=== PATIENT | female | born 1950 | race Caucasian/White ===

== ENCOUNTER → 2016-04-30 | Outpatient (CLI) | payer MEDICARE ==
--- NOTE | 2016-04-30 15:25 | XR ---
EXAMINATION TYPE: XR chest 2V DATE OF EXAM: 04/30/2016 12:52 PM COMPARISON: None HISTORY: 66-year-old female with COPD and shortness of breath TECHNIQUE: Frontal and lateral views FINDINGS: The heart is borderline enlarged. Atherosclerotic arch calcifications. Diffuse interstitial prominenc e. No consolidation or pleural effusion. Underlying scoliosis. IMPRESSION: Diffuse interstitial densities of unknown chronicity. Possible bronchitis or chronic asthma. Correlat e to exclude mild pulmonary vascular congestion.
--- NOTE | 2016-05-07 10:13 | MM ---
Reason for exam: screening (asymptomatic). Last mammogram was performed 2 years and 4 months ago. History: Patient is postmenopausal. Physical Findings: A clinical breast exam by your physician is recommended on an annual basis and results should be correlated with mammographic findings. MG 3D Screening Mammo W/Cad Bilateral CC and MLO view(s) were taken. Prior study comparison: December 20, 2013, mammogram, performed at [place]. March 08, 2012, mammogram, performed at [place]. Finding: There are coarse heterogeneous, grouped/clustered calcifications in the posterior position of the right breast seen on CC view. ASSESSMENT: Probably benign, BI-RAD 3 RECOMMENDATION: Follow-up diagnostic mammogram of the right breast in 6 months.
== END | disposition home or self-care (01) ==
LOC: RADMAMWWP 12:27
PROVIDERS: ATTEND Family Medicine
DX: Z12.31 Encounter for screening mammogram for malignant neoplasm of breast (principal); J98.4 Other disorders of lung; J44.9 Chronic obstructive pulmonary disease, unspecified
CPT/HCPCS: 71020; 77063; G0202

== ENCOUNTER → 2016-12-02 | Outpatient (CLI) | payer MEDICARE ==
[2016-12-02 12:45] VITALS: BP 109/50; PULSE 82; RESP 18; TEMP 98.2; BMI 62.4
[2016-12-02 13:45] LABS: EKG EKG PERFORMED
[2016-12-02 14:01] LABS: CH 32.4; CHCM 32.4; HCT 37.2 % (34.0-46.0); HDW 2.48; HGB 12.1 gm/dL (11.4-16.0); MCH 32.6 pg (25.0-35.0); MCHC 32.5 g/dL (31.0-37.0); MCV 100.3 fL (80.0-100.0); Mean Platelet Volume 8.7; RDW 13.5 % (11.5-15.5); WBC 10.2 k/uL (3.8-10.6)
[2016-12-02 14:26] LABS: ALT 27 U/L (9-52); AST 15 U/L (14-36); Alkaline Phosphatase 101 U/L (38-126); Anion Gap 10 mmol/L; Blood Urea Nitrogen 42 mg/dL (7-17); Carbon Dioxide 27 mmol/L (22-30); Chloride 104 mmol/L (98-107); Cholesterol 175 mg/dL (<200); Glucose 117 mg/dL (74-99); HDL Cholesterol 37 mg/dL (40-60); Iron 75 ug/dL (37-170); Non-African American GFR(MDRD) 50 (>60 ml/min/1.73 sqM); Potassium 4.8 mmol/L (3.5-5.1); Sodium 141 mmol/L (137-145); Total Bilirubin 0.3 mg/dL (0.2-1.3); Total Protein 6.5 g/dL (6.3-8.2)
[2016-12-02 14:35] LABS: % Iron Saturation 24.8 % (20-50); Total Iron Binding Capacity 302 ug/dL (265-497)
[2016-12-02 15:30] LABS: Vitamin B12 417 pg/mL
[2016-12-02 18:19] LABS: Hemoglobin A1C 7.2 % (4.2-6.1)
--- NOTE | 2017-01-09 04:07 | P.PN ---
Progress Note - Text DATE OF SERVICE: 12/02/2016 REASON FOR CONSULTATION: Initial bariatric evaluation. HISTORY OF PRESENT ILLNESS: Lilian Urrutia is a 67-year-old female travels from [place], [place] who presents with morbid obesity. Her highest weight was 401 pounds. Today she comes in weighing 340.5 pounds. At her height of 5 foot 2 inches, her ideal body weight is 135 pounds. She is 205 pounds overweight. Her highest body mass index was 73.5. Today her BMI is 62.4. As a result of her obesity, she has developed osteoarthritis of her bilateral knees requiring knee replacement. She reports bilateral hip pain. She has history of lifelong obesity including weight loss program in the fifth grade. She has tried curbing her appetite and was in [employer] where she lost up to 100 pounds however now regained. She reports moderate bruising from taking aspirin including from ibuprofen use.S he has developed comorbidities including hypertension and diabetes type 2. She has a family history of hypertension including morbid obesity. She has social support with her friends who also had bariatric surgery. She reports heartburn. She has family history of hypertension including morbid obesity however 3 of her sisters are of normal body habitus. She has a strong family history of gastrointestinal disease where her father at age of 37 from stomach cancer. Her father, mother and grandmother also had gastrointestinal issues. She has a nephew who has stage IV esophageal cancer. She also has gastroesophageal reflux disease in her family as well. She presents here today upon recommendation of her orthopedic provider the bariatric options. She is looking into the gastric bypass. PAST MEDICAL HISTORY: 1. Morbid obesity. 2. Body mass index of 73.5. 3. End-stage osteoarthritis of the bilateral knees. 4. Obstructive sleep apnea. 5. Osteoarthritis of the hips 6. Hypertensive heart disease. 7. Gastroesophageal reflux disease 8. Asthma 9. Chronic obstructive pulmonary disease. 10. Diabetes type 2, [id number]. 11. Hypothyroidism. 12. Depression. 13. Seasonal allergies. PAST SURGICAL HISTORY: 1. Umbilical hernia repair. 2. Hysterectomy. 3. Bilateral carpal tunnel surgery. 4. Left knee fracture. 5. Right wrist pinning. 6. Bilateral cataract extraction. 7. Carpal tunnel release, bilateral. HOME MEDICATIONS: 1. Ellipta inhaler 2. Oxybutinin. 3. Hiprex. 4. Zestoretic 5. Levothyroxine. 6. Lantus. 7. Advair. 8. Pepcid. 9. Prozac 10. Dymista 11. Ventolin inhaler. 12. Zyrtec. 13. Ibuprofen. 14. Aspirin. 15. Klor-Con. ALLERGIES: Denies. SOCIAL HISTORY: Past tobacco use. No active alcohol use. FAMILY HISTORY: No family history of ulcerative colitis disease or Crohn's disease. She does have a family history of morbid obesity. She denies any lupus in her family. She has family history of hypertension including morbid obesity however 3 of her sisters are of normal body habitus. She has a strong family history of gastrointestinal disease where her father at age of 37 from stomach cancer. Her father, mother and grandmother also had gastrointestinal issues. She has a nephew who has stage IV esophageal cancer. She also has gastroesophageal reflux disease in her family as well. Lung cancer in grandmother at 83. REVIEW OF ORGAN SYSTEMS: CONSTITUTIONAL: Her highest weight was 401 pounds. Today she comes in weighing 340.5 pounds. At her height of 5 foot 2 inches, her ideal body weight is 135 pounds. She is 205 pounds overweight. Her highest body mass index was 73.5. Today her BMI is 62.4. HEENT: Denies any active troubles with vision or hearing. No troubles with swallowing. ENDOCRINE: Has insulin dependent diabetes. Has hypothyroidism. CARDIOVASCULAR: No reports of palpitations or heart attacks or chest pain. History of hypertension. RESPIRATORY: Has daytime somnolence including snoring and sleep apnea. Has asthma. GI: Denies any bright red blood per rectum. Has constipation. Does have gastroesophageal reflux disease as described above. MUSCULOSKELETAL: Has lower back pain and joint pain. Has osteoarthritis of the hips and knees. NEURO: No eadaches. No seizure disorders. PSYCH: Has depression without suicidal ideation. RHEUMATOLOGIC: No lupus. No rheumatoid arthritis. HEMATOLOGIC: Has abnormal bruising. No personal history of DVTs. SKIN: No rash. No skin cancer. PHYSICAL EXAM: VITAL SIGNS: Height 5 foot 2 inches, weight 340.5 pounds. BMI 62.4 Vital Signs Temp 98.2 F 12/02/16 12:25 Pulse 82 12/02/16 12:25 Resp 18 12/02/16 12:25 BP 109/50 12/02/16 12:25 Pulse Ox 95 12/02/16 12:25 GENERAL: Well-developed female in no acute distress. HEENT: No scleral icterus. Extraocular movements grossly intact. Hears conversational speech. No nasal drainage. NECK: Supple without lymphadenopathy. Well-healed collar incision from previous thyroidectomy. CHEST: Nonlabored respirations with equal bilateral excursions. CARDIOVASCULAR: Regular rate. Distal 2+ pulses. ABDOMEN: Obese, soft, nontender, nondistended. Moderate sized pannus with panniculitis. Epigastric swelling with recurrent hernia. MUSCULOSKELETAL: No clubbing, cyanosis. Gross strength 5/5 distal lower extremities. 2+ bilateral edema of the pre-tibial area. NEURO: No focal or lateralizing signs. Cranial nerves 2 through 12 grossly within normal limits. PSYCH: Appropriate affect. Alert and oriented to person, place and time. SKIN: Good skin turgor. Well perfused. ASSESSMENT: 1. Morbid obesity. 2. Body mass index of 73.5 down to 62.4. 3. End-stage osteoarthritis of the bilateral knees. 4. Obstructive sleep apnea. 5. Osteoarthritis of the hips 6. Hypertensive heart disease. 7. Gastroesophageal reflux disease 8. Asthma 9. Chronic obstructive pulmonary disease. 10. Diabetes type 2, [id number]. 11. Hypothyroidism. 12. Depression. 13. Seasonal allergies. 14. Recurrent ventral hernia. 15. Panniculitis. 16. Family history of morbid obesity. 17. Family history of stomach cancer. 18. Family history of esophageal cancer. PLAN: 1. Surgical options including a band, gastric bypass, sleeve gastrectomy were described in detail. Alternatives such as gastric balloon including duodenal switch were described. 2. The [place] [facility] data and outcomes calculator were described with surgical options. 3. Recommend a bariatric metabolic panel to evaluate for micro- including macronutrient deficiencies. 4. For history of sleep apnea, recommend evaluation and treatment. 5. Dietary surveillance and counseling was reviewed, I have asked her to increase her protein intake to at least 70 grams daily. 6. Will need cardiac risk assessment. 7. Recommend medical risk assessment. 8. Psych assessment per insurance guidelines. 9. Follow up upon completion of upper endoscopy. 10. Recommend food journal. 11. She has worrisome history of possible recurrent ventral hernia including adhesions from previous hysterectomy. Recommend additional studies such as CT abdomen and pelvis and potentially diagnostic laparoscopy as she is evaluating for a gastric bypass. Thank you for this consultation. LABS: Laboratory Last Values WBC 10.2 k/uL (3.8-10.6) 12/02/16 13:39 RBC 3.70 m/uL (3.80-5.40) L 12/02/16 13:39 Hgb 12.1 gm/dL (11.4-16.0) 12/02/16 13:39 Hct 37.2 % (34.0-46.0) 12/02/16 13:39 MCV 100.3 fL (80.0-100.0) H 12/02/16 13:39 MCH 32.6 pg (25.0-35.0) 12/02/16 13:39 MCHC 32.5 g/dL (31.0-37.0) 12/02/16 13:39 RDW 13.5 % (11.5-15.5) 12/02/16 13:39 Plt Count 291 k/uL (150-450) 12/02/16 13:39 Sodium 141 mmol/L (137-145) 12/02/16 13:39 Potassium 4.8 mmol/L (3.5-5.1) 12/02/16 13:39 Chloride 104 mmol/L (98-107) 12/02/16 13:39 Carbon Dioxide 27 mmol/L (22-30) 12/02/16 13:39 Anion Gap 10 mmol/L 12/02/16 13:39 BUN 42 mg/dL (7-17) H 12/02/16 13:39 Creatinine 1.10 mg/dL (0.52-1.04) H 12/02/16 13:39 Est GFR (MDRD) Af Amer >60 (>60 ml/min/1.73 sqM) 12/02/16 13:39 Est GFR (MDRD) Non-Af 50 (>60 ml/min/1.73 sqM) 12/02/16 13:39 Glucose 117 mg/dL (74-99) H 12/02/16 13:[address] Glu mg/dL 160 mg/dL 12/02/16 13:39 Hemoglobin A1c 7.2 % (4.2-6.1) H 12/02/16 13:39 Calcium 9.0 mg/dL (8.4-10.2) 12/02/16 13:39 Iron 75 ug/dL (37-170) 12/02/16 13:39 TIBC 302 ug/dL (265-497) 12/02/16 13:39 % Saturation 24.8 % (20-50) 12/02/16 13:39 Ferritin 49 ng/mL (11-264) 12/02/16 13:39 Total Bilirubin 0.3 mg/dL (0.2-1.3) 12/02/16 13:39 AST 15 U/L (14-36) 12/02/16 13:39 ALT 27 U/L (9-52) 12/02/16 13:39 Alkaline Phosphatase 101 U/L (38-126) 12/02/16 13:39 Total Protein 6.5 g/dL (6.3-8.2) 12/02/16 13:39 Albumin 4.0 g/dL (3.5-5.0) 12/02/16 13:39 Triglycerides 199 mg/dL (<150) H 12/02/16 13:39 Cholesterol 175 mg/dL (<200) 12/02/16 13:39 LDL Cholesterol, Calc 98 mg/dL (0-99) 12/02/16 13:39 HDL Cholesterol 37 mg/dL (40-60) L 12/02/16 13:39 Vitamin B1 59 ug/L (38-122) 12/02/16 13:39 Vitamin B12 417 pg/mL 12/02/16 13:39 Vitamin D 25-Hydroxy 14.1 ng/mL (30.0-100.0) L 12/02/16 13:39 Folate 8.84 ng/mL 12/02/16 13:39 TSH 2.760 mIU/L (0.465-4.680) 12/02/16 13:39 EKG EKG PERFORMED 12/02/16 13:39
== END | disposition home or self-care (01) ==
LOC: BARWHC3 12:13
PROVIDERS: ATTEND Surgery Plastic and Reconstructive Surgery
DX: Z48.815 Encounter for surgical aftercare following surgery on the digestive system (principal); E66.01 Morbid (severe) obesity due to excess calories; M17.0 Bilateral primary osteoarthritis of knee; M16.0 Bilateral primary osteoarthritis of hip; G47.33 Obstructive sleep apnea (adult) (pediatric); K21.9 Gastro-esophageal reflux disease without esophagitis; I11.9 Hypertensive heart disease without heart failure; J45.909 Unspecified asthma, uncomplicated; J44.9 Chronic obstructive pulmonary disease, unspecified; E11.9 Type 2 diabetes mellitus without complications; E03.9 Hypothyroidism, unspecified; F32.9 Major depressive disorder, single episode, unspecified; J30.2 Other seasonal allergic rhinitis; K43.2 Incisional hernia without obstruction or gangrene; E44.0 Moderate protein-calorie malnutrition; D50.8 Other iron deficiency anemias; M79.3 Panniculitis, unspecified; Z80.8 Family history of malignant neoplasm of other organs or systems; Z68.44 Body mass index [BMI] 60.0-69.9, adult; Z98.84 Bariatric surgery status; Z79.899 Other long term (current) drug therapy; Z79.82 Long term (current) use of aspirin
CPT/HCPCS: 84425; 80061; 80053; 82607; 82728; 83036; 82746; 83540; 83550; 84443; 85027; 82306; 93005; 36415; G0463; 99211

== ENCOUNTER 2017-01-13 11:55 | Inpatient (IN) | payer MEDICARE ==
[2017-01-13 13:11] VITALS: BMI 64.0
[2017-01-13 14:51] LABS: Anion Gap 8 mmol/L; Blood Urea Nitrogen 25 mg/dL (7-17); Calcium 8.7 mg/dL (8.4-10.2); Carbon Dioxide 30 mmol/L (22-30); Chloride 106 mmol/L (98-107); Glucose 100 mg/dL (74-99); Non-African American GFR(MDRD) 57 (>60 ml/min/1.73 sqM); Potassium 4.2 mmol/L (3.5-5.1); Sodium 144 mmol/L (137-145)
[2017-01-13 15:00] LABS: Basophils # (A) 0.1 k/uL (0-0.2); Basophils % (A) 0 %; CHCM 30.8; Eosinophils # (A) 0.4 k/uL (0-0.7); Eosinophils % (A) 4 %; HCT 37.2 % (34.0-46.0); HDW 2.76; HGB 11.6 gm/dL (11.4-16.0); Hypochromasia Moderate; Luc # (Auto) 0.21; Luc % (Auto) 2; Lymphocytes # (A) 2.4 k/uL (1.0-4.8); Lymphocytes % (A) 23 %; MCH 31.4 pg (25.0-35.0); MCHC 31.1 g/dL (31.0-37.0); MCV 101.1 fL (80.0-100.0); Macrocytosis Slight; Mean Platelet Volume 7.8; Monocytes # (A) 0.6 k/uL (0-1.0); Monocytes % (A) 6 %; Neutrophils # (A) 6.7 k/uL (1.3-7.7); Neutrophils % (A) 65 %; RBC 3.68 m/uL (3.80-5.40); RDW 13.5 % (11.5-15.5); WBC 10.4 k/uL (3.8-10.6); WBC (Perox) 10.38
[2017-01-13] MEDS: DILTIAZEM 125 MG in SODIUM CHLORIDE 0.9% 100 ML IV SCH (15:38)
[2017-01-13] MEDS ORDERED: HEPARIN SODIUM,PORCINE 5,000 UNIT/ML 1 ML VIAL IV PRN (16:11)
[2017-01-13] MEDS ORDERED: HEPARIN SODIUM,PORCINE 5,000 UNIT/ML 1 ML VIAL IV ONE (16:11)
[2017-01-13] MEDS ORDERED: HEPARIN SODIUM,PORCINE/D5W PMX 25,000 UNIT in DEXTROSE/WATER 1 500ML.BAG IV SCH (16:15)
[2017-01-13 16:40] LABS: INR 1.1 (<1.2); Partial Thromboplastin Time 25.5 sec (22.0-30.0); Prothrombin Time 10.8 sec (9.0-12.0)
[2017-01-13 16:51] LABS: Glucose,Whole Blood 163 mg/dL (75-99)
[2017-01-13 17:03] VITALS: RESP 18
[2017-01-13] MEDS ORDERED: Acetaminophen-Codeine 300-30mg TAB PO PRN (18:23)
--- NOTE | 2017-01-13 20:28 | HP ---
HISTORY AND PHYSICAL DATE OF ADMISSION: 01/13/17. PRESENT COMPLAINT: Dizzy. HISTORY OF PRESENT COMPLAINT: A very pleasant, 67-year-old patient of Dr. Morris. Chronic stable medical conditions include COPD, diabetes, GERD, osteoarthritis, sleep apnea uses CPAP machine, hypothyroidism. The patient has not followed up with Dr. Morris for a few months. Has been out of her medications including blood pressure medications. Went for routine checkup today. She was discovered to have a increased heart rate and low blood pressure. EKG reveals patient to be in atrial flutter fibrillation. Increased heart rate. Dr. Sarah Cedeno from Cardiology admitted the patient directly to the cardiac floor. The patient is started on IV Cardizem drip, IV heparin. Denies any chest pain or palpitation. REVIEW OF SYSTEMS: Constitutional: Tired. HEENT none. Respiratory: Baseline short of breath. CARDIOVASCULAR: As above gastrointestinal: Heartburn. GENITOURINARY: Urine incontinence. DERMATOLOGICAL: None. Hematological: None. LYMPHATIC: None. Psychiatric: None. Neurological: None. PAST MEDICAL HISTORY: COPD, diabetes, GERD, osteoarthritis, obstructive sleep apnea, hypothyroid, depression, not treated. PAST SURGICAL HISTORY: Hernia repair. Hysterectomy, umbilical hernia repair. Bilateral carpal tunnel. Left cataract. PAST PSYCH HISTORY: Depression. SOCIAL HISTORY: Patient smoked for about 15 years. Stopped 30 years ago. The patient is a , lives by herself. FAMILY HISTORY: Lung cancer. HOME MEDICATIONS: 1. Zestoretic 20/12.5, 1 tablet p.o. daily. 2. Advair 250/50 one puff b.i.d. 3. Ventolin HFA 1 or 2 puffs q.6h p.r.n. 4. Intrusilipta 1 puff daily. 5. Zocor 20 mg q.h.s. 6. Potassium 10 mEq p.o. daily. 7. Oxybutynin 15 mg p.o. b.i.d. 8. Hiprex 1 g p.o. b.i.d. 9. Terasin 75 mcg p.o. daily. 10.Lantus 28 units subcutaneously daily. 11.Ibuprofen 800 mg p.o. b.i.d. 12.Pepcid 20 mg b.i.d. 13.Dimesta 137 mcg b.i.d. 14.Zyrtec 10 mg p.o. daily. 15.Aspirin 325 p.o. daily. ALLERGIES: None. PHYSICAL EXAMINATION: Vital signs on presentation: Temperature 97.2, pulse 139, respiration 18, blood pressure 130/71, pulse ox 97% on room air. GENERAL APPEARANCE: Morbidly obese. BMI 64.1, sitting up, not in distress. EYES: Pupils equal. Conjunctivae normal. HEENT: Oral cavity normal. Neck: Short neck, thick JVD unable to assess. Respiratory effort increased. Lungs distant breath sounds. Cardiovascular HEART: Sounds muffled. Minimal edema. Abdomen distended. Large panniculus. Liver and spleen not palpable. Lymphatics: No lymph nodes palpable in the neck and axilla. Psychiatry alert x3. Mood and affect normal. Neurological: Pupils equal. Cranial nerves grossly intact. Power and sensation grossly intact. INVESTIGATIONS: White count 10.5, hemoglobin 11.6, potassium 4.2, BUN 25, creatinine 0.98. TSH is normal. ASSESSMENT: 1. Atrial flutter fibrillation. New onset. May be newly diagnosed though this first discovered on routine recheck, the patient may have had for quite some time. 2. Chronic obstructive pulmonary disease in an ex-smoker. 3. Diabetes mellitus type 2, chronically on insulin. 4. Gastroesophageal reflux disease. 5. Morbid obesity. BMI 64.1. 6. Primary osteoarthritis multiple joints, bilaterally. 7. Obstructive sleep apnea uses CPAP machine. 8. Hypothyroid. 9. IV heparin monitoring. PLAN: Patient is put on IV heparin. Cardizem. Home medications were resumed. Given that the patient will need anticoagulation will DC patient's Motrin and use Tylenol 3 for arthritic pain. Cardiology is consulted. We will also order a 2-D echocardiogram. Care was discussed with the patient. Will have the dietitian see the patient for weight loss. Copy to Dr. Morris. MMKITAL / IJN: [id number] /
[2017-01-13] MEDS: SYMBICORT 80-4.5 MCG INHALER INHALATION SCH (20:53)
[2017-01-13 20:54] LABS: Glucose,Whole Blood 125 mg/dL (75-99)
[2017-01-13] MEDS: ALBUTEROL NEBULIZED 2.5 MG/3 ML INHALATION PRN (20:54)
[2017-01-13] MEDS: FLUTICASONE 50MCG/SPRAY NASAL 16GM NASAL SCH (20:54)
[2017-01-13] MEDS: AZELASTINE 137MCG/SPRAY NASAL SCH (20:54)
[2017-01-13] MEDS: ATORVASTATIN 10 MG TAB PO SCH (20:55)
[2017-01-13] MEDS: FAMOTIDINE 20 MG TAB PO SCH (20:55)
[2017-01-13] MEDS: OXYBUTYNIN 15 MG TAB.ER.24 PO SCH (20:55)
[2017-01-13] MEDS ORDERED: NON-FORMULARY DRUG (Methenamine Hippurate [Hiprex] 1 GM) PO SCH (21:00)
[2017-01-14 06:09] LABS: Basophils # (A) 0.1 k/uL (0-0.2); Basophils % (A) 1 %; CHCM 31.6; Eosinophils # (A) 0.5 k/uL (0-0.7); Eosinophils % (A) 5 %; HCT 38.3 % (34.0-46.0); HDW 2.78; HGB 11.8 gm/dL (11.4-16.0); Hypochromasia Slight; Luc # (Auto) 0.19; Luc % (Auto) 2; Lymphocytes # (A) 2.8 k/uL (1.0-4.8); Lymphocytes % (A) 31 %; MCH 31.3 pg (25.0-35.0); MCHC 30.8 g/dL (31.0-37.0); MCV 101.7 fL (80.0-100.0); Macrocytosis Slight; Monocytes # (A) 0.5 k/uL (0-1.0); Monocytes % (A) 5 %; Neutrophils # (A) 5.2 k/uL (1.3-7.7); Neutrophils % (A) 57 %; RBC 3.77 m/uL (3.80-5.40); RDW 14.4 % (11.5-15.5); WBC 9.1 k/uL (3.8-10.6); WBC (Perox) 11.19
[2017-01-14 06:16] LABS: Glucose,Whole Blood 126 mg/dL (75-99)
[2017-01-14] MEDS: LEVOTHYROXINE 75 MCG TAB PO SCH (06:18)
[2017-01-14 06:21] LABS: ALT 40 U/L (9-52); AST 20 U/L (14-36); Alkaline Phosphatase 84 U/L (38-126); Anion Gap 11 mmol/L; Blood Urea Nitrogen 25 mg/dL (7-17); Calcium 8.8 mg/dL (8.4-10.2); Carbon Dioxide 25 mmol/L (22-30); Chloride 106 mmol/L (98-107); Glucose 128 mg/dL (74-99); Non-African American GFR(MDRD) >60 (>60 ml/min/1.73 sqM); Potassium 4.4 mmol/L (3.5-5.1); Sodium 142 mmol/L (137-145); Total Bilirubin 0.4 mg/dL (0.2-1.3); Total Protein 6.1 g/dL (6.3-8.2)
[2017-01-14] MEDS: DILTIAZEM 125 MG in SODIUM CHLORIDE 0.9% 100 ML IV SCH ×2 (06:46→17:19)
[2017-01-14] MEDS: SYMBICORT 80-4.5 MCG INHALER INHALATION SCH ×2 (08:16→19:58)
[2017-01-14] MEDS: IPRATROPIUM 0.5 MG/2.5 ML NEBU INHALATION SCH ×4 (08:16→19:58)
[2017-01-14] MEDS: AZELASTINE 137MCG/SPRAY NASAL SCH ×2 (08:53→20:00)
[2017-01-14] MEDS: FLUTICASONE 50MCG/SPRAY NASAL 16GM NASAL SCH ×2 (08:53→20:00)
[2017-01-14] MEDS: LISINOPRIL-HCTZ 20-12.5 MG 1 EACH TAB PO SCH (08:54)
[2017-01-14] MEDS: FAMOTIDINE 20 MG TAB PO SCH (08:54)
[2017-01-14] MEDS: OXYBUTYNIN 15 MG TAB.ER.24 PO SCH ×2 (08:55→20:00)
[2017-01-14] MEDS: POTASSIUM CHLORIDE ER 10 MEQ TAB.ER.PRT PO SCH (08:55)
[2017-01-14] MEDS: LORATADINE 10 MG TAB PO SCH (08:55)
[2017-01-14] MEDS ORDERED: INSULIN GLARGINE 100 UNIT/ML 10 ML VIAL SQ SCH ×2 (09:00→21:00)
[2017-01-14] MEDS ORDERED: ASPIRIN 325 MG TAB PO SCH (09:00)
--- NOTE | 2017-01-14 09:32 | ECHOF ---
Referral Reason:af MEASUREMENTS -------- HEIGHT: 157.5 cm WEIGHT: 158.8 kg BP: 139/86 RVIDd: 3.0 cm (< 3.3) IVSd: 1.3 cm (0.6 - 1.1) LVIDd: 3.9 cm (3.9 - 5.3) LVPWd: 1.3 cm (0.6 - 1.1) EDV(Teich): 64 ml IVSs: 1.9 cm LVIDs: 2.1 cm LVPWs: 1.9 cm %IVS Thck: 49 % ESV(Teich): 15 ml EF(Teich): 77 % %FS: 45 % SV(Teich): 49 ml LALs A4C: 5.7 cm LAAs A4C: 19.1 cm LAESV A-L A4C: 54 ml LAESV MOD A4C: 52 ml LALs A2C: 5.5 cm LAAs A2C: 20.9 cm LAESV A-L A2C: 68 ml LAESV MOD A2C: 64 ml LAESV(A-L): 62 ml LAESV Index (A-L): 25.45 ml/m Ao Diam: 3.3 cm (2.0 - 3.7) AV Cusp: 1.6 cm (1.5 - 2.6) LA Diam: 2.8 cm (2.7 - 3.8) MV EXCURSION: 16.594 mm (> 18.000) MV EF SLOPE: 80 mm/s (70 - 150) EPSS: 0.4 cm E': 0.11 m/s AV Vmax: 1.34 m/s AV maxP.23 mmHg TR Vmax: 3.21 m/s TR maxP.26 mmHg RAP: 5.00 mmHg RVSP: 46.26 mmHg FINDINGS -------- Sinus rhythm with extra systolic beats. This was a technically adequate study. The left ventricular size is normal. There is mild concentric left ventricular hypertrophy. Overall left ventricular systolic function is normal with, an EF between 55 - 60 %. The right ventricle is normal in size and function. Normal LA size by volume 22+/-6 ml/m2. The right atrium is normal in size. Aortic valve is trileaflet and is mildly thickened. There is no evidence of aortic regurgitation. There is no evidence of aortic stenosis. The mitral valve leaflets are mildly thickened. There is trace to mild mitral regurgitation. Mild tricuspid regurgitation present. There is mild pulmonary hypertension. The right ventricular systolic pressure, as measured by Doppler, is 46.26mmHg. The pulmonic valve was not well visualized. The aortic root size is normal. Normal inferior vena cava with normal inspiratory collapse consistent with estimated right atrial pressure of 5 mmHg. The pericardium is normal. There is no pericardial effusion. CONCLUSIONS -------- 1. Sinus rhythm with extra systolic beats. 2. Mild tricuspid regurgitation present. 3. There is mild pulmonary hypertension. 4. The right ventricular systolic pressure, as measured by Doppler, is 46.26mmHg. 5. The pulmonic valve was not well visualized. 6. The aortic root size is normal. 7. There is no pericardial effusion. 8. This was a technically adequate study. 9. The left ventricular size is normal. 10. There is mild concentric left ventricular hypertrophy. 11. Overall left ventricular systolic function is normal with, an EF between 55 - 60 %. 12. Normal LA size by volume 22+/-6 ml/m2. 13. Aortic valve is trileaflet and is mildly thickened. 14. The mitral valve leaflets are mildly thickened. 15. There is trace to mild mitral regurgitation. DISEASE CONTROL INSPECTOR: Matty Andres RDCS
[2017-01-14] MEDS: APIXABAN 5 MG TAB PO SCH ×2 (11:55→20:00)
[2017-01-14] MEDS: METOPROLOL TARTRATE 25 MG TAB PO SCH ×3 (11:56→19:59)
[2017-01-14 12:02] LABS: Glucose,Whole Blood 125 mg/dL (75-99)
[2017-01-14] MEDS ORDERED: FUROSEMIDE 10 MG/ML 4 ML VIAL IV STA (12:21)
--- NOTE | 2017-01-14 13:08 | P.PN ---
Progress Note - Text Progress Note Date: 01/14/17 DATE OF SERVICE: 01/14/2017 PRESENTING COMPLAINT: dizziness HISTORY OF PRESENT ILLNESS: 67-year-old female went to her primary care physician for routine follow-up found to have increased heart rate low blood pressure, EKG revealed atrial flutter fibrillation. Patient directly admitted by power bender operator Elijah Cedeno for the same. INTERVAL HISTORY: 01/14/2017: Patient sitting up in bed appears comfortable. Heparin drip and Cardizem drip continue heart rate remains uncontrolled in the 110-130 range. States she feels fine. Tolerating her diet, ambulatory to and from the bathroom. REVIEW OF SYSTEMS: Done for constitutional ,cardiovascular, GI, pulmonary with relevant findings as above. CURRENT MEDICATIONS Apixaban 5 mg by mouth twice a day, Lipitor 10 mg by mouth at bedtime, diltiazem IV, Pepcid 20 by mouth daily, Zestoretic 20/12.5 mg by mouth daily, Synthroid 75 g by mouth daily Lopressor 25 mg by mouth 3 times a day, to [place] 15 mg by mouth twice a day potassium chloride 10 mg once by mouth daily. PHYSICAL EXAM VITAL SIGNS: temperature 97.6, heart rate 102, respiratory rate 18, blood pressure 139/86, oxygen saturation 96% on room air. GENERAL APPEARANCE: .sitting up in bed, not in distress. EYES: Pupils equal. Conjunctiva normal. NECK: JVD not raised. Mass not palpable. RESPIRATORY: Respiratory effort normal. Lungs clear to auscultation. CARDIOVASCULAR: First and second sounds normal. No edema. ABDOMEN: Soft. Liver and spleen not palpable. No tenderness. No mass palpable. PSYCHIATRY: Alert and oriented x3. Mood and affect normal. INVESTIGATIONS: hemoglobin 11.8, BUN 25 creatinine 0.90 Accu-Cheks noted. echocardiogram:sinus rhythm with extra systolic beats, EF between 55 and 60%, mitral and tricuspid regurgitation, mild pulmonary hypertension. ASSESSMENT: -persistent atrial flutter fibrillation, on Cardizem drip -Chronic obstructive pulmonate disease in ex-smoker. -diabetes mellitus type 2 chronically on insulin. -Gastroesophageal reflux disease. -Morbid obesity BMI 64.1. -Primary osteoarthritis multiple joints bilaterally. -Obstructive sleep apnea uses CPAP machine. -Hypothyroidism. -IV heparin monitoring. PLAN: we'll continue heparin drip, Cardizem dripfor rate control per cardiology, checking coverage for Eliquis will switch the soonest coverage determined.plan of care discussed with the patient at the bedside we will continue to monitor closely. FORESTRY ADVISER statement: Patient was seen and examined by nurse practitioner Brigitte Hunt and all elements of the case discussed with attending Dr. Munoz
--- NOTE | 2017-01-14 14:40 | P.PN ---
Subjective Progress Note Date: 01/14/17 Principal diagnosis: Atrial flutter with RVR This is a pleasant 67-year-old female with history of COPD, diabetes, hypertension, dyslipidemia and morbid obesity. She was sent to see Dr. Cedeno yesterday by her primary care physician because of her rapid heart rate, dizziness and shortness of breath. She was found to be in atrial flutter with a rapid ventricular response. He was directly admitted to [facility] care and placed on a Cardizem drip, currently at 7.5 mg an hour and a heparin drip. TSH was normal. She underwent echocardiogram that showed a preserved LV systolic function with a dilated right ventricle. Upon examination this morning, patient is sitting up in a chair. She remains tachycardic. She is feeling well this morning. She denies complaints of shortness of breath, dizziness, chest discomfort. She does have complaints of lower extremity edema that seems to be chronic Objective - Vital Signs Vital signs: Vital Signs Temp 97.2 F L 01/14/17 11:30 Pulse 130 H 01/14/17 11:30 Resp 18 01/14/17 11:30 BP 140/80 01/14/17 11:30 Pulse Ox 96 01/14/17 11:30 Intake & Output 01/13/17 01/14/17 01/14/17 18:59 06:59 18:59 Intake Total 840 883.940 730 Balance 840 883.940 730 Weight 159 kg 158.9 kg 158.9 kg Intake: Intake, IV Titration 403.940 Amount Diltiazem 125 mg In 94.417 Sodium Chloride 0.9% 100 ml @ 5 MG/HR 5 mls/hr IV .Q24H MICHELLE Rx#:[id number] Heparin Sodium,Porcine/ 309.523 D5w Pmx 25,000 unit In Dextrose/Water 1 500ml. bag @ 6.3 UNITS/KG/HR 20. 03 mls/hr IV .Q24H MICHELLE Rx #:[id number] Oral [phone] Other: Voiding Method Toilet Toilet Diaper Diaper # Voids 2 2 - Exam PHYSICAL EXAMINATION: HEENT: Head is atraumatic, normocephalic. Pupils equal, round. Neck is supple. There is no elevated jugular venous pressure. HEART EXAMINATION: Heart sounds regular, S1 and S2 normal. No murmur or gallop heard. Tachycardia noted. CHEST EXAMINATION: Lungs reveal diminished air entry with expiratory wheezing throughout. No chest wall tenderness is noted on palpation or with deep breathing. ABDOMEN: Soft, nontender. Bowel sounds are heard. No organomegaly noted. EXTREMITIES: 1+ peripheral pulses with evidence of +1 peripheral edema and no calf tenderness noted. NEUROLOGIC patient is awake, alert and oriented x3. - Labs CBC & Chem 7: 01/14/17 05:33 01/14/17 05:33 Labs: Abnormal Lab Results - Last 24 Hours (Table) 01/13/17 01/13/17 01/13/17 Range/Units 14:05 14:05 16:27 RBC 3.68 L (3.80-5.40) m/uL MCV 101.1 H (80.0-100.0) fL MCHC (31.0-37.0) g/dL APTT (22.0-30.0) sec BUN 25 H (7-17) mg/dL Glucose 100 H (74-99) mg/dL POC Glucose (mg/dL) 163 H (75-99) mg/dL Total Protein (6.3-8.2) g/dL 01/13/17 01/13/17 01/14/17 Range/Units 20:52 22:08 05:33 RBC 3.77 L (3.80-5.40) m/uL MCV 101.7 H (80.0-100.0) fL MCHC 30.8 L (31.0-37.0) g/dL APTT 36.5 H (22.0-30.0) sec BUN (7-17) mg/dL Glucose (74-99) mg/dL POC Glucose (mg/dL) 125 H (75-99) mg/dL Total Protein (6.3-8.2) g/dL 01/14/17 01/14/17 01/14/17 Range/Units 05:33 05:33 06:04 RBC (3.80-5.40) m/uL MCV (80.0-100.0) fL MCHC (31.0-37.0) g/dL APTT 41.8 H (22.0-30.0) sec BUN 25 H (7-17) mg/dL Glucose 128 H (74-99) mg/dL POC Glucose (mg/dL) 126 H (75-99) mg/dL Total Protein 6.1 L (6.3-8.2) g/dL 01/14/17 Range/Units 12:00 RBC (3.80-5.40) m/uL MCV (80.0-100.0) fL MCHC (31.0-37.0) g/dL APTT (22.0-30.0) sec BUN (7-17) mg/dL Glucose (74-99) mg/dL POC Glucose (mg/dL) 125 H (75-99) mg/dL Total Protein (6.3-8.2) g/dL Assessment and Plan Plan: Assessment and plan #1 newly diagnosed atrial flutter with rapid ventricular response, likely persistent #2 COPD #3 diabetes #4 hypertension #5 hyperlipidemia #6 morbid obesity From Cardiology's perspective, we will stop IV heparin and start the patient on Eliquis 5 mg by mouth twice a day. We will give the patient 10 mg IV bolus of Cardizem and increase drip to 10 mg an hour. We will start her on metoprolol 25 mg by mouth 3 times a day. Further recommendations to follow depending on her clinical progress. MANAGER OF NETWORK note has been reviewed, I agree with a documented findings and plan of care. Patient was seen and examined.
[2017-01-14 17:07] LABS: Glucose,Whole Blood 130 mg/dL (75-99)
--- NOTE | 2017-01-14 18:23 | PN ---
PROGRESS NOTE DATE OF SERVICE: 01/14/2017 ATTENDING NOTE: This patient was seen and examined by me. I discussed the case with my nurse practitioner, Ms. Hunt. Patient was admitted with hypotension and atrial flutter/fibrillation, new diagnosis. Heart rate is still about in the 110s. Feels a bit tired. Remains on IV Cardizem and IV heparin. PHYSICAL EXAMINATION: On examination, temperature 97.2, pulse up to 130, blood pressure 130/78. Heart sounds irregular. LUNGS: Distant breath sounds. Potassium 4.4. ASSESSMENT: 1. Persistent atrial flutter/fibrillation, uncontrolled. 2. IV heparin monitoring. PLAN: Continue current medication and treatment plan. Care was discussed with the patient. The patient is also on beta rita. Also started on Eliquis. MMODL / IJN: [id number] /
[2017-01-14] MEDS: ALBUTEROL NEBULIZED 2.5 MG/3 ML INHALATION PRN (19:58)
[2017-01-14] MEDS: ATORVASTATIN 10 MG TAB PO SCH (20:00)
[2017-01-14 20:26] LABS: Glucose,Whole Blood 131 mg/dL (75-99)
[2017-01-15] MEDS: DILTIAZEM 125 MG in SODIUM CHLORIDE 0.9% 100 ML IV SCH (03:38)
[2017-01-15 05:55] LABS: Glucose,Whole Blood 132 mg/dL (75-99)
[2017-01-15] MEDS: LEVOTHYROXINE 75 MCG TAB PO SCH (06:16)
[2017-01-15 06:43] LABS: Basophils # (A) 0.1 k/uL (0-0.2); Basophils % (A) 1 %; CH 31.4; CHCM 31.6; Eosinophils # (A) 0.5 k/uL (0-0.7); Eosinophils % (A) 4 %; HCT 38.4 % (34.0-46.0); HDW 2.91; HGB 12.3 gm/dL (11.4-16.0); Hypochromasia Slight; Luc # (Auto) 0.21; Luc % (Auto) 2; Lymphocytes # (A) 3.1 k/uL (1.0-4.8); Lymphocytes % (A) 25 %; MCH 31.9 pg (25.0-35.0); MCHC 31.9 g/dL (31.0-37.0); Macrocytosis Slight; Mean Platelet Volume 8.5; Monocytes # (A) 0.8 k/uL (0-1.0); Monocytes % (A) 6 %; Neutrophils # (A) 7.8 k/uL (1.3-7.7); Neutrophils % (A) 62 %; RBC 3.84 m/uL (3.80-5.40); RDW 13.8 % (11.5-15.5); WBC 12.5 k/uL (3.8-10.6)
[2017-01-15 06:44] LABS: Calcium 8.9 mg/dL (8.4-10.2); Potassium 4.8 mmol/L (3.5-5.1)
[2017-01-15] MEDS: ALBUTEROL NEBULIZED 2.5 MG/3 ML INHALATION PRN (07:50)
[2017-01-15] MEDS: SYMBICORT 80-4.5 MCG INHALER INHALATION SCH (07:50)
[2017-01-15] MEDS: IPRATROPIUM 0.5 MG/2.5 ML NEBU INHALATION SCH (07:50)
[2017-01-15] MEDS ORDERED: FAMOTIDINE 20 MG TAB PO SCH (09:00)
[2017-01-15] MEDS: LISINOPRIL-HCTZ 20-12.5 MG 1 EACH TAB PO SCH (09:10)
[2017-01-15] MEDS: METOPROLOL TARTRATE 25 MG TAB PO SCH (09:10)
[2017-01-15] MEDS: AZELASTINE 137MCG/SPRAY NASAL SCH (09:11)
[2017-01-15] MEDS: APIXABAN 5 MG TAB PO SCH (09:11)
[2017-01-15] MEDS: FLUTICASONE 50MCG/SPRAY NASAL 16GM NASAL SCH (09:11)
[2017-01-15] MEDS: POTASSIUM CHLORIDE ER 10 MEQ TAB.ER.PRT PO SCH (09:12)
[2017-01-15] MEDS: OXYBUTYNIN 15 MG TAB.ER.24 PO SCH (09:12)
[2017-01-15] MEDS: LORATADINE 10 MG TAB PO SCH (09:12)
[2017-01-15] MEDS ORDERED: LISINOPRIL-HCTZ 10-12.5 MG 1 EACH TAB PO SCH (09:30)
--- NOTE | 2017-01-15 10:35 | P.PN ---
Subjective Progress Note Date: 01/15/17 Principal diagnosis: Atrial flutter with RVR This is a pleasant 67-year-old female with history of COPD, diabetes, hypertension, dyslipidemia and morbid obesity. She was sent to see Dr. Cedeno yesterday by her primary care physician because of her rapid heart rate, dizziness and shortness of breath. She was found to be in atrial flutter with a rapid ventricular response. He was directly admitted to selective care and placed on a Cardizem drip, currently at 7.5 mg an hour and a heparin drip. TSH was normal. She underwent echocardiogram that showed a preserved LV systolic function with a dilated right ventricle. She was started on metoprolol tartrate 25 mg by mouth 3 times a day and Cardizem drip was increased yesterday to 10 after 10 mg bolus. This afternoon patient converted to sinus rhythm and Cardizem was discontinued. Patient maintains sinus rhythm at this time. Her renal function is up today with a BUN of 35 and creatinine 1.5. Blood pressure is running on the low side. Upon examination this morning, patient is sitting up in a chair. She feels quite a bit better. She said that the brick that was on her chest is gone and she feels this is related to nebulized treatments that she's been getting. Patient also admits to not wearing her CPAP that she had at home for at least one year. Objective - Vital Signs Vital signs: Vital Signs Temp 97.0 F L 01/15/17 08:20 Pulse 57 L 01/15/17 08:20 Resp 18 01/15/17 08:20 BP 90/46 01/15/17 08:20 Pulse Ox 94 L 01/15/17 08:20 Intake & Output 01/14/17 01/15/17 01/15/17 18:59 06:59 18:59 Intake Total 1210 200 Balance 1210 200 Weight 158.9 kg 160.3 kg Intake: Oral 1210 200 Other: Voiding Method Toilet Diaper # Voids 1 1 1 - Exam PHYSICAL EXAMINATION: HEENT: Head is atraumatic, normocephalic. Pupils equal, round. Neck is supple. There is no elevated jugular venous pressure. HEART EXAMINATION: Heart sounds regular, S1 and S2 normal. No murmur or gallop heard. CHEST EXAMINATION: Lungs reveal diminished air entry with expiratory wheezing throughout. No chest wall tenderness is noted on palpation or with deep breathing. ABDOMEN: Soft, obese, nontender. Bowel sounds are heard. No organomegaly noted. EXTREMITIES: 1+ peripheral pulses with evidence of +1 peripheral edema and no calf tenderness noted. NEUROLOGIC patient is awake, alert and oriented x3. - Labs CBC & Chem 7: 01/15/17 06:05 01/15/17 06:05 Labs: Abnormal Lab Results - Last 24 Hours (Table) 01/14/17 01/14/17 01/14/17 Range/Units 12:00 17:04 20:24 WBC (3.8-10.6) k/uL Neutrophils # (1.3-7.7) k/uL BUN (7-17) mg/dL Creatinine (0.52-1.04) mg/dL Glucose (74-99) mg/dL POC Glucose (mg/dL) 125 H 130 H 131 H (75-99) mg/dL 01/15/17 01/15/17 01/15/17 Range/Units 05:51 06:05 06:05 WBC 12.5 H (3.8-10.6) k/uL Neutrophils # 7.8 H (1.3-7.7) k/uL BUN 35 H (7-17) mg/dL Creatinine 1.50 H (0.52-1.04) mg/dL Glucose 128 H (74-99) mg/dL POC Glucose (mg/dL) 132 H (75-99) mg/dL Assessment and Plan Plan: Assessment and plan #1 newly diagnosed atrial flutter with rapid ventricular response, likely persistent #2 COPD #3 diabetes #4 hypertension #5 hyperlipidemia #6 morbid obesity From Cardiology's perspective, we will decrease lisinopril/hydrochlorothiazide to 10-12.5mg daily. Patient will be discharged home on metoprolol 25 mg by mouth twice a day. We'll have a follow-up BMP in 1 week. She'll follow-up with Dr. Cedeno in 3 weeks. I discussed with the patient importance of regular use of her CPAP. TRANSMITTER ENGINEER IN CHARGE note has been reviewed, I agree with a documented findings and plan of care. Patient was seen and examined.
[2017-01-15] MEDS ORDERED: INFLUENZA VACCINE (6 MOS+) 60 MCG/0.5 ML SYRINGE IM ONE (11:19)
[2017-01-15 11:22] VITALS: BP 105/75; PULSE 59; TEMP 97.5
--- NOTE | 2017-01-15 15:29 | P.PN ---
Progress Note - Text Progress Note Date: 01/15/17 FINAL DIAGNOSES: -Paroxysmal atrial flutter fibrillation, now in sinus rhythm -Chronic obstructive pulmonate disease in ex-smoker. -diabetes mellitus type 2 chronically on insulin. -Gastroesophageal reflux disease. -Morbid obesity BMI 64.1. -Primary osteoarthritis multiple joints bilaterally. -Obstructive sleep apnea uses CPAP machine. -Hypothyroidism. -IV heparin monitoring HOSPTIAL COURSE: 67-year-old female presented to her primary care physician for routine follow- up was found to have increased heart rate low blood pressure EKG revealed atrial flutter/fibrillation, patient was sent directly by logistics/shipper Elijah Cedeno and was admitted for the same. Home medications resumed, heparin drip and Cardizem drip initiated cardiology consulted. TSH was normal. Underwent echocardiogram. Started on metoprolol, Cardizem drip was increased and patient converted to sinus rhythm Cardizem was subsequently discontinued. Patient noted to have elevated renal function and lisinopril/hydrochlorothiazide decreased to 10/12.5 mg daily. Anticoagulation needs will be met with Ellie. Should have follow-up basic metabolic panel in a week. Patient has a history of COPD uses inhalers, noted to have better efficacy of medication with nebulized breathing treatments she will be sent home with nebulizer and duo nebs occasion. Patient's tolerating her diet ambulatory in the room and paul[address] ways heart rate remains in normal sinus rhythm, condition stable and appropriate for discharge. PHYSICAL EXAM: CARDIOVASCULAR: First and second sound noted no edema RESPIRATORY: Respiratory effort normal, lung sounds diminished bilaterally, PSYCHIATRY: Alert and oriented 3 mood and affect normal. Patient was seen and examined by nurse practitioner Brigitte Hunt in all elements of the case discussed with attending Dr. Munoz DISPOSITION: Home to the care of her family
--- NOTE | 2017-01-15 18:41 | DS ---
DISCHARGE SUMMARY DATE OF SERVICE: 01/15/2017 ATTENDING NOTE: This patient was seen and examined by me. I discussed the case with my nurse practitioner, Ms. Hunt. The patient is doing well. Patient has converted to sinus rhythm. No chest pain or shortness of breath. PHYSICAL EXAMINATION: LUNGS: Distant breath sounds. CARDIOVASCULAR: Heart sounds distant. Creatinine is 1.5. Care was discussed with the patient. Patient is going home. Dose of SUSAN inhibitor has been cut back. Patient's ibuprofen was discontinued. The patient will check her blood pressure daily and have a BMP checked soon. Keep an eye on the renal function. Patient has been put on Eliquis. MMODL / IJN: [id number] /
--- NOTE | 2017-01-15 20:46 | P.DS ---
Providers Date of admission: 01/13/17 12:26 Expected date of discharge: 01/15/17 Attending physician: Arnold Munoz Consults: 01/13/17 18:38 Consult Physician Routine Consulting Provider: Matteo Sam Consult Reason/Comments: Direct from Cardiology Do you want consulting provider notified?: Already Contacted Primary care physician: Kel [facility] Course: : FINAL DIAGNOSES: -Paroxysmal atrial flutter fibrillation, now in sinus rhythm -Acute renal failure, prerenal secondary to IV Lasix administration -Chronic obstructive pulmonate disease in ex-smoker. -diabetes mellitus type 2 chronically on insulin. -Gastroesophageal reflux disease. -Morbid obesity BMI 64.1. -Primary osteoarthritis multiple joints bilaterally. -Obstructive sleep apnea uses CPAP machine. -Hypothyroidism. -IV heparin monitoring HOSPTIAL COURSE: 67-year-old female presented to her primary care physician for routine follow- up was found to have increased heart rate low blood pressure EKG revealed atrial flutter/fibrillation, patient was sent directly by harness puller Elijah Cedeno and was admitted for the same. Home medications resumed, heparin drip and Cardizem drip initiated cardiology consulted. TSH was normal. Underwent echocardiogram. Started on metoprolol, Cardizem drip was increased and patient converted to sinus rhythm Cardizem was subsequently discontinued. Patient noted to have elevated renal function and lisinopril/hydrochlorothiazide decreased to 10/12.5 mg daily. Anticoagulation needs will be met with Eliquis. Should have follow-up basic metabolic panel in a week. Patient has a history of COPD uses inhalers, noted to have better efficacy of medication with nebulized breathing treatments she will be sent home with nebulizer and duo nebs occasion. Patient's tolerating her diet ambulatory in the room and paul[address] ways heart rate remains in normal sinus rhythm, condition stable and appropriate for discharge. PHYSICAL EXAM: CARDIOVASCULAR: First and second sound noted no edema RESPIRATORY: Respiratory effort normal, lung sounds diminished bilaterally, PSYCHIATRY: Alert and oriented 3 mood and affect normal. Patient was seen and examined by nurse practitioner Brigitte Hunt in all elements of the case discussed with attending Dr. Munoz DISPOSITION: Home to the care of her family Plan - Discharge Summary New Discharge Prescriptions: New Apixaban [Eliquis] 5 mg PO BID #60 tab Ipratropium-Albuterol Nebulize [Duoneb 0.5 mg-3 mg/3 ml Soln] 3 ml INHALATION RT-TID #90 neb Metoprolol Tartrate [Lopressor] 25 mg PO BID #60 tab Lisinopril-Hctz 10-12.5 mg [Zestoretic 10-12.5] 1 each PO DAILY #90 tab Acetaminophen-Codeine 300-30mg [Tylenol w/codeine #3] 1 each PO Q6HR PRN #30 tab PRN Reason: Moderate Pain Insulin Lispro [humaLOG] 4 units SQ AC-TID #1 ml Continue Levothyroxine Sodium [Tirosint] 75 mcg PO DAILY Cetirizine HCl [Zyrtec] 10 mg PO DAILY Umeclidinium [place] [Incruse Ellipta] 1 puff INHALATION RT-DAILY Oxybutynin Chloride [Oxybutynin Chloride ER] 15 mg PO BID Methenamine Hippurate [Hiprex] 1 gm PO BID Fluticasone/Salmeterol [Advair 250-50 Diskus] 1 puff INHALATION RT-BID Famotidine [Pepcid] 20 mg PO BID Dymista 137 mcg NASAL BID Simvastatin [Zocor] 20 mg PO HS Changed Insulin Glargine,Hum.rec.anlog [Lantus Solostar] 22 unit SQ DAILY #0 Discontinued Ibuprofen 800 mg PO BID Aspirin [Aspirin EC] 325 mg PO DAILY Albuterol Inhaler [Ventolin Hfa Inhaler] 1 - 2 puff INHALATION RT-Q6H PRN PRN Reason: Shortness Of Breath Or Wheezing Potassium Chloride [Klor-Con 10] 10 meq PO DAILY Lisinopril-Hctz 20-12.5 mg [Zestoretic 20-12.5] 1 tab PO DAILY Discharge Medication List Cetirizine HCl [Zyrtec] 10 mg PO DAILY 12/02/16 [History] Dymista 137 mcg NASAL BID 12/02/16 [History] Famotidine [Pepcid] 20 mg PO BID 12/02/16 [History] Fluticasone/Salmeterol [Advair 250-50 Diskus] 1 puff INHALATION RT-BID 12/02/16 [History] Levothyroxine Sodium [Tirosint] 75 mcg PO DAILY 12/02/16 [History] Methenamine Hippurate [Hiprex] 1 gm PO BID 12/02/16 [History] Oxybutynin Chloride [Oxybutynin Chloride ER] 15 mg PO BID 12/02/16 [History] Umeclidinium [place] [Incruse Ellipta] 1 puff INHALATION RT-DAILY 12/02/16 [ History] Simvastatin [Zocor] 20 mg PO HS 01/13/17 [History] Acetaminophen-Codeine 300-30mg [Tylenol w/codeine #3] 1 each PO Q6HR PRN #30 tab 01/15/17 [Rx] Apixaban [Eliquis] 5 mg PO BID #60 tab 01/15/17 [Rx] Insulin Glargine,Hum.rec.anlog [Lantus Solostar] 22 unit SQ DAILY #0 01/15/17 [ Rx] Insulin Lispro [humaLOG] 4 units SQ AC-TID #1 ml 01/15/17 [Rx] Ipratropium-Albuterol Nebulize [Duoneb 0.5 mg-3 mg/3 ml Soln] 3 ml INHALATION RT -TID #90 neb 01/15/17 [Rx] Lisinopril-Hctz 10-12.5 mg [Zestoretic 10-12.5] 1 each PO DAILY #90 tab [Rx] Metoprolol Tartrate [Lopressor] 25 mg PO BID #60 tab 01/15/17 [Rx] Follow up Appointment(s)/Referral(s): Kel Morris MD [Primary Care Provider] - 3 Days (Office to call with follow up appointment.) Cedric Cedeno MD [STAFF PHYSICIAN] - 01/28/17 12:45 pm Ambulatory/Diagnostic Orders: Basic Metabolic Panel [LAB.AMB] Location: Determined By Patient Patient Instructions/Handouts: Atrial Fibrillation (DC), Safe Use of Anticoagulants (DC) Activity/Diet/Wound Care/Special Instructions: *supervisor pullet farm Eliquis from [facility] at time of discharge* Eliquis needing prior authorization. Cardiology associates will be notified of copay and at that point can switch medications if needed or get samples from office. check BP daily at home Discharge Disposition: HOME SELF-CARE
[2017-01-15] MEDS ORDERED: METOPROLOL TARTRATE 25 MG TAB PO SCH (21:00)
== END 2017-01-15 12:38 | disposition home or self-care (01) | DRG 309 ==
LOC: 6SEL 12:26
PROVIDERS: ADMIT Hospitalist; ATTEND Hospitalist
DX: I48.0 Paroxysmal atrial fibrillation (principal); N17.9 Acute kidney failure, unspecified; I11.9 Hypertensive heart disease without heart failure; J44.9 Chronic obstructive pulmonary disease, unspecified; Z68.44 Body mass index [BMI] 60.0-69.9, adult; E66.01 Morbid (severe) obesity due to excess calories; I48.92 Unspecified atrial flutter; E03.9 Hypothyroidism, unspecified; E11.9 Type 2 diabetes mellitus without complications; E78.5 Hyperlipidemia, unspecified; G47.33 Obstructive sleep apnea (adult) (pediatric); I51.7 Cardiomegaly; K21.9 Gastro-esophageal reflux disease without esophagitis; M15.9 Polyosteoarthritis, unspecified; T50.1X5A Adverse effect of loop [high-ceiling] diuretics, initial encounter; Z79.4 Long term (current) use of insulin; Z79.899 Other long term (current) drug therapy; Z80.1 Family history of malignant neoplasm of trachea, bronchus and lung; Z87.891 Personal history of nicotine dependence; Z79.82 Long term (current) use of aspirin
CPT/HCPCS: 80048; 80053; 84443; 85025; 85610; 85730; 90686; 93306; 94640

== ENCOUNTER 2017-04-28 08:06 | Day surgery (SDC) | payer MEDICARE ==
[2017-04-26 11:26] VITALS: BMI 60.3
[~2017-04-28 08:06] MED LIST: LACTATED RINGERS 1,000 ML IV ONE; LIDOCAINE 1% 20 ML VIAL (10MG/ML) FOR IV START INTRADERMA PRN
[2017-04-28 08:23] VITALS: TEMP 97.3
[2017-04-28] MEDS ORDERED: LACTATED RINGERS 1,000 ML IV ONE (08:26)
[2017-04-28 08:28] LABS: Glucose,Whole Blood 130 mg/dL (75-99)
[2017-04-28] MEDS ORDERED: PROPOFOL 10 MG/ML 20 ML VIAL IV ONE (08:33)
[2017-04-28] MEDS ORDERED: ePHEDrine SULFATE/0.9% NACL/PF 50 MG/5 ML SYRINGE IV ONE (08:33)
[2017-04-28] MEDS ORDERED: LIDOCAINE 1% INJ 10MG/ML (20 ML MDV) ONE (08:33)
--- NOTE | 2017-04-28 08:35 | P.GSHP ---
History of Present Illness H&P Date: 04/28/17 CHIEF COMPLAINT: GERD and colon screen HISTORY OF PRESENT ILLNESS: The patient is a 67-year-old female who presents with gastroesophageal reflux disease and need for colon screen. Upper and lower endoscopy were offered for further evaluation and management. PAST MEDICAL HISTORY: Please see list. PAST SURGICAL HISTORY: Please see list. MEDICATIONS: Please see list. ALLERGIES: Please see list. SOCIAL HISTORY: No illicit drug use FAMILY HISTORY: No reports of Crohn disease or ulcerative colitis. REVIEW OF ORGAN SYSTEMS: CONSTITUTIONAL: No reports of fevers or chills. GI: Denies any blood in stools or constipation. PHYSICAL EXAM: VITAL SIGNS: Stable GENERAL: Well-developed pleasant in no acute distress. HEENT: No scleral icterus. Extraocular movements grossly intact. Moist buccal mucosa. NECK: Supple without lymphadenopathy. CHEST: Unlabored respirations. Equal bilateral excursions. CARDIOVASCULAR: Regular rate and rhythm. Distal 2+ pulses. ABDOMEN: Soft, nondistended. MUSCULOSKELETAL: No clubbing, cyanosis, or edema. ASSESSMENT: 1. Gastroesophageal reflux disease 2. Colon screen. PLAN: 1. Recommend proceeding with an upper and lower endoscopy Past Medical History Past Medical History: Atrial Fibrillation, Asthma, COPD, Diabetes Mellitus, GERD /Reflux, Hyperlipidemia, Hypertension, Osteoarthritis (OA), Sleep Apnea/CPAP/ BIPAP, Thyroid Disorder Additional Past Medical History / Comment(s): USES O2 PRN AT HOME, uses C-Pap, URINARY INCONTINENCE, USES WALKER OR CANE History of Any Multi-Drug Resistant Organisms: None Reported Past Surgical History: Hernia Repair, Hysterectomy Additional Past Surgical History / Comment(s): umbilical hernia, jennifer carpal tunnel, JENNIFER cataract, L knee fx with pins, pin R wrist Past Anesthesia/Blood Transfusion Reactions: No Reported Reaction Smoking Status: Former smoker - Past Family History Mother Family Medical History: Cancer Additional Family Medical History / Comment(s): lung Father Family Medical History: Cancer Additional Family Medical History / Comment(s): stomach Medications and Allergies Home Medications Medication Instructions Recorded Confirmed Type Cetirizine HCl [Zyrtec] 10 mg PO DAILY 12/02/16 04/26/17 History Dymista 137 mcg NASAL BID 12/02/16 04/26/17 History Famotidine [Pepcid] 20 mg PO BID 12/02/16 04/26/17 History Fluticasone/Salmeterol [Advair 1 puff INHALATION RT-BID 12/02/16 04/26/17 History 250-50 Diskus] Levothyroxine Sodium [Tirosint] 75 mcg PO DAILY 12/02/16 04/26/17 History Methenamine Hippurate [Hiprex] 1 gm PO BID 12/02/16 04/26/17 History Oxybutynin Chloride [Oxybutynin 15 mg PO BID 12/02/16 04/26/17 History Chloride ER] Umeclidinium [place] [Incruse 1 puff INHALATION RT-DAILY PRN 12/02/16 04/26/17 History Ellipta] Simvastatin [Zocor] 20 mg PO HS 01/13/17 04/26/17 History Acetaminophen-Codeine 300-30mg 1 each PO Q6HR PRN #30 tab 01/15/17 04/26/17 Rx [Tylenol w/codeine #3] Insulin Glargine,Hum.rec.anlog 22 unit SQ DAILY #0 01/15/17 04/26/17 Rx [Lantus Solostar] Insulin Lispro [humaLOG] 4 units SQ AC-TID #1 ml 01/15/17 04/26/17 Rx Lisinopril-Hctz 10-12.5 mg 1 each PO DAILY #90 tab 01/15/17 04/26/17 Rx [Zestoretic 10-12.5] Metoprolol Tartrate [Lopressor] 25 mg PO BID #60 tab 01/15/17 04/26/17 Rx Ipratropium-Albuterol Nebulize 3 ml INHALATION RT-TID PRN 04/26/17 04/26/17 History [Duoneb 0.5 mg-3 mg/3 ml Soln] Liraglutide [Victoza 2-Tavo] 0.6 mg SQ AC-SUPPER 04/26/17 04/26/17 History Rivaroxaban [Xarelto] 20 mg PO DAILY 04/26/17 04/26/17 History Allergies Allergy/AdvReac Type Severity Reaction Status Date / Time No Known Allergies Allergy Verified 04/26/17 11:21 Surgical - Exam Vital Signs Temp Pulse Resp BP Pulse Ox 97.3 F L 67 20 154/72 93 L 04/28/17 08:21 04/28/17 08:21 04/28/17 08:21 04/28/17 08:21 04/28/17 08:21 Results - Labs Abnormal Lab Results - Last 24 Hours (Table) 04/28/17 Range/Units 08:24 POC Glucose (mg/dL) 130 H (75-99) mg/dL
--- NOTE | 2017-04-28 09:01 | P.PCN ---
Date of Procedure: 04/28/17 Description of Procedure: PREOPERATIVE DIAGNOSIS: Gastroesophageal reflux disease. Morbid obesity. POSTOPERATIVE DIAGNOSIS: Morbid obesity. Gastroesophageal reflux disease. OPERATION: Esophagogastroduodenoscopy with biopsies along antrum. SURGEON: Shyla Roberts MD ANESTHESIA: MAC. INDICATIONS: The patient is a 67-year-old female who presents with a history of reflux disease. Benefits and risks of the procedure were described. Informed consent was obtained. DESCRIPTION: The patient was brought into the endoscopy suite and laid in the left lateral decubitus position. An Olympus gastroscope was passed along the posterior oropharynx down to the distal esophagus where the squamocolumnar junction was encountered at 40 cm from the incisors. The stomach was entered and no bile reflux was found. Additional findings are listed below. Biopsies with cold forceps were obtained of the antrum. The first through third portion of the duodenum was examined and unremarkable. Retroflexion of the scope confirmed Hill grade 3 lower esophageal valve. The squamocolumnar junction demostrated early and acute LA grade A erosive esophagitis. The stomach was desufflated. The patient tolerated the procedure well. FINDINGS: Squamocolumnar junction 40 cm from the incisors. Diaphragmatic hiatus at 40 cm. Hill grade 3 lower esophageal valve. LA grade A erosive esophagitis. No active duodenitis. Gastritis, superficial. RECOMMENDATIONS: Further recommendations pending results of pathology report. Upper endoscopy as needed.
--- NOTE | 2017-04-28 09:03 | P.PCN ---
Date of Procedure: 04/28/17 Description of Procedure: PREOPERATIVE DIAGNOSIS: Colonoscopy screening. POSTOPERATIVE DIAGNOSIS: Colonoscopy screening. Tubular adenoma of the colon. OPERATION: Colonoscopy to the ileocecal valve. Colonoscopy with cold forceps biopsies at ascending colon and sigmoid colon. SURGEON: Shyla Roberts MD. ANESTHESIA: MAC. INDICATIONS: The patient is a 67-year-old female who presents for her first colonoscopy screening. Benefits and risks were described and informed consent was obtained. DESCRIPTION OF PROCEDURE: The patient had undergone Gatorade, MiraLAX and Dulcolax prep. She had been brought into the operating room and laid in the left lateral decubitus position. After adequate intravenous sedation, the rectum was examined with 2% lidocaine jelly. No external hemorrhoids were encountered. The rectal tone was within normal limits. No lesions were palpated in the rectal vault. An Olympus colonoscope was advanced until the ileocecal valve was viewed. The prep was good with visualization of the mucosal folds. No scattered diverticulosis was encountered. Colonic polyps were found at the ascending colon including sigmoid colon. No evidence of focal colitis was found. Scope demonstrated grade 1 internal hemorrhoids without active bleeding or inflammation. The colon was desufflated. The patient had tolerated the procedure well. Withdrawal time was over 6 minutes. FINDINGS: Internal hemorrhoids, grade 1 No external prolapsed hemorrhoids. No arteriovenous malformations. Cold forceps biopsies 3 mm tubular adenoma ascending colon and 3 mm hyperplastic polyp at 20 cm from the anal verge No focal colitis. RECOMMENDATIONS: Lower endoscopy in 3 years, 2020. Plan - Discharge Summary New Discharge Prescriptions: No Action Levothyroxine Sodium [Tirosint] 75 mcg PO DAILY Cetirizine HCl [Zyrtec] 10 mg PO DAILY Umeclidinium [place] [Incruse Ellipta] 1 puff INHALATION RT-DAILY PRN PRN Reason: Shortness Of Breath Oxybutynin Chloride [Oxybutynin Chloride ER] 15 mg PO BID Methenamine Hippurate [Hiprex] 1 gm PO BID Fluticasone/Salmeterol [Advair 250-50 Diskus] 1 puff INHALATION RT-BID Famotidine [Pepcid] 20 mg PO BID Dymista 137 mcg NASAL BID Simvastatin [Zocor] 20 mg PO HS Metoprolol Tartrate [Lopressor] 25 mg PO BID #60 tab Lisinopril-Hctz 10-12.5 mg [Zestoretic 10-12.5] 1 each PO DAILY #90 tab Acetaminophen-Codeine 300-30mg [Tylenol w/codeine #3] 1 each PO Q6HR PRN #30 tab PRN Reason: Moderate Pain Insulin Lispro [humaLOG] 4 units SQ AC-TID #1 ml Insulin Glargine,Hum.rec.anlog [Lantus Solostar] 22 unit SQ DAILY #0 Liraglutide [Victoza 2-Tavo] 0.6 mg SQ AC-SUPPER Rivaroxaban [Xarelto] 20 mg PO DAILY Ipratropium-Albuterol Nebulize [Duoneb 0.5 mg-3 mg/3 ml Soln] 3 ml INHALATION RT-TID PRN PRN Reason: Shortness Of Breath Discharge Medication List Cetirizine HCl [Zyrtec] 10 mg PO DAILY 12/02/16 [History] Dymista 137 mcg NASAL BID 12/02/16 [History] Famotidine [Pepcid] 20 mg PO BID 12/02/16 [History] Fluticasone/Salmeterol [Advair 250-50 Diskus] 1 puff INHALATION RT-BID 12/02/16 [History] Levothyroxine Sodium [Tirosint] 75 mcg PO DAILY 12/02/16 [History] Methenamine Hippurate [Hiprex] 1 gm PO BID 12/02/16 [History] Oxybutynin Chloride [Oxybutynin Chloride ER] 15 mg PO BID 12/02/16 [History] Umeclidinium [place] [Incruse Ellipta] 1 puff INHALATION RT-DAILY PRN 12/02/16 [ History] Simvastatin [Zocor] 20 mg PO HS 01/13/17 [History] Acetaminophen-Codeine 300-30mg [Tylenol w/codeine #3] 1 each PO Q6HR PRN #30 tab 01/15/17 [Rx] Insulin Glargine,Hum.rec.anlog [Lantus Solostar] 22 unit SQ DAILY #0 01/15/17 [ Rx] Insulin Lispro [humaLOG] 4 units SQ AC-TID #1 ml 01/15/17 [Rx] Lisinopril-Hctz 10-12.5 mg [Zestoretic 10-12.5] 1 each PO DAILY #90 tab [Rx] Metoprolol Tartrate [Lopressor] 25 mg PO BID #60 tab 01/15/17 [Rx] Ipratropium-Albuterol Nebulize [Duoneb 0.5 mg-3 mg/3 ml Soln] 3 ml INHALATION RT -TID PRN 04/26/17 [History] Liraglutide [Victoza 2-Tavo] 0.6 mg SQ AC-SUPPER 04/26/17 [History] Rivaroxaban [Xarelto] 20 mg PO DAILY 04/26/17 [History]
[2017-04-28 09:34] LABS: Glucose,Whole Blood 128 mg/dL (75-99)
[2017-04-28 09:55] VITALS: BP 99/60; PULSE 61; RESP 20
== END 2017-04-28 09:57 | disposition home or self-care (01) ==
LOC: ORWHC2ENDO 08:06
PROVIDERS: ATTEND Surgery Plastic and Reconstructive Surgery
DX: D12.2 Benign neoplasm of ascending colon (principal); K63.5 Polyp of colon; K22.10 Ulcer of esophagus without bleeding; K29.60 Other gastritis without bleeding; K21.9 Gastro-esophageal reflux disease without esophagitis; K64.0 First degree hemorrhoids; Z87.891 Personal history of nicotine dependence; E66.01 Morbid (severe) obesity due to excess calories; Z68.44 Body mass index [BMI] 60.0-69.9, adult; I48.91 Unspecified atrial fibrillation; Z79.01 Long term (current) use of anticoagulants; J44.9 Chronic obstructive pulmonary disease, unspecified; E11.9 Type 2 diabetes mellitus without complications; Z79.4 Long term (current) use of insulin; E78.5 Hyperlipidemia, unspecified; I10 Essential (primary) hypertension; M19.90 Unspecified osteoarthritis, unspecified site; G47.33 Obstructive sleep apnea (adult) (pediatric); Z99.89 Dependence on other enabling machines and devices; E07.9 Disorder of thyroid, unspecified; R32 Unspecified urinary incontinence; Z79.51 Long term (current) use of inhaled steroids; Z79.899 Other long term (current) drug therapy
CPT/HCPCS: 88305; 88342; 45380; 43239; J2001; J2704

== ENCOUNTER → 2017-05-12 | Outpatient (CLI) | payer MEDICARE ==
[2017-05-12 13:26] VITALS: BP 129/65; PULSE 66; RESP 16; TEMP 97.2; BMI 61.9
--- NOTE | 2017-06-13 17:11 | P.PN ---
Subjective Progress Note Date: 05/12/17 DATE OF SERVICE: 05/12/2017 CHIEF COMPLAINT: Bariatric evaluation HISTORY OF PRESENT ILLNESS: Lilian Urrutia is a 67-year-old female with history of morbid obesity lifelong. Since her last visit in November 2016, she has been hospitalized with atrial fibrillation in March 2017. She is now medications for her heart. She reports not able to do a stress test. She comes in with complaints of back pain. She is looking into the gastric bypass. As a result of her morbid obesity, she developed hypertensive heart disease as well as diabetes type 2 and osteoarthritis of multiple joints including obstructive sleep apnea. Since her last visit, she has been started 5 additional medications to address her irregular heart rate, diabetes including cholestero and is now a blood thinner. Since her last visit 5 months ago, she has lost 3 pounds. Her highest weight was 401 pounds. Today she comes in weighing 338 pounds. Lifetime weight loss is 63 pounds. At her height of 5 foot 2 inches, her ideal body weight is 135 pounds. She is 203 pounds overweight. Her highest body mass index was 73.5. Today her BMI is 61.9. PAST MEDICAL HISTORY: 1. Morbid obesity. 2. Body mass index of 73.5. 3. End-stage osteoarthritis of the bilateral knees. 4. Obstructive sleep apnea. 5. Osteoarthritis of the hips 6. Hypertensive heart disease. 7. Gastroesophageal reflux disease 8. Asthma 9. Chronic obstructive pulmonary disease. 10. Diabetes type 2, [id number]-cupeivqnc. 11. Hypothyroidism. 12. Depression. 13. Seasonal allergies. 14. Atrial fibrillation. PAST SURGICAL HISTORY: 1. Umbilical hernia repair. 2. Hysterectomy. 3. Bilateral carpal tunnel surgery. 4. Left knee fracture. 5. Right wrist pinning. 6. Bilateral cataract extraction. 7. Carpal tunnel release, bilateral. HOME MEDICATIONS: 1. Ellipta inhaler 2. Oxybutinin. 3. Hiprex. 4. Zestoretic 5. Levothyroxine. 6. Lantus. 7. Advair. 8. Pepcid. 9. Prozac 10. Dymista 11. Ventolin inhaler. 12. Zyrtec. 13. Ibuprofen. 14. Aspirin. 15. Klor-Con. 16. Zocor. 17. Xarelto. 18. Lopressor. 19. Actos. 20. DuoNeb ALLERGIES: Denies. SOCIAL HISTORY: Past tobacco use. No active alcohol use. FAMILY HISTORY: No family history of ulcerative colitis disease or Crohn's disease. She does have a family history of morbid obesity. She denies any lupus in her family. She has family history of hypertension including morbid obesity however 3 of her sisters are of normal body habitus. She has a strong family history of gastrointestinal disease where her father at age of 37 from stomach cancer. Her father, mother and grandmother also had gastrointestinal issues. She has a nephew who has stage IV esophageal cancer. She also has gastroesophageal reflux disease in her family as well. Lung cancer in grandmother at 83. REVIEW OF ORGAN SYSTEMS: CONSTITUTIONAL: Since her last visit 5 months ago, she has lost 3 pounds. Her highest weight was 401 pounds. Today she comes in weighing 338 pounds. Lifetime weight loss is 63 pounds. At her height of 5 foot 2 inches, her ideal body weight is 135 pounds. She is 203 pounds overweight. Her highest body mass index was 73.5. Today her BMI is 61.9. HEENT: Denies any active troubles with vision or hearing. No troubles with swallowing. ENDOCRINE: Has insulin dependent diabetes. Has hypothyroidism. CARDIOVASCULAR: Has new onset atrial fibrillation with flutter. History of hypertension. RESPIRATORY: Has daytime somnolence including snoring and sleep apnea. Has asthma. GI: Denies any bright red blood per rectum. Has constipation. Does have gastroesophageal reflux disease as described above. MUSCULOSKELETAL: Has lower back pain and joint pain. Has osteoarthritis of the hips and knees. NEURO: No eadaches. No seizure disorders. PSYCH: Has depression without suicidal ideation. RHEUMATOLOGIC: No lupus. No rheumatoid arthritis. HEMATOLOGIC: Has abnormal bruising. No personal history of DVTs. Now on blood thinners. SKIN: No rash. No skin cancer. PHYSICAL EXAM: VITAL SIGNS: Height 5 foot 2 inches, weight 338 pounds. BMI 61.9. Vital Signs Temp 97.2 F L 05/12/17 13:43 Pulse 66 05/12/17 13:43 Resp 16 05/12/17 13:43 BP 129/65 05/12/17 13:43 Pulse Ox GENERAL: Well-developed female in no acute distress. HEENT: No scleral icterus. Extraocular movements grossly intact. Hears conversational speech. No nasal drainage. NECK: Supple without lymphadenopathy. Well-healed collar incision from previous thyroidectomy. CHEST: Nonlabored respirations with equal bilateral excursions. CARDIOVASCULAR: Regular rate. Distal 2+ pulses. ABDOMEN: Obese, soft, nontender, nondistended. Moderate sized pannus with panniculitis. MUSCULOSKELETAL: No clubbing, cyanosis. Gross strength 5/5 distal lower extremities. 1+ bilateral edema of the pre-tibial area. NEURO: No focal or lateralizing signs. Cranial nerves 2 through 12 grossly within normal limits. PSYCH: Appropriate affect. Alert and oriented to person, place and time. SKIN: Good skin turgor. Well perfused. EGD FINDINGS: Squamocolumnar junction 40 cm from the incisors. Diaphragmatic hiatus at 40 cm. Hill grade 3 lower esophageal valve. LA grade A erosive esophagitis. No active duodenitis. Gastritis, superficial. Final Pathologic Diagnosis A. GASTRIC MUCOSA, ANTRUM (ENDOSCOPIC BIOPSY): CHANGES CONSISTENT WITH MILD REACTIVE/CHEMICAL GASTROPATHY. NO HELICOBACTER-LIKE ORGANISMS ARE IDENTIFIED BY IMMUNOSTAIN (CONTROLS APPROPRIATE). B. COLONIC MUCOSA, ASCENDING COLON (ENDOSCOPIC BIOPSY): SESSILE SERRATED ADENOMA. C. COLONIC MUCOSA, 20 CM (ENDOSCOPIC BIOPSY): HYPERLASTIC POLYP WITH PATCHY MILD ACTIVE CHRONIC INFLAMMATION. ASSESSMENT: 1. Morbid obesity. 2. Body mass index of 73.5 down to 61.9. 3. End-stage osteoarthritis of the bilateral knees. 4. Obstructive sleep apnea. 5. Osteoarthritis of the hips 6. Hypertensive heart disease. 7. Gastroesophageal reflux disease 8. Asthma 9. Chronic obstructive pulmonary disease. 10. Diabetes type 2, ock-pzkhwhx-tgdygczqs. 11. Hypothyroidism. 12. Depression. 13. Seasonal allergies. 14. Recurrent ventral hernia. 15. Panniculitis. 16. Family history of morbid obesity. 17. Family history of stomach cancer. 18. Family history of esophageal cancer. 19. Atrial fibrillation. 20. Chronic anticoagulants. 21. Colon polyps. PLAN: 1. She has now moderate increased risk factors for complications following gastric bypass. I've recommended complete evaluation for cardiac risk assessment prior to surgical intervention. 2. Recommend bariatric diet glasses. 3. Vitamin D supplement. 4. She's pending medical risk assessment. 5. Recommend follow-up in completion of bariatric profile. 6. Repeat colonoscopy in 2 years for high-risk colon polyps. Objective - Vital Signs Vital signs: Vital Signs Temp 97.2 F L 05/12/17 13:21 Pulse 66 05/12/17 13:21 Resp 16 05/12/17 13:21 BP 129/65 05/12/17 13:21 Pulse Ox Intake & Output 05/11/17 05/12/17 05/12/17 18:59 06:59 18:59 Weight 153.569 kg
== END | disposition home or self-care (01) ==
LOC: BARWHC3 12:38
PROVIDERS: ATTEND Surgery Plastic and Reconstructive Surgery
DX: E66.01 Morbid (severe) obesity due to excess calories (principal); I48.91 Unspecified atrial fibrillation; M54.9 Dorsalgia, unspecified; I11.9 Hypertensive heart disease without heart failure; E11.9 Type 2 diabetes mellitus without complications; D12.2 Benign neoplasm of ascending colon; M17.0 Bilateral primary osteoarthritis of knee; G47.33 Obstructive sleep apnea (adult) (pediatric); M16.0 Bilateral primary osteoarthritis of hip; K21.9 Gastro-esophageal reflux disease without esophagitis; J44.9 Chronic obstructive pulmonary disease, unspecified; E03.9 Hypothyroidism, unspecified; F32.9 Major depressive disorder, single episode, unspecified; K51.40 Inflammatory polyps of colon without complications; K31.9 Disease of stomach and duodenum, unspecified; K43.2 Incisional hernia without obstruction or gangrene; M79.3 Panniculitis, unspecified; D12.3 Benign neoplasm of transverse colon; Z83.49 Family history of other endocrine, nutritional and metabolic diseases; Z80.0 Family history of malignant neoplasm of digestive organs; Z79.4 Long term (current) use of insulin; Z86.010 Personal history of colon polyps; Z79.82 Long term (current) use of aspirin; Z79.899 Other long term (current) drug therapy; Z79.1 Long term (current) use of non-steroidal anti-inflammatories (NSAID); Z79.51 Long term (current) use of inhaled steroids; Z68.44 Body mass index [BMI] 60.0-69.9, adult
CPT/HCPCS: 99211

== ENCOUNTER → 2017-05-17 | Outpatient (CLI) | payer MEDICARE ==
[2017-05-17 14:16] VITALS: BMI 62.5
== END | disposition home or self-care (01) ==
LOC: BARWHC3 08:36
PROVIDERS: ATTEND Surgery Plastic and Reconstructive Surgery
DX: E66.01 Morbid (severe) obesity due to excess calories (principal); Z68.44 Body mass index [BMI] 60.0-69.9, adult
CPT/HCPCS: 97804

== ENCOUNTER → 2017-08-25 | Outpatient (CLI) | payer MEDICARE ==
[2017-08-25 15:49] VITALS: BP 145/33; PULSE 62; RESP 16; TEMP 98.2; BMI 61.9
--- NOTE | 2017-08-25 16:50 | P.PN ---
Subjective Progress Note Date: 08/25/17 DATE OF SERVICE: 08/25/2017 CHIEF COMPLAINT: Bariatric evaluation HISTORY OF PRESENT ILLNESS: Lilian Urrutia is a 67-year-old female with history of morbid obesity lifelong. She is looking into the gastric bypass. As a result of her morbid obesity, she developed hypertensive heart disease as well as diabetes type 2 and osteoarthritis of multiple joints including obstructive sleep apnea. Since her last visit 05/12/2017, her weight is unchanged. Her highest weight was 401 pounds. Today she comes in weighing 338 pounds. Lifetime weight loss is 63 pounds. At her height of 5 foot 2 inches, her ideal body weight is 135 pounds. She is 203 pounds overweight. Her highest body mass index was 73.5. Today her BMI is 62.0. She denies any problems today. She is looking into the gastric bypass. Her palpitations are resolved. 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 Cedeno. She is on Xarelto. Highest was 401 pounds. She is taking insulin for her diabetes. She takes CPAP machine for sleep apnea. PAST MEDICAL HISTORY: 1. Morbid obesity. 2. Body mass index of 73.5, initial 3. End-stage osteoarthritis of the bilateral knees. 4. Obstructive sleep apnea. 5. Osteoarthritis of the hips 6. Hypertensive heart disease. 7. Gastroesophageal reflux disease 8. Asthma 9. Chronic obstructive pulmonary disease. 10. Diabetes type 2, [id number]-ceevtcvxi. 11. Hypothyroidism. 12. Depression. 13. Seasonal allergies. 14. Atrial fibrillation. PAST SURGICAL HISTORY: 1. Umbilical hernia repair. 2. Hysterectomy. 3. Bilateral carpal tunnel surgery. 4. Left knee fracture. 5. Right wrist pinning. 6. Bilateral cataract extraction. 7. Carpal tunnel release, bilateral. HOME MEDICATIONS: 1. Ellipta inhaler 2. Oxybutinin. 3. Hiprex. 4. Zestoretic 5. Levothyroxine. 6. Lantus. 7. Advair. 8. Pepcid. 9. Prozac 10. Dymista 11. Ventolin inhaler. 12. Zyrtec. 13. Ibuprofen. 14. Aspirin. 15. Klor-Con. 16. Zocor. 17. Xarelto. 18. Lopressor. 19. Actos. 20. DuoNeb ALLERGIES: Denies. SOCIAL HISTORY: Past tobacco use. No active alcohol use. FAMILY HISTORY: No family history of ulcerative colitis disease or Crohn's disease. She does have a family history of morbid obesity. She denies any lupus in her family. She has family history of hypertension including morbid obesity however 3 of her sisters are of normal body habitus. She has a strong family history of gastrointestinal disease where her father at age of 37 from stomach cancer. Her father, mother and grandmother also had gastrointestinal issues. She has a nephew who has stage IV esophageal cancer. She also has gastroesophageal reflux disease in her family as well. Lung cancer in grandmother at 83. REVIEW OF ORGAN SYSTEMS: CONSTITUTIONAL: Her highest weight was 401 pounds. Today she comes in weighing 338 pounds. Lifetime weight loss is 63 pounds. At her height of 5 foot 2 inches, her ideal body weight is 135 pounds. She is 203 pounds overweight. Her highest body mass index was 73.5. Today her BMI is 62.0. HEENT: Denies any active troubles with vision or hearing. No troubles with swallowing. ENDOCRINE: Has insulin dependent diabetes. Has hypothyroidism. CARDIOVASCULAR: She has atrial fibrillation with flutter. History of hypertension. RESPIRATORY: Has daytime somnolence including snoring and sleep apnea. Has asthma. GI: Denies any bright red blood per rectum. Has constipation. Does have gastroesophageal reflux disease as described above. MUSCULOSKELETAL: Has lower back pain and joint pain. Has osteoarthritis of the hips and knees. NEURO: No eadaches. No seizure disorders. PSYCH: Has depression without suicidal ideation. RHEUMATOLOGIC: No lupus. No rheumatoid arthritis. HEMATOLOGIC: Has abnormal bruising. No personal history of DVTs. Now on blood thinners. SKIN: No rash. No skin cancer. PHYSICAL EXAM: VITAL SIGNS: Height 5 foot 2 inches, weight 338 pounds. BMI 62.0. Vital Signs Temp 98.2 F 08/25/17 15:46 Pulse 62 08/25/17 15:46 Resp 16 08/25/17 15:46 BP 145/33 08/25/17 15:46 Pulse Ox GENERAL: Well-developed female in no acute distress. HEENT: No scleral icterus. Extraocular movements grossly intact. Hears conversational speech. No nasal drainage. NECK: Supple without lymphadenopathy. Well-healed collar incision from previous thyroidectomy. CHEST: Nonlabored respirations with equal bilateral excursions. CARDIOVASCULAR: Irregular rate, irregular rhythm. Distal 2+ pulses. ABDOMEN: Obese, soft, nontender, nondistended. Moderate sized pannus with panniculitis. MUSCULOSKELETAL: No clubbing, cyanosis. Gross strength 5/5 distal lower extremities. NEURO: No focal or lateralizing signs. Cranial nerves 2 through 12 grossly within normal limits. PSYCH: Appropriate affect. Alert and oriented to person, place and time. SKIN: Good skin turgor. Well perfused. ASSESSMENT: 1. Morbid obesity. 2. Body mass index of 73.5 down to 62.0. 3. End-stage osteoarthritis of the bilateral knees. 4. Obstructive sleep apnea. 5. Osteoarthritis of the hips 6. Hypertensive heart disease. 7. Gastroesophageal reflux disease 8. Asthma 9. Chronic obstructive pulmonary disease. 10. Diabetes type 2, sgp-tpoztsg-zsfdcqicg. 11. Hypothyroidism. 12. Depression. 13. Seasonal allergies. 14. Recurrent ventral hernia. 15. Panniculitis. 16. Family history of morbid obesity. 17. Family history of stomach cancer. 18. Family history of esophageal cancer. 19. Atrial fibrillation. 20. Chronic anticoagulants. 21. Colon polyps. PLAN: 1. Consent for gastric bypass reviewed. 2. Xarelto to stop for 2 -3 days prior to her operation. 3. Narcotic contract reviewed. 4. Decrease insulin for her 2 week diet. 5. Bariatric options between a sleeve, band and a Mely-en-Y gastric bypass were reviewed in detail. He elected for a gastric bypass. Robotic assisted approach described. 6. The [place] [facility] Data was also reviewed with benefits and risks as described. 7. An 8 page second-generation bariatric consent form was reviewed in detail including potential of bleeding, infection, leaks, adequate weight loss, nutritional deficiencies which he demonstrated understanding of the risks. 8. A 2 week high-protein low caloric 800 kcal diet described to address hepatomegaly. 9. Preoperative labs including complete metabolic panel and CBC with type and screen recommended. 10. DVT prophylaxis per [place] [facility]. 11. Antibiotic prophylaxis. 12. Inpatient hospitalization anticipated for more than 2 nights. 13. All questions and concerns were addressed with the patient. 14. Recommended dietary classes. Objective - Vital Signs Vital signs: Vital Signs Temp 98.2 F 05/16/18 15:46 Pulse 62 08/25/17 15:46 Resp 16 08/25/17 15:46 BP 145/33 08/25/17 15:46 Pulse Ox Intake & Output 08/24/17 08/25/17 08/25/17 18:59 06:59 18:59 Weight 153.768 kg
== END | disposition home or self-care (01) ==
LOC: BARWHC3 14:36
PROVIDERS: ATTEND Surgery Plastic and Reconstructive Surgery
DX: E66.01 Morbid (severe) obesity due to excess calories (principal); E11.9 Type 2 diabetes mellitus without complications; G47.33 Obstructive sleep apnea (adult) (pediatric); Z68.45 Body mass index [BMI] 70 or greater, adult; M16.0 Bilateral primary osteoarthritis of hip; M17.0 Bilateral primary osteoarthritis of knee; Z79.82 Long term (current) use of aspirin; Z79.4 Long term (current) use of insulin; Z79.01 Long term (current) use of anticoagulants; I11.9 Hypertensive heart disease without heart failure; J44.9 Chronic obstructive pulmonary disease, unspecified; E03.9 Hypothyroidism, unspecified; F32.9 Major depressive disorder, single episode, unspecified; I48.91 Unspecified atrial fibrillation; K43.2 Incisional hernia without obstruction or gangrene
CPT/HCPCS: 99211

== ENCOUNTER → 2017-09-13 | Outpatient (CLI) | payer MEDICARE ==
[2017-09-13 14:02] LABS: Basophils % (A) 0 %; Eosinophils # (A) 0.5 k/uL (0-0.7); Eosinophils % (A) 5 %; HGB 13.9 gm/dL (11.4-16.0); Lymphocytes # (A) 2.6 k/uL (1.0-4.8); Lymphocytes % (A) 27 %; MCH 30.9 pg (25.0-35.0); MCHC 33.1 g/dL (31.0-37.0); MCV 93.3 fL (80.0-100.0); Monocytes # (A) 0.4 k/uL (0-1.0); Monocytes % (A) 4 %; Neutrophils % (A) 63 %; Platelet Count 293 k/uL (150-450); RDW 14.3 % (11.5-15.5); WBC 9.6 k/uL (3.8-10.6)
[2017-09-13 14:09] LABS: Albumin 4.4 g/dL (3.5-5.0); Calcium 9.8 mg/dL (8.4-10.2); Potassium 4.3 mmol/L (3.5-5.1); Total Bilirubin 0.3 mg/dL (0.2-1.3); Total Protein 6.9 g/dL (6.3-8.2)
== END | disposition home or self-care (01) ==
LOC: LABPAT 13:04
PROVIDERS: ATTEND Surgery Plastic and Reconstructive Surgery
DX: Z01.812 Encounter for preprocedural laboratory examination (principal)
CPT/HCPCS: 36415; 80053; 85025

== ENCOUNTER 2017-09-20 07:30 | Inpatient (IN) | payer MEDICARE ==
[~2017-09-20 07:30] MED LIST changes: +ACETAMINOPHEN IV (For NPO) 1,000 MG in EMPTY BAG 1 BAG IVPB ONE; +CHLORHEXIDINE GLUCONATE 15 ML CUP MUCOUS MEM ONE; +DEXAMETHASONE SOD PHOSPHATE 10 MG/ML 1 ML VIAL IV ONE; +HYDROmorphone 0.5 MG/0.5 ML SYRINGE IVP PRN; -LACTATED RINGERS 1,000 ML IV ONE; +MIDAZOLAM 2 MG/2 ML VIAL IV PRN; +ONDANSETRON 4 MG/2 ML VIAL IVP ONE; +ONDANSETRON 4 MG/2 ML VIAL IVP PRN; +PANTOPRAZOLE 40 MG/10 ML VIAL IV STA; +SCOPOLAMINE 1.5MG/72HR PATCH TRANSDERM ONE; +SCOPOLAMINE 1.5MG/72HR PATCH TRANSDERM STA; +fentaNYL (PF) 50 MCG/ML 2 ML AMP IV PRN
[2017-09-20] MEDS ORDERED: ENOXAPARIN 40 MG/0.4 ML SYRINGE SQ ONE (12:00)
[2017-09-20 13:01] LABS: Glucose,Whole Blood 105 mg/dL (75-99)
[2017-09-20] MEDS: LACTATED RINGERS 1,000 ML IV SCH ×4 (13:10→21:56)
[2017-09-20] MEDS ORDERED: GLYCOPYRROLATE 0.2 MG/ML 2 ML VIAL ONE (14:21)
[2017-09-20] MEDS ORDERED: PROPOFOL 10 MG/ML 20 ML VIAL IV ONE (14:21)
[2017-09-20] MEDS ORDERED: ROCURONIUM BROMIDE 10 MG/ML 10 ML VIAL IV ONE (14:21)
[2017-09-20] MEDS ORDERED: NEOSTIGMINE 1 MG/ML 10 ML VIAL ONE (14:21)
[2017-09-20] MEDS ORDERED: LIDOCAINE 1% INJ 10MG/ML (20 ML MDV) ONE (14:21)
[2017-09-20] MEDS ORDERED: SUCCINYLCHOLINE CHLORIDE VIAL 200 MG/10 ML VIAL IV ONE (14:21)
[2017-09-20] MEDS ORDERED: ePHEDrine SULFATE/0.9% NACL/PF 50 MG/5 ML SYRINGE IV ONE (14:21)
[2017-09-20] MEDS ORDERED: PHENYLEPHRINE-0.9% NACL SYG 1 MG/10 ML SYRINGE ONE (14:21)
[2017-09-20] MEDS ORDERED: HYDROmorphone (PF) 1 MG/ML ONE (14:21)
[2017-09-20] MEDS ORDERED: MIDAZOLAM 2 MG/2 ML VIAL ONE (14:21)
[2017-09-20] MEDS ORDERED: fentaNYL (PF) 50 MCG/ML 2 ML AMP ONE (14:21)
[2017-09-20] MEDS ORDERED: BUPIVACAINE (PF) 0.5% 30 ML VIAL SQ ONE (14:53)
[2017-09-20] MEDS ORDERED: HYDROcodone/APAP 15 ML SOLUTION PO PRN (17:45)
[2017-09-20] MEDS ORDERED: diphenhydrAMINE 50 MG/ML 1 ML VIAL IVP PRN (17:45)
[2017-09-20] MEDS ORDERED: NALOXONE 0.4 MG/ML 1 ML VIAL IV PRN (17:45)
--- NOTE | 2017-09-20 17:52 | P.GSHP ---
History of Present Illness H&P Date: 09/20/17 DATE OF SERVICE: 09/20/2017 CHIEF COMPLAINT: Morbid obesity HISTORY OF PRESENT ILLNESS: Lilian Urrutia is a 67-year-old female with history of morbid obesity lifelong. She is looking into the gastric bypass. As a result of her morbid obesity, she developed hypertensive heart disease as well as diabetes type 2 and osteoarthritis of multiple joints including obstructive sleep apnea. Since her last visit 05/12/2017, her weight is unchanged. Her highest weight was 401 pounds. Today she comes in weighing 318 pounds. Lifetime weight loss is 83 pounds. At her height of 5 foot 2 inches, her ideal body weight is 135 pounds. She is 183 pounds overweight. Her highest body mass index was 73.5. Today her BMI is 58.4 down from 62.0 last month. She is looking into the gastric bypass. PAST MEDICAL HISTORY: 1. Morbid obesity. 2. Body mass index of 73.5, initial 3. End-stage osteoarthritis of the bilateral knees. 4. Obstructive sleep apnea. 5. Osteoarthritis of the hips 6. Hypertensive heart disease. 7. Gastroesophageal reflux disease 8. Asthma 9. Chronic obstructive pulmonary disease. 10. Diabetes type 2, nbn-xsmvtfc-jbkvxmcqn. 11. Hypothyroidism. 12. Depression. 13. Seasonal allergies. 14. Atrial fibrillation. PAST SURGICAL HISTORY: 1. Umbilical hernia repair. 2. Hysterectomy. 3. Bilateral carpal tunnel surgery. 4. Left knee fracture. 5. Right wrist pinning. 6. Bilateral cataract extraction. 7. Carpal tunnel release, bilateral. HOME MEDICATIONS: 1. Ellipta inhaler 2. Oxybutinin. 3. Hiprex. 4. Zestoretic 5. Levothyroxine. 6. Lantus. 7. Advair. 8. Pepcid. 9. Prozac 10. Dymista 11. Ventolin inhaler. 12. Zyrtec. 13. Ibuprofen. 14. Aspirin. 15. Klor-Con. 16. Zocor. 17. Xarelto. 18. Lopressor. 19. Actos. 20. DuoNeb ALLERGIES: Denies. SOCIAL HISTORY: Past tobacco use. No active alcohol use. FAMILY HISTORY: No family history of ulcerative colitis disease or Crohn's disease. She does have a family history of morbid obesity. She denies any lupus in her family. She has family history of hypertension including morbid obesity however 3 of her sisters are of normal body habitus. She has a strong family history of gastrointestinal disease where her father at age of 37 from stomach cancer. Her father, mother and grandmother also had gastrointestinal issues. She has a nephew who has stage IV esophageal cancer. She also has gastroesophageal reflux disease in her family as well. Lung cancer in grandmother at 83. REVIEW OF ORGAN SYSTEMS: CONSTITUTIONAL: Her highest weight was 401 pounds. Today she comes in weighing 318 pounds from 338 pounds last month. Lifetime weight loss is 83 pounds. At her height of 5 foot 2 inches, her ideal body weight is 135 pounds. She is 183 pounds overweight. Her highest body mass index was 73.5. HEENT: Denies any active troubles with vision or hearing. No troubles with swallowing. ENDOCRINE: Has insulin dependent diabetes. Has hypothyroidism. CARDIOVASCULAR: She has atrial fibrillation with flutter. History of hypertension. RESPIRATORY: Has daytime somnolence including snoring and sleep apnea. Has asthma. GI: Denies any bright red blood per rectum. Has constipation. Does have gastroesophageal reflux disease as described above. MUSCULOSKELETAL: Has lower back pain and joint pain. Has osteoarthritis of the hips and knees. NEURO: No eadaches. No seizure disorders. PSYCH: Has depression without suicidal ideation. RHEUMATOLOGIC: No lupus. No rheumatoid arthritis. HEMATOLOGIC: Has abnormal bruising. No personal history of DVTs. Now on blood thinners. SKIN: No rash. No skin cancer. PHYSICAL EXAM: VITAL SIGNS: Height 5 foot 2 inches, weight 318 pounds. BMI 58.4 GENERAL: Well-developed female in no acute distress. HEENT: No scleral icterus. Extraocular movements grossly intact. Hears conversational speech. No nasal drainage. NECK: Supple without lymphadenopathy. Well-healed collar incision from previous thyroidectomy. CHEST: Nonlabored respirations with equal bilateral excursions. CARDIOVASCULAR: Irregular rate, irregular rhythm. Distal 2+ pulses. ABDOMEN: Obese, soft, nontender, nondistended. Moderate sized pannus with panniculitis. MUSCULOSKELETAL: No clubbing, cyanosis. Gross strength 5/5 distal lower extremities. NEURO: No focal or lateralizing signs. Cranial nerves 2 through 12 grossly within normal limits. PSYCH: Appropriate affect. Alert and oriented to person, place and time. SKIN: Good skin turgor. Well perfused. ASSESSMENT: 1. Morbid obesity. 2. Body mass index of 73.5 down to 62.0. 3. End-stage osteoarthritis of the bilateral knees. 4. Obstructive sleep apnea. 5. Osteoarthritis of the hips 6. Hypertensive heart disease. 7. Gastroesophageal reflux disease 8. Asthma 9. Chronic obstructive pulmonary disease. 10. Diabetes type 2, auc-iprewkq-rpmminmqw. 11. Hypothyroidism. 12. Depression. 13. Seasonal allergies. 14. Recurrent ventral hernia. 15. Panniculitis. 16. Family history of morbid obesity. 17. Family history of stomach cancer. 18. Family history of esophageal cancer. 19. Atrial fibrillation. 20. Chronic anticoagulants. 21. Colon polyps. PLAN: 1. Consent for gastric bypass reviewed. 2. Xarelto to stop for 2 -3 days prior to her operation. 3. Narcotic contract reviewed. 4. Bariatric options between a sleeve, band and a Mely-en-Y gastric bypass were reviewed in detail. She elected for a gastric bypass. Robotic assisted approach described. 6. The [place] [facility] Data was also reviewed with benefits and risks as described. 7. An 8 page second-generation bariatric consent form was reviewed in detail including potential of bleeding, infection, leaks, adequate weight loss, nutritional deficiencies which he demonstrated understanding of the risks. 8. A 2 week high-protein low caloric 800 kcal diet described to address hepatomegaly. 9. Preoperative labs including complete metabolic panel and CBC with type and screen recommended. 10. DVT prophylaxis per [place] [facility]. 11. Antibiotic prophylaxis. 12. Inpatient hospitalization anticipated for more than 2 nights. 13. All questions and concerns were addressed with the patient. Past Medical History Past Medical History: Atrial Fibrillation, Asthma, COPD, Diabetes Mellitus, GERD /Reflux, Hyperlipidemia, Hypertension, Osteoarthritis (OA), Sleep Apnea/CPAP/ BIPAP, Thyroid Disorder Additional Past Medical History / Comment(s): USES O2 PRN AT HOME, uses C-Pap, URINARY INCONTINENCE, USES WALKER OR CANE History of Any Multi-Drug Resistant Organisms: None Reported Past Surgical History: Hernia Repair, Hysterectomy Additional Past Surgical History / Comment(s): umbilical hernia, jennifer carpal tunnel, JENNIFER cataract, L knee fx with pins, pin R wrist Past Anesthesia/Blood Transfusion Reactions: No Reported Reaction Past Psychological History: No Psychological Hx Reported Smoking Status: Former smoker Past Alcohol Use History: None Reported Additional Past Alcohol Use History / Comment(s): QUIT SMOKING IN "THE 80'S" SMOKED LESS THAN 1/2PPD FOR APPROX 10 YRS Past Drug Use History: None Reported - Past Family History Mother Family Medical History: Cancer Additional Family Medical History / Comment(s): lung Father Family Medical History: Cancer Additional Family Medical History / Comment(s): stomach Medications and Allergies Home Medications Medication Instructions Recorded Confirmed Type Cetirizine HCl [Zyrtec] 10 mg PO DAILY 12/02/16 09/09/17 History Dymista 137 mcg NASAL BID PRN 12/02/16 09/09/17 History Famotidine [Pepcid] 20 mg PO QAM 12/02/16 09/09/17 History Fluticasone/Salmeterol [Advair 1 puff INHALATION BID PRN 12/02/16 09/09/17 History 250-50 Diskus] Levothyroxine Sodium [Tirosint] 75 mcg PO DAILY 12/02/16 09/09/17 History Methenamine Hippurate [Hiprex] 1 gm PO BID 12/02/16 09/09/17 History Oxybutynin Chloride [Oxybutynin 15 mg PO BID 12/02/16 09/09/17 History Chloride ER] Umeclidinium [place] [Incruse 1 puff INHALATION DAILY PRN 12/02/16 09/09/17 History Ellipta] Insulin Lispro [humaLOG] 4 units SQ AC-TID #1 ml 01/15/17 09/09/17 Rx Lisinopril-Hctz 10-12.5 mg 1 each PO DAILY #90 tab 01/15/17 09/09/17 Rx [Zestoretic 10-12.5] Metoprolol Tartrate [Lopressor] 25 mg PO BID #60 tab 01/15/17 09/09/17 Rx Ipratropium-Albuterol Nebulize 3 ml INHALATION TID PRN 04/26/17 09/09/17 History [Duoneb 0.5 mg-3 mg/3 ml Soln] Liraglutide [Victoza 2-Tavo] 0.6 mg SQ HS 04/26/17 09/09/17 History Rivaroxaban [Xarelto] 20 mg PO W/SUPPER 04/26/17 09/09/17 History Acetaminophen-Codeine 300-30mg 1 each PO Q6HR PRN 09/09/17 09/09/17 History [Tylenol w/codeine #3] Ergocalciferol [Vitamin D2 50,000 unit PO ROBBINS 09/09/17 09/09/17 History (DRISDOL)] Insulin Glargine,Hum.rec.anlog 22 unit SQ HS 09/09/17 09/09/17 History [Lantus Solostar] Acetaminophen [Tylenol] 650 mg PO Q4-6H PRN 09/20/17 09/20/17 History Allergies Allergy/AdvReac Type Severity Reaction Status Date / Time No Known Allergies Allergy Verified 09/09/17 08:35 Surgical - Exam Vital Signs Temp Pulse Resp BP Pulse Ox 97.7 F 69 18 109/63 94 L 09/20/17 12:39 09/20/17 12:39 09/20/17 12:39 09/20/17 12:39 09/20/17 12:39 Results - Labs Abnormal Lab Results - Last 24 Hours (Table) 09/20/17 Range/Units 12:43 POC Glucose (mg/dL) 105 H (75-99) mg/dL
--- NOTE | 2017-09-20 18:01 | P.OP ---
Date of Procedure: 09/20/17 Description of Procedure: SURGEON: LEE COTO MD MANAGER HOME HEALTHCARE: 1. REGINA ALBERTO 2. SHWETA BOYCE PREOPERATIVE DIAGNOSES: 1. Morbid obesity due to excess calories. 2. Body mass index of 73.5 down to 58.0 3. End-stage osteoarthritis of the bilateral knees. 4. Obstructive sleep apnea. 5. Osteoarthritis of the hips 6. Hypertensive heart disease. 7. Gastroesophageal reflux disease 8. Asthma 9. Chronic obstructive pulmonary disease. 10. Diabetes type 2, [id number]. 11. Hypothyroidism. 12. Depression. 13. Seasonal allergies. 14. Recurrent ventral hernia. 15. Panniculitis. 16. Family history of morbid obesity. 17. Family history of stomach cancer. 18. Family history of esophageal cancer. 19. Atrial fibrillation. 20. Chronic anticoagulants. 21. Colon polyps. POSTOPERATIVE DIAGNOSES: 1. Morbid obesity due to excess calories. 2. Body mass index of 73.5 down to 58.0 3. End-stage osteoarthritis of the bilateral knees. 4. Obstructive sleep apnea. 5. Osteoarthritis of the hips 6. Hypertensive heart disease. 7. Gastroesophageal reflux disease 8. Asthma 9. Chronic obstructive pulmonary disease. 10. Diabetes type 2, [id number]-nnaohwjgo. 11. Hypothyroidism. 12. Depression. 13. Seasonal allergies. 14. Recurrent ventral hernia. 15. Panniculitis. 16. Family history of morbid obesity. 17. Family history of stomach cancer. 18. Family history of esophageal cancer. 19. Atrial fibrillation. 20. Chronic anticoagulants. 21. Colon polyps. 22. Hepatomegaly OPERATION: 1. Robotic assisted da Luis Xi laparoscopic Karli-en-Y gastric bypass, 100 cm antecolic antegastric Karli limb, with 25 mm EEA. 2. Intraoperative esophagogastrojejunoscopy. ANESTHESIA: GETA and local ESTIMATED BLOOD LOSS: 10 mL SPECIMENS REMOVED: None. COMPLICATIONS: NONE. INDICATIONS: Lilian Urrutia is a 67-year-old female with history of morbid obesity lifelong. She is looking into the gastric bypass. As a result of her morbid obesity, she developed hypertensive heart disease as well as diabetes type 2 and osteoarthritis of multiple joints including obstructive sleep apnea. Since her last visit 05/12/2017, her weight is unchanged. Her highest weight was 401 pounds. Today she comes in weighing 318 pounds. Lifetime weight loss is 83 pounds. At her height of 5 foot 2 inches, her ideal body weight is 135 pounds. She is 183 pounds overweight. Her highest body mass index was 73.5. Today her BMI is 58.4 down from 62.0 last month. She now presents to undergo robotic assisted gastric bypass. A second-generation bariatric consent form was described in detail including the possibility of protein malnutrition, leaks, gastrojejunal stricture, venous thrombosis, need for further surgery for which she demonstrated understanding. Benefits and risks of the procedure were described at length. Informed consent was obtained. DESCRIPTION: The patient was brought into the operating room theater. She was placed supine. She had received Lovenox subcutaneously for DVT prophylaxis. Additionally she Peridex oral solution as an oral decontaminant was placed per anesthesia. After general induction, the abdomen was prepped and draped in standard sterile fashion. Ioban draping was placed along the abdomen. A robotic da Luis Xi system was prepped and primed. The xiphoid to umbilicus was measured of 24 cm. Proposed port sites were marked with indelible marker along the anterior axillary line bilaterally, mid clavicular line bilaterally with each port marked 10 cm from each other. The dental assistant teacher port was marked along the right lateral lower abdominal wall. The robotic stapler port was marked for the right midclavicular line including along the left midclavicular line. A 5 mm 0 degrees laparoscopic trocar entry was performed along the left upper quadrant. The abdomen was insufflated to 15 mmHg pressure, which she tolerated well. Diagnostic laparoscopy demonstrated no injury to bowel, viscera, or mesentery. The liver surface was large consistent with hepatomegaly. No large hiatal hernia was encountered. An incarcerated umbilical ventral hernia was identified involving omentum. An 8 mm camera port was placed left lateral to the umbilicus at the epigastrium , 15 cm distal to the xiphoid. Next, 12-mm robot stapler port was placed along the right mid abdomen. An 12 mm port was exchanged along the left upper quadrant. An 8 mm port was placed on the left lateral abdominal wall under direct localization. Please note that the ports were placed 18 to 20 cm away from the target anatomy of the stomach. Care was taken to check that each robotic arm was safely away from collision with the bed or the patient. At the epigastrium, a medium sized Graciela liver retractor was placed under direct visualization with the Iron Emt I/99 placed under the right shoulder of the patient. The patient was repositioned in reverse Trendelenburg position at 14-degress after lowering the bed. The robot was docked over the patient. Using grasper for arm 3, a grasper for arm 1, including vessel sealer for arm 4 , the robotic system was docked and primed as described. Instruments were interchanged by the dental assistant teacher including endoscissors, the needle regional refrigerated cdl truck driver, and stapler. I had sat at the console. Next, the transverse mesocolon was reflected into the upper abdomen preparing for the jejunojejunostomy portion of the case. The ligament of Treitz was identified and measured 60 cm antegrade and marked using 3-0 Silk. The jejunum was divided at the 60 cm point using 45-mm white loads above the suture measurement. The biliopancreatic limb was held in place. The Karli limb was measured 100 cm in an antegrade fashion to avoid tension along the proposed gastrojejunal anastomosis. At 100 cm along the anti-mesenteric border of the Karli limb, a jejunojejunostomy was proposed whereby enterotomies were created along the biliopancreatic limb including the Karli limb using a Bovie cautery. A stay suture of 3-0 Slik was placed to align and create the anastomosis. The enterotomies along the anti-mesenteric borders were created followed by unidirectional fire from the patient's right side using 2 - 45 mm white load Smart technology robotic stapler. The jejunojejunostomy was found to be hemostatic. The enterotomy was closed after horizontal mattress stitch of 3-0 silk used to elevate the enterotomy followed by closure with the robotic stapler white load. The jejunal limb was temporarily tacked along the left upper quadrant. Attention was now brought to the creation of the gastrojejunostomy. Along the lesser curvature of the stomach between the second and third veins, dissection was made along the retrogastric space to allow first firing of the robotic staple. Blue and green loads of 7 - 45 mm staplers were used to divide the stomach to create the gastric pouch. The patient was then prepared for placement of a Orvil. The patient was Mallampati 2. A 25-mm Orvil was selected for placement by the nurse deaf/hard of hearing specialist. The Orvil tubing was placed anterior to the staple line of the gastric pouch and brought out through the left inferior lateral port. I re-scrubbed into the case. The robotic arms were temporarily undocked. The Orvil was then carefully and successfully navigated with the help of the nurse deaf/hard of hearing specialist into the gastric pouch. The sutures were identified and divided. The tubing was from the 25 mm anvil. As the Orvil had been placed, the blind jejunal limb was brought proximally into the upper abdomen. No torsion was found upon the Karli limb. No tension was identified as the limb was brought along the upper abdomen. The blind jejunal limb was previously opened using endo -scissors with cautery. The 25-mm EEA stapler was brought through the left anterior lateral port site from the left side. The EEA stapler was brought through the open jejunal limb and its needle was deployed at the antimesenteric border where the anvil were mated for approximately 1 minute upon firing. The stapler was removed after irrigating the shaft of the instrument with warm normal saline. Donuts were found to be intact and on both sides. The da Luis Xi robot arms were then re-docked. I sat at the console. The open jejunal limb defect was closed using 45 mm white loads after releasing any tension from the blind jejunal limb. Care was taken to avoid any long blind limb to avoid candycane syndrome. No reinforcement sutures were placed along the gastrojejunal anastomosis. The Larose and jejunojejunostomy mesenteric defects were obliterated by her intra- abdominal fat. I then went to the head of the bed to perform the esophagogastrojejunoscopy and a leak test. An Olympus gastroscope was passed along the posterior oropharynx which was unremarkable for any injury to the vocal cords. The scope was passed down to the proximal portion of the pouch, whereby no active bleeding was encountered. Excellent visualization of the gastrojejunostomy anastomosis, including the Karli limb was encountered with endoscopic image obtained. The anastomosis was found to be patent. The gastrointestinal tract was desufflated. No evidence of intraoperative leak was encountered as the gastric pouch and anastomosis were submerged under normal saline solution. The robot was then undocked. I then went back to the bedside of the patient, whereby with coordinated effort of the dental assistant teacher, irrigation was aspirated from the upper abdominal cavity. Tisseel was placed circumferentially over the anastomosis of the gastrojejunostomy. The fascial defect of the EEA stapler was closed using Atilio Green and 0 Vicryl. All instruments and pneumoperitoneum were evacuated from the abdominal cavity. The port correlating with the EEA stapler device was cleansed with normal saline solution and hydrogen peroxide. The rest of incisions were reapproximated using 4-0 Monocryl in an interrupted subcuticular fashion. Local anesthetic was infiltrated along the skin for postop analgesia. Liquid glue was applied to the skin. OptiFoam dressing was placed along the EEA stapler site. At the end of the procedure, needle, sponge and instrument count had been verified correct by the certified surgical tech/first assistant. She had tolerated the procedure well and was extubated and taken to the postanesthesia unit in stable condition. Intraoperative findings were described to the patient's family who were very pleased with the level of care. Total console time 100 minutes, Operative Findings: 1. Biliopancreatic limb 60 cm 2. Bypass performed using 100 cm karli limb secondary to avoid increased tension at 150 cm. 3. Lehman defect and jejunojejunostomy defect obliterated by moderate intra- abdominal fat. 4. Leak test negative with gastrojejunal anastomosis patent and hemostatic. 5. Robotic staplers total of 15 combined blue, green and white 45 mm used - 7 staplers, blue and green, used to gastric pouch 6. No reinforcement sutures were placed along the gastrojejunal anastomosis 7. Incarcerated umbilical ventral hernia involving omentum
[2017-09-20 18:03] LABS: Glucose,Whole Blood 152 mg/dL (75-99)
[2017-09-20] MEDS: HYDROmorphone 0.5 MG/0.5 ML SYRINGE IVP PRN ×2 (19:25→23:01)
[2017-09-20 20:30] LABS: Glucose,Whole Blood 158 mg/dL (75-99)
[2017-09-20] MEDS: ALBUTEROL NEBULIZED 2.5 MG/3 ML INHALATION SCH (21:02)
[2017-09-20] MEDS: 0.9% NACL WITH KCL 20 MEQ/L 1,000 ML IV SCH (21:52)
[2017-09-20] MEDS: AMPICILLIN-SULBACTAM 3 GM in SODIUM CHLORIDE 0.9% 100 ML IVPB SCH (21:57)
[2017-09-20] MEDS: METOPROLOL TARTRATE 25 MG TAB PO SCH (21:58)
[2017-09-20] MEDS: HYOSCYAMINE ORAL DROPS 1.875 MG/15 ML BOTTLE PO SCH (21:58)
[2017-09-20] MEDS: SIMETHICONE 40 MG/0.6 ML DROPS 2,000 MG/30 ML BOTTLE PO SCH (21:59)
--- NOTE | 2017-09-20 22:47 | P.PN ---
Progress Note - Text Progress Note Date: 09/20/17 Patient seen and evaluated. She is doing well. Son is at bedside. Anticipate hospitalization through Wednesday.
[2017-09-21 00:48] LABS: Glucose,Whole Blood 154 mg/dL (75-99)
[2017-09-21] MEDS: HYOSCYAMINE ORAL DROPS 1.875 MG/15 ML BOTTLE PO SCH ×3 (01:11→14:18)
[2017-09-21] MEDS: SIMETHICONE 40 MG/0.6 ML DROPS 2,000 MG/30 ML BOTTLE PO SCH ×3 (01:12→14:18)
[2017-09-21] MEDS: INSULIN ASPART 100 UNIT/ML 1 ML 10 ML VIAL SQ SCH ×3 (01:13→11:50)
[2017-09-21] MEDS: ONDANSETRON 4 MG/2 ML VIAL IVP SCH ×2 (01:14→11:00)
[2017-09-21] MEDS: HYDROmorphone 0.5 MG/0.5 ML SYRINGE IVP PRN ×2 (03:18→07:42)
[2017-09-21] MEDS: AMPICILLIN-SULBACTAM 3 GM in SODIUM CHLORIDE 0.9% 100 ML IVPB SCH (03:44)
[2017-09-21 06:02] LABS: Glucose,Whole Blood 134 mg/dL (75-99)
[2017-09-21 07:46] LABS: Basophils % (A) 0 %; Eosinophils # (A) 0.1 k/uL (0-0.7); Eosinophils % (A) 0 %; HGB 13.2 gm/dL (11.4-16.0); Lymphocytes # (A) 1.2 k/uL (1.0-4.8); Lymphocytes % (A) 7 %; MCH 31.3 pg (25.0-35.0); MCHC 32.2 g/dL (31.0-37.0); MCV 97.1 fL (80.0-100.0); Monocytes # (A) 0.8 k/uL (0-1.0); Monocytes % (A) 5 %; Neutrophils # (A) 14.2 k/uL (1.3-7.7); Neutrophils % (A) 87 %; Platelet Count 255 k/uL (150-450); RBC 4.22 m/uL (3.80-5.40); RDW 14.7 % (11.5-15.5); WBC 16.4 k/uL (3.8-10.6)
[2017-09-21] MEDS ORDERED: 0.9% NACL WITH KCL 20 MEQ/L 1,000 ML IV SCH (08:00)
[2017-09-21 08:09] LABS: Calcium 8.7 mg/dL (8.4-10.2); Magnesium 2.2 mg/dL (1.6-2.3); Phosphorus 4.8 mg/dL (2.5-4.5); Potassium 5.7 mmol/L (3.5-5.1)
[2017-09-21] MEDS: ALBUTEROL NEBULIZED 2.5 MG/3 ML INHALATION SCH ×3 (08:10→15:26)
[2017-09-21] MEDS: 0.9% NACL WITH KCL 20 MEQ/L 1,000 ML IV SCH (08:56)
[2017-09-21] MEDS: LACTATED RINGERS 1,000 ML IV SCH ×2 (08:56→11:02)
[2017-09-21] MEDS ORDERED: LISINOPRIL-HCTZ 10-12.5 MG 1 EACH TAB PO SCH (09:00)
[2017-09-21] MEDS ORDERED: PANTOPRAZOLE 40 MG/10 ML VIAL IV SCH (09:00)
[2017-09-21] MEDS ORDERED: ENOXAPARIN 40 MG/0.4 ML SYRINGE SQ SCH (09:00)
--- NOTE | 2017-09-21 09:54 | P.PN ---
<Brittany Bowen - Last Filed: 09/21/17 09:43> Subjective Progress Note Date: 09/21/17 87-year-old female seen and examined. Physical therapy at the bedside patient did ambulate in the hallway without difficulty pulse ox sat with activity on room air 89% on 3 L 96% on room air at rest 92% heart rate in the 60s to 70s. Afebrile surgical dressing sites dry. Soft obese not distended surgical tenderness appropriate surgical dressings in place states that she is comfortable going home today has a son who lives a mile away case hardener will evaluate home situation and address as indicated white count this morning 16.4. Postop September 20 Robotic assisted da Luis Xi laparoscopic Mely-en-Y gastric bypass for morbid obesity. Initial BMI 73 down to 58 Objective - Vital Signs Vital signs: Vital Signs Temp 97.6 F 09/21/17 07:49 Pulse 66 09/21/17 07:49 Resp 14 09/21/17 07:49 BP 111/51 09/21/17 07:49 Pulse Ox 96 09/21/17 08:11 Intake & Output 09/20/17 09/21/17 09/21/17 18:59 06:59 18:59 Intake Total 1500 Output Total 160 650 Balance 1340 -650 Weight 144.8 kg Intake: IV 1500 Output: Urine 150 650 Uretheral (Felix) 650 Estimated Blood Loss 10 Other: Voiding Method Indwelling Catheter Indwelling Catheter - Exam Physical exam Very pleasant 67-year-old female sitting up in a chair has been up ambulating with physical therapy on the unit with no difficulties Lungs adequate air movement bilaterally no shortness of breath noted no cough noted Heart S1-S2 audible regular denying chest pain no murmur noted Abdomen obese soft surgical tenderness appropriate surgical dressing site dry states urinating no difficulty reports no nausea vomiting no stool Extremities trace edema to the bilateral lower extremities - Labs CBC & Chem 7: 09/21/17 06:55 09/21/17 06:55 Labs: Abnormal Lab Results - Last 24 Hours (Table) 09/20/17 09/20/17 09/20/17 Range/Units 12:43 18:01 20:27 WBC (3.8-10.6) k/uL Neutrophils # (1.3-7.7) k/uL Potassium (3.5-5.1) mmol/L BUN (7-17) mg/dL Creatinine (0.52-1.04) mg/dL POC Glucose (mg/dL) 105 H 152 H 158 H (75-99) mg/dL Phosphorus (2.5-4.5) mg/dL 09/21/17 09/21/17 09/21/17 Range/Units 00:45 05:58 06:55 WBC 16.4 H (3.8-10.6) k/uL Neutrophils # 14.2 H (1.3-7.7) k/uL Potassium (3.5-5.1) mmol/L BUN (7-17) mg/dL Creatinine (0.52-1.04) mg/dL POC Glucose (mg/dL) 154 H 134 H (75-99) mg/dL Phosphorus (2.5-4.5) mg/dL 09/21/17 Range/Units 06:55 WBC (3.8-10.6) k/uL Neutrophils # (1.3-7.7) k/uL Potassium 5.7 H (3.5-5.1) mmol/L BUN 51 H (7-17) mg/dL Creatinine 1.11 H (0.52-1.04) mg/dL POC Glucose (mg/dL) (75-99) mg/dL Phosphorus 4.8 H (2.5-4.5) mg/dL Assessment and Plan Assessment: Impression Morbid obesity due to excessive calories BMI initially 73 down to 58 Obstructive sleep apnea End-stage osteoarthritis of the bilateral knees Family history of morbid obesity Hypothyroid Chronic atrial fibrillation on Xarelto Plan Continue postop bariatric care reports analysis manager to discuss home care options if indicated Bariatric clear diet Xarelto to be restarted when appropriate Pain control Anticipate discharge soon DVT and GI prophylaxis The above impression and plan of care have been discussed and directed by signing physician. Brittany Bowen nurse practitioner acting as scribe for signing physician. <Shyla Roberts - Last Filed: 09/21/17 19:57> Objective - Vital Signs Vital signs: Vital Signs Temp 97.8 F 09/21/17 14:32 Pulse 62 09/21/17 14:32 Resp 18 09/21/17 14:32 BP 94/51 09/21/17 14:32 Pulse Ox 100 09/21/17 14:32 Intake & Output 09/21/17 09/21/17 09/22/17 06:59 18:59 06:59 Intake Total 120 Output Total 650 Balance -650 120 Weight 144.8 kg Intake: Oral 120 Output: Urine 650 Uretheral (Felix) 650 Other: Voiding Method Indwelling Catheter Indwelling Catheter - Labs CBC & Chem 7: 09/21/17 06:55 09/21/17 06:55 Labs: Abnormal Lab Results - Last 24 Hours (Table) 09/20/17 09/21/17 09/21/17 Range/Units 20:27 00:45 05:58 WBC (3.8-10.6) k/uL Neutrophils # (1.3-7.7) k/uL Potassium (3.5-5.1) mmol/L BUN (7-17) mg/dL Creatinine (0.52-1.04) mg/dL POC Glucose (mg/dL) 158 H 154 H 134 H (75-99) mg/dL Phosphorus (2.5-4.5) mg/dL 09/21/17 09/21/17 09/21/17 Range/Units 06:55 06:55 11:46 WBC 16.4 H (3.8-10.6) k/uL Neutrophils # 14.2 H (1.3-7.7) k/uL Potassium 5.7 H (3.5-5.1) mmol/L BUN 51 H (7-17) mg/dL Creatinine 1.11 H (0.52-1.04) mg/dL POC Glucose (mg/dL) 115 H (75-99) mg/dL Phosphorus 4.8 H (2.5-4.5) mg/dL
[2017-09-21] MEDS: METOPROLOL TARTRATE 25 MG TAB PO SCH (10:33)
[2017-09-21 11:49] LABS: Glucose,Whole Blood 115 mg/dL (75-99)
[2017-09-21 14:00] VITALS: BMI 58.3
--- NOTE | 2017-09-21 14:29 | P.DS ---
Providers Date of admission: 09/20/17 12:14 Expected date of discharge: 09/21/17 Attending physician: Shyla Roberts Primary care physician: [facility] Hospital Course: 67-year-old female who was a history of morbid obesity lifelong. As a result of morbid obesity develop hypertensive heart disease as well as type 2 diabetes osteoarthritis involving multiple joints with obstructive sleep apnea. Her highest weight was 401. The BMI initially was 73 currently 58. Patient elected to undergo Robotic assisted da Luis Xi laparoscopic Mely-en-Y gastric bypass, 100 cm antecolic antegastric Mely limb, with 25 mm EEA. with Intraoperative esophagogastrojejunoscopy. Procedure was done on September 20 there were no postop events. Physical and occupational therapy did see patient. Patient was able to ambulate on the unit without difficulty. Heart rate was in the 80s. On 3 L sats are 96% on room air 92% temp is 97.6 white count 16.4 patient was anxious to be discharged. It was reinforced to the patient did not start Xarelto until the patient had a discussion with Dr. Roberts in the office and a follow-up visit Impression Morbid obesity due to excessive calories BMI initially 73 down to 58 Obstructive sleep apnea End-stage osteoarthritis of the bilateral knees Family history of morbid obesity Hypothyroid Chronic atrial fibrillation on Xarelto The above impression and plan of care have been discussed and directed by signing physician. Brittany Bowen nurse practitioner acting as scribe for signing physician. Plan - Discharge Summary Discharge Rx Participant: No New Discharge Prescriptions: New Bisacodyl [Dulcolax] 5 mg PO DAILY PRN #10 tablet. PRN Reason: Constipation Ondansetron Odt [Zofran Odt] 4 mg PO Q8HR PRN #9 tab PRN Reason: Nausea Simethicone 40 mg/0.6 ml Drops [Mylicon Drops] 40 mg PO PCHS PRN #30 ml PRN Reason: Gas Omeprazole 40 mg PO DAILY #90 capsule. HYDROcodone/APAP [Reading Elixir 7.5-325Mg/15Ml] 15 ml PO Q4HR PRN 3 Days #270 ml PRN Reason: pian Continue Levothyroxine Sodium [Tirosint] 75 mcg PO DAILY Umeclidinium Delphos [Incruse Ellipta] 1 puff INHALATION RT-DAILY PRN PRN Reason: Shortness Of Breath Oxybutynin Chloride [Oxybutynin Chloride ER] 15 mg PO BID Fluticasone/Salmeterol [Advair 250-50 Diskus] 1 puff INHALATION RT-BID PRN PRN Reason: sob Metoprolol Tartrate [Lopressor] 25 mg PO BID #60 tab Ipratropium-Albuterol Nebulize [Duoneb 0.5 mg-3 mg/3 ml Soln] 3 ml INHALATION RT-TID PRN PRN Reason: sob Acetaminophen-Codeine 300-30mg [Tylenol w/codeine #3] 1 tab PO Q6HR PRN PRN Reason: Pain Acetaminophen [Tylenol] 650 mg PO Q4-6H PRN PRN Reason: Pain Lisinopril-Hctz 10-12.5 mg [Zestoretic 10-12.5] 1 tab PO DAILY Discontinued Cetirizine HCl [Zyrtec] 10 mg PO DAILY Methenamine Hippurate [Hiprex] 1 gm PO BID Famotidine [Pepcid] 20 mg PO QAM Dymista 137 mcg NASAL BID PRN PRN Reason: Allergy Symptoms Insulin Lispro [humaLOG] 4 units SQ AC-TID #1 ml Liraglutide [Victoza 2-Tavo] 0.6 mg SQ HS Rivaroxaban [Xarelto] 20 mg PO W/SUPPER Insulin Glargine,Hum.rec.anlog [Lantus Solostar] 22 unit SQ HS Ergocalciferol [Vitamin D2 (DRISDOL)] 50,000 unit PO ROBBINS Discharge Medication List Fluticasone/Salmeterol [Advair 250-50 Diskus] 1 puff INHALATION RT-BID PRN 12/02 [History] Levothyroxine Sodium [Tirosint] 75 mcg PO DAILY 12/02/16 [History] Oxybutynin Chloride [Oxybutynin Chloride ER] 15 mg PO BID 12/02/16 [History] Umeclidinium Delphos [Incruse Ellipta] 1 puff INHALATION RT-DAILY PRN 12/02/16 [ History] Metoprolol Tartrate [Lopressor] 25 mg PO BID #60 tab 01/15/17 [Rx] Ipratropium-Albuterol Nebulize [Duoneb 0.5 mg-3 mg/3 ml Soln] 3 ml INHALATION RT -TID PRN 04/26/17 [History] Acetaminophen-Codeine 300-30mg [Tylenol w/codeine #3] 1 tab PO Q6HR PRN [History] Acetaminophen [Tylenol] 650 mg PO Q4-6H PRN 09/20/17 [History] Lisinopril-Hctz 10-12.5 mg [Zestoretic 10-12.5] 1 tab PO DAILY 09/20/17 [History ] Bisacodyl [Dulcolax] 5 mg PO DAILY PRN #10 tablet. 09/21/17 [Rx] HYDROcodone/APAP [Reading Elixir 7.5-325Mg/15Ml] 15 ml PO Q4HR PRN 3 Days #270 ml 09/21/17 [Rx] Omeprazole 40 mg PO DAILY #90 capsule. 09/21/17 [Rx] Ondansetron Odt [Zofran Odt] 4 mg PO Q8HR PRN #9 tab 09/21/17 [Rx] Simethicone 40 mg/0.6 ml Drops [Mylicon Drops] 40 mg PO PCHS PRN #30 ml [Rx] Follow up Appointment(s)/Referral(s): [facility],. [NON-STAFF] - 09/22/17 1:00 pm Patient Instructions/Handouts: Nutrition after Bariatric Surgery (DC), Mely-en -Y Gastric Bypass (DC) Activity/Diet/Wound Care/Special Instructions: No Xeralto until seen by Dr Roberts No tub bath for six weeks. Shower daily. No lifting over 10 pounds for the next 6 weeks.. May use ice packs to surgical site. No driving while taking narcotic for pain. Bariatric clear diet Discharge Disposition: HOME SELF-CARE
[2017-09-21 14:33] VITALS: BP 94/51; PULSE 62; RESP 18; TEMP 97.8
[2017-09-21 18:44] LABS: Hemoglobin A1C 5.9 % (4.0-6.0)
== END 2017-09-21 16:48 | disposition home or self-care (01) | DRG 620 ==
LOC: 2ORMAIN 12:14 → 3SUR 17:48
PROVIDERS: ADMIT Surgery Plastic and Reconstructive Surgery; ATTEND Surgery Plastic and Reconstructive Surgery
PROC: 8E0W4CZ Robotic Assisted Procedure of Trunk Region, Percutaneous Endoscopic Approach (ICD-10-PCS; 2017-09-20)
PROC: 0DJ08ZZ Inspection of Upper Intestinal Tract, Via Natural or Artificial Opening Endoscopic (ICD-10-PCS; 2017-09-20)
PROC: 0D164ZA Bypass Stomach to Jejunum, Percutaneous Endoscopic Approach (ICD-10-PCS; principal; 2017-09-20 14:10)
DX: E66.01 Morbid (severe) obesity due to excess calories (principal); I48.3 Typical atrial flutter; K42.0 Umbilical hernia with obstruction, without gangrene; Z68.43 Body mass index [BMI] 50.0-59.9, adult; I48.2 Chronic atrial fibrillation; I11.9 Hypertensive heart disease without heart failure; J44.9 Chronic obstructive pulmonary disease, unspecified; R16.0 Hepatomegaly, not elsewhere classified; E78.2 Mixed hyperlipidemia; K59.00 Constipation, unspecified; M79.3 Panniculitis, unspecified; E03.9 Hypothyroidism, unspecified; E11.9 Type 2 diabetes mellitus without complications; M16.0 Bilateral primary osteoarthritis of hip; M17.0 Bilateral primary osteoarthritis of knee; G47.33 Obstructive sleep apnea (adult) (pediatric); K21.9 Gastro-esophageal reflux disease without esophagitis; K63.5 Polyp of colon; R32 Unspecified urinary incontinence; F32.9 Major depressive disorder, single episode, unspecified; Z71.3 Dietary counseling and surveillance; Z79.4 Long term (current) use of insulin; Z79.01 Long term (current) use of anticoagulants; Z79.899 Other long term (current) drug therapy; Z79.2 Long term (current) use of antibiotics; Z79.890 Hormone replacement therapy; Z79.51 Long term (current) use of inhaled steroids; Z90.710 Acquired absence of both cervix and uterus; Z98.41 Cataract extraction status, right eye; Z98.42 Cataract extraction status, left eye; Z87.81 Personal history of (healed) traumatic fracture; Z83.49 Family history of other endocrine, nutritional and metabolic diseases; Z82.49 Family history of ischemic heart disease and other diseases of the circulatory system; Z83.79 Family history of other diseases of the digestive system; Z80.0 Family history of malignant neoplasm of digestive organs; Z80.1 Family history of malignant neoplasm of trachea, bronchus and lung; Z87.891 Personal history of nicotine dependence
CPT/HCPCS: 80051; 82310; 82565; 83036; 83735; 84100; 84520; 85025; 86850; 86900; 86901; 94640; 94760

== ENCOUNTER → 2017-09-22 | Outpatient (CLI) | payer MEDICARE ==
[2017-09-22 13:44] VITALS: BP 145/53; PULSE 62; RESP 16; TEMP 98.2; BMI 59.1
--- NOTE | 2017-09-22 14:48 | P.PN ---
Subjective Progress Note Date: 09/22/17 HPI: She is s/p gastric bypass, 09/20/17. She feels well. BSG are under 120. No more insulin required. She reports fatigue. She is passing flatus. She complains of dry mouth. ABDOMEN: Dressing is removed. No cellulitis. PLAN: 1. All questions reviewed. 2. Follow up in 3 weeks. 3. Her blood pressure is very well. 4. Her blood sugar is well. Objective - Vital Signs Vital signs: Vital Signs Temp 98.2 F 09/22/17 13:37 Pulse 62 09/22/17 13:37 Resp 16 09/22/17 13:37 BP 145/53 09/22/17 13:37 Pulse Ox Intake & Output 09/21/17 09/22/17 09/22/17 18:59 06:59 18:59 Weight 146.51 kg
== END | disposition home or self-care (01) ==
LOC: BARWHC3 12:58
PROVIDERS: ATTEND Surgery Plastic and Reconstructive Surgery
DX: Z48.815 Encounter for surgical aftercare following surgery on the digestive system (principal); R53.83 Other fatigue; Z98.84 Bariatric surgery status
CPT/HCPCS: 99211

== ENCOUNTER → 2017-09-29 | Outpatient (CLI) | payer MEDICARE ==
--- NOTE | 2017-09-29 08:54 | P.PN ---
Subjective Progress Note Date: 09/29/17 DATE OF SERVICE: 09/29/2017 CHIEF COMPLAINT: s/p gastric bypass HISTORY OF PRESENT ILLNESS: Lilian Urrutia is a 67-year-old female whose highest weight was 401 pounds. Today she comes in weighing 310 pounds from 322 pounds, 1 week ago. Lifetime weight loss is 90 pounds. Percent excess weight loss is 34%. At her height of 5 foot 2 inches, her ideal body weight is 135 pounds. She is 176 pounds overweight. Her highest body mass index was 73.5. Today her BMI is 56.9. She has lost 12 pounds in 1 week. She is s/p gastric bypass, 09/20/17. She is doing very well. No fevers or chills. Blood sugars are under 156. She has only taken her insulin once. Her bowel movement is without blood. She has lost 28 pounds in less than 1 month. PHYSICAL EXAM: VITAL SIGNS: Height 5 foot 2 inches, weight 310 pounds. BMI 56.9 Vital Signs Temp 97.7 F 09/29/17 09:02 Pulse 69 09/29/17 09:02 Resp BP 119/52 09/29/17 09:02 Pulse Ox GENERAL: Well-developed female in no acute distress. HEENT: No scleral icterus. Extraocular movements grossly intact. Hears conversational speech. No nasal drainage. NECK: Supple without lymphadenopathy. Well-healed collar incision from previous thyroidectomy. CHEST: Nonlabored respirations with equal bilateral excursions. CARDIOVASCULAR: Irregular rate, irregular rhythm. Distal 2+ pulses. ABDOMEN: Obese, soft, nontender, nondistended. No signs of infection. MUSCULOSKELETAL: No clubbing, cyanosis. Gross strength 5/5 distal lower extremities. NEURO: No focal or lateralizing signs. Cranial nerves 2 through 12 grossly within normal limits. PSYCH: Appropriate affect. Alert and oriented to person, place and time. SKIN: Good skin turgor. Well perfused. ASSESSMENT: 1. Morbid obesity due to excess calories 2. Body mass index of 73.5 down to 56.9 3. End-stage osteoarthritis of the bilateral knees. 4. Obstructive sleep apnea. 5. Osteoarthritis of the hips 6. Hypertensive heart disease. 7. Gastroesophageal reflux disease 8. Asthma 9. Chronic obstructive pulmonary disease. 10. Diabetes type 2, [id number]. 11. Status post gastric bypass PLAN: 1. May start Xarelto. 2. Follow up 1 month.
[2017-09-29 09:06] VITALS: BP 119/52; PULSE 69; TEMP 97.7; BMI 56.9
== END ==
LOC: BARWHC3 08:24
PROVIDERS: ATTEND Surgery Plastic and Reconstructive Surgery
DX: E66.01 Morbid (severe) obesity due to excess calories (principal); Z98.84 Bariatric surgery status; Z68.43 Body mass index [BMI] 50.0-59.9, adult; M17.0 Bilateral primary osteoarthritis of knee; G47.33 Obstructive sleep apnea (adult) (pediatric); K21.9 Gastro-esophageal reflux disease without esophagitis; M16.0 Bilateral primary osteoarthritis of hip; E11.9 Type 2 diabetes mellitus without complications
CPT/HCPCS: 97803; G0463; 99211

== ENCOUNTER → 2017-10-20 | Outpatient (CLI) | payer MEDICARE ==
[2017-10-20 13:18] VITALS: BMI 54.0
--- NOTE | 2017-10-20 13:28 | P.PN ---
Subjective Progress Note Date: 10/20/17 DATE OF SERVICE: 10/20/2017 CHIEF COMPLAINT: s/p gastric bypass HISTORY OF PRESENT ILLNESS: Lilian Urrutia is a 67-year-old female whose highest weight was 401 pounds. Today she comes in weighing 295 pounds from 310 pounds, 3 weeks ago. Lifetime weight loss is 106 pounds. Percent excess weight loss is 40 %. At her height of 5 foot 2 inches, her ideal body weight is 135 pounds. She is 160 pounds overweight. Her highest body mass index was 73.5. Today her BMI is 54.0. She has lost 16 pounds in 3 weeks. She is s/p gastric bypass, 09/20/17. She feels great! She has no issues. No nausea or vomiting. She is walking for the first time without a wheelchair. Her blood sugar glucose are improved with 1 every 4 days of insulin needed. She reports her blood pressure is doing very well. She has achieved her milestone of being under 300 pounds. Bowel movements are normal for her at once per week. PHYSICAL EXAM: VITAL SIGNS: Height 5 foot 2 inches, weight 295 pounds. BMI 54.0 Vital Signs Temp 99 F 10/20/17 12:47 Pulse 65 10/20/17 12:47 Resp 14 10/20/17 12:47 BP 117/57 10/20/17 12:47 Pulse Ox GENERAL: Well-developed female in no acute distress. HEENT: No scleral icterus. Extraocular movements grossly intact. Hears conversational speech. No nasal drainage. NECK: Supple without lymphadenopathy. CHEST: Nonlabored respirations with equal bilateral excursions. CARDIOVASCULAR: Regular rate, regular rhythm. Distal 2+ pulses. ABDOMEN: Obese, soft, nontender, nondistended. No signs of infection. No incisional hernia. Resolved dimple of the left upper abdomen. MUSCULOSKELETAL: No clubbing, cyanosis. Gross strength 5/5 distal lower extremities. NEURO: No focal or lateralizing signs. Cranial nerves 2 through 12 grossly within normal limits. PSYCH: Appropriate affect. Alert and oriented to person, place and time. SKIN: Good skin turgor. Well perfused. ASSESSMENT: 1. Morbid obesity due to excess calories 2. Body mass index of 73.5 down to 54.0 3. End-stage osteoarthritis of the bilateral knees. 4. Obstructive sleep apnea. 5. Osteoarthritis of the hips 6. Hypertensive heart disease. 7. Gastroesophageal reflux disease 8. Asthma 9. Chronic obstructive pulmonary disease. 10. Diabetes type 2, [id number]-[id number]. 11. Status post gastric bypass PLAN: 1. Recommend bariatric labs. 2. This is the first time in 15 years she is under 300 pounds! 3. Plan for close follow up regarding blood pressure and blood sugar. 4. Start multivitamins today. Objective - Vital Signs Vital signs: Intake & Output 10/19/17 10/20/17 10/20/17 18:59 06:59 18:59 Weight 133.991 kg - Labs CBC & Chem 7: 10/20/17 14:00 10/20/17 14:00
[2017-10-20 13:33] VITALS: BP 117/57; PULSE 65; RESP 14; TEMP 99
[2017-10-20 14:55] LABS: HCT 38.6 % (34.0-46.0); HGB 12.9 gm/dL (11.4-16.0); MCH 31.9 pg (25.0-35.0); MCHC 33.5 g/dL (31.0-37.0); MCV 95.2 fL (80.0-100.0); Mean Platelet Volume 8.9; Platelet Count 281 k/uL (150-450); RBC 4.06 m/uL (3.80-5.40); WBC 10.4 k/uL (3.8-10.6)
[2017-10-20 15:04] LABS: INR 1.2 (<1.2); Partial Thromboplastin Time 32.6 sec (22.0-30.0); Prothrombin Time 11.4 sec (9.0-12.0)
[2017-10-20 15:28] LABS: Albumin 4.3 g/dL (3.5-5.0); Calcium 9.6 mg/dL (8.4-10.2); Magnesium 1.9 mg/dL (1.6-2.3); Phosphorus 4.3 mg/dL (2.5-4.5); Total Bilirubin 0.4 mg/dL (0.2-1.3); Total Protein 6.8 g/dL (6.3-8.2)
[2017-10-20 20:21] LABS: Parathyroid Hormone Intact 65.7 pg/mL (14.0-72.0)
[2017-10-20 20:52] LABS: Iron Saturation 34.51 (12.00-45.00)
[2017-10-20 20:57] LABS: Folate, Serum 8.9 ng/mL; Vitamin D 25 Hydroxy 38.2 ng/mL (30.0-100.0)
[2017-10-20 22:50] LABS: Hemoglobin A1C 6.3 % (4.0-6.0)
[2017-10-21 12:04] LABS: Zinc, Serum 83 ug/dL (60-130)
[2017-10-22 05:59] LABS: Vitamin A 37 ug/dL (38-106)
[2017-10-22 12:08] LABS: Vitamin B1 48 ug/L (38-122)
[2017-10-22 17:26] LABS: Selenium 101 mcg/L (63-160)
== END | disposition home or self-care (01) ==
LOC: BARWHC3 12:39
PROVIDERS: ATTEND Surgery Plastic and Reconstructive Surgery
DX: Z09 Encounter for follow-up examination after completed treatment for conditions other than malignant neoplasm (principal); E66.01 Morbid (severe) obesity due to excess calories; M17.0 Bilateral primary osteoarthritis of knee; G47.33 Obstructive sleep apnea (adult) (pediatric); M16.0 Bilateral primary osteoarthritis of hip; I11.9 Hypertensive heart disease without heart failure; K21.9 Gastro-esophageal reflux disease without esophagitis; J44.9 Chronic obstructive pulmonary disease, unspecified; E11.9 Type 2 diabetes mellitus without complications; D50.9 Iron deficiency anemia, unspecified; E21.1 Secondary hyperparathyroidism, not elsewhere classified; E89.1 Postprocedural hypoinsulinemia; E44.0 Moderate protein-calorie malnutrition; E55.9 Vitamin D deficiency, unspecified; K74.1 Hepatic sclerosis; N19 Unspecified kidney failure; K50.90 Crohn's disease, unspecified, without complications; Z68.43 Body mass index [BMI] 50.0-59.9, adult; Z79.4 Long term (current) use of insulin; Z98.84 Bariatric surgery status
CPT/HCPCS: 84255; 84134; 84425; 80061; 80053; 82607; 82728; 82525; 82746; 83540; 83550; 83735; 84100; 84443; 84590; 84630; 85027; 85610; 85730; 82306; 83970; 83036; 97803; 36415; G0463; 99211

== ENCOUNTER → 2017-12-22 | Outpatient (CLI) | payer MEDICARE ==
--- NOTE | 2017-12-22 14:24 | P.PN ---
Subjective Progress Note Date: 12/22/17 DATE OF SERVICE: 12/22/2017 CHIEF COMPLAINT: s/p gastric bypass HISTORY OF PRESENT ILLNESS: Lilian Urrutia is a 67-year-old female whose highest weight was 401 pounds. Today she comes in weighing 271 pounds from 295 pounds, 2 months ago. Lifetime weight loss is 139 pounds. Percent excess weight loss is 49 %. At her height of 5 foot 2 inches, her ideal body weight is 135 pounds. Her highest body mass index was 73.5. Today her BMI is 49.7 She has lost 23 pounds in 2 months. She is s/p gastric bypass, 09/20/17. She is 3 months out. She has lost 70 pounds in 3 months. She reports sore throat and a tooth ache. She reports moderate energy. Her blood sugars have improved. She is off her high blood pressure pills. She is almost done with her insulin. PHYSICAL EXAM: VITAL SIGNS: Height 5 foot 2 inches, weight 295 pounds. BMI 54.0 Vital Signs Temp 98.2 F 12/22/17 14:32 Pulse 60 12/22/17 14:32 Resp 14 12/22/17 14:32 BP 165/70 12/22/17 14:32 Pulse Ox GENERAL: Well-developed female in no acute distress. HEENT: No scleral icterus. Extraocular movements grossly intact. Hears conversational speech. No nasal drainage. NECK: Supple without lymphadenopathy. CHEST: Nonlabored respirations with equal bilateral excursions. CARDIOVASCULAR: Regular rate, regular rhythm. Distal 2+ pulses. ABDOMEN: Obese, soft, nontender, nondistended. No incisional hernia. MUSCULOSKELETAL: No clubbing, cyanosis. Gross strength 5/5 distal lower extremities. NEURO: No focal or lateralizing signs. Cranial nerves 2 through 12 grossly within normal limits. PSYCH: Appropriate affect. Alert and oriented to person, place and time. SKIN: Good skin turgor. Well perfused. ASSESSMENT: 1. Morbid obesity due to excess calories 2. Body mass index of 73.5 down to 54.0 3. End-stage osteoarthritis of the bilateral knees. 4. Obstructive sleep apnea. 5. Osteoarthritis of the hips 6. Hypertensive heart disease. 7. Gastroesophageal reflux disease 8. Asthma 9. Chronic obstructive pulmonary disease. 10. Diabetes type 2, [id number]-[id number]. 11. Status post gastric bypass PLAN: 1. Recommend bariatric labs as she is 3 months out. 2. Oral antibiotics for possible sinusitis Laboratory Last Values WBC 9.7 k/uL (3.8-10.6) 12/22/17 14:40 RBC 4.14 m/uL (3.80-5.40) 12/22/17 14:40 Hgb 13.2 gm/dL (11.4-16.0) 12/22/17 14:40 Hct 40.7 % (34.0-46.0) 12/22/17 14:40 MCV 98.1 fL (80.0-100.0) 12/22/17 14:40 MCH 32.0 pg (25.0-35.0) 12/22/17 14:40 MCHC 32.6 g/dL (31.0-37.0) 12/22/17 14:40 RDW 14.5 % (11.5-15.5) 12/22/17 14:40 Plt Count 273 k/uL (150-450) 12/22/17 14:40 Hypochromasia Slight 12/22/17 14:40 PT 11.0 sec (9.0-12.0) 12/22/17 14:40 INR 1.1 (<1.2) 12/22/17 14:40 APTT 33.0 sec (22.0-30.0) H 12/22/17 14:40 Sodium 142 mmol/L (137-145) 12/22/17 14:40 Potassium 3.5 mmol/L (3.5-5.1) 12/22/17 14:40 Chloride 104 mmol/L (98-107) 12/22/17 14:40 Carbon Dioxide 30 mmol/L (22-30) 12/22/17 14:40 Anion Gap 8 mmol/L 12/22/17 14:40 BUN 16 mg/dL (7-17) 12/22/17 14:40 Creatinine 0.82 mg/dL (0.52-1.04) 12/22/17 14:40 Est GFR (CKD-EPI)AfAm 86 (>60 ml/min/1.73 sqM) 12/22/17 14:40 Est GFR (CKD-EPI)NonAf 74 (>60 ml/min/1.73 sqM) 12/22/17 14:40 Glucose 87 mg/dL (74-99) 12/22/17 14:[address] Glu mg/dL 105 12/22/17 14:40 Hemoglobin A1c 5.3 % (4.0-6.0) 12/22/17 14:40 Calcium 8.9 mg/dL (8.4-10.2) 12/22/17 14:40 Phosphorus 3.2 mg/dL (2.5-4.5) 12/22/17 14:40 Magnesium 1.8 mg/dL (1.6-2.3) 12/22/17 14:40 Iron 56 ug/dL (50-170) 12/22/17 14:40 TIBC 240 ug/dL (228-460) 12/22/17 14:40 Iron Saturation 23.33 (12.00-45.00) 12/22/17 14:40 Ferritin 133.7 ng/mL (10.0-291.0) 12/22/17 14:40 Total Bilirubin 0.4 mg/dL (0.2-1.3) 12/22/17 14:40 AST 21 U/L (14-36) 12/22/17 14:40 ALT 24 U/L (9-52) 12/22/17 14:40 Alkaline Phosphatase 69 U/L (38-126) 12/22/17 14:40 Total Protein 6.3 g/dL (6.3-8.2) 12/22/17 14:40 Albumin 3.6 g/dL (3.5-5.0) 12/22/17 14:40 Prealbumin 10.0 mg/dL (18.0-42.0) L 12/22/17 14:40 Triglycerides 153 mg/dL (<150) H 12/22/17 14:40 Cholesterol 137 mg/dL (<200) 12/22/17 14:40 LDL Cholesterol, Calc 71 mg/dL (0-99) 12/22/17 14:40 HDL Cholesterol 35 mg/dL (40-60) L 12/22/17 14:40 Vitamin A 26 ug/dL (38-106) L 12/22/17 14:40 Vitamin B1 51 ug/L (38-122) 12/22/17 14:40 Vitamin B12 509.0 pg/mL (200.0-944.0) 12/22/17 14:40 Vitamin D 25-Hydroxy 50.8 ng/mL (30.0-100.0) 12/22/17 14:40 Folate 7.0 ng/mL 12/22/17 14:40 TSH 1.390 mIU/L (0.465-4.680) 12/22/17 14:40 PTH Intact 73.2 pg/mL (14.0-72.0) H 12/22/17 14:40 Copper 1401 ug/L (810-1990) 12/22/17 14:40 Selenium 81 mcg/L (63-160) 12/22/17 14:40 Zinc 56 ug/dL (60-130) L 12/22/17 14:40 Objective - Labs CBC & Chem 7: 12/22/17 14:40 12/22/17 14:40
[2017-12-22 14:43] VITALS: BP 165/70; PULSE 60; RESP 14; TEMP 98.2; BMI 49.7
[2017-12-22 15:07] LABS: HCT 40.7 % (34.0-46.0); HGB 13.2 gm/dL (11.4-16.0); Hypochromasia Slight; MCHC 32.6 g/dL (31.0-37.0); MCV 98.1 fL (80.0-100.0); Mean Platelet Volume 7.2; Platelet Count 273 k/uL (150-450); RBC 4.14 m/uL (3.80-5.40); RDW 14.5 % (11.5-15.5); WBC 9.7 k/uL (3.8-10.6)
[2017-12-22 15:14] LABS: INR 1.1 (<1.2)
[2017-12-22 16:03] LABS: Albumin 3.6 g/dL (3.5-5.0); Calcium 8.9 mg/dL (8.4-10.2); Magnesium 1.8 mg/dL (1.6-2.3); Phosphorus 3.2 mg/dL (2.5-4.5); Potassium 3.5 mmol/L (3.5-5.1); Total Bilirubin 0.4 mg/dL (0.2-1.3); Total Protein 6.3 g/dL (6.3-8.2)
[2017-12-22 18:31] LABS: Iron Saturation 23.33 (12.00-45.00)
[2017-12-22 18:40] LABS: Vitamin D 25 Hydroxy 50.8 ng/mL (30.0-100.0)
[2017-12-22 19:16] LABS: Parathyroid Hormone Intact 73.2 pg/mL (14.0-72.0)
[2017-12-22 23:13] LABS: Hemoglobin A1C 5.3 % (4.0-6.0)
[2017-12-23 13:49] LABS: Zinc, Serum 56 ug/dL (60-130)
[2017-12-24 07:04] LABS: Vitamin A 26 ug/dL (38-106)
[2017-12-24 08:11] LABS: Vitamin B1 51 ug/L (38-122)
[2017-12-25 11:59] LABS: Selenium 81 mcg/L (63-160)
== END | disposition home or self-care (01) ==
LOC: BARWHC3 13:00
PROVIDERS: ATTEND Surgery Plastic and Reconstructive Surgery
DX: Z09 Encounter for follow-up examination after completed treatment for conditions other than malignant neoplasm (principal); E66.01 Morbid (severe) obesity due to excess calories; J02.9 Acute pharyngitis, unspecified; K08.89 Other specified disorders of teeth and supporting structures; M17.0 Bilateral primary osteoarthritis of knee; M16.0 Bilateral primary osteoarthritis of hip; G47.33 Obstructive sleep apnea (adult) (pediatric); I13.10 Hypertensive heart and chronic kidney disease without heart failure, with stage 1 through stage 4 chronic kidney disease, or unspecified chronic kidney disease; N18.9 Chronic kidney disease, unspecified; K21.9 Gastro-esophageal reflux disease without esophagitis; J44.9 Chronic obstructive pulmonary disease, unspecified; E11.22 Type 2 diabetes mellitus with diabetic chronic kidney disease; E21.1 Secondary hyperparathyroidism, not elsewhere classified; E89.1 Postprocedural hypoinsulinemia; D50.9 Iron deficiency anemia, unspecified; E44.0 Moderate protein-calorie malnutrition; E55.9 Vitamin D deficiency, unspecified; K74.1 Hepatic sclerosis; K50.90 Crohn's disease, unspecified, without complications; Z98.84 Bariatric surgery status; Z79.4 Long term (current) use of insulin; Z68.43 Body mass index [BMI] 50.0-59.9, adult
CPT/HCPCS: 84255; 84134; 84425; 80061; 80053; 82607; 82728; 82525; 82746; 83540; 83550; 83735; 84100; 84443; 84590; 84630; 85027; 85610; 85730; 82306; 83970; 83036; 97803; G0463; 99211

== ENCOUNTER → 2018-03-08 | Outpatient (CLI) | payer MEDICARE ==
--- NOTE | 2018-03-10 08:31 | MM ---
Reason for exam: screening (asymptomatic). Last mammogram was performed 1 year and 10 months ago. History: Patient is postmenopausal. Physical Findings: A clinical breast exam by your physician is recommended on an annual basis and results should be correlated with mammographic findings. MG 3D Screening Mammo W/Cad Bilateral CC, MLO, and XCCL view(s) were taken. Prior study comparison: April 30, 2016, bilateral MG 3d screening mammo w/cad. December 20, 2013, mammogram, performed at [place]. There are scattered fibroglandular densities. There is chronic nodularity in the right breast. No significant changes when compared with prior studies. ASSESSMENT: Negative, BI-RAD 1 RECOMMENDATION: Routine screening mammogram of both breasts in 1 year.
== END | disposition home or self-care (01) ==
LOC: RADMAMWWP 13:10
PROVIDERS: ATTEND Family Medicine
DX: Z12.31 Encounter for screening mammogram for malignant neoplasm of breast (principal)
CPT/HCPCS: 77063; 77067

== ENCOUNTER → 2018-03-23 | Outpatient (CLI) | payer MEDICARE ==
[2018-03-23 13:55] VITALS: BP 161/72; PULSE 56; RESP 16; TEMP 97.6; BMI 44.2
[2018-03-23 14:40] LABS: MCH 31.3 pg (25.0-35.0); MCHC 32.6 g/dL (31.0-37.0); MCV 96.1 fL (80.0-100.0); Mean Platelet Volume 7.9; Platelet Count 295 k/uL (150-450); RBC 4.48 m/uL (3.80-5.40); RDW 13.3 % (11.5-15.5); WBC 9.5 k/uL (3.8-10.6)
[2018-03-23 14:50] LABS: Partial Thromboplastin Time 34.2 sec (22.0-30.0); Prothrombin Time 11.1 sec (9.0-12.0)
--- NOTE | 2018-03-23 18:52 | P.PN ---
Subjective Progress Note Date: 03/23/[address] Martin. She is feeling well. She has lost 100 pounds. She is off her CPAP. She reports eating for the holidays. She has no dumping syndrome. She has swelling along the right lower leg. ABDOMEN: Soft SKIN: 20 x 20 cm mass posterior right lower posterior leg ASSESSMENT: 1. Recommend US of the right lower leg for lymphemedema. 2. She still has problems with her walking as she needs a knee replacement. 3. Blood work for today at 6 month visit. 4. Refill for Vitamin D pending Objective - Vital Signs Vital signs: Vital Signs Temp 97.6 F 03/23/18 13:52 Pulse 56 L 03/23/18 13:52 Resp 16 03/23/18 13:52 BP 161/72 03/23/18 13:52 Pulse Ox Intake & Output 03/22/18 03/23/18 03/23/18 18:59 06:59 18:59 Weight 109.769 kg
[2018-03-23 19:28] LABS: Iron Saturation 23.1 (12.00-45.00)
[2018-03-23 19:29] LABS: Albumin 4.2 g/dL (3.80-4.90); Albumin/Globulin Ratio 2.33 (1.20-2.10); Anion Gap 6.5 mmol/L (4.00-12.00); Calcium 9.2 mg/dL (8.7-10.3); Carbon Dioxide 33.5 mmol/L (21.6-31.8); Globulin 1.8 g/dL (2.1-3.7); LDL Cholesterol,Calculated 81.2 mg/dL (0.0-131.0); Magnesium 1.9 mg/dL (1.5-2.4); Phosphorus 4.6 mg/dL (2.4-5.1); Potassium 4.1 mmol/L (3.5-5.5); Total Bilirubin 0.3 mg/dL (0.3-1.2); VLDL Calculation 31.8 mg/dL (5.00-40.00)
[2018-03-23 19:36] LABS: Vitamin D 25 Hydroxy 66.9 ng/mL (30.0-100.0)
[2018-03-23 19:37] LABS: Folate, Serum 5.2 ng/mL
[2018-03-23 21:39] LABS: Hemoglobin A1C 5.6 % (4.0-6.0)
[2018-03-24 14:02] LABS: Zinc, Serum 123 ug/dL (60-130)
[2018-03-25 06:55] LABS: Vitamin A 29 ug/dL (38-106)
[2018-03-25 07:07] LABS: Vitamin B1 52 ug/L (38-122)
== END | disposition home or self-care (01) ==
LOC: BARWHC3 12:49
PROVIDERS: ATTEND Surgery Plastic and Reconstructive Surgery
DX: E66.01 Morbid (severe) obesity due to excess calories (principal); E21.1 Secondary hyperparathyroidism, not elsewhere classified; E89.1 Postprocedural hypoinsulinemia; D50.9 Iron deficiency anemia, unspecified; K90.9 Intestinal malabsorption, unspecified; E55.9 Vitamin D deficiency, unspecified; K76.9 Liver disease, unspecified; N19 Unspecified kidney failure; K50.90 Crohn's disease, unspecified, without complications; Z68.41 Body mass index [BMI] 40.0-44.9, adult
CPT/HCPCS: 84255; 84134; 84425; 80061; 80053; 82607; 82728; 82525; 82746; 83540; 83550; 83735; 84100; 84443; 84590; 84630; 85027; 85610; 85730; 82306; 83970; 83036; 97803; 36415; G0463; 99211

== ENCOUNTER → 2018-04-07 | Outpatient (CLI) | payer MEDICARE ==
--- NOTE | 2018-04-07 16:10 | US ---
EXAMINATION TYPE: US extremity nonvasc mass RT DATE OF EXAM: 04/07/2018 COMPARISON: NONE CLINICAL HISTORY: R22.41 Swelling and lump of right leg. Recent weight loss, now patient feeling larg e palpable area along right medial lower part of thigh. Right medial thigh at patient's area of concern: no definite mass or fluid collection seen at this ti me. IMPRESSION: No distinct abnormality appreciated.
== END | disposition home or self-care (01) ==
LOC: RADUSWWP 14:57
PROVIDERS: ATTEND Surgery Plastic and Reconstructive Surgery
DX: R22.41 Localized swelling, mass and lump, right lower limb (principal)

== ENCOUNTER → 2018-06-29 | Outpatient (CLI) | payer MEDICARE ==
--- NOTE | 2018-06-29 13:17 | P.PN ---
Subjective Progress Note Date: 06/29/18 HPI: She is 9 months out. She reports her daughter is with her. No abdominal pain. No fatigue or dysphagia. She reports panniculitis. ABDOMEN: Panniculitis. Pannus over 10 pounds. MUSCULOSKLETEAL: 1-pound lipoma subcutaneous STUDIES: Reviewed of US of RLE - no DVT or fluid ASSESSMENT: 1. Anal skin tag 2. Lymphocele along right posterior lower thigh PLAN: 1. Excision of anal skin tag 2. Nystatin powder for panniculitis 3. Referral for poor circulation and lymphocele. 4. Labs for today. 5. CT of the right knee/lower thigh
[2018-06-29 13:19] VITALS: BP 166/70; PULSE 56; RESP 16; TEMP 97.6; BMI 43.5
[2018-06-29 15:01] LABS: HCT 43.6 % (34.0-46.0); HGB 13.9 gm/dL (11.4-16.0); MCH 31.4 pg (25.0-35.0); MCV 98.1 fL (80.0-100.0); Mean Platelet Volume 6.6; Platelet Count 329 k/uL (150-450); RBC 4.44 m/uL (3.80-5.40); RDW 13.6 % (11.5-15.5); WBC 11.1 k/uL (3.8-10.6)
[2018-06-29 15:11] LABS: Prothrombin Time 10.3 sec (9.0-12.0)
[2018-06-29 19:17] LABS: Albumin 4.2 g/dL (3.80-4.90); Albumin/Globulin Ratio 2.1 (1.60-3.17); Anion Gap 5.4 mmol/L (4.00-12.00); Calcium 9.2 mg/dL (8.7-10.3); Carbon Dioxide 32.6 mmol/L (21.6-31.8); LDL Cholesterol,Calculated 89.6 mg/dL (0.0-131.0); Phosphorus 4.4 mg/dL (2.4-5.1); Potassium 4.3 mmol/L (3.5-5.5); Total Bilirubin 0.2 mg/dL (0.3-1.2); Total Protein 6.2 g/dL (6.2-8.2); VLDL Calculation 29.4 mg/dL (5.00-40.00)
[2018-06-29 19:36] LABS: Folate, Serum >24.0 ng/mL; Vitamin D 25 Hydroxy 43.3 ng/mL (30.0-100.0)
[2018-06-29 21:23] LABS: Parathyroid Hormone Intact 78.7 pg/mL (14.0-72.0)
[2018-06-29 21:48] LABS: Hemoglobin A1C 5.4 % (4.0-6.0)
[2018-06-30 14:56] LABS: Zinc, Serum 71 ug/dL (60-130)
[2018-07-01 06:13] LABS: Vitamin A 40 ug/dL (38-106)
[2018-07-01 10:09] LABS: Vit B1(Thiamine) 78 ug/L (38-122)
[2018-07-02 13:21] LABS: Selenium 89 mcg/L (63-160)
== END ==
LOC: BARWHC3 12:49
PROVIDERS: ATTEND Surgery Plastic and Reconstructive Surgery
DX: M79.3 Panniculitis, unspecified (principal); K64.4 Residual hemorrhoidal skin tags; I89.8 Other specified noninfective disorders of lymphatic vessels and lymph nodes; D17.30 Benign lipomatous neoplasm of skin and subcutaneous tissue of unspecified sites; E66.01 Morbid (severe) obesity due to excess calories; E21.1 Secondary hyperparathyroidism, not elsewhere classified; D50.9 Iron deficiency anemia, unspecified; E44.0 Moderate protein-calorie malnutrition; E55.9 Vitamin D deficiency, unspecified; K74.1 Hepatic sclerosis; N19 Unspecified kidney failure; K50.90 Crohn's disease, unspecified, without complications; Z68.41 Body mass index [BMI] 40.0-44.9, adult
CPT/HCPCS: 84255; 84134; 84425; 80061; 80053; 82607; 82728; 82525; 82746; 83540; 83550; 83735; 84100; 84443; 84590; 84630; 85027; 85610; 85730; 82306; 83970; 83036; 97803; 36415; G0463; 99211

== ENCOUNTER → 2018-09-21 | Outpatient (CLI) | payer MEDICARE ==
[2018-09-21 13:47] VITALS: BP 149/70; PULSE 60; TEMP 97.9; BMI 44.2
--- NOTE | 2018-09-21 14:41 | P.PN ---
Subjective Progress Note Date: 09/21/18 HPI: She is 1 year out. She has lost over 100 pounds. Her highest weight was 401 pounds. Lifetime weight loss of 160 pounds. She reports with her skin. She has had no problems with her surgery. ABDOMEN: No hernia. Pannus over 10 pounds. ASSESSMENT: 1. Morbid obesity 2. Panniculitis PLAN: 1. Lab work 2. She is back on exercise 3. Her PCP is Dr. Titi Martin 4. Panniulectomy Objective - Vital Signs Vital signs: Vital Signs Temp 97.9 F 09/21/18 13:41 Pulse 60 09/21/18 13:41 Resp BP 149/70 09/21/18 13:41 Pulse Ox Intake & Output 09/20/18 09/21/18 09/21/18 18:59 06:59 18:59 Weight 109.769 kg
[2018-09-21 15:38] LABS: HGB 13.1 gm/dL (11.4-16.0); MCH 31.1 pg (25.0-35.0); MCHC 32.6 g/dL (31.0-37.0); MCV 95.2 fL (80.0-100.0); Mean Platelet Volume 7.4; Platelet Count 282 k/uL (150-450); RBC 4.21 m/uL (3.80-5.40); RDW 13.2 % (11.5-15.5); WBC 10.1 k/uL (3.8-10.6)
[2018-09-21 15:43] LABS: INR 0.9 (<1.2); Partial Thromboplastin Time 30.4 sec (22.0-30.0); Prothrombin Time 10.2 sec (9.0-12.0)
[2018-09-21 23:47] LABS: Iron Saturation 17.45 (12.00-45.00)
[2018-09-21 23:52] LABS: African American GFR (CKD) 87.8 (60.0-200.0); Albumin 4.1 g/dL (3.80-4.90); Albumin/Globulin Ratio 2.41 (1.60-3.17); Anion Gap 7.6 mmol/L (4.00-12.00); BUN/Creat Ratio 22.5 Ratio (12.00-20.00); Calcium 9.1 mg/dL (8.7-10.3); Carbon Dioxide 30.4 mmol/L (21.6-31.8); Globulin 1.7 g/dL (1.6-3.3); Magnesium 1.8 mg/dL (1.5-2.4); Phosphorus 3.7 mg/dL (2.4-5.1); Total Bilirubin 0.4 mg/dL (0.3-1.2); Total Protein 5.8 g/dL (6.2-8.2)
[2018-09-21 23:57] LABS: Vitamin D 25 Hydroxy 28.6 ng/mL (30.0-100.0)
[2018-09-22 00:04] LABS: Folate, Serum 22.8 ng/mL
[2018-09-22 00:08] LABS: Parathyroid Hormone Intact 67.5 pg/mL (14.0-72.0)
[2018-09-22 01:03] LABS: Hemoglobin A1C 5.6 % (4.0-6.0)
[2018-09-22 13:46] LABS: Zinc, Serum 56 ug/dL (60-130)
[2018-09-23 09:27] LABS: Vitamin A 32 ug/dL (38-106)
[2018-09-23 09:41] LABS: Vit B1(Thiamine) 74 ug/L (38-122)
== END | disposition home or self-care (01) ==
LOC: BARWHC3 13:29
PROVIDERS: ATTEND Surgery Plastic and Reconstructive Surgery
DX: E66.01 Morbid (severe) obesity due to excess calories (principal); E21.1 Secondary hyperparathyroidism, not elsewhere classified; E89.1 Postprocedural hypoinsulinemia; D50.9 Iron deficiency anemia, unspecified; K90.9 Intestinal malabsorption, unspecified; E55.9 Vitamin D deficiency, unspecified; K76.9 Liver disease, unspecified; N19 Unspecified kidney failure; K50.90 Crohn's disease, unspecified, without complications; M79.3 Panniculitis, unspecified; Z68.41 Body mass index [BMI] 40.0-44.9, adult
CPT/HCPCS: 84255; 84134; 84425; 80061; 80053; 82607; 82728; 82525; 82746; 83540; 83550; 83735; 84100; 84443; 84590; 84630; 85027; 85610; 85730; 82306; 83970; 83036; 97803; G0463; 99211

== ENCOUNTER → 2019-02-15 | Outpatient (CLI) | payer MEDICARE ==
[2019-02-15 15:02] LABS: ALT 28 U/L (9-52); AST 30 U/L (14-36); African American GFR (CKD) >90 (>60 ml/min/1.73 sqM); Albumin 4.3 g/dL (3.5-5.0); Alkaline Phosphatase 110 U/L (38-126); Anion Gap 7 mmol/L; Basophils # (A) 0.1 k/uL (0-0.2); Basophils % (A) 1 %; Blood Urea Nitrogen 23 mg/dL (7-17); Calcium 9.6 mg/dL (8.4-10.2); Carbon Dioxide 30 mmol/L (22-30); Chloride 105 mmol/L (98-107); Eosinophils # (A) 0.4 k/uL (0-0.7); Eosinophils % (A) 4 %; Glucose 97 mg/dL (74-99); HCT 42.3 % (34.0-46.0); HGB 14.1 gm/dL (11.4-16.0); Lymphocytes # (A) 2.6 k/uL (1.0-4.8); Lymphocytes % (A) 30 %; MCH 32.1 pg (25.0-35.0); MCHC 33.4 g/dL (31.0-37.0); MCV 96.2 fL (80.0-100.0); Mean Platelet Volume 7.3; Monocytes # (A) 0.4 k/uL (0-1.0); Monocytes % (A) 4 %; Neutrophils # (A) 5.1 k/uL (1.3-7.7); Neutrophils % (A) 58 %; Platelet Count 271 k/uL (150-450); RDW 12.8 % (11.5-15.5); Sodium 142 mmol/L (137-145); Total Bilirubin 0.3 mg/dL (0.2-1.3); WBC 8.7 k/uL (3.8-10.6)
== END | disposition home or self-care (01) ==
LOC: LABPAT 14:13
PROVIDERS: ATTEND Surgery Plastic and Reconstructive Surgery
DX: Z01.812 Encounter for preprocedural laboratory examination (principal)
CPT/HCPCS: 36415; 80053; 85025

== ENCOUNTER 2019-02-20 12:44 | Observation (INO) | payer MEDICARE ==
[2019-02-13 15:13] VITALS: BMI 44.0
--- NOTE | 2019-02-19 14:23 | P.PN ---
Progress Note - Text Progress Note Date: 02/19/19 Notified patient of time change for surgery now for the afternoon secondary to an emergency case.
--- NOTE | 2019-02-19 19:57 | P.GSHP ---
History of Present Illness H&P Date: 02/20/19 DATE OF SERVICE: 02/20/2019 CHIEF COMPLAINT: Panniculitis HISTORY OF PRESENT ILLNESS: Lilian Urrutia is a 69-year-old female is s/p gastric bypass, 09/20/17. She is 18 months out. She has lost over 100 pounds. Her highest weight was 401 pounds. Lifetime weight loss of 161 pounds. She reports troubles with her skin including with chronic skin infections despite medical treatment and prescribed powders. She reports pain along her back from her pannus. She has recurrent panniculitis. Her highest weight was 401 pounds. Today she comes in weighing 240 pounds from 241 pounds 5 months ago. She lost 1 pound in 5 months. Lifetime weight loss is 161 pounds. Percent excess weight loss is 59 %. At her height of 5 foot 2 inches, her ideal body weight is 135 pounds. Her highest body mass index was 73.5. Today her BMI is 44.1. PAST MEDICAL HISTORY: 1. Morbid obesity. 2. Body mass index of 73.5, initial 3. End-stage osteoarthritis of the bilateral knees. 4. Obstructive sleep apnea. 5. Osteoarthritis of the hips 6. Hypertensive heart disease. 7. Gastroesophageal reflux disease 8. Asthma 9. Chronic obstructive pulmonary disease. 10. Diabetes type 2, [id number]-[id number]. 11. Hypothyroidism. 12. Depression. 13. Seasonal allergies. 14. Atrial fibrillation. PAST SURGICAL HISTORY: 1. Umbilical hernia repair. 2. Hysterectomy. 3. Bilateral carpal tunnel surgery. 4. Left knee fracture. 5. Right wrist pinning. 6. Bilateral cataract extraction. 7. Carpal tunnel release, bilateral. 8. Gastric bypass, September 2017 HOME MEDICATIONS: 1. Ellipta inhaler 2. Oxybutinin. 3. Hiprex. 4. Zestoretic 5. Levothyroxine. 6. Lantus- stopped 7. Advair. 8. Pepcid. 9. Prozac 10. Dymista 11. Ventolin inhaler. 12. Zyrtec. 13. Ibuprofen- stopped 14. Aspirin. 15. Klor-Con. 16. Zocor. 17. Xarelto. 18. Lopressor. 19. Actos - stopped 20. DuoNeb ALLERGIES: Denies. SOCIAL HISTORY: Past tobacco use. No active alcohol use. FAMILY HISTORY: No family history of ulcerative colitis disease or Crohn's disease. She does have a family history of morbid obesity. She denies any lupus in her family. She has family history of hypertension including morbid obesity however 3 of her sisters are of normal body habitus. She has a strong family history of gastrointestinal disease where her father at age of 37 from stomach cancer. Her father, mother and grandmother also had gastrointestinal issues. She has a nephew who has stage IV esophageal cancer. She also has gastroesophageal reflux disease in her family as well. Lung cancer in grandmother at 83. REVIEW OF ORGAN SYSTEMS: CONSTITUTIONAL: Her highest weight was 401 pounds. At her height of 5 foot 2 inches, her ideal body weight is 135 pounds. Her highest body mass index was 73.5. HEENT: Denies any active troubles with vision or hearing. No troubles with swallowing. ENDOCRINE: Has insulin dependent diabetes, now resolved. Has hypothyroidism. CARDIOVASCULAR: She has atrial fibrillation with flutter. History of hypertension, improved. RESPIRATORY: Has daytime somnolence including snoring and sleep apnea, now resolved .Has asthma. GI: Denies any bright red blood per rectum. Has constipation. Does have gastroesophageal reflux disease as described above now resolved. MUSCULOSKELETAL: Has lower back pain and joint pain. Has osteoarthritis of the hips and knees. NEURO: No eadaches. No seizure disorders. PSYCH: Has depression without suicidal ideation. RHEUMATOLOGIC: No lupus. No rheumatoid arthritis. HEMATOLOGIC: Has abnormal bruising. No personal history of DVTs. Now on blood thinners. SKIN: No rash. No skin cancer. PHYSICAL EXAM: VITAL SIGNS: Height 5 foot 2 inches, weight 240 pounds. BMI 44.1 GENERAL: Well-developed female in no acute distress. HEENT: No scleral icterus. Extraocular movements grossly intact. Hears conversational speech. No nasal drainage. NECK: Supple without lymphadenopathy. CHEST: Nonlabored respirations with equal bilateral excursions. CARDIOVASCULAR: Regular rate, regular rhythm. Distal 2+ pulses. ABDOMEN: Obese, soft, nontender, nondistended. No hernia. Pannus over 10 pounds. MUSCULOSKELETAL: No clubbing, cyanosis. NEURO: No focal or lateralizing signs. Cranial nerves 2 through 12 grossly within normal limits. PSYCH: Appropriate affect. Alert and oriented to person, place and time. SKIN: Good skin turgor. Well perfused. ASSESSMENT: 1. Morbid obesity due to excess calories 2. Body mass index of 73.5 down to 44.1 3. End-stage osteoarthritis of the bilateral knees. 4. Obstructive sleep apnea. 5. Osteoarthritis of the hips and knees. 6. Hypertensive heart disease. 7. Gastroesophageal reflux disease 8. Asthma 9. Chronic obstructive pulmonary disease. 10. Diabetes type 2, [id number]-koshfaiyl. 11. Status post gastric bypass 12. Vitamin D deficiency 13. Lower extremity edema. 14. Anal skin tag 15. Lymphocele along right posterior lower thigh 16. Panniculitis PLAN: 1. Recommend panniculectomy for chronic panniculitis with concomittant severe lower back pain and uncontrolled symptoms despite systemic and local treatment including limitation of his activities of daily living. Anticipated resection of 10+ pounds described. 2. Recommend 2 week protein diet for optimal recovery 3. Risks of bleeding, needs for drains, flap failure, infection, need for further surgery were described. She is high risk for ramya-operative complications with anticipated 10+ skin resection. 4. Inpatient hospitalization also described 5. DVT prophylaxis. 6. Antibiotic prophylaxis Past Medical History Past Medical History: Atrial Fibrillation, Asthma, COPD, Diabetes Mellitus, GERD/Reflux, Hyperlipidemia, Hypertension, Osteoarthritis (OA), Skin Disorder, Sleep Apnea/CPAP/BIPAP, Thyroid Disorder Additional Past Medical History / Comment(s): COPD, DM, GERD all improved w/ bariatric surg & wgt loss; Not Using C-Pap. URINARY INCONTINENCE. Skin irritation w/ panniculus occ. Uses rolling walker d/t bad knees occ. 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 Roberts) Past Anesthesia/Blood Transfusion Reactions: No Reported Reaction Smoking Status: Former smoker - Past Family History Mother Family Medical History: Cancer Additional Family Medical History / Comment(s): lung Father Family Medical History: Cancer Additional Family Medical History / Comment(s): stomach Medications and Allergies Home Medications Medication Instructions Recorded Confirmed Type Levothyroxine Sodium [Tirosint] 75 mcg PO DAILY 12/02/16 02/15/19 History Metoprolol Tartrate [Lopressor] 25 mg PO BID #60 tab 01/15/17 02/15/19 Rx Acetaminophen [Tylenol] 650 mg PO Q4-6H PRN 09/20/17 02/15/19 History Rivaroxaban [Xarelto] 10 mg PO DAILY 09/29/17 02/15/19 History Oxybutynin Chloride [Ditropan] 5 mg PO BID 09/21/18 02/15/19 History Calcium Carb/Vitamin D3/Vit K1 2 each PO DAILY 02/13/19 02/15/19 History [Viactiv Soft Chew Tablet] Cholecalciferol [Vitamin D3 (25 5,000 unit PO DAILY 02/13/19 02/15/19 History Mcg = 1000 Iu)] Multivitamins, Thera [Multivitamin 1 tab PO DAILY 02/13/19 02/15/19 History (formulary)] Nystatin 100,000 Unit/gm Powd 1 applic TOPICAL BID PRN 02/13/19 02/15/19 History [Mycostatin Powder] Vitamin A 5,000 unit PO DAILY 02/13/19 02/15/19 History Zinc 50 mg PO DAILY 02/13/19 02/15/19 History Allergies Allergy/AdvReac Type Severity Reaction Status Date / Time No Known Allergies Allergy Verified 02/15/19 14:01
[~2019-02-20 12:44] MED LIST changes: -ACETAMINOPHEN IV (For NPO) 1,000 MG in EMPTY BAG 1 BAG IVPB ONE; -CHLORHEXIDINE GLUCONATE 15 ML CUP MUCOUS MEM ONE; +ENOXAPARIN 40 MG/0.4 ML SYRINGE SQ STA; +METOCLOPRAMIDE 5 MG/ML 2 ML VIAL IVP PRN; -MIDAZOLAM 2 MG/2 ML VIAL IV PRN; -ONDANSETRON 4 MG/2 ML VIAL IVP PRN; -PANTOPRAZOLE 40 MG/10 ML VIAL IV STA; -SCOPOLAMINE 1.5MG/72HR PATCH TRANSDERM ONE; -SCOPOLAMINE 1.5MG/72HR PATCH TRANSDERM STA; -fentaNYL (PF) 50 MCG/ML 2 ML AMP IV PRN
[2019-02-20 16:08] LABS: Glucose,Whole Blood 85 mg/dL (75-99)
[2019-02-20] MEDS ORDERED: DEXTROSE 50% SYRINGE 50 ML IVP ONE (16:21)
[2019-02-20] MEDS: LACTATED RINGERS 1,000 ML IV SCH (16:24)
[2019-02-20] MEDS ORDERED: NEOSTIGMINE 1 MG/ML 10 ML VIAL ONE (16:28)
[2019-02-20] MEDS ORDERED: LIDOCAINE 1% INJ 10MG/ML (20 ML MDV) ONE (16:28)
[2019-02-20] MEDS ORDERED: SUCCINYLCHOLINE CHLORIDE 100 MG/5 ML SYR IV ONE (16:28)
[2019-02-20] MEDS ORDERED: fentaNYL (PF) 50 MCG/ML 2 ML AMP ONE (16:28)
[2019-02-20] MEDS ORDERED: GLYCOPYRROLATE 0.2 MG/ML 2 ML VIAL ONE (16:28)
[2019-02-20] MEDS ORDERED: MIDAZOLAM 2 MG/2 ML VIAL ONE (16:28)
[2019-02-20] MEDS ORDERED: PROPOFOL 10 MG/ML 20 ML VIAL IV ONE (16:28)
[2019-02-20] MEDS ORDERED: HYDROmorphone (PF) 1 MG/ML ONE (16:28)
[2019-02-20] MEDS ORDERED: KETAMINE 10 MG/ML 20 ML VIAL ONE (16:28)
[2019-02-20] MEDS ORDERED: ROCURONIUM BROMIDE 10 MG/ML 10 ML VIAL IV ONE (16:28)
[2019-02-20 16:33] LABS: Glucose,Whole Blood 131 mg/dL (75-99)
[2019-02-20] MEDS ORDERED: LACTATED RINGERS 1,000 ML IV ONE ×2 (17:43→19:09)
[2019-02-20 20:01] LABS: Glucose,Whole Blood 121 mg/dL (75-99)
[2019-02-20] MEDS ORDERED: NALOXONE 0.4 MG/ML 1 ML VIAL IV PRN (20:04)
[2019-02-20] MEDS ORDERED: ONDANSETRON 4 MG/2 ML VIAL IVP PRN (20:04)
[2019-02-20] MEDS ORDERED: ACETAMINOPHEN TAB 325 MG TAB PO PRN (20:07)
--- NOTE | 2019-02-20 20:10 | P.OP ---
Date of Procedure: 02/20/19 Description of Procedure: Date of Procedure: 02/20/19 SURGEON: LEE COTO MD PREOPERATIVE DIAGNOSES: 1. Morbid obesity due to excess calories 2. Body mass index of 73.5 down to 44.1 3. End-stage osteoarthritis of the bilateral knees. 4. Obstructive sleep apnea. 5. Osteoarthritis of the hips and knees. 6. Hypertensive heart disease. 7. Gastroesophageal reflux disease 8. Asthma 9. Chronic obstructive pulmonary disease. 10. Diabetes type 2, [id number]. 11. Status post gastric bypass 12. Vitamin D deficiency 13. Lower extremity edema. 14. 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 Massive weight loss, 161 pounds. POSTOPERATIVE DIAGNOSES: 1. Morbid obesity due to excess calories 2. Body mass index of 73.5 down to 44.1 3. End-stage osteoarthritis of the bilateral knees. 4. Obstructive sleep apnea. 5. Osteoarthritis of the hips and knees. 6. Hypertensive heart disease. 7. Gastroesophageal reflux disease 8. Asthma 9. Chronic obstructive pulmonary disease. 10. Diabetes type 2, [id number]. 11. Status post gastric bypass 12. Vitamin D deficiency 13. Lower extremity edema. 14. 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 Massive weight loss, 161 pounds. 16. Recurrent incisional ventral hernia, 22 x 25 cm, unrelated to previous bariatric procedures. OPERATION: 1. Panniculectomy, 10.2 pounds. 2. Primary repair of recurrent incisional ventral hernia 22 x 25 cm without mesh. Anesthesia: GETA Estimated Blood Loss (ml): 300 Pathology: none sent Condition: stable Disposition: floor SPECIMENS REMOVED: Pannus 10.2 pounds. COMPLICATIONS: None. DRAINS: Two #19 Estiven drains below abdominal flap extending through the pubis. OPERATIVE FINDINGS: 1. Pannus weighing 10.2 pounds, excised. 2. Recurrent abdominal incisional ventral hernia of 22 x 25 cm along the midline repaired primarily using fascial imbrication. INDICATIONS: Lilian Urrutia is a 69-year-old female is s/p gastric bypass, 09/20/17. She is 18 months out. She has lost over 100 pounds. Her highest weight was 401 pounds. Lifetime weight loss of 161 pounds. She reports troubles with her skin including with chronic skin infections despite medical treatment and prescribed powders despite over 1+ year of treatment. She reports pain along her back from her pannus. She has recurrent panniculitis. Her highest weight was 401 pounds. Today she comes in weighing 240 pounds from 241 pounds 5 months ago. She lost 1 pound in 5 months. Lifetime weight loss is 161 pounds. Percent excess weight loss is 59 %. At her height of 5 foot 2 inches, her ideal body weight is 135 pounds. Her highest body mass index was 73.5. Today her BMI is 44.1. She presents for a panniculectomy. Benefits and risks of the procedure including bleeding, infection, cosmetic deformity, abdominal seromas, placement of drains, risk of flap failure were described at length. Informed consent was obtained. DESCRIPTION: In the preanesthesia care unit the patient was marked with an indelible marker. She had also been given heparin subcutaneously. The patient was brought into the operating room and laid in supine position. After general induction, a Felix catheter was placed. The abdomen was then prepped and draped in standard sterile fashion using ChloraPrep. The skin was prepped as far laterally to the back, inferiorly to the upper thighs and superiorly to above the bilateral breasts. A timeout protocol was confirmed with the surgical team regarding patient's name, procedure to be performed, including preoperative medications. She had received Ancef IV antibiotics. Once the time-out protocol was confirmed with the surgical team, the patient was re-marked with indelible marker whereby the midline of the xiphoid to the mons pubis was marked. The anterior/superior iliac spine along the bilateral hips was also marked. At 8 cm above the pubis commissure a transverse incision was made for the inferior portion of the flap. Using a #10 blade, the incision was taken from the midline laterally to above the anterior/superior iliac spine, initially on the left side of the patient and then on the right side of the patient. Electro-Bovie cautery was used to control for hemostasis. The dissection was taken down to the level of the fascia. Landmarks used were the xiphoid process as well as the bilateral costal margins for the superior margin. Care was taken to avoid any creation of dog ears during the dissection. Once hemostasis was checked, a large recurrent incisional ventral hernia fascial defect of 22 x 25 cm was identified unrelated to her bariatric procedure. During this dissection, the umbilicus was truncated at its fascial insertion. The umbilicus fascial excision was oversewn using 0-Vicryl. Starting from the xiphoid process, fascial imbrication was performed using #2 Ethibond. Multiple facial imbrications at least 3 layers were performed. The ventral hernia defect was completely repaired and closed. Hemostasis was once again checked with electro-Bovie cautery and all defects were addressed. Attention was now brought to closure of the flap. Using stainless steel skin malik, the midline was once again marked of the upper flap as well as the pubic commissure. The patient was placed in a flexed position of approximately 30 degrees at the hips. The pa nnus was extended inferiorly to the feet. The upper flap was created once the excess skin was excised. Again care was taken to avoid any dog ears along the lateral aspect of the incisions. Once excised, the pannus was weighed at 10.2 pounds. The upper and lower flaps were reapproximated at the midline and then laterally to the skin with skin malik. Once reapproximated, the skin was closed in layers using 0 Vicryl for the superficial fascial system followed by running 3-0 Monocryl for the deep dermis in a running subcuticular fashion. Prior to skin closure, two round #19 Estiven drains were placed underneath the flap and brought out just inferior to the incision along the pubis. Drain stitch using 2-0 nylon was placed. Once the incision was closed, bulb suction was attached. Hemostasis was checked. At the end of the procedure, the needle, sponge and instrument count was verified correct. The skin was cleansed with hydrogen peroxide. Exofin tape including adhesive was placed along the length of the incision. Optifoam dressing was also placed over the incision and over the HEIDI sites. The patient was then transferred to a hospital bed in a beach chair position. An abdominal binder was placed and marked. The patient was taken to the postanesthesia care unit in stable condition, awake and extubated.
[2019-02-20] MEDS: 0.9% NACL WITH KCL 20 MEQ/L 1,000 ML IV SCH (22:21)
[2019-02-20] MEDS: METOPROLOL TARTRATE 25 MG TAB PO SCH (22:22)
[2019-02-20] MEDS: OXYBUTYNIN CHLORIDE 5 MG TAB PO SCH (22:22)
[2019-02-20] MEDS: HYDROmorphone 1 MG/ML 1 ML SYRINGE IVP PRN (23:31)
[2019-02-21] MEDS: HYDROmorphone 1 MG/ML 1 ML SYRINGE IVP PRN ×4 (02:43→13:52)
[2019-02-21] MEDS: 0.9% NACL WITH KCL 20 MEQ/L 1,000 ML IV SCH ×4 (05:55→17:40)
[2019-02-21] MEDS: LEVOTHYROXINE 75 MCG TAB PO SCH (05:55)
[2019-02-21] MEDS: LACTATED RINGERS 1,000 ML IV SCH (05:58)
[2019-02-21] MEDS: ENOXAPARIN 40 MG/0.4 ML SYRINGE SQ SCH (08:39)
[2019-02-21] MEDS: OXYBUTYNIN CHLORIDE 5 MG TAB PO SCH ×2 (08:40→19:58)
[2019-02-21] MEDS: PANTOPRAZOLE 40 MG/10 ML VIAL IV SCH (08:40)
[2019-02-21] MEDS: METOPROLOL TARTRATE 25 MG TAB PO SCH ×2 (08:40→19:58)
[2019-02-21] MEDS ORDERED: IOPAMIDOL CONTRAST (ORAL USE) VIAL PO PRN (08:44)
--- NOTE | 2019-02-21 10:03 | CT ---
EXAMINATION TYPE: CT abdomen pelvis w con DATE OF EXAM: 02/21/2019 HISTORY: reflux, rule out bowel obstruction. Recent removal of excess ventral skin. CT DLP: 2301mGycm Automated Exposure Control for Dose Reduction was Utilized. CONTRAST: CT scan of the abdomen and pelvis is performed with IV Contrast, patient injected with 100 mL of Isov ue 300. COMPARISON: None. FINDINGS: There is subcutaneous emphysema along the anterior abdominal wall and 2 surgical drains. Th ere is an irregular abnormal density in the superficial abdominal cavity that communicates with the s ubcutaneous tissues from a central abdominal wall defect. This measures up to 17.5 cm in craniocaudal dimension, 7.3 cm in anterior posterior dimension and 7.4 cm in transverse dimension. There are inte rnal foci of free air. Communication with the adjacent bowel is indeterminant without oral contrast u tilization. Linear high density is seen posteriorly on image 48.a Heart size appears mildly enlarged. There are very trace pleural effusions and bibasilar atelectasis. The gallbladder is elongated and nearly hydropic measuring 9.4 cm in longitudinal dimension. The maribell er, spleen, and adrenal glands are grossly unremarkable as is the pancreas. The kidneys enhance symme trically with questionable punctate 1 to 2 mm nonobstructing left renal calculus marked on image 31. Moderate atherosclerosis of the abdominal aorta and its branches. Mild degree colonic fecal stasis. Numerous loops of small bowel are entirely collapsed. No dilated la rge or small bowel. Partial gastrectomy has been performed with a pocket of air near the staple line anteriorly on image 12 likely within the resected stomach lumen. Moderate degenerative changes of the osseous structures most notably of the lumbar spine. IMPRESSION: 1. No current evidence of bowel obstruction. Small bowel loops are largely decompressed throughout th e majority of the abdomen. No dilated bowel. 2. Abnormal superficial intra-abdominal density measuring 17.5 x 7.3 x 7.4 cm indicating with the sub cutaneous tissues of the ventral abdominal wall and containing multiple foci of air, likely postsurgi pk. Correlate with surgical procedure. Some linear high density could relate to clumped mesh and adj acent developing large area of fat necrosis is possible however ensure no retained intraoperative for eign body given the linear high density. Communication with adjacent bowel is nondiagnostic without o ral contrast.
--- NOTE | 2019-02-21 13:41 | P.PN ---
<Yeni Jarquin Aparna - Last Filed: 02/21/19 13:41> Subjective Progress Note Date: 02/21/19 CHIEF COMPLAINT: Panniculitis HISTORY OF PRESENT ILLNESS: 69-year-old female who is status post panniculectomy and repair of recurrent ventral hernia. POD #1. Patients pain is controlled this morning but increases when she is close to being due for her next dose of pain medication. She reports a lot of burping and some heartburn this morning. She denies passing flatus. She is tolerating clear liquid diet. PHYSICAL EXAM: VITAL SIGNS: Currently stable. GENERAL: Well-developed in no acute distress. HEENT: No sclera icterus. Extraocular movements grossly intact. Moist buccal mucosa. Head is atraumatic, normocephalic. Hears conversational speech. No nasal drai nage. NECK: Supple without lymphadenopathy. CHEST: Non-labored respirations and equal bilateral excursions. CARDIOVASCULAR: Regular rate with regular rhythm. Palpable 2+ radial pulses. ABDOMEN: Soft. Nondistended. Dressing clean dry and intact. HEIDI drain with sanguinous drainage. MUSCULOSKELETAL: No clubbing, cyanosis or edema. NEUROLOGIC: No focal or lateralizing signs. Cranial nerves II through XII grossly intact. PSYCH: Appropriate affect. Alert and oriented to person, place and time. SKIN: Well perfused. Good skin turgor. ASSESSMENT: 1. Panniculitis, s/p panniculectomy and repair of recurrent ventral hernia PLAN: 1. Continue clear liquid diet as tolerated. Await bowel function 2. Increase activity as tolerated 3. Pain control 4. Incentive spirometer 5. Obtain CT abdomen and pelvis with IV and oral contrast to rule out bowel obstruction 6. Possible discharge home tomorrow if CT negative Nurse practitioner note has been reviewed by physician. Signing provider agrees with the documented findings, assessment, and plan of care. Objective - Vital Signs Vital signs: Vital Signs Temp 98.1 F 02/21/19 07:00 Pulse 66 02/21/19 07:00 Resp 16 02/21/19 08:00 BP 125/76 02/21/19 07:00 Pulse Ox 99 02/21/19 07:00 Intake & Output 02/20/19 02/21/19 02/21/19 18:59 06:59 18:59 Intake Total 2049 2580 Output Total 1200 100 Balance 2049 1380 -100 Weight 109 kg Intake: IV 2050 500 Intake, IV Titration 1500 Amount 0.9% NaCl with KCl 20 Meq 1500 /l 1,000 ml @ 150 mls/hr IV .Q6H40M [facility] Rx#: [id number] Oral 580 Output: Drainage 190 Bilateral Lower Abdomen 190 Urine 710 100 Uretheral (Felix) 100 Estimated Blood Loss 300 Other: Voiding Method Indwelling Catheter Indwelling Catheter - Labs Labs: Abnormal Lab Results - Last 24 Hours (Table) 02/20/19 02/20/19 Range/Units 16:29 20:00 POC Glucose (mg/dL) 131 H 121 H (75-99) mg/dL <Shyla Roberts N - Last Filed: 02/22/19 08:58> Subjective Pain is fairly controlled. Patient does report pre-existing gastroesophageal reflux disease. Secondary to moderate burping and history of gastric bypass, recommend proceeding with CT of the abdomen and pelvis to rule out obstruction. CT of the abdomen and pelvis independently reviewed demonstrating no evidence of obstruction. No evidence of internal hernia. Moderately distended gallbladder identified. Objective - Vital Signs Vital signs: Vital Signs Temp 97.5 F L 02/22/19 07:30 Pulse 65 02/22/19 07:30 Resp 16 02/22/19 07:30 BP 125/75 02/22/19 07:30 Pulse Ox 93 L 02/22/19 07:30 Intake & Output 02/21/19 02/22/19 02/22/19 18:59 06:59 18:59 Output Total 747 580 200 Balance -747 -580 -200 Output: Gastric Drainage 40 Drainage 247 140 Bilateral Lower Abdomen 247 140 Urine 500 400 200 Uretheral (Felix) 100 Other: Voiding Method Indwelling Catheter Toilet # Voids 1 1 - Labs CBC & Chem 7: 02/22/19 06:36 02/22/19 06:36 Labs: Abnormal Lab Results - Last 24 Hours (Table) 02/22/19 02/22/19 Range/Units 06:36 06:36 RBC 3.44 L (3.80-5.40) m/uL Hgb 11.2 L (11.4-16.0) gm/dL Hct 33.3 L (34.0-46.0) % Glucose 106 H (74-99) mg/dL
[2019-02-21] MEDS: HYDROcodone/APAP 15 ML SOLUTION PO PRN (17:37)
[2019-02-22] MEDS: HYDROcodone/APAP 15 ML SOLUTION PO PRN ×3 (00:13→14:25)
[2019-02-22 01:18] VITALS: RESP 16
[2019-02-22] MEDS: 0.9% NACL WITH KCL 20 MEQ/L 1,000 ML IV SCH ×2 (03:57→12:20)
[2019-02-22] MEDS: LACTATED RINGERS 1,000 ML IV SCH (04:47)
[2019-02-22] MEDS: LEVOTHYROXINE 75 MCG TAB PO SCH (05:21)
[2019-02-22 07:38] LABS: Calcium 8.6 mg/dL (8.4-10.2); Potassium 4.9 mmol/L (3.5-5.1)
[2019-02-22 07:39] LABS: Basophils % (A) 0 %; Eosinophils # (A) 0.3 k/uL (0-0.7); Eosinophils % (A) 4 %; HCT 33.3 % (34.0-46.0); HGB 11.2 gm/dL (11.4-16.0); Lymphocytes # (A) 2.1 k/uL (1.0-4.8); Lymphocytes % (A) 27 %; MCH 32.5 pg (25.0-35.0); MCHC 33.5 g/dL (31.0-37.0); MCV 96.9 fL (80.0-100.0); Mean Platelet Volume 6.7; Monocytes # (A) 0.5 k/uL (0-1.0); Monocytes % (A) 6 %; Neutrophils # (A) 4.8 k/uL (1.3-7.7); Neutrophils % (A) 61 %; Platelet Count 246 k/uL (150-450); RBC 3.44 m/uL (3.80-5.40); RDW 12.8 % (11.5-15.5); WBC 7.9 k/uL (3.8-10.6)
[2019-02-22 07:48] VITALS: BP 125/75; PULSE 65; TEMP 97.5
[2019-02-22] MEDS: OXYBUTYNIN CHLORIDE 5 MG TAB PO SCH (08:01)
[2019-02-22] MEDS: ENOXAPARIN 40 MG/0.4 ML SYRINGE SQ SCH (08:01)
[2019-02-22] MEDS: PANTOPRAZOLE 40 MG/10 ML VIAL IV SCH (08:01)
[2019-02-22] MEDS: METOPROLOL TARTRATE 25 MG TAB PO SCH (08:01)
--- NOTE | 2019-02-22 13:05 | P.DS ---
<Yeni Jarquin Aparna - Last Filed: 02/22/19 13:02> Hospital Course: 69-year-old female who underwent panniculectomy and repair of recurrent ventral hernia with Dr. Roberts. Patient complained of burping and history of reflux postoperatively. She underwent CT abdomen and pelvis to rule out obstruction. CT abdomen and pelvis was read by Dr. Roberts with no evidence of obstruction. No evidence of internal hernia. Moderately distended gallbladder identified. Patient is passing flatus. She is tolerating diet without nausea or vomiting. Pain is controlled on oral medications. Vital signs have been stable. She is stable for discharge home today per Dr. Roberts. Patient is to hold her Xarelto at the time of discharge and may resume on Wednesday. She is to be discharged home on Lovenox 40 mg subcu daily until Wednesday night per Dr. Roberts. Patient also discharged home with HEIDI drains. Please see EMR for further hospital course details. Discharge Diagnosis: 1. Panniculitis, s/p panniculectomy and repair of recurrent ventral hernia Nurse practitioner note has been reviewed by physician. Signing provider agrees with the documented findings, assessment, and plan of care. Plan - Discharge Summary Discharge Rx Participant: Yes New Discharge Prescriptions: New Enoxaparin [Lovenox] 40 mg SQ DAILY #4 syringe Hydrocodone/Acetaminophen [[place] 5-325] 1 tab PO Q6HR PRN 3 Days #12 tab PRN Reason: Pain Continue Levothyroxine Sodium [Tirosint] 75 mcg PO DAILY Metoprolol Tartrate [Lopressor] 25 mg PO BID #60 tab Acetaminophen [Tylenol] 650 mg PO Q4-6H PRN PRN Reason: Pain Oxybutynin Chloride [Ditropan] 5 mg PO BID Nystatin 100,000 Unit/gm Powd [Mycostatin Powder] 1 applic TOPICAL BID PRN PRN Reason: Skin Irritation Multivitamins, Thera [Multivitamin (formulary)] 1 tab PO DAILY Calcium Carb/Vitamin D3/Vit K1 [Viactiv Soft Chew Tablet] 2 each PO DAILY Vitamin A 5,000 unit PO DAILY Cholecalciferol [Vitamin D3 (25 Mcg = 1000 Iu)] 5,000 unit PO DAILY Zinc 50 mg PO DAILY Discontinued Rivaroxaban [Xarelto] 10 mg PO DAILY Discharge Medication List Levothyroxine Sodium [Tirosint] 75 mcg PO DAILY 12/02/16 [History] Metoprolol Tartrate [Lopressor] 25 mg PO BID #60 tab 01/15/17 [Rx] Acetaminophen [Tylenol] 650 mg PO Q4-6H PRN 09/20/17 [History] Oxybutynin Chloride [Ditropan] 5 mg PO BID 09/21/18 [History] Calcium Carb/Vitamin D3/Vit K1 [Viactiv Soft Chew Tablet] 2 each PO DAILY 02/13/19 [History] Cholecalciferol [Vitamin D3 (25 Mcg = 1000 Iu)] 5,000 unit PO DAILY 02/13/19 [History] Multivitamins, Thera [Multivitamin (formulary)] 1 tab PO DAILY 02/13/19 [History] Nystatin 100,000 Unit/gm Powd [Mycostatin Powder] 1 applic TOPICAL BID PRN 02/13/19 [History] Vitamin A 5,000 unit PO DAILY 02/13/19 [History] Zinc 50 mg PO DAILY 02/13/19 [History] Enoxaparin [Lovenox] 40 mg SQ DAILY #4 syringe 02/22/19 [Rx] Hydrocodone/Acetaminophen [[place] 5-325] 1 tab PO Q6HR PRN 3 Days #12 tab 02/22/19 [Rx] Follow [facility]Ref[place] [facility] [place] [place] [facility] - 02/24/19 10:00 am Patient Instructions/Handouts: Ranjit-Wong Drain Care (DC), Panniculectomy (DC) Activity/Diet/Wound Care/Special Instructions: No lifting over 4 pounds No shower. Sponge bath only Keep a log of HEIDI drainage Do not remove abdominal binder Lovenox daily starting . Will finish last dose on Wednesday. You may resume Xarelto on Wednesday Discharge Disposition: HOME SELF-CARE <Shyla Roberts - Last Filed: 02/23/19 20:36> Providers Date of admission: 02/20/19 23:59 Attending physician: Shyla Roberts Primary care physician: Titi Martin [facility] Hospital Course: As above. Patient had panniculectomy over 10 pounds removed. Secondary to increased eructation and gastroesophageal reflux disease, CT of the abdomen pelvis was obtained to exclude obstruction with recent surgery. I personally reviewed her CT of the abdomen pelvis without any evidence of obstruction. Patient's blood thinners have been held as blood thinners increased risk for bleeding. Patient will be on prophylactic Lovenox. She will follow-up in the office 2-3 days postdischarge.
== END 2019-02-22 14:42 | disposition home or self-care (01) ==
LOC: OR 12:44 → 4SSUR 19:36 → OR 23:58 → 4SSUR 23:59
PROVIDERS: ADMIT Surgery Plastic and Reconstructive Surgery; ATTEND Surgery Plastic and Reconstructive Surgery
DX: M79.3 Panniculitis, unspecified (principal); K43.2 Incisional hernia without obstruction or gangrene; Z98.84 Bariatric surgery status; E66.01 Morbid (severe) obesity due to excess calories; Z68.41 Body mass index [BMI] 40.0-44.9, adult; M17.0 Bilateral primary osteoarthritis of knee; G47.33 Obstructive sleep apnea (adult) (pediatric); M16.0 Bilateral primary osteoarthritis of hip; I11.9 Hypertensive heart disease without heart failure; K21.9 Gastro-esophageal reflux disease without esophagitis; J44.9 Chronic obstructive pulmonary disease, unspecified; E11.9 Type 2 diabetes mellitus without complications; E03.9 Hypothyroidism, unspecified; F32.9 Major depressive disorder, single episode, unspecified; J30.2 Other seasonal allergic rhinitis; I48.91 Unspecified atrial fibrillation; M54.5 Low back pain; R14.2 Eructation; I48.92 Unspecified atrial flutter; K59.00 Constipation, unspecified; E55.9 Vitamin D deficiency, unspecified; I89.8 Other specified noninfective disorders of lymphatic vessels and lymph nodes; K64.4 Residual hemorrhoidal skin tags; R60.0 Localized edema; Z99.89 Dependence on other enabling machines and devices; R32 Unspecified urinary incontinence; K82.8 Other specified diseases of gallbladder; Z79.01 Long term (current) use of anticoagulants; Z79.1 Long term (current) use of non-steroidal anti-inflammatories (NSAID); Z79.82 Long term (current) use of aspirin; Z79.890 Hormone replacement therapy; Z79.4 Long term (current) use of insulin; Z79.51 Long term (current) use of inhaled steroids; Z79.899 Other long term (current) drug therapy; Z87.891 Personal history of nicotine dependence; Z90.710 Acquired absence of both cervix and uterus; Z98.42 Cataract extraction status, left eye; Z98.41 Cataract extraction status, right eye; Z87.81 Personal history of (healed) traumatic fracture; Z82.49 Family history of ischemic heart disease and other diseases of the circulatory system; Z83.49 Family history of other endocrine, nutritional and metabolic diseases; Z83.79 Family history of other diseases of the digestive system; Z80.0 Family history of malignant neoplasm of digestive organs; Z80.1 Family history of malignant neoplasm of trachea, bronchus and lung
CPT/HCPCS: 97116; 97161; 97535; 97165; 80048; 85025; 74177; 15830; 49565; G0378 ×2; J2250; J1100; J2710; J0690 ×2; J2405; J2001; J1650 ×3; J3010; J1170 ×3; J0330; J2704; C9113 ×2; Q9967

== ENCOUNTER → 2019-02-24 | Outpatient (CLI) | payer MEDICARE ==
[2019-02-24 10:23] VITALS: BP 135/79; PULSE 102; RESP 16; TEMP 97.4; BMI 42.7
--- NOTE | 2019-02-24 11:01 | P.PN ---
Subjective Progress Note Date: 02/24/19 DATE OF SERVICE: 02/24/2019 CHIEF COMPLAINT: Morbid obesity HISTORY OF PRESENT ILLNESS: Lilian Urrutia is a 69-year-old female is s/p panniculectomy 10.2 pounds, 02/20/2019. She is POD 4. She is doing well. She has good energy. No reports of moderate pain. FU Wednesday (5 days). Her highest weight was 401 pounds. Today she comes in weighing 234 pounds from 237 pounds, 1 week ago. She lost 3 pounds in 1 week. Lifetime weight loss is 167 pounds. Percent excess weight loss is 63 %. At her height of 5 foot 2 inches, her ideal body weight is 135 pounds. Her highest body mass index was 73.5. Today her BMI is 42.8 PHYSICAL EXAM: VITAL SIGNS: Height 5 foot 2 inches, weight 234 pounds. BMI 42.8 Vital Signs Temp 97.4 F L 02/24/19 10:20 Pulse 102 H 02/24/19 10:20 Resp 16 02/24/19 10:20 BP 135/79 02/24/19 10:20 Pulse Ox GENERAL: Well-developed female in no acute distress. HEENT: No scleral icterus. Extraocular movements grossly intact. Hears conversational speech. No nasal drainage. NECK: Supple without lymphadenopathy. CHEST: Nonlabored respirations with equal bilateral excursions. CARDIOVASCULAR: Distal 2+ pulses. ABDOMEN: Incisions intact. HEIDI drains serosanguinous. Bruising along pubis to be expected. External dressing removed. No infection. Binder re-positioned. MUSCULOSKELETAL: No clubbing, cyanosis. NEURO: No focal or lateralizing signs. Cranial nerves 2 through 12 grossly within normal limits. PSYCH: Appropriate affect. Alert and oriented to person, place and time. SKIN: Good skin turgor. Well perfused. ASSESSMENT: 1. Morbid obesity due to excess calories 2. Body mass index of 73.5 down to 42.8 3. End-stage osteoarthritis of the bilateral knees. 4. Obstructive sleep apnea. 5. Osteoarthritis of the hips and knees. 6. Hypertensive heart disease. 7. Gastroesophageal reflux disease 8. Asthma 9. Chronic obstructive pulmonary disease. 10. Diabetes type 2, [id number]. 11. Status post gastric bypass 12. Status post panniculectomy PLAN: 1. Follow up Wednesday in 5 days for wound check. Objective - Vital Signs Vital signs: Vital Signs Temp 97.4 F L 02/24/19 10:20 Pulse 102 H 02/24/19 10:20 Resp 16 02/24/19 10:20 BP 135/79 02/24/19 10:20 Pulse Ox Intake & Output 02/23/19 02/24/19 02/24/19 18:59 06:59 18:59 Weight 106.141 kg - Labs CBC & Chem 7: 02/24/19 11:12
[2019-02-24 11:32] LABS: HCT 32.3 % (34.0-46.0); HGB 11.3 gm/dL (11.4-16.0); MCH 33.6 pg (25.0-35.0); MCV 95.9 fL (80.0-100.0); Mean Platelet Volume 6.5; Platelet Count 298 k/uL (150-450); RBC 3.37 m/uL (3.80-5.40); RDW 13.2 % (11.5-15.5); WBC 8.8 k/uL (3.8-10.6)
== END | disposition home or self-care (01) ==
LOC: BARWHC3 09:42
PROVIDERS: ATTEND Surgery Plastic and Reconstructive Surgery
DX: E66.01 Morbid (severe) obesity due to excess calories (principal); Z68.41 Body mass index [BMI] 40.0-44.9, adult; M17.0 Bilateral primary osteoarthritis of knee; G47.33 Obstructive sleep apnea (adult) (pediatric); I11.9 Hypertensive heart disease without heart failure; K21.9 Gastro-esophageal reflux disease without esophagitis; J44.9 Chronic obstructive pulmonary disease, unspecified; E11.9 Type 2 diabetes mellitus without complications; Z98.84 Bariatric surgery status; Z48.817 Encounter for surgical aftercare following surgery on the skin and subcutaneous tissue
CPT/HCPCS: 85027; G0463; 99211

== ENCOUNTER → 2019-03-01 | Outpatient (CLI) | payer MEDICARE ==
--- NOTE | 2019-03-01 10:27 | P.PN ---
Subjective Progress Note Date: 03/01/19 DATE OF SERVICE: 03/01/2019 CHIEF COMPLAINT: Morbid obesity HISTORY OF PRESENT ILLNESS: Lilian Urrutia is a 69-year-old female is s/p panniculectomy 10.2 pounds, 02/20/2019. She is POD 9. Pain is controlled. No fevers or chills. Her highest weight was 401 pounds. Today she comes in weighing 234 pounds unchanged from 1 week ago. Lifetime weight loss is 167 pounds. Percent excess weight loss is 63 %. At her height of 5 foot 2 inches, her ideal body weight is 135 pounds. Her highest body mass index was 73.5. Today her BMI is 42.8 PHYSICAL EXAM: VITAL SIGNS: Height 5 foot 2 inches, weight 234 pounds. BMI 42.8 Vital Signs Temp 97.7 F 03/01/19 09:54 Pulse 65 03/01/19 09:54 Resp BP 134/67 03/01/19 09:54 Pulse Ox GENERAL: Well-developed female in no acute distress. HEENT: No scleral icterus. Extraocular movements grossly intact. Hears conversational speech. No nasal drainage. NECK: Supple without lymphadenopathy. CHEST: Nonlabored respirations with equal bilateral excursions. CARDIOVASCULAR: Distal 2+ pulses. ABDOMEN: HEIDI serosanguineous. No cellulitis. External dressings discontinued along panniculectomy site. HEIDI stripped alongside with nursing. MUSCULOSKELETAL: No clubbing, cyanosis. NEURO: No focal or lateralizing signs. Cranial nerves 2 through 12 grossly within normal limits. PSYCH: Appropriate affect. Alert and oriented to person, place and time. SKIN: Good skin turgor. Well perfused. ASSESSMENT: 1. Morbid obesity due to excess calories 2. Body mass index of 73.5 down to 42.8 3. End-stage osteoarthritis of the bilateral knees. 4. Obstructive sleep apnea. 5. Osteoarthritis of the hips and knees. 6. Hypertensive heart disease. 7. Gastroesophageal reflux disease 8. Asthma 9. Chronic obstructive pulmonary disease. 10. Diabetes type 2, [id number]. 11. Status post gastric bypass 12. Status post panniculectomy, 10 pounds PLAN: 1. Recommend follow-up in 5 days for dressing change.
[2019-03-02 10:52] VITALS: BP 134/67; PULSE 65; TEMP 97.7; BMI 42.7
== END | disposition home or self-care (01) ==
LOC: BARWHC3 09:54
PROVIDERS: ATTEND Surgery Plastic and Reconstructive Surgery
DX: E66.01 Morbid (severe) obesity due to excess calories (principal); M17.0 Bilateral primary osteoarthritis of knee; G47.33 Obstructive sleep apnea (adult) (pediatric); I11.9 Hypertensive heart disease without heart failure; K21.9 Gastro-esophageal reflux disease without esophagitis; J44.9 Chronic obstructive pulmonary disease, unspecified; E11.9 Type 2 diabetes mellitus without complications; Z98.84 Bariatric surgery status; Z68.45 Body mass index [BMI] 70 or greater, adult
CPT/HCPCS: 99212

== ENCOUNTER → 2019-03-06 | Outpatient (CLI) | payer MEDICARE ==
[2019-03-06 10:36] VITALS: BP 136/57; PULSE 65; TEMP 98.2; BMI 44.0
--- NOTE | 2019-03-06 10:56 | P.PN ---
Subjective Progress Note Date: 03/06/19 DATE OF SERVICE: 03/06/2019 CHIEF COMPLAINT: Morbid obesity HISTORY OF PRESENT ILLNESS: Lilian Urrutia is a 69-year-old female s/p panniculectomy 10.2 pounds, 02/20/2019. She is 2 weeks out. She has swelling of the legs. Her highest weight was 401 pounds. Today she comes in weighing 240 pounds from 234 pounds, 1 week ago. Weight gain of 7 pounds in 1 week. Lifetime weight loss is 161 pounds. Percent excess weight loss is 60 %. At her height of 5 foot 2 inches, her ideal body weight is 135 pounds. Her highest body mass index was 73.5. Today her BMI is 44.1. PHYSICAL EXAM: VITAL SIGNS: Height 5 foot 2 inches, weight 240 pounds. BMI 44.1 Vital Signs Temp 98.2 F 03/06/19 10:29 Pulse 65 03/06/19 10:29 Resp BP 136/57 03/06/19 10:29 Pulse Ox GENERAL: Well-developed female in no acute distress. HEENT: No scleral icterus. Extraocular movements grossly intact. Hears conversational speech. No nasal drainage. NECK: Supple without lymphadenopathy. CHEST: Nonlabored respirations with equal bilateral excursions. CARDIOVASCULAR: Distal 2+ pulses. ABDOMEN: No infection. HEIDI is serosanguinous. Bruising resolved. MUSCULOSKELETAL: No clubbing, cyanosis. NEURO: No focal or lateralizing signs. Cranial nerves 2 through 12 grossly within normal limits. PSYCH: Appropriate affect. Alert and oriented to person, place and time. SKIN: Good skin turgor. Well perfused. ASSESSMENT: 1. Morbid obesity due to excess calories 2. Body mass index of 73.5 down to 42.8 3. End-stage osteoarthritis of the bilateral knees. 4. Obstructive sleep apnea. 5. Osteoarthritis of the hips and knees. 6. Hypertensive heart disease. 7. Gastroesophageal reflux disease 8. Asthma 9. Chronic obstructive pulmonary disease. 10. Diabetes type 2, [id number]. 11. Status post gastric bypass 12. Status post panniculectomy, 10 pounds PLAN: 1. She has swelling of the legs and lasix for legs. 2. Recommend DVT evaluation with ultrasound. 3. Follow up in 1 week. 4. Dressing change advised for 5 days due to holidays. Objective - Vital Signs Vital signs: Vital Signs Temp 98.2 F 03/06/19 10:29 Pulse 65 03/06/19 10:29 Resp BP 136/57 03/06/19 10:29 Pulse Ox Intake & Output 03/05/19 03/06/19 03/06/19 18:59 06:59 18:59 Weight 109.316 kg
== END | disposition home or self-care (01) ==
LOC: BARWHC3 09:47
PROVIDERS: ATTEND Surgery Plastic and Reconstructive Surgery
DX: E66.01 Morbid (severe) obesity due to excess calories (principal); M17.0 Bilateral primary osteoarthritis of knee; G47.33 Obstructive sleep apnea (adult) (pediatric); M16.0 Bilateral primary osteoarthritis of hip; I11.9 Hypertensive heart disease without heart failure; K21.9 Gastro-esophageal reflux disease without esophagitis; J44.9 Chronic obstructive pulmonary disease, unspecified; E11.9 Type 2 diabetes mellitus without complications; Z98.890 Other specified postprocedural states; Z98.84 Bariatric surgery status; Z68.41 Body mass index [BMI] 40.0-44.9, adult
CPT/HCPCS: 99212

== ENCOUNTER → 2019-03-06 | Outpatient (CLI) | payer MEDICARE ==
--- NOTE | 2019-03-06 13:39 | US ---
EXAMINATION TYPE: US venous doppler duplex LE DATE OF EXAM: 03/06/2019 12:32 PM COMPARISON: NONE CLINICAL HISTORY: R22.42 SWELLING LT LOWER LIMB,R22.41 SWELLING RT LOWER LIMB. surgery 2 weeks ago fo r paniculectomy, swelling in bilateral legs SIDE PERFORMED: Bilateral TECHNIQUE: The lower extremity deep venous system is examined utilizing real time linear array sonog jaden with graded compression, doppler sonography and color-flow sonography. VESSELS IMAGED: External Iliac Vein (EIV) Common Femoral Vein Deep Femoral Vein Greater Saphenous Vein * Femoral Vein Popliteal Vein Small Saphenous Vein * Proximal Calf Veins (* superficial vessels) Right Leg: Appears negative for DVT Left Leg: Appears negative for DVT IMPRESSION: Bilateral lower extremity ultrasound negative for deep venous thrombosis.
== END | disposition home or self-care (01) ==
LOC: RADUSWWP 11:16
PROVIDERS: ATTEND Surgery Plastic and Reconstructive Surgery
DX: R22.42 Localized swelling, mass and lump, left lower limb (principal); R22.41 Localized swelling, mass and lump, right lower limb
CPT/HCPCS: 93970

== ENCOUNTER → 2019-03-15 | Outpatient (CLI) | payer MEDICARE ==
--- NOTE | 2019-03-15 15:17 | P.PN ---
Subjective Progress Note Date: 03/15/19 DATE OF SERVICE: 03/15/2019 CHIEF COMPLAINT: Morbid obesity HISTORY OF PRESENT ILLNESS: Lilian Urrutia is a 69-year-old female s/p panniculectomy 10.2 pounds, 02/20/2019. She is 3 weeks out. She had swelling of the legs now improved. She has been taking lasix. She is doing very well. Her highest weight was 401 pounds. Today she comes in weighing 238 pounds from 240 pounds, 2 weeks ago. Weight loss of 2 pounds in 2 weeks. Lifetime weight loss is 163 pounds. Percent excess weight loss is 61 %. At her height of 5 foot 2 inches, her ideal body weight is 135 pounds. Her highest body mass index was 73.5. Today her BMI is 43.7. PHYSICAL EXAM: VITAL SIGNS: Height 5 foot 2 inches, weight 238 pounds. BMI 43.7 Vital Signs Temp 98.2 F 03/15/19 15:15 Pulse 62 03/15/19 15:15 Resp BP 130/77 03/15/19 15:15 Pulse Ox GENERAL: Well-developed female in no acute distress. HEENT: No scleral icterus. Extraocular movements grossly intact. Hears conversational speech. No nasal drainage. NECK: Supple without lymphadenopathy. CHEST: Nonlabored respirations with equal bilateral excursions. CARDIOVASCULAR: Distal 2+ pulses. ABDOMEN: No infection. HEIDI is serosanguinous. Bruising resolved. Drains removed. MUSCULOSKELETAL: No clubbing, cyanosis. NEURO: No focal or lateralizing signs. Cranial nerves 2 through 12 grossly within normal limits. PSYCH: Appropriate affect. Alert and oriented to person, place and time. SKIN: Good skin turgor. Well perfused. ASSESSMENT: 1. Morbid obesity due to excess calories 2. Body mass index of 73.5 down to 43.7 3. End-stage osteoarthritis of the bilateral knees. 4. Obstructive sleep apnea. 5. Osteoarthritis of the hips and knees. 6. Hypertensive heart disease. 7. Gastroesophageal reflux disease 8. Asthma 9. Chronic obstructive pulmonary disease. 10. Diabetes type 2, [id number]. 11. Status post gastric bypass 12. Status post panniculectomy, 10 pounds PLAN: 1. Drains removed. 2. Follow up in 1 week. Objective - Vital Signs Vital signs: Intake & Output 03/14/19 03/15/19 03/15/19 18:59 06:59 18:59 Weight 108.409 kg
[2019-03-15 15:18] VITALS: BP 130/77; PULSE 62; TEMP 98.2; BMI 43.7
== END | disposition home or self-care (01) ==
LOC: BARWHC3 14:07
PROVIDERS: ATTEND Surgery Plastic and Reconstructive Surgery
DX: E66.01 Morbid (severe) obesity due to excess calories (principal); Z68.41 Body mass index [BMI] 40.0-44.9, adult; M17.0 Bilateral primary osteoarthritis of knee; G47.33 Obstructive sleep apnea (adult) (pediatric); I11.9 Hypertensive heart disease without heart failure; K21.9 Gastro-esophageal reflux disease without esophagitis; J44.9 Chronic obstructive pulmonary disease, unspecified; E11.9 Type 2 diabetes mellitus without complications; Z48.817 Encounter for surgical aftercare following surgery on the skin and subcutaneous tissue
CPT/HCPCS: 99211

== ENCOUNTER → 2019-03-23 | Outpatient (CLI) | payer MEDICARE ==
[2019-03-23 09:28] VITALS: RESP 16
--- NOTE | 2019-03-23 09:50 | P.PN ---
Subjective Progress Note Date: 03/23/19 DATE OF SERVICE: 03/23/2019 CHIEF COMPLAINT: Morbid obesity HISTORY OF PRESENT ILLNESS: Lilian Urrutia is a 69-year-old female s/p panniculectomy 10.2 pounds, 02/20/2019. She is 1 month out. Her protein intake is under 60 grams daily. She reports leg edema. Her highest weight was 401 pounds. Today she comes in weighing 244 pounds from 238 pounds, 1 week ago. Weight gain of 6 pounds in 1 week. Lifetime weight loss is 157 pounds. Percent excess weight loss is 59%. At her height of 5 foot 2 inches, her ideal body weight is 135 pounds. Her highest body mass index was 73.5. Today her BMI is 44.8. PHYSICAL EXAM: VITAL SIGNS: Height 5 foot 2 inches, weight 244 pounds. BMI 44.8, 161/91, 62 Vital Signs Temp Pulse Resp 16 03/23/19 09:26 BP Pulse Ox GENERAL: Well-developed female in no acute distress. HEENT: No scleral icterus. Extraocular movements grossly intact. Hears conversational speech. No nasal drainage. NECK: Supple without lymphadenopathy. CHEST: Nonlabored respirations with equal bilateral excursions. CARDIOVASCULAR: Distal 2+ pulses. ABDOMEN: Soft, nondistended. Incisions granulated. Minimal fluid along the abdomen. No cellulitis. MUSCULOSKELETAL: No clubbing, cyanosis. Has 2+ edema. NEURO: No focal or lateralizing signs. Cranial nerves 2 through 12 grossly within normal limits. PSYCH: Appropriate affect. Alert and oriented to person, place and time. SKIN: Good skin turgor. Well perfused. STUDIES: US legs negative for DVTs. ASSESSMENT: 1. Morbid obesity due to excess calories 2. Body mass index of 73.5 down to 44.8 3. End-stage osteoarthritis of the bilateral knees. 4. Obstructive sleep apnea. 5. Osteoarthritis of the hips and knees. 6. Hypertensive heart disease. 7. Gastroesophageal reflux disease 8. Asthma 9. Chronic obstructive pulmonary disease. 10. Diabetes type 2, [id number]-[id number]. 11. Status post gastric bypass 12. Status post panniculectomy, 10 pounds PLAN: 1. Recommend increase protein 75 grams daily 2. Recommend lasix for legs and edema Objective - Vital Signs Vital signs: Vital Signs Temp Pulse Resp 16 03/23/19 09:26 BP Pulse Ox Intake & Output 03/22/19 03/23/19 03/23/19 18:59 06:59 18:59 Weight 111.13 kg
== END | disposition home or self-care (01) ==
LOC: BARWHC3 09:02
PROVIDERS: ATTEND Surgery Plastic and Reconstructive Surgery
DX: E66.01 Morbid (severe) obesity due to excess calories (principal); Z68.41 Body mass index [BMI] 40.0-44.9, adult; M17.0 Bilateral primary osteoarthritis of knee; G47.33 Obstructive sleep apnea (adult) (pediatric); I11.9 Hypertensive heart disease without heart failure; K21.9 Gastro-esophageal reflux disease without esophagitis; J44.9 Chronic obstructive pulmonary disease, unspecified; E11.9 Type 2 diabetes mellitus without complications; Z98.84 Bariatric surgery status; Z48.817 Encounter for surgical aftercare following surgery on the skin and subcutaneous tissue
CPT/HCPCS: 99212

== ENCOUNTER → 2019-05-10 | Outpatient (CLI) | payer MEDICARE ==
[2019-05-10 14:42] VITALS: BP 167/80; PULSE 59; RESP 16; TEMP 97.6; BMI 44.2
--- NOTE | 2019-05-10 14:59 | P.PN ---
Subjective Progress Note Date: 05/10/19 SHe is back to exercise. She feels well. She is s/p panniculectomy. She has lost 100 pounds. Weight re-gain described. She has bad acid reflux. She still has her gallbladder. PLAN: 1. She is doing well. 2. She gallbladder 3. Omeprazole advised 4. EGD advised 5. Esophogram advised Objective - Vital Signs Vital signs: Vital Signs Temp 97.6 F 05/10/19 14:39 Pulse 59 L 05/10/19 14:39 Resp 16 05/10/19 14:39 BP 167/80 05/10/19 14:39 Pulse Ox Intake & Output 05/09/19 05/10/19 05/10/19 18:59 06:59 18:59 Weight 109.769 kg
== END ==
LOC: BARWHC3 12:44
PROVIDERS: ATTEND Surgery Plastic and Reconstructive Surgery
DX: Z48.817 Encounter for surgical aftercare following surgery on the skin and subcutaneous tissue (principal); K21.9 Gastro-esophageal reflux disease without esophagitis
CPT/HCPCS: 99211

== ENCOUNTER → 2020-02-22 | Outpatient (CLI) | payer MEDICARE ==
--- NOTE | 2020-02-22 12:32 | XR ---
Bilateral knees HISTORY: Pain Frontal and lateral views of both knees submitted No comparisons Osteoarthritic changes are present bilaterally with joint space loss most pronounced in the medial an d patellofemoral compartments, there is tricompartmental marginal spurring. Postop changes are noted to the left patella. Bone mineralization is reduced. Alignment is maintained. Sclerotic focus within the distal metadiaphysis of the right femur is indeterminate but could represent chondroid lesion, sm all bone infarcts. Soft tissue calcifications are present. IMPRESSION: Osteoarthritis. Postop changes left patella. Abnormality within the distal right femur is indeterminate. If pain is attributed to this lesion in bone scan may be of benefit, MRI could be per formed for additional evaluation.
== END | disposition home or self-care (01) ==
LOC: RADXRMAIN 10:15
PROVIDERS: ATTEND Family Medicine
DX: M17.0 Bilateral primary osteoarthritis of knee (principal); Z98.890 Other specified postprocedural states

== ENCOUNTER → 2020-06-21 | Outpatient (CLI) | payer MEDICARE ==
--- NOTE | 2020-06-24 11:39 | MM ---
Reason for exam: screening (asymptomatic). Last mammogram was performed 2 years and 3 months ago. History: Patient is postmenopausal. Physical Findings: A clinical breast exam by your physician is recommended on an annual basis and results should be correlated with mammographic findings. MG 3D Screening Mammo W/Cad Bilateral CC and MLO view(s) were taken. Prior study comparison: March 08, 2018, bilateral MG 3d screening mammo w/cad. April 30, 2016, bilateral MG 3d screening mammo w/cad. There are scattered fibroglandular densities. There is chronic nodularity in the right breast. No significant changes when compared with prior studies. ASSESSMENT: Benign, BI-RAD 2 RECOMMENDATION: Routine screening mammogram of both breasts in 1 year.
== END | disposition home or self-care (01) ==
LOC: RADMAMWWP 11:12
PROVIDERS: ATTEND Family Medicine
DX: Z12.31 Encounter for screening mammogram for malignant neoplasm of breast (principal)
CPT/HCPCS: 77063; 77067

== ENCOUNTER → 2021-06-05 | Outpatient (CLI) | payer MEDICARE ==
--- NOTE | 2021-06-05 13:33 | CONS ---
CONSULTATION DATE OF SERVICE: 06/05/2021. 71-year-old lady has [facility] for obstructive sleep apnea- hypopnea syndrome and possibly obesity hypoventilation. HISTORY OF PRESENT ILLNESS SLEEP-WAKE EVALUATION: The patient has been diagnosed with obstructive sleep apnea in another institution about 8 years ago, was treated with CPAP with oxygen supplement. Then she had a gastric bypass surgery in 2018, lost some weight and stopped using her CPAP treatment about 5 years ago. SLEEP SCHEDULE: Presently her sleep schedule from about midnight 8:00 pm until 10:00 am. FALLING ASLEEP: She does have problems with falling asleep has TV set in bedroom. DURING SLEEP: She sleeps on the recliner position for 30 years, cannot sleep in bed because of the difficulties to breathe. She wakes up from sleep up to 3 times with 2 episodes of nocturia. She snores, has sleep talking. No history of hypnagogic hallucinations, sleep paralysis or cataplexy. DURING THE DAY/SLEEP WAKE EVALUATION: In the morning, the patient wakes up tired, falling asleep during the day. Takes 1 or 2 naps in the afternoon. Gratis Sleepiness Scale significantly increased to 14. PAST MEDICAL HISTORY: Positive for COPD, asthma, atrial fibrillation, hypothyroidism, acid reflux, diabetes mellitus. PAST SURGICAL HISTORY: Gastric bypass, knee surgery, partial hysterectomy. MEDICATIONS: Furosemide 40 mg once a day, omeprazole 40 mg once a day, levothyroxine once a day, metoprolol twice a day, Eliquis twice a day, potassium supplement. SOCIAL HISTORY: Positive for smoking for about 5 years, quit many years ago. Alcohol consumption: None. FAMILY HISTORY: Hypertension, heart problems, fibromyalgia, lung problems, cancer. REVIEW OF SYSTEMS: Multiple awakenings from sleep, shortness of breath while walking, joint pain. PHYSICAL EXAM: Obese, lady without distress. BP 155/72, HR 67, RR 20, height 5 feet 2-3/4 inches, weight 361.4 pounds, body mass index 64.5, temperature 97.3, oxygen level at room air the first measurement 85%; after the patient sits for a while oxygen increased to 88, 89, 90%, but when she started to walk, it drops down to 84, 82%. Oropharynx: Low position of soft palate. NECK: Supple, no JVD. Thyroid is not palpable. LUNGS: Clear to percussion and to auscultation. Good air exchange. No wheezing or rhonchi. HEART: S1, S2 regular. No murmurs, gallops, or rubs. ABDOMEN: Obese. Soft and nontender. Bowel sounds are present. No organomegaly appreciated. EXTREMITIES: No clubbing or cyanosis. DINING SERVICES DIRECTOR: Awake, alert, and oriented X3. Cranial nerves 2 to 7 intact. There is no fasciculation or atrophy. noted. No focal deficits observed. Patient walks with a walker. IMPRESSION: 1. History of obstructive sleep apnea-hypopnea syndrome treated with PAP in the past with oxygen supplement. Stopped treatment after slight losing weight after gastric bypass surgery in 2018, multiple awakenings from sleep, low position of soft palate, wide neck, 18-1/2 inches in circumference, sleepiness with Gratis Sleepiness Scale of 14, obstructive sleep apnea-hypopnea syndrome. 2. Morbid obesity, BMI 64.5, possibly obesity hypoventilation. 3. History of chronic obstructive pulmonary disease, oxygen desaturation to 82% during minimal walking. 4. History of asthma. 5. History of atrial fibrillation. 6. Hypertension in the office today. 7. Acid reflux. 8. Diabetes mellitus. 9. Status post gastric bypass surgery in 2018. PLAN: 1. Patient will need oxygen supplement for the walking. 2. Polysomnography for evaluation of patient's breathing during sleep. 3. CPAP/BiPAP titration if sleep study confirms obstructive sleep apnea-hypopnea syndrome. 4. Preferable position during sleep on the side. 5. No driving if patient feels any sleepiness. 6. I will see patient for follow up visit to explain results of testing and following plan. Doc Garcia MD, PhD, FAASM Diplomat of [employer] [employer] Sleep Medicine [employer] of [place] [employer] Surface Supervisor of [facility] [place] MMODL / IJN: [id number] /
== END ==
LOC: SLEEP 11:25
PROVIDERS: ATTEND Internal Medicine
DX: G47.33 Obstructive sleep apnea (adult) (pediatric) (principal); E66.01 Morbid (severe) obesity due to excess calories; J44.9 Chronic obstructive pulmonary disease, unspecified; I48.91 Unspecified atrial fibrillation; I10 Essential (primary) hypertension; K21.9 Gastro-esophageal reflux disease without esophagitis; E11.9 Type 2 diabetes mellitus without complications; Z98.84 Bariatric surgery status; Z68.44 Body mass index [BMI] 60.0-69.9, adult; Z99.89 Dependence on other enabling machines and devices; Z79.01 Long term (current) use of anticoagulants; Z87.891 Personal history of nicotine dependence
CPT/HCPCS: 99211

== ENCOUNTER 2021-06-09 11:30 | Inpatient (IN) | payer MEDICARE ==
--- NOTE | 2021-06-09 12:05 | ED ---
Extremity Problem HPI - General Chief complaint: Extremity Problem,Nontraumatic Stated complaint: legs are weeping, oxygen issues Time Seen by Provider: 06/09/21 11:47 Source: patient, RN notes reviewed Mode of arrival: ambulatory Limitations: no limitations - History of Present Illness Initial comments: This a 71-year-old female presents emergency Department with chief complaint of shortness of breath, leg swelling. Patient states she's been having increasing issues with her leg swelling. Patient states that she noticed that she's had increasing shortness of breath which is worsened usual. 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 Patient states that they attempted suicide or production but she does not have any home. Patient states she's had a prior gastric bypass and symmetric in which she started having leg swelling after that. She states that her legs and never been this swollen she noticed increasing redness. No fevers or chills no chest pain currently. Patient states that she fell one month ago on her left knee states that she's had prior surgery to her left knee states that she's been having issues visit sore and she states it appears to be depressed more than usual. - Related Data Home Medications Medication Instructions Recorded Confirmed Calcium Carb/Vitamin D3/Vit K1 2 tab PO DAILY 02/13/19 06/09/21 [Viactiv Soft Chew Tablet] Multivitamins, Thera [Multivitamin 2 tab PO DAILY 02/13/19 06/09/21 (formulary)] Acetaminophen Tab [Tylenol] 650 mg PO Q4-6H PRN 06/09/21 06/09/21 Apixaban [Eliquis] 5 mg PO BID 06/09/21 06/09/21 Cetirizine HCl [Zyrtec] 10 mg PO HS 06/09/21 06/09/21 Furosemide [Lasix] 40 mg PO DAILY 06/09/21 06/09/21 Glucosamine/Chondr Antonio A Sod [Osteo 2 tab PO DAILY 06/09/21 06/09/21 Bi-Flex Caplet] Levothyroxine Sodium [Synthroid] 75 mcg PO DAILY 06/09/21 06/09/21 Omeprazole [PriLOSEC] 40 mg PO HS 06/09/21 06/09/21 Potassium Chloride 10 meq PO DAILY 06/09/21 06/09/21 Previous Rx's Medication Instructions Recorded Metoprolol Tartrate [Lopressor] 25 mg PO BID #60 tab 01/15/17 Allergies Allergy/AdvReac Type Severity Reaction Status Date / Time No Known Allergies Allergy Verified 06/09/21 13:37 Review of Systems ROS Statement: Those systems with pertinent positive or pertinent negative responses have been documented in the HPI. ROS Other: All systems not noted in ROS Statement are negative. Past Medical History Past Medical History: Atrial Fibrillation, Asthma, COPD, Diabetes Mellitus, GERD/Reflux, Hyperlipidemia, Hypertension, Osteoarthritis (OA), Skin Disorder, Sleep Apnea/CPAP/BIPAP, Thyroid Disorder Additional Past Medical History / Comment(s): COPD, DM, GERD all improved w/ bariatric surg & wgt loss; Not Using C-Pap. URINARY INCONTINENCE. Skin irritation w/ panniculus occ. Uses rolling walker d/t bad knees occ. 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 Roberts)Panni 02/20/19 Past Anesthesia/Blood Transfusion Reactions: No Reported Reaction Past Psychological History: No Psychological Hx Reported Smoking Status: Never smoker Past Alcohol Use History: None Reported Past Drug Use History: None Reported - Past Family History Mother Family Medical History: Cancer Additional Family Medical History / Comment(s): lung Father Family Medical History: Cancer Additional Family Medical History / Comment(s): stomach General Exam Limitations: no limitations General appearance: alert, in no apparent distress Head exam: Present: atraumatic, normocephalic, normal inspection Eye exam: Present: normal appearance, PERRL, EOMI. Absent: scleral icterus, conjunctival injection, periorbital swelling ENT exam: Present: normal exam, normal oropharynx, mucous membranes moist Neck exam: Present: normal inspection. Absent: tenderness, meningismus, lymphadenopathy Respiratory exam: Present: decreased breath sounds. Absent: normal lung sounds bilaterally, respiratory distress, wheezes, rales, rhonchi, stridor Cardiovascular Exam: Present: regular rate, normal rhythm, normal heart sounds. Absent: systolic murmur, diastolic murmur, rubs, gallop, clicks GI/Abdominal exam: Present: soft, normal bowel sounds. Absent: distended, tenderness, guarding, rebound, rigid Extremities exam: Present: pedal edema, other (Left knee mild tenderness, old surgical scar noted neurovascular intact) Neurological exam: Present: alert, oriented X3 Skin exam: Present: warm, dry, intact, normal color. Absent: rash Course Vital Signs 06/09/21 06/09/21 06/09/21 11:35 12:11 12:15 Temperature 98.4 F Pulse Rate 84 71 Respiratory 20 20 Rate Blood Pressure 157/87 156/63 O2 Sat by Pulse 88 L 85 L 100 Oximetry Medical Decision Making - Medical Decision Making Chest x-ray shows evidence of pulmonary edema, BMP is elevated 2300. Patient did presented hypoxic between 85 and 88%. Patient is improved after oxygen administration, Lasix. Patient did have a fall one month ago which she's complaining of pain in the left knee shows evidence of rupture of her prior surgical fixation of the patella. - Lab Data Result diagrams: 06/09/21 12:16 06/09/21 12:16 Lab Results 06/09/21 06/09/21 06/09/21 Range/Units 12:16 12:16 12:16 WBC 7.0 (3.8-10.6) k/uL RBC 3.93 (3.80-5.40) m/uL Hgb 10.5 L (11.4-16.0) gm/dL Hct 35.9 (34.0-46.0) % MCV 91.4 (80.0-100.0) fL MCH 26.7 (25.0-35.0) pg MCHC 29.2 L (31.0-37.0) g/dL RDW 17.6 H (11.5-15.5) % Plt Count 317 (150-450) k/uL MPV 7.8 Neutrophils % 65 % Lymphocytes % 21 % Monocytes % 8 % Eosinophils % 3 % Basophils % 1 % Neutrophils # 4.6 (1.3-7.7) k/uL Lymphocytes # 1.5 (1.0-4.8) k/uL Monocytes # 0.5 (0-1.0) k/uL Eosinophils # 0.2 (0-0.7) k/uL Basophils # 0.0 (0-0.2) k/uL Hypochromasia Marked Anisocytosis Slight PT 10.8 (9.0-12.0) sec INR 1.0 (<1.2) APTT 25.6 (22.0-30.0) sec Sodium 142 (137-145) mmol/L Potassium 4.5 (3.5-5.1) mmol/L Chloride 102 (98-107) mmol/L Carbon Dioxide 32 H (22-30) mmol/L Anion Gap 8 mmol/L BUN 30 H (7-17) mg/dL Creatinine 0.87 (0.52-1.04) mg/dL Est GFR (CKD-EPI)AfAm 78 (>60 ml/min/1.73 sqM) Est GFR (CKD-EPI)NonAf 67 (>60 ml/min/1.73 sqM) Glucose 114 H (74-99) mg/dL Calcium 7.9 L (8.4-10.2) mg/dL Magnesium 2.2 (1.6-2.3) mg/dL Total Bilirubin 0.5 (0.2-1.3) mg/dL AST 27 (14-36) U/L ALT 10 (4-34) U/L Alkaline Phosphatase 84 (38-126) U/L Troponin I (0.000-0.034) ng/mL NT-Pro-B Natriuret Pep pg/mL Total Protein 6.4 (6.3-8.2) g/dL Albumin 3.8 (3.5-5.0) g/dL 06/09/21 06/09/21 Range/Units 12:16 12:16 WBC (3.8-10.6) k/uL RBC (3.80-5.40) m/uL Hgb (11.4-16.0) gm/dL Hct (34.0-46.0) % MCV (80.0-100.0) fL MCH (25.0-35.0) pg MCHC (31.0-37.0) g/dL RDW (11.5-15.5) % Plt Count (150-450) k/uL MPV Neutrophils % % Lymphocytes % % Monocytes % % Eosinophils % % Basophils % % Neutrophils # (1.3-7.7) k/uL Lymphocytes # (1.0-4.8) k/uL Monocytes # (0-1.0) k/uL Eosinophils # (0-0.7) k/uL Basophils # (0-0.2) k/uL Hypochromasia Anisocytosis PT (9.0-12.0) sec INR (<1.2) APTT (22.0-30.0) sec Sodium (137-145) mmol/L Potassium (3.5-5.1) mmol/L Chloride (98-107) mmol/L Carbon Dioxide (22-30) mmol/L Anion Gap mmol/L BUN (7-17) mg/dL Creatinine (0.52-1.04) mg/dL Est GFR (CKD-EPI)AfAm (>60 ml/min/1.73 sqM) Est GFR (CKD-EPI)NonAf (>60 ml/min/1.73 sqM) Glucose (74-99) mg/dL Calcium (8.4-10.2) mg/dL Magnesium (1.6-2.3) mg/dL Total Bilirubin (0.2-1.3) mg/dL AST (14-36) U/L ALT (4-34) U/L Alkaline Phosphatase (38-126) U/L Troponin I <0.012 (0.000-0.034) ng/mL NT-Pro-B Natriuret Pep 2350 pg/mL Total Protein (6.3-8.2) g/dL Albumin (3.5-5.0) g/dL Disposition Clinical Impression: Acute CHF, Hypoxia, Pedal edema, Patellar fracture Disposition: ADMITTED IP TO THIS [facility] Condition: Fair Referrals: Titi Martin DO [Primary Care Provider] - 1-2 days
[2021-06-09 12:28] LABS: Anisocytosis Slight; Basophils % (A) 1 %; Eosinophils # (A) 0.2 k/uL (0-0.7); Eosinophils % (A) 3 %; HCT 35.9 % (34.0-46.0); HGB 10.5 gm/dL (11.4-16.0); Hypochromasia Marked; Lymphocytes # (A) 1.5 k/uL (1.0-4.8); Lymphocytes % (A) 21 %; MCH 26.7 pg (25.0-35.0); MCHC 29.2 g/dL (31.0-37.0); MCV 91.4 fL (80.0-100.0); Mean Platelet Volume 7.8; Monocytes # (A) 0.5 k/uL (0-1.0); Monocytes % (A) 8 %; Neutrophils # (A) 4.6 k/uL (1.3-7.7); Neutrophils % (A) 65 %; Platelet Count 317 k/uL (150-450); RBC 3.93 m/uL (3.80-5.40); RDW 17.6 % (11.5-15.5)
[2021-06-09 12:37] LABS: Albumin 3.8 g/dL (3.5-5.0); Calcium 7.9 mg/dL (8.4-10.2); Magnesium 2.2 mg/dL (1.6-2.3); Potassium 4.5 mmol/L (3.5-5.1); Total Bilirubin 0.5 mg/dL (0.2-1.3); Total Protein 6.4 g/dL (6.3-8.2)
[2021-06-09 12:43] LABS: Partial Thromboplastin Time 25.6 sec (22.0-30.0); Prothrombin Time 10.8 sec (9.0-12.0)
--- NOTE | 2021-06-09 12:44 | XR ---
EXAMINATION TYPE: XR chest 2V DATE OF EXAM: 06/09/2021 COMPARISON: Chest x-ray 04/30/2016 HISTORY: Difficulty breathing TECHNIQUE: Frontal and lateral views of the chest are obtained. FINDINGS: The heart is enlarged although patient is rotated. Central vascularity and interstitium ar e increased. No evident pneumothorax or pleural effusion. Bones are unchanged. IMPRESSION: Correlate for pulmonary venous hypertension and interstitial edema.
--- NOTE | 2021-06-09 13:01 | XR ---
EXAMINATION TYPE: XR knee complete LT DATE OF EXAM: 06/09/2021 COMPARISON: None HISTORY: Pain TECHNIQUE: 3 view left knee FINDINGS: No acute fractures are evident. There is prior patellar repair. The lateral screw and fixat ion wire is fractured. No acute osseous abnormalities are identified. There is narrowing of the media l compartment joint space. Patellofemoral joint space narrowing is present. No large effusion is evid ent. Follow up exams can be performed 7-10 days from acute trauma for continued pain. IMPRESSION: 1. Moderate degenerative joint changes. 2. Prior patellar fracture with repair. The fixation screw and wires are fractured. 3. No acute osseous abnormality radiographically evident.
[2021-06-09] MEDS ORDERED: FUROSEMIDE 10 MG/ML 4 ML VIAL IV STA (13:40)
[2021-06-09] MEDS: FUROSEMIDE 10 MG/ML 4 ML VIAL IV SCH (22:52)
[2021-06-10] MEDS: FUROSEMIDE 10 MG/ML 4 ML VIAL IV SCH ×2 (08:40→20:01)
[2021-06-10] MEDS ORDERED: LORATADINE 10 MG TAB PO STA (09:03)
[2021-06-10] MEDS ORDERED: NON FORMULARY DRUG (Calcium Carb/Vitamin D3/Vit K1 [Viactiv 650 Mg-12.5 Mcg Chew] 1 EACH T PO SCH (09:15)
[2021-06-10] MEDS ORDERED: METOPROLOL TARTRATE 25 MG TAB PO SCH (09:30)
[2021-06-10] MEDS: APIXABAN 5 MG TAB PO SCH ×2 (10:45→20:01)
[2021-06-10] MEDS: LEVOTHYROXINE 75 MCG TAB PO SCH (10:45)
[2021-06-10] MEDS: MULTIVITAMINS, THERA 1 EACH TAB PO SCH (10:45)
[2021-06-10] MEDS: POTASSIUM CHLORIDE ER 10 MEQ TAB.ER.PRT PO SCH (10:45)
--- NOTE | 2021-06-10 11:31 | ECHOF ---
Referral Reason:Heart Failure MEASUREMENTS -------- HEIGHT: 157.5 cm WEIGHT: 158.8 kg BP: IVSd: 1.1 cm (0.6 - 1.1) LVIDd: 3.2 cm (3.9 - 5.3) LVPWd: 1.2 cm (0.6 - 1.1) IVSs: 1.5 cm LVIDs: 1.8 cm LVPWs: 1.3 cm Ao Diam: 3.1 cm (2.0 - 3.7) AV Cusp: 1.6 cm (1.5 - 2.6) LA Diam: 3.3 cm (2.7 - 3.8) MV E Isacc: 1.05 m/s MV DecT: 184 ms MV A Isacc: 0.56 m/s MV E/A Ratio: 1.88 FINDINGS -------- This was a technically difficult study with suboptimal views. Morbid Obesity The left ventricular size is normal. There is mild concentric left ventricular hypertrophy. Overa ll left ventricular systolic function is normal with, an EF between 55 - 60 %. The RV was not well visualized. The left atrium was not well visualized. The right atrium was not well visualized. Lumason used The aortic valve was not well visualized. The mitral valve was not well visualized. There is trace mitral regurgitation. The tricuspid valve was not well visualized. Trace tricuspid regurgitation present. Right ventric ular systolic pressure is normal at < 35 mmHg. The pulmonic valve was not well visualized. The aortic root size is normal. IVC Not well visulized. CONCLUSIONS -------- 1. This was a technically difficult study with suboptimal views. 2. The left ventricular size is normal. 3. There is mild concentric left ventricular hypertrophy. 4. Overall left ventricular systolic function is normal with, an EF between 55 - 60 %. 5. Lumason used 6. There is trace mitral regurgitation. 7. Trace tricuspid regurgitation present. SLIVER CUTTER: Carol Hong RDCS
[2021-06-10] MEDS: VERAPAMIL SR 120 MG TABLET.ER PO SCH (11:56)
--- NOTE | 2021-06-10 12:04 | P.CRDCN ---
<Yeni Jarquin - Last Filed: 06/10/21 14:06> History of Present Illness Consult date: 06/10/21 History of present illness: HISTORY OF PRESENT ILLNESS: This is a 71-year-old female with a past medical history significant for diabetes, hypertension, pulmonary hypertension, and obstructive sleep apnea. Patient follows in the office with Dr. Cedeno. We have been asked to see the patient in consultation for CHF. Patient examined at the bedside. Patient presented to the hospital with a chief complaint of SOB and lower extremity edema. Patient takes lasix at home but states she does not always take it. Patient was started on IV lasix. She reports improvement in her breathing this morning. She denies chest pain or pressure. * EKG reveals sinus mechanism with right bundle branch block with nonspecific ST-T wave changes * Chest xray correlate for pulmonary venous hypertension and interstitial edema * Laboratory data: WBC 7.0. Hemoglobin 10.5. Platelet count 317. Sodium 142. Potassium 4.5. BUN 30. Creatinine 0.87. Troponin negative 1. ProBNP 2350. * Current home cardiac medications include Eliquis 5 mg twice a day, Lasix 40 mg daily, metoprolol tartrate 25 mg twice a day * Echocardiogram completed revealing ejection fraction 55-60%, trace MR, and trace tricuspid regurgitation. Right ventricular systolic pressure normal at less than 35. * Patient had a echocardiogram completed in the office in March 2021 revealed ejection fraction 55%, trace aortic regurgitation, mild MR, moderate TR, severely increased pulmonary artery systolic pressure with RVSP of 87mmHG REVIEW OF SYSTEMS: At the time of my exam: CONSTITUTIONAL: Denies fever or chills. HEENT: Denies blurred vision, vision changes, or eye pain. Denies hemoptysis CARDIOVASCULAR: Denies chest pain. Denies orthopnea. Denies PND. Denies palpitations RESPIRATORY: Denies shortness of breath. GASTROINTESTINAL: Denies abdominal pain. Denies nausea or vomiting. HEMATOLOGIC: Denies bleeding disorders. GENITOURINARY: Denies any blood in urine. SKIN: Denies pruitis. Denies rash. PHYSICAL EXAM: VITAL SIGNS: Reviewed. GENERAL: Well-developed in no acute distress. HEENT: Head is normocephalic. Pupils are equal, round. Sclerae anicteric. Mucous membranes of the mouth are moist. Neck supple. No JVD or thyromegaly LUNGS: Respirations even and unlabored. Lungs diminished bilaterally. HEART: Regular rate and rhythm. S1 and S2 heard. ABDOMEN: Soft. Nondistended. Nontender. EXTREMITIES: Normal range of motion. No clubbing or cyanosis. Peripheral pulses intact. 2+ lower extremity edema NEUROLOGIC: Awake and alert. Oriented x 3. ASSESSMENT: Shortness of breath Acute on chronic congestive heart failure with preserved ejection fraction Severe pulmonary hypertension, noted on echocardiogram in the office in March 2021 with RVSP of 87 mmHg Diabetes Obstructive sleep apnea Morbid obesity PLAN: Continue IV lasix Recommend pulmonary consult secondary to severe pulmonary hypertension noted on echo from 04/01 Discontinue metoprolol. Begin verapamil 120 mg daily Resume additional chronic medications Further recommendations pending patient course Nurse practitioner note has been reviewed by physician. Signing provider agrees with the documented findings, assessment, and plan of care. Past Medical History Past Medical History: Atrial Fibrillation, Asthma, COPD, Diabetes Mellitus, GERD/Reflux, Hyperlipidemia, Hypertension, Osteoarthritis (OA), Skin Disorder, Sleep Apnea/CPAP/BIPAP, Thyroid Disorder Additional Past Medical History / Comment(s): COPD, DM, GERD all improved w/ bariatric surg & wgt loss; Not Using C-Pap at this time, waiting for new one to arrive. URINARY INCONTINENCE. Skin irritation w/ panniculus occ. Uses rolling walker d/t bad knees occ. 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 Roberts)Panni 02/20/19 Past Anesthesia/Blood Transfusion Reactions: No Reported Reaction Past Psychological History: No Psychological Hx Reported Smoking Status: Never smoker Past Alcohol Use History: None Reported Additional Past Alcohol Use History / Comment(s): QUIT SMOKING IN "THE 80'S," SMOKED LESS THAN 1/2PPD FOR APPROX 10 YRS Past Drug Use History: None Reported - Past Family History Mother Family Medical History: Cancer Additional Family Medical History / Comment(s): from Lung CA at 83 years old. Father Family Medical History: Cancer Additional Family Medical History / Comment(s): from stomach CA at 37 years old. Medications and Allergies Home Medications Medication Instructions Recorded Confirmed Type Metoprolol Tartrate [Lopressor] 25 mg PO BID #60 tab 01/15/17 06/09/21 Rx Calcium Carb/Vitamin D3/Vit K1 2 tab PO DAILY 02/13/19 06/09/21 History [Viactiv Soft Chew Tablet] Multivitamins, Thera [Multivitamin 2 tab PO DAILY 02/13/19 06/09/21 History (formulary)] Acetaminophen Tab [Tylenol] 650 mg PO Q4-6H PRN 06/09/21 06/09/21 History Apixaban [Eliquis] 5 mg PO BID 06/09/21 06/09/21 History Cetirizine HCl [Zyrtec] 10 mg PO HS 06/09/21 06/09/21 History Furosemide [Lasix] 40 mg PO DAILY 06/09/21 06/09/21 History Glucosamine/Chondr Antonio A Sod [Osteo 2 tab PO DAILY 06/09/21 06/09/21 History Bi-Flex Caplet] Levothyroxine Sodium [Synthroid] 75 mcg PO DAILY 06/09/21 06/09/21 History Omeprazole [PriLOSEC] 40 mg PO HS 06/09/21 06/09/21 History Potassium Chloride 10 meq PO DAILY 06/09/21 06/09/21 History Allergies Allergy/AdvReac Type Severity Reaction Status Date / Time No Known Allergies Allergy Verified 06/09/21 13:37 Physical Exam Vitals: Vital Signs Temp Pulse Resp BP Pulse Ox 06/10/21 09:34 125/74 06/10/21 09:33 98 F 88 22 93 L 06/10/21 06:00 97.9 F 90 22 128/54 95 06/10/21 05:00 81 22 118/57 97 06/10/21 03:00 82 24 134/58 96 06/10/21 02:00 88 22 144/84 98 06/09/21 22:55 98.6 F 75 20 130/78 98 06/09/21 15:00 98.0 F 68 15 131/56 100 06/09/21 14:00 68 16 134/79 100 06/09/21 13:00 69 17 126/63 99 06/09/21 12:15 100 06/09/21 12:11 71 20 156/63 85 L Intake and Output 02/28/22 03/01/22 03/01/22 22:59 06:59 14:59 Output Total 300 750 100 Balance -300 -750 -100 Output: Urine 300 750 100 Uretheral (Felix) 300 750 100 Other: Weight 158.757 kg Results 06/09/21 12:16 06/09/21 12:16 Cardiac Enzymes 06/09/21 06/09/21 Range/Units 12:16 12:16 AST 27 (14-36) U/L Troponin I <0.012 (0.000-0.034) ng/mL Coagulation 06/09/21 Range/Units 12:16 PT 10.8 (9.0-12.0) sec APTT 25.6 (22.0-30.0) sec CBC 06/09/21 Range/Units 12:16 WBC 7.0 (3.8-10.6) k/uL RBC 3.93 (3.80-5.40) m/uL Hgb 10.5 L (11.4-16.0) gm/dL Hct 35.9 (34.0-46.0) % Plt Count 317 (150-450) k/uL Comprehensive Metabolic Panel 06/09/21 Range/Units 12:16 Sodium 142 (137-145) mmol/L Potassium 4.5 (3.5-5.1) mmol/L Chloride 102 (98-107) mmol/L Carbon Dioxide 32 H (22-30) mmol/L BUN 30 H (7-17) mg/dL Creatinine 0.87 (0.52-1.04) mg/dL Glucose 114 H (74-99) mg/dL Calcium 7.9 L (8.4-10.2) mg/dL AST 27 (14-36) U/L ALT 10 (4-34) U/L Alkaline Phosphatase 84 (38-126) U/L Total Protein 6.4 (6.3-8.2) g/dL Albumin 3.8 (3.5-5.0) g/dL Current Medications Generic Name Dose Route Start Last Admin Trade Name Freq PRN Reason Stop Dose Admin Acetaminophen 650 mg 06/10/21 09:14 Acetaminophen Tab 325 Mg Tab PO Q4H PRN Fever and/ or Pain Apixaban 5 mg 06/10/21 09:15 06/10/21 10:45 Apixaban 5 Mg Tab PO 5 mg BID MICHELLE Administration Protocol Furosemide 40 mg 06/09/21 21:00 06/10/21 08:40 Furosemide 10 Mg/Ml 4 Ml Vial IV 40 mg Q12HR MICHELLE Administration Levothyroxine Sodium 75 mcg 06/10/21 09:30 06/10/21 10:45 Levothyroxine 75 Mcg Tab PO 75 mcg DAILY@0630 MICHELLE Administration Loratadine 10 mg 06/11/21 21:00 Loratadine 10 Mg Tab PO HS MICHELLE Multivitamins 1 each 06/10/21 09:30 06/10/21 10:45 Multivitamins, Thera 1 Each Tab PO 1 each DAILY MICHELLE Administration Pantoprazole Sodium 40 mg 06/10/21 21:00 Pantoprazole 40 Mg Tablet PO HS MICHELLE Potassium Chloride 10 meq 06/10/21 09:30 06/10/21 10:45 Potassium Chloride Er 10 Meq Tab.Er.Prt PO 10 meq DAILY MICHELLE Administration Verapamil HCl 120 mg 06/10/21 10:15 Verapamil Sr 120 Mg Tablet.Er PO DAILY MICHELLE Intake and Output 06/09/21 06/10/21 06/10/21 22:59 06:59 14:59 Output Total 300 750 100 Balance -300 -750 -100 Output: Urine 300 750 100 Uretheral (Felix) 300 750 100 Other: Weight 158.757 kg 06/09/21 12:16 06/09/21 12:16 <Adarsh Merida - Last Filed: 06/10/21 14:13> History of Present Illness History of present illness: Patient interviewed and examined by me. Data reviewed. Impression and plan formulated by me and discussed with nurse practitioner Nurse practitioner transcribed note on my behalf Physical Exam Vitals: Vital Signs Temp Pulse Resp BP Pulse Ox 06/10/21 11:59 86 18 135/52 95 06/10/21 11:55 85 L 06/10/21 09:34 125/74 06/10/21 09:33 98 F 88 22 93 L 06/10/21 06:00 97.9 F 90 22 128/54 95 06/10/21 05:00 81 22 118/57 97 06/10/21 03:00 82 24 134/58 96 06/10/21 02:00 88 22 144/84 98 06/09/21 22:55 98.6 F 75 20 130/78 98 06/09/21 15:00 98.0 F 68 15 131/56 100 Intake and Output 06/09/21 06/10/21 06/10/21 22:59 06:59 14:59 Output Total 300 750 100 Balance -300 -750 -100 Output: Urine 300 750 100 Uretheral (Felix) 300 750 100 Other: Weight 158.757 kg Results 06/09/21 12:16 06/09/21 12:16 Current Medications Generic Name Dose Route Start Last Admin Trade Name Jabier PRN Reason Stop Dose Admin Acetaminophen 650 mg 06/10/21 09:14 Acetaminophen Tab 325 Mg Tab PO Q4H PRN Fever and/ or Pain Apixaban 5 mg 06/10/21 09:15 06/10/21 10:45 Apixaban 5 Mg Tab PO 5 mg BID MICHELLE Administration Protocol Furosemide 40 mg 06/09/21 21:00 06/10/21 08:40 Furosemide 10 Mg/Ml 4 Ml Vial IV 40 mg Q12HR MICHELLE Administration Levothyroxine Sodium 75 mcg 06/10/21 09:30 06/10/21 10:45 Levothyroxine 75 Mcg Tab PO 75 mcg DAILY@0630 MICHELLE Administration Loratadine 10 mg 06/11/21 21:00 Loratadine 10 Mg Tab PO HS [facility] Multivitamins 1 each 06/10/21 09:30 06/10/21 10:45 Multivitamins, Thera 1 Each Tab PO 1 each DAILY MICHELLE Administration Pantoprazole Sodium 40 mg 06/10/21 21:00 Pantoprazole 40 Mg Tablet PO HS MICHELLE Potassium Chloride 10 meq 06/10/21 09:30 06/10/21 10:45 Potassium Chloride Er 10 Meq Tab.Er.Prt PO 10 meq DAILY MICHELLE Administration Verapamil HCl 120 mg 06/10/21 10:15 06/10/21 11:56 Verapamil Sr 120 Mg Tablet.Er PO 120 mg DAILY MICHELLE Administration Intake and Output 06/09/21 06/10/21 06/10/21 22:59 06:59 14:59 Output Total 300 750 100 Balance -300 -750 -100 Output: Urine 300 750 100 Uretheral (Felix) 300 750 100 Other: Weight 158.757 kg 06/09/21 12:16 06/09/21 12:16
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
[2021-06-10 16:41] LABS: Glucose,Whole Blood 118 mg/dL (75-99)
--- NOTE | 2021-06-10 17:52 | P.CNPUL ---
<Elsi Villarreal M - Last Filed: 06/10/21 17:33> History of Present Illness Consult date: 06/10/21 Requesting physician: Ximena Zaragoza Reason for consult: dyspnea Chief complaint: Shortness of breath, lower extremity swelling History of present illness: This is a 71-year-old female patient with past medical history of hypertension, diabetes, obstructive sleep apnea not on CPAP therapy currently, morbid obesity with previous history of Mely-en-Y gastric bypass, panniculectemy, previous history of severe pulmonary hypertension, remote history of smoking, COPD/chronic bronchial asthma unspecified, who presented to the emergency department on 06/09/2021 for evaluation of worsening shortness of breath and increasing swelling and weeping from her lower extremities. Patient states that she had been on oxygen in the past but not recently. Her shortness of breath has been getting worse over a period of 2 weeks. Denied any fever or chills. Denied any cough or phlegm production, chest x-ray in emergency department showed enlarged heart, central vascularity and increased interstitium. Her lower extremities are swollen, slightly reddened and slightly warm to touch. Currently in no weeping noted. Patient was having pain in her left knee, an x- ray of the left knee showed prior patellar fracture with repair but no acute osseous abnormality. EKG showed sinus rhythm. Patient was hypoxic, she was placed on supplemental oxygen, her pulse ox was 85% on 2 L in the emergency department, she is currently at 3 L and her pulse oximetry 90-95%, breathing comfortably, afebrile, hemodynamically she stable. Blood work was reviewed, with little, 7.0, hemoglobin is 10.5, platelet count is 317, Coreg patient prof ile was within normal limits, CO2 is 32, the rest of electrolytes were unremarkable, BUN is 30, creatinine 0.87. LFTs were within normal limits, proBNP was 2350, troponin was less than 0.012. Patient states she is currently undergoing a repeat evaluation to obtain a new CPAP machine. After she had lost 130 pounds following her Mely-en-Y gastric bypass surgery, patient recently regained it back in the past year related to decreased activity level, and the COVID pandemic. She is supposed to have a polysomnogram at the sleep Center. She had a consultation with Dr. Garcia Review of Systems All systems: negative Constitutional: Denies chills, Denies fever Eyes: denies blurred vision, denies pain Ears, nose, mouth and throat: Denies headache, Denies sore throat Cardiovascular: Reports edema, Reports leg edema, Denies chest pain, Denies shortness of breath Respiratory: Reports dyspnea, Denies cough Gastrointestinal: Denies abdominal pain, Denies diarrhea, Denies nausea, Denies vomiting Genitourinary: Denies dysuria, Denies hematuria Musculoskeletal: Denies myalgias Musculoskeletal: bilateral: ankle swelling Integumentary: Reports rash, Denies pruritus Neurological: Denies numbness, Denies weakness Psychiatric: Denies anxiety, Denies depression Endocrine: Denies fatigue, Denies weight change Past Medical History Past Medical History: Atrial Fibrillation, Asthma, COPD, Diabetes Mellitus, GERD/Reflux, Hyperlipidemia, Hypertension, Osteoarthritis (OA), Skin Disorder, Sleep Apnea/CPAP/BIPAP, Thyroid Disorder Additional Past Medical History / Comment(s): COPD, DM, GERD all improved w/ bariatric surg & wgt loss; Not Using C-Pap at this time, waiting for new one to arrive. URINARY INCONTINENCE. Skin irritation w/ panniculus occ. Uses rolling walker d/t bad knees occ. 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 Roberts)Panni 02/20/19 Past Anesthesia/Blood Transfusion Reactions: No Reported Reaction Past Psychological History: No Psychological Hx Reported Smoking Status: Never smoker Past Alcohol Use History: None Reported Additional Past Alcohol Use History / Comment(s): QUIT SMOKING IN "THE 80'S," SMOKED LESS THAN 1/2PPD FOR APPROX 10 YRS Past Drug Use History: None Reported - Past Family History Mother Family Medical History: Cancer Additional Family Medical History / Comment(s): from Lung CA at 83 years old. Father Family Medical History: Cancer Additional Family Medical History / Comment(s): from stomach CA at 37 years old. Medications and Allergies Home Medications Medication Instructions Recorded Confirmed Type Metoprolol Tartrate [Lopressor] 25 mg PO BID #60 tab 01/15/17 06/09/21 Rx Calcium Carb/Vitamin D3/Vit K1 2 tab PO DAILY 02/13/19 06/09/21 History [Viactiv Soft Chew Tablet] Multivitamins, Thera [Multivitamin 2 tab PO DAILY 02/13/19 06/09/21 History (formulary)] Acetaminophen Tab [Tylenol] 650 mg PO Q4-6H PRN 06/09/21 06/09/21 History Apixaban [Eliquis] 5 mg PO BID 06/09/21 06/09/21 History Cetirizine HCl [Zyrtec] 10 mg PO HS 06/09/21 06/09/21 History Furosemide [Lasix] 40 mg PO DAILY 06/09/21 06/09/21 History Glucosamine/Chondr Antonio A Sod [Osteo 2 tab PO DAILY 06/09/21 06/09/21 History Bi-Flex Caplet] Levothyroxine Sodium [Synthroid] 75 mcg PO DAILY 06/09/21 06/09/21 History Omeprazole [PriLOSEC] 40 mg PO HS 06/09/21 06/09/21 History Potassium Chloride 10 meq PO DAILY 06/09/21 06/09/21 History Allergies Allergy/AdvReac Type Severity Reaction Status Date / Time No Known Allergies Allergy Verified 06/09/21 13:37 Physical Exam Vitals: Vital Signs Temp Pulse Pulse Resp BP BP Pulse Ox 06/10/21 16:15 87 20 06/10/21 16:00 98.9 F 87 16 144/57 90 L 06/10/21 11:59 86 18 135/52 95 06/10/21 11:55 85 L 06/10/21 09:34 125/74 06/10/21 09:33 98 F 88 22 93 L 06/10/21 06:00 97.9 F 90 22 128/54 95 06/10/21 05:00 81 22 118/57 97 06/10/21 03:00 82 24 134/58 96 06/10/21 02:00 88 22 144/84 98 06/09/21 22:55 98.6 F 75 20 130/78 98 Intake and Output 06/10/21 06/10/21 06/10/21 06:59 14:59 22:59 Output Total 750 100 Balance -750 -100 Output: Urine 750 100 Uretheral (Felix) 750 100 Other: Voiding Method Indwelling Catheter GENERAL EXAM: Alert, very pleasant, morbidly obese 71-year-old white female, on 3 L of oxygen the pulse ox of 90-95%, comfortable in no apparent distress. HEAD: Normocephalic/atraumatic. EYES: Normal reaction of pupils, equal size. Conjunctiva pink, sclera white. NOSE: Clear with pink turbinates. THROAT: No erythema or exudates. NECK: No masses, no JVD, no thyroid enlargement, no adenopathy. CHEST: No chest wall deformity. Symmetrical expansion. LUNGS: Equal air entry with bibasilar crackles CVS: Regular rate and rhythm, normal S1 and S2, no gallops, no murmurs, no rubs ABDOMEN: Soft, nontender. No hepatosplenomegaly, normal bowel sounds, no guarding or rigidity. EXTREMITIES: No clubbing, 1+ lower extremity edema no cyanosis, 2+ pulses and upper and lower extremities. MUSCULOSKELETAL: Muscle strength and tone normal. SPINE: No scoliosis or deformity SKIN: No rashes, bilateral lower extremity slightly pink and warm to touch CENTRAL NERVOUS SYSTEM: Alert and oriented -3. No focal deficits, tone is normal in all 4 extremities. PSYCHIATRIC: Alert and oriented -3. Appropriate affect. Intact judgment and insight. Results - Laboratory Findings CBC and BMP: 06/09/21 12:16 06/09/21 12:16 PT/INR, D-dimer PT 10.8 sec (9.0-12.0) 06/09/21 12:16 INR 1.0 (<1.2) 06/09/21 12:16 Abnormal lab findings: Abnormal Labs 06/09/21 06/09/21 06/10/21 12:16 12:16 16:34 Hgb 10.5 L MCHC 29.2 L RDW 17.6 H Carbon Dioxide 32 H BUN 30 H Glucose 114 H POC Glucose (mg/dL) 118 H Calcium 7.9 L - Diagnostic Findings Chest x-ray: report reviewed, image reviewed Additional studies: X-ray of the left knee Assessment and Plan Plan: Assessment: #1. Acute hypoxic respiratory failure related to acute exacerbation of diastolic CHF #2. History of severe pulmonary hypertension, possibly secondary to obstructive sleep apnea. Echocardiogram from 06/10/2021 did not show evidence of pulmonary hypertension and right ventricular systolic pressure is less than 35 mmHg. There is trace tricuspid regurg, trace mitral regurgitation, and there is left ventricular hypertrophy #3. History of obstructive sleep apnea, improved after significant weight loss following Mely-en-Y gastric bypass in 2018. Currently patient is again being evaluated for obstructive sleep apnea, has not been on CPAP therapy in the past 3-4 years #4. Significant weight gain in the last year #5. Remote history of smoking #6. Reported history of COPD/chronic bronchial asthma, unspecified #7. Diabetes mellitus type 2 #8. Hypertension #9. Hyperlipidemia #10. Osteoarthritis #11. Severe left knee osteoarthritis with previous left knee patellar fracture and screw and wire fixation Plan: Continue diuretics Cardiology recs Echocardiogram reviewed Follow-up chest x-ray in the morning Follow-up electrolytes and renal profile Daily weights Patient is currently undergoing evaluation for obstructive sleep apnea and will likely need a CPAP device We'll continue to follow her clinical course I performed a history & physical examination of the patient and discussed their management with my nurse practitioner, Elsi Villarreal. I reviewed the nurse practitioner's note and agree with the documented findings and plan of care. Lung sounds are positive for dim breath sounds throughout the lung wilson. The findings and the impression was discussed with the patient. I attest to the documentation by the nurse practitioner. I have personally seen and examined the patient, performed the documentation and the assessment and plan as written. Number of minutes spent on the visit: [20] Time with Patient: Greater than 30 <Kianna Cisneros - Last Filed: 06/10/21 18:02> Physical Exam Vitals: Vital Signs Temp Pulse Pulse Resp BP BP Pulse Ox 06/10/21 16:15 87 20 06/10/21 16:00 98.9 F 87 16 144/57 90 L 06/10/21 11:59 86 18 135/52 95 06/10/21 11:55 85 L 06/10/21 09:34 125/74 06/10/21 09:33 98 F 88 22 93 L 06/10/21 06:00 97.9 F 90 22 128/54 95 06/10/21 05:00 81 22 118/57 97 06/10/21 03:00 82 24 134/58 96 06/10/21 02:00 88 22 144/84 98 06/09/21 22:55 98.6 F 75 20 130/78 98 Intake and Output 06/10/21 06/10/21 06/10/21 06:59 14:59 22:59 Output Total 750 100 Balance -750 -100 Output: Urine 750 100 Uretheral (Felix) 750 100 Other: Voiding Method Indwelling Catheter Results - Laboratory Findings CBC and BMP: 06/09/21 12:16 06/09/21 12:16 PT/INR, D-dimer PT 10.8 sec (9.0-12.0) 06/09/21 12:16 INR 1.0 (<1.2) 06/09/21 12:16 Abnormal lab findings: Abnormal Labs 06/09/21 06/09/21 06/10/21 12:16 12:16 16:34 Hgb 10.5 L MCHC 29.2 L RDW 17.6 H Carbon Dioxide 32 H BUN 30 H Glucose 114 H POC Glucose (mg/dL) 118 H Calcium 7.9 L Assessment and Plan Plan: A joint evaluation that was done along with a nurse practitioner. I was involved in more than 30 minutes in this evaluation and this was a joint evaluation that was done under my supervision. I completely assisted information mentioned above. I agree into the assessment and plan. The patient was restless for CHF. The patient will be optimized. At the later stage, her obstructive sleep apnea and is to be managed and treated. No significant pulmonary hypertension based on the most recent echocardiogram. Anticipate improvement. She is currently on diuretics. Echo is pending.
[2021-06-10] MEDS: PANTOPRAZOLE 40 MG TABLET PO SCH (20:01)
[2021-06-10 20:09] LABS: Glucose,Whole Blood 114 mg/dL (75-99)
[2021-06-11] MEDS: ACETAMINOPHEN TAB 325 MG TAB PO PRN ×2 (05:40→20:40)
[2021-06-11] MEDS: LEVOTHYROXINE 75 MCG TAB PO SCH (05:42)
[2021-06-11 06:05] LABS: Glucose,Whole Blood 126 mg/dL (75-99)
[2021-06-11 06:54] LABS: Albumin 3.7 g/dL (3.5-5.0); Calcium 7.9 mg/dL (8.4-10.2); Potassium 4.3 mmol/L (3.5-5.1); Total Bilirubin 0.6 mg/dL (0.2-1.3); Total Protein 6.6 g/dL (6.3-8.2)
--- NOTE | 2021-06-11 07:09 | XR ---
EXAMINATION TYPE: XR chest 1V portable DATE OF EXAM: 06/11/2021 HISTORY: Shortness of breath. COMPARISON: 06/09/2021 TECHNIQUE: Single view of the chest is submitted. FINDINGS: Demonstrated are scattered senescent parenchymal change. Perihilar and basilar infiltrates persist. The heart is stable. Hilar and mediastinal structures are within normal limits. Degenerative changes are seen of the dorsal spine. IMPRESSION: 1. Stable chest
[2021-06-11 07:11] LABS: Anisocytosis Slight; Basophils % (A) 0 %; Eosinophils # (A) 0.2 k/uL (0-0.7); Eosinophils % (A) 2 %; HCT 34.4 % (34.0-46.0); HGB 9.9 gm/dL (11.4-16.0); Hypochromasia Marked; Lymphocytes # (A) 1.4 k/uL (1.0-4.8); Lymphocytes % (A) 15 %; MCH 26.6 pg (25.0-35.0); MCHC 28.9 g/dL (31.0-37.0); MCV 92.2 fL (80.0-100.0); Mean Platelet Volume 7.7; Monocytes # (A) 0.7 k/uL (0-1.0); Monocytes % (A) 8 %; Neutrophils # (A) 6.4 k/uL (1.3-7.7); Neutrophils % (A) 71 %; Platelet Count 296 k/uL (150-450); RBC 3.73 m/uL (3.80-5.40); RDW 17.7 % (11.5-15.5); WBC 8.9 k/uL (3.8-10.6)
[2021-06-11] MEDS: VERAPAMIL SR 120 MG TABLET.ER PO SCH (08:49)
[2021-06-11] MEDS: APIXABAN 5 MG TAB PO SCH ×2 (08:49→20:40)
[2021-06-11] MEDS: FUROSEMIDE 10 MG/ML 4 ML VIAL IV SCH ×2 (08:49→20:41)
[2021-06-11] MEDS: MULTIVITAMINS, THERA 1 EACH TAB PO SCH (08:49)
[2021-06-11] MEDS: POTASSIUM CHLORIDE ER 10 MEQ TAB.ER.PRT PO SCH (08:49)
[2021-06-11] MEDS: PANTOPRAZOLE 40 MG TABLET PO SCH ×2 (08:49→20:41)
[2021-06-11] MEDS ORDERED: NON FORMULARY DRUG (Glucosamine/Chondr Su A Sod [Osteo Bi-Flex Caplet] 1 EACH Tablet) PO SCH (09:00)
[2021-06-11 12:06] LABS: Glucose,Whole Blood 157 mg/dL (75-99)
--- NOTE | 2021-06-11 12:12 | P.PN ---
<MattJade - Last Filed: 06/11/21 12:05> Subjective Progress Note Date: 06/11/21 Principal diagnosis: CHF This is a 71-year-old female patient with past medical history of hypertension, diabetes, obstructive sleep apnea not on CPAP therapy currently, morbid obesity with previous history of Mely-en-Y gastric bypass, panniculectemy, previous history of severe pulmonary hypertension, remote history of smoking, COPD/chronic bronchial asthma unspecified, who presented to the emergency depart ment on 06/09/2021 for evaluation of worsening shortness of breath and increasing swelling and weeping from her lower extremities. Patient states that she had been on oxygen in the past but not recently. Her shortness of breath has been getting worse over a period of 2 weeks. Denied any fever or chills. Denied any cough or phlegm production, chest x-ray in emergency department showed enlarged heart, central vascularity and increased interstitium. Her lower extremities are swollen, slightly reddened and slightly warm to touch. Currently in no weeping noted. Patient was having pain in her left knee, an x- ray of the left knee showed prior patellar fracture with repair but no acute osseous abnormality. EKG showed sinus rhythm. Patient was hypoxic, she was placed on supplemental oxygen, her pulse ox was 85% on 2 L in the emergency department, she is currently at 3 L and her pulse oximetry 90-95%, breathing comfortably, afebrile, hemodynamically she stable. Blood work was reviewed, with little, 7.0, hemoglobin is 10.5, platelet count is 317, Coreg patient profile was within normal limits, CO2 is 32, the rest of electrolytes were unremarkable, BUN is 30, creatinine 0.87. LFTs were within normal limits, proBNP was 2350, troponin was less than 0.012. Patient states she is currently undergoing a repeat evaluation to obtain a new CPAP machine. After she had lost 130 pounds following her Mely-en-Y gastric bypass surgery, patient recently regained it back in the past year related to decreased activity level, and the COVID pandemic. She is supposed to have a polysomnogram at the sleep [facility]. She had a consultation with Dr. Garcia The patient is seen today 06/11/2021 in follow-up on the selective care unit. She is currently sitting up in a chair at the bedside. Drifting off to sleep easily on and off but arousable. Currently on 3 L nasal cannula with O2 saturation 94%. Approximate 4 AM she was found to be at 65% O2 saturations as she had inadvertently removed her oxygen. She recovered up in the 90s on 3 L. Chest x-ray reveals perihilar and basilar infiltrates. Stable compared to previous. White count 8.9. Hemoglobin 9.9. Platelets 296. Sodium 141. Potassium 4.1. Bicarb 40. BUN 20. Creatinine 1.01. Glucose 119. Events on anticoagulants in the form of Eliquis. Continued on IV diuretics. Plan a -1 L balance. Lower extremity edema slightly improved. Objective - Vital Signs Vital signs: Vital Signs Temp 99 F 06/11/21 04:00 Pulse 93 06/11/21 04:00 Resp 18 06/11/21 04:00 BP 122/52 06/11/21 04:00 Pulse Ox 94 L 06/11/21 08:02 Intake & Output 06/10/21 06/11/21 06/11/21 18:59 06:59 18:59 Intake Total 240 118 Output Total 100 1150 Balance 140 -1150 118 Weight 159.7 kg Intake: Oral 240 118 Output: Urine 100 1150 Uretheral (Felix) 100 Other: Voiding Method Indwelling Catheter Indwelling Catheter - Exam GENERAL EXAM: Alert, very pleasant, morbidly obese 71-year-old female patient, on 3 L of oxygen the pulse ox of 94%, comfortable in no apparent distress. HEAD: Normocephalic/atraumatic. EYES: Normal reaction of pupils, equal size. Conjunctiva pink, sclera white. NOSE: Clear with pink turbinates. THROAT: No erythema or exudates. NECK: No masses, no JVD, no thyroid enlargement, no adenopathy. CHEST: No chest wall deformity. Symmetrical expansion. LUNGS: Equal air entry with bibasilar crackles CVS: Regular rate and rhythm, normal S1 and S2, no gallops, no murmurs, no rubs ABDOMEN: Soft, nontender. No hepatosplenomegaly, normal bowel sounds, no gu arding or rigidity. EXTREMITIES: No clubbing, 1+ lower extremity edema no cyanosis, 2+ pulses and up per and lower extremities. MUSCULOSKELETAL: Muscle strength and tone normal. SPINE: No scoliosis or deformity SKIN: No rashes, bilateral lower extremity slightly pink and warm to touch CENTRAL NERVOUS SYSTEM: No focal deficits, tone is normal in all 4 extremities. PSYCHIATRIC: Alert and oriented -3. Appropriate affect. Intact judgment and insight. - Labs CBC & Chem 7: 06/11/21 06:14 06/11/21 06:14 Labs: Abnormal Lab Results - Last 24 Hours (Table) 06/10/21 06/10/21 06/11/21 Range/Units 16:34 20:08 06:02 RBC (3.80-5.40) m/uL Hgb (11.4-16.0) gm/dL MCHC (31.0-37.0) g/dL RDW (11.5-15.5) % Chloride (98-107) mmol/L Carbon Dioxide (22-30) mmol/L BUN (7-17) mg/dL Glucose (74-99) mg/dL POC Glucose (mg/dL) 118 H 114 H 126 H (75-99) mg/dL Calcium (8.4-10.2) mg/dL 06/11/21 06/11/21 Range/Units 06:14 06:14 RBC 3.73 L (3.80-5.40) m/uL Hgb 9.9 L (11.4-16.0) gm/dL MCHC 28.9 L (31.0-37.0) g/dL RDW 17.7 H (11.5-15.5) % Chloride 96 L (98-107) mmol/L Carbon Dioxide 40 H (22-30) mmol/L BUN 22 H (7-17) mg/dL Glucose 119 H (74-99) mg/dL POC Glucose (mg/dL) (75-99) mg/dL Calcium 7.9 L (8.4-10.2) mg/dL Assessment and Plan Assessment: 1 Acute hypoxic respiratory failure related to acute exacerbation of diastolic CHF. Preserved left ventricular systolic function with ejection fraction 55-60% 2 History of severe pulmonary hypertension, possibly secondary to obstructive sleep apnea. Echocardiogram from 06/10/2021 did not show evidence of pulmonary hypertension and right ventricular systolic pressure is less than 35 mmHg. There is trace tricuspid regurg, trace mitral regurgitation, and there is left ventricular hypertrophy 3 History of obstructive sleep apnea, improved after significant weight loss following Mely-en-Y gastric bypass in 2018. Currently patient is again being evaluated for obstructive sleep apnea, has not been on CPAP therapy in the past 3-4 years 4 Significant weight gain in the last year 5 Remote history of smoking 6 Reported history of COPD/chronic bronchial asthma, unspecified 7 Diabetes mellitus type 2 8 Hypertension 9 Hyperlipidemia 10 Osteoarthritis 11 Severe left knee osteoarthritis with previous left knee patellar fracture and screw and wire fixation Plan: The patient was seen and evaluated Chest x-ray and labs reviewed Continue IV diuretics Anticoagulated with Eliquis We will continue to follow I, the cosigning physician, performed a history & physical examination of the patient. Lungs sounds with crackles in the bilateral bases Maintaining good O2 saturations in the 90s on 3 L/m per nasal. I discussed the assessment and plan of care with my nurse practitioner, Jade Gutierrez. I attest to the above note as dictated by her. I have personally seen and examined the patient, performed the documentation and the assessment and plan as written. Number of minutes spent on the visit: 10. <Kianna Cisneros - Last Filed: 06/11/21 15:39> Objective - Vital Signs Vital signs: Vital Signs Temp 97.9 F 06/11/21 15:29 Pulse 77 06/11/21 15:29 Resp 20 06/11/21 15:29 BP 131/64 06/11/21 15:29 Pulse Ox 96 06/11/21 15:29 Intake & Output 06/10/21 06/11/21 06/11/21 18:59 06:59 18:59 Intake Total 240 276 Output Total 100 1150 200 Balance 140 -1150 76 Weight 159.7 kg Intake: IV 40 Invasive Line 1 40 Oral 240 236 Output: Urine 100 1150 200 Uretheral (Felix) 100 Other: Voiding Method Indwelling Catheter Indwelling Catheter Bedside Commode Diaper Incontinent - Labs CBC & Chem 7: 06/11/21 06:14 06/11/21 06:14 Labs: Abnormal Lab Results - Last 24 Hours (Table) 06/10/21 06/10/21 06/11/21 Range/Units 16:34 20:08 06:02 RBC (3.80-5.40) m/uL Hgb (11.4-16.0) gm/dL MCHC (31.0-37.0) g/dL RDW (11.5-15.5) % Chloride (98-107) mmol/L Carbon Dioxide (22-30) mmol/L BUN (7-17) mg/dL Glucose (74-99) mg/dL POC Glucose (mg/dL) 118 H 114 H 126 H (75-99) mg/dL Calcium (8.4-10.2) mg/dL 06/11/21 06/11/21 06/11/21 Range/Units 06:14 06:14 11:46 RBC 3.73 L (3.80-5.40) m/uL Hgb 9.9 L (11.4-16.0) gm/dL MCHC 28.9 L (31.0-37.0) g/dL RDW 17.7 H (11.5-15.5) % Chloride 96 L (98-107) mmol/L Carbon Dioxide 40 H (22-30) mmol/L BUN 22 H (7-17) mg/dL Glucose 119 H (74-99) mg/dL POC Glucose (mg/dL) 157 H (75-99) mg/dL Calcium 7.9 L (8.4-10.2) mg/dL Assessment and Plan Assessment: I have personally seen and examined the patient and reviewed the documentation. I performed a joint evaluation with the nurse practitioner in this evaluation was done more than 20 minutes. I fully agree with the documentation above and the plan of care.
[2021-06-11 16:34] LABS: Glucose,Whole Blood 117 mg/dL (75-99)
--- NOTE | 2021-06-11 16:46 | P.HPIM ---
History of Present Illness H&P Date: 06/10/21 Chief Complaint: Increasing shortness of breath, bilateral lower extremity e marco, recent fal This is a 71-year-old female with past medical history of COPD, diabetes, hypertension, hyperlipidemia, morbid obesity, and multiple other medical issues presented to the ER with worsening shortness of breath, bilateral leg edema, worse on the left. Complains of left knee pain, reports she had a recent fall approximately 1 month ago, landed on her left knee which she states had prior surgery on. X-ray reported moderate degenerative joint changes, prior patellar fracture with repair fixation screw wires are fractured, no acute osseous abnormality. O2 sat on admission 85-88% .Chest x-ray reporting pulmonary and interstitial edema, BMP 2350. Placed on supplemental oxygen, received Lasix with significant improvement. Denies chest pain, palpitations. Telemetry sinus rhythm, right bundle branch block, possible left ventricular hypertrophy, nonspecific ST-T wave changes. Troponin negative 1. Afebrile, normal WBC. Hemoglobin 10.5, platelets 317, INR 1, sodium 142, potassium 4.5, bicarb 32, BUN 30, creatinine 0.87 glucose 114 magnesium 2.2. Review of Systems ROS Statement: Those systems with pertinent positive or pertinent negative responses have been documented in the HPI. ROS Other: All systems not noted in ROS Statement are negative. Past Medical History Past Medical History: Atrial Fibrillation, Asthma, COPD, Diabetes Mellitus, GERD/Reflux, Hyperlipidemia, Hypertension, Osteoarthritis (OA), Skin Disorder, Sleep Apnea/CPAP/BIPAP, Thyroid Disorder Additional Past Medical History / Comment(s): COPD, DM, GERD all improved w/ bariatric surg & wgt loss; Not Using C-Pap at this time, waiting for new one to arrive. URINARY INCONTINENCE. Skin irritation w/ panniculus occ. Uses rolling walker d/t bad knees occ. 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 Roberts)Panni 02/20/19 Past Anesthesia/Blood Transfusion Reactions: No Reported Reaction Past Psychological History: No Psychological Hx Reported Smoking Status: Never smoker Past Alcohol Use History: None Reported Additional Past Alcohol Use History / Comment(s): QUIT SMOKING IN "THE 80'S," S MOKED LESS THAN 1/2PPD FOR APPROX 10 YRS Past Drug Use History: None Reported - Past Family History Mother Family Medical History: Cancer Additional Family Medical History / Comment(s): from Lung CA at 83 years old. Father Family Medical History: Cancer Additional Family Medical History / Comment(s): from stomach CA at 37 years old. Medications and Allergies Home Medications Medication Instructions Recorded Confirmed Type Metoprolol Tartrate [Lopressor] 25 mg PO BID #60 tab 01/15/17 06/09/21 Rx Calcium Carb/Vitamin D3/Vit K1 2 tab PO DAILY 02/13/19 06/09/21 History [Viactiv Soft Chew Tablet] Multivitamins, Thera [Multivitamin 2 tab PO DAILY 02/13/19 06/09/21 History (formulary)] Acetaminophen Tab [Tylenol] 650 mg PO Q4-6H PRN 06/09/21 06/09/21 History Apixaban [Eliquis] 5 mg PO BID 06/09/21 06/09/21 History Cetirizine HCl [Zyrtec] 10 mg PO HS 06/09/21 06/09/21 History Furosemide [Lasix] 40 mg PO DAILY 06/09/21 06/09/21 History Glucosamine/Chondr Antonio A Sod [Osteo 2 tab PO DAILY 06/09/21 06/09/21 History Bi-Flex Caplet] Levothyroxine Sodium [Synthroid] 75 mcg PO DAILY 06/09/21 06/09/21 History Omeprazole [PriLOSEC] 40 mg PO HS 06/09/21 06/09/21 History Potassium Chloride 10 meq PO DAILY 06/09/21 06/09/21 History Allergies Allergy/AdvReac Type Severity Reaction Status Date / Time No Known Allergies Allergy Verified 06/09/21 13:37 Physical Exam Vitals: Vital Signs Temp Pulse Resp BP Pulse Ox 06/10/21 06:00 97.9 F 90 22 128/54 95 06/10/21 05:00 81 22 118/57 97 06/10/21 03:00 82 24 134/58 96 06/10/21 02:00 88 22 144/84 98 06/09/21 22:55 98.6 F 75 20 130/78 98 06/09/21 15:00 98.0 F 68 15 131/56 100 06/09/21 14:00 68 16 134/79 100 06/09/21 13:00 69 17 126/63 99 06/09/21 12:15 100 06/09/21 12:11 71 20 156/63 85 L 06/09/21 11:35 98.4 F 84 20 157/87 88 L Intake and Output 06/09/21 06/10/21 06/10/21 22:59 06:59 14:59 Output Total 300 750 100 Balance -300 -750 -100 Output: Urine 300 750 100 Uretheral (Felix) 300 750 100 Other: Weight 158.757 kg PHYSICAL EXAM: VITAL SIGNS: [As above] GENERAL: Sitting up in bed, no acute distress HEENT: Conjunctivae normal. eyes normal. NECK: No JVD. No thyroid enlargement. No LNs CARDIOVASCULAR: S1, S2 regular. No murmur RESPIRATION: Breath sounds diminished in the bases. Scattered crackles. ABDOMEN: Soft, nontender . No guarding. no masses palpable. No ascites, No hepatosplenomegaly.Bowel sounds heard. LEGS: Positive edema PSYCHIATRY: Alert and oriented X3, mood and affect normal. NERVOUS SYSTEM: Cranial N 2-12 grossly normal. Moves all 4 limbs. Diffuse weakness No focal deficits. Strength and sensation grossly intact. Skin: Warm and dry, no rash Results CBC & Chem 7: 06/11/21 06:14 06/11/21 06:14 Labs: Abnormal Lab Results - Last 24 Hours (Table) 06/09/21 06/09/21 Range/Units 12:16 12:16 Hgb 10.5 L (11.4-16.0) gm/dL MCHC 29.2 L (31.0-37.0) g/dL RDW 17.6 H (11.5-15.5) % Carbon Dioxide 32 H (22-30) mmol/L BUN 30 H (7-17) mg/dL Glucose 114 H (74-99) mg/dL Calcium 7.9 L (8.4-10.2) mg/dL Thrombosis Risk Factor Assmnt - Choose All That Apply Each Factor Represents 1 point: Abnormal pulmonary function (COPD), Swollen legs (current) Each Risk Factor Represents 2 Points: Age 61-74 years Other congenital or acquired thrombophilia - If yes, enter type in comment: No Thrombosis Risk Factor Assessment Total Risk Factor Score: 4 Thrombosis Risk Factor Assessment Level: Moderate Risk Assessment and Plan Assessment: Acute on chronic CHF exacerbation, diastolic dysfunction Hx of Pulmonary hypertension reported per cardiology from prior echo March 2021 with RVSP 87. Current echo reporting no evidence of pulmonary hypertension, RVSP normal at < 35mmHg. Acute hypoxic respiratory failure secondary to the above Left knee pain secondary to severe left knee osteoarthritis, reports Recent fall approximately 1 month ago. X-ray reporting moderate degenerative joint changes, prior patellar fracture with repair fixation screw wires are fractured, no acute osseous abnormality. Orthopedic surgery on consult. Diabetes mellitus type 2, controlled Obstructive sleep apnea, not on CPAP at home Mely-en-Y gastric bypass, history of Morbid obesity, BMI 64.4 COPD, chronic bronchial asthma, unspecified History of prior nicotine dependence Hypertension Hyperlipidemia Hypothyroidism Gait dysfunction, uses walker Plan: Continue on current medication regime ,monitoring and symptomatic treatment. Maintain diuretics. Orthopedic surgery consulted to evaluate left knee. Cardiology recommendations noted and appreciated-cardiology recommending pulmonary be consulted. Pulmonary consulted, recommendations pending. Echo suboptimal, currently reporting mild concentric left ventricular hypertrophy ,normal LV function with EF 55-60%, normal RVSP. Close monitoring of renal function with repeat labs ordered for a.m. PT/OT consulted. The impression and plan of care has been dictated as directed. : I performed a history and examination of this patient, discussed the same with the dictator. I agree with the dictator's note ,documented as a scribe. Any additional findings or plans will be noted.
--- NOTE | 2021-06-11 16:59 | P.PN ---
Subjective Progress Note Date: 06/11/21 This is a 71-year-old female with past medical history of COPD, diabetes, hypertension, hyperlipidemia, morbid obesity, and multiple other medical issues presented to the ER with worsening shortness of breath, bilateral leg edema, worse on the left. Complains of left knee pain, reports she had a recent fall approximately 1 month ago, landed on her left knee which she states had prior surgery on. X-ray reported moderate degenerative joint changes, prior patellar fracture with repair fixation screw wires are fractured, no acute osseous abnormality. O2 sat on admission 85-88% .Chest x-ray reporting pulmonary and interstitial edema, BMP 2350. Placed on supplemental oxygen, received Lasix with significant improvement. Denies chest pain, palpitations. Telemetry sinus rhythm, right bundle branch block, possible left ventricular hypertrophy, nonspecific ST-T wave changes. Troponin negative 1. Afebrile, normal WBC. Hemoglobin 10.5, platelets 317, INR 1, sodium 142, potassium 4.5, bicarb 32, BUN 30, creatinine 0.87 glucose 114 magnesium 2.2. 3-2-22 sitting up at side of bed, tired, reports she was unable to sleep. Positive diet intake with no nausea vomiting or diarrhea. Diuresing well on Lasix IV push with 24-hour I&O reflecting a negative fluid balance, bilateral lower extremities'edema decreased. Early a.m., she desatted to 65% but her mask came off in her sleep. Maintaining O2 sats in the 90s on 3 L nasal cannula. Chest x-ray reporting stable chest. Afebrile, T-max 99.4, normal WBC, hemoglobin 9.9, platelets 296, chloride 96, bicarbonate 40, BUN 22, creatinine 1, blood sugars controlled Objective - Vital Signs Vital signs: Vital Signs Temp 97.9 F 06/11/21 15:29 Pulse 77 06/11/21 15:29 Resp 20 06/11/21 15:29 BP 131/64 06/11/21 15:29 Pulse Ox 96 06/11/21 15:29 Intake & Output 06/10/21 06/11/21 06/11/21 18:59 06:59 18:59 Intake Total 240 276 Output Total 100 1150 200 Balance 140 -1150 76 Weight 159.7 kg Intake: IV 40 Invasive Line 1 40 Oral 240 236 Output: Urine 100 1150 200 Uretheral (Felix) 100 Other: Voiding Method Indwelling Catheter Indwelling Catheter Bedside Commode Diaper Incontinent - Exam PHYSICAL EXAM: VITAL SIGNS: [As above] GENERAL: Sitting up at side of bed, drowsy, arousable, no acute distress HEENT: Conjunctivae normal. eyes normal. Oral mucosa moist. NECK: Supple, No JVD. CARDIOVASCULAR: S1, S2 regular. No murmur RESPIRATION: Breath sounds diminished in the bases. Scattered crackles. ABDOMEN: Soft, nontender . No guarding. no masses palpable. Bowel sounds heard. LEGS: Positive edema decreasing, softer PSYCHIATRY: Alert and oriented X3, mood and affect normal. NERVOUS SYSTEM: Cranial N 2-12 grossly normal. Moves all 4 limbs. No focal deficits. Strength and sensation grossly intact. Skin: Warm and dry, no rash - Labs CBC & Chem 7: 06/11/21 06:14 06/11/21 06:14 Labs: Abnormal Lab Results - Last 24 Hours (Table) 06/10/21 06/11/21 06/11/21 Range/Units 20:08 06:02 06:14 RBC 3.73 L (3.80-5.40) m/uL Hgb 9.9 L (11.4-16.0) gm/dL MCHC 28.9 L (31.0-37.0) g/dL RDW 17.7 H (11.5-15.5) % Chloride (98-107) mmol/L Carbon Dioxide (22-30) mmol/L BUN (7-17) mg/dL Glucose (74-99) mg/dL POC Glucose (mg/dL) 114 H 126 H (75-99) mg/dL Calcium (8.4-10.2) mg/dL 06/11/21 06/11/21 06/11/21 Range/Units 06:14 11:46 16:27 RBC (3.80-5.40) m/uL Hgb (11.4-16.0) gm/dL MCHC (31.0-37.0) g/dL RDW (11.5-15.5) % Chloride 96 L (98-107) mmol/L Carbon Dioxide 40 H (22-30) mmol/L BUN 22 H (7-17) mg/dL Glucose 119 H (74-99) mg/dL POC Glucose (mg/dL) 157 H 117 H (75-99) mg/dL Calcium 7.9 L (8.4-10.2) mg/dL Assessment and Plan Assessment: Acute on chronic CHF exacerbation, diastolic dysfunction Hx of Pulmonary hypertension reported per cardiology from prior echo March 2021 with RVSP 87. Current echo reporting no evidence of pulmonary hypertension, RVSP normal at < 35mmHg. Acute hypoxic respiratory failure secondary to the above Left knee pain secondary to severe left knee osteoarthritis, reports Recent fall approximately 1 month ago. X-ray reporting moderate degenerative joint changes, prior patellar fracture with repair fixation screw wires are fractured, no acute osseous abnormality. Follow-up outpatient with orthopedic surgery. Chronic Paroximal atrial fibrillation, anticoagulated on Eliquis Diabetes mellitus type 2, controlled Obstructive sleep apnea, not currently on CPAP at home Mely-en-Y gastric bypass, history of Morbid obesity, BMI 64.4 Gastroesophageal reflux disease COPD, chronic bronchial asthma, unspecified History of prior nicotine dependence Hypertension Hyperlipidemia Hypothyroidism Gait dysfunction, uses walker Plan: Continue on current medication regime ,monitoring and symptomatic treatment. Maintain diuretics. Close monitoring of renal function with repeat labs ordered for a.m. PT/OT. The impression and plan of care has been dictated as directed. : I performed a history and examination of this patient, discussed the same with the dictator. I agree with the dictator's note ,documented as a scribe. Any additional findings or plans will be noted.
[2021-06-11] MEDS: LORATADINE 10 MG TAB PO SCH (20:41)
[2021-06-11 20:52] LABS: Glucose,Whole Blood 109 mg/dL (75-99)
[2021-06-12] MEDS: ACETAMINOPHEN TAB 325 MG TAB PO PRN ×2 (05:46→17:36)
[2021-06-12] MEDS: LEVOTHYROXINE 75 MCG TAB PO SCH (05:47)
[2021-06-12 06:02] LABS: Glucose,Whole Blood 117 mg/dL (75-99)
[2021-06-12 07:00] LABS: Anisocytosis Slight; Basophils % (A) 0 %; Eosinophils # (A) 0.3 k/uL (0-0.7); Eosinophils % (A) 3 %; HCT 34.6 % (34.0-46.0); HGB 9.7 gm/dL (11.4-16.0); Hypochromasia Marked; Lymphocytes # (A) 1.2 k/uL (1.0-4.8); Lymphocytes % (A) 15 %; MCH 26.1 pg (25.0-35.0); MCV 93.1 fL (80.0-100.0); Monocytes # (A) 0.6 k/uL (0-1.0); Monocytes % (A) 7 %; Neutrophils % (A) 73 %; Platelet Count 281 k/uL (150-450); RBC 3.72 m/uL (3.80-5.40); RDW 17.4 % (11.5-15.5); WBC 8.3 k/uL (3.8-10.6)
[2021-06-12 07:10] LABS: Calcium 7.8 mg/dL (8.4-10.2); Potassium 4.3 mmol/L (3.5-5.1)
[2021-06-12] MEDS: VERAPAMIL SR 120 MG TABLET.ER PO SCH (08:50)
[2021-06-12] MEDS: MULTIVITAMINS, THERA 1 EACH TAB PO SCH (08:50)
[2021-06-12] MEDS: POTASSIUM CHLORIDE ER 10 MEQ TAB.ER.PRT PO SCH (08:50)
[2021-06-12] MEDS: FUROSEMIDE 10 MG/ML 4 ML VIAL IV SCH ×2 (08:50→20:38)
[2021-06-12] MEDS: APIXABAN 5 MG TAB PO SCH ×2 (08:50→20:38)
[2021-06-12 11:35] LABS: Glucose,Whole Blood 134 mg/dL (75-99)
--- NOTE | 2021-06-12 13:14 | P.PN ---
<MattJade - Last Filed: 06/12/21 13:11> Subjective Progress Note Date: 06/12/21 Principal diagnosis: CHF This is a 71-year-old female patient with past medical history of hypertension, diabetes, obstructive sleep apnea not on CPAP therapy currently, morbid obesity with previous history of Mely-en-Y gastric bypass, panniculectemy, previous history of severe pulmonary hypertension, remote history of smoking, COPD/chronic bronchial asthma unspecified, who presented to the emergency depart ment on 06/09/2021 for evaluation of worsening shortness of breath and increasing swelling and weeping from her lower extremities. Patient states that she had been on oxygen in the past but not recently. Her shortness of breath has been getting worse over a period of 2 weeks. Denied any fever or chills. Denied any cough or phlegm production, chest x-ray in emergency department showed enlarged heart, central vascularity and increased interstitium. Her lower extremities are swollen, slightly reddened and slightly warm to touch. Currently in no weeping noted. Patient was having pain in her left knee, an x- ray of the left knee showed prior patellar fracture with repair but no acute osseous abnormality. EKG showed sinus rhythm. Patient was hypoxic, she was placed on supplemental oxygen, her pulse ox was 85% on 2 L in the emergency department, she is currently at 3 L and her pulse oximetry 90-95%, breathing comfortably, afebrile, hemodynamically she stable. Blood work was reviewed, with little, 7.0, hemoglobin is 10.5, platelet count is 317, Coreg patient profile was within normal limits, CO2 is 32, the rest of electrolytes were unremarkable, BUN is 30, creatinine 0.87. LFTs were within normal limits, proBNP was 2350, troponin was less than 0.012. Patient states she is currently undergoing a repeat evaluation to obtain a new CPAP machine. After she had lost 130 pounds following her Mely-en-Y gastric bypass surgery, patient recently regained it back in the past year related to decreased activity level, and the COVID pandemic. She is supposed to have a polysomnogram at the sleep Center. She had a consultation with Dr. Garcia The patient is seen today 06/11/2021 in follow-up on the selective care unit. She is currently sitting up in a chair at the bedside. Drifting off to sleep easily on and off but arousable. Currently on 3 L nasal cannula with O2 saturation 94%. Approximate 4 AM she was found to be at 65% O2 saturations as she had inadvertently removed her oxygen. She recovered up in the 90s on 3 L. Chest x-ray reveals perihilar and basilar infiltrates. Stable compared to previous. White count 8.9. Hemoglobin 9.9. Platelets 296. Sodium 141. Potassium 4.1. Bicarb 40. BUN 20. Creatinine 1.01. Glucose 119. Events on anticoagulants in the form of Eliquis. Continued on IV diuretics. Plan a -1 L balance. Lower extremity edema slightly improved. The patient is seen today 06/12/2021 in follow-up on the regular medical floor. She is currently sitting up in a chair at the bedside. Much more awake and alert today. Up ambulating in the room with assistance. She is currently maintaining good O2 saturations in the 90s on 2 L/m per nasal cannula. Afebrile. Hemodynamically stable. White count 8.3. Hemoglobin 9.7. Sodium 143 potassium 4.3. Bicarb 43. Creatinine 0.84. Remains in a -960 ML's balance. Lower extremity edema continues to improve. Objective - Vital Signs Vital signs: Vital Signs Temp 98.1 F 06/12/21 12:00 Pulse 80 06/12/21 12:00 Resp 18 06/12/21 12:00 BP 150/69 06/12/21 12:00 Pulse Ox 92 L 06/12/21 12:00 Intake & Output 06/11/21 06/12/21 06/12/21 18:59 06:59 18:59 Intake Total 536 1160 Output Total 700 800 800 Balance -164 -800 360 Weight 156.9 kg Intake: IV 40 Invasive Line 1 40 Oral 496 1160 Output: Urine 700 800 800 Other: Voiding Method Bedside Commode Bedside Commode Bedside Commode Diaper Diaper Diaper Incontinent Incontinent Incontinent # Voids 1 - Exam GENERAL EXAM: Alert, very pleasant, morbidly obese 71-year-old female patient, on 2 L of oxygen the pulse ox of 92%, comfortable in no apparent distress. HEAD: Normocephalic/atraumatic. EYES: Normal reaction of pupils, equal size. Conjunctiva pink, sclera white. NOSE: Clear with pink turbinates. THROAT: No erythema or exudates. NECK: No masses, no JVD, no thyroid enlargement, no adenopathy. CHEST: No chest wall deformity. Symmetrical expansion. LUNGS: Equal air entry with bibasilar crackles CVS: Regular rate and rhythm, normal S1 and S2, no gallops, no murmurs, no rubs ABDOMEN: Soft, nontender. No hepatosplenomegaly, normal bowel sounds, no guarding or rigidity. EXTREMITIES: No clubbing, 1+ lower extremity edema no cyanosis, 2+ pulses and upper and lower extremities. MUSCULOSKELETAL: Muscle strength and tone normal. SPINE: No scoliosis or deformity SKIN: No rashes, bilateral lower extremity slightly pink and warm to touch CENTRAL NERVOUS SYSTEM: No focal deficits, tone is normal in all 4 extremities. PSYCHIATRIC: Alert and oriented -3. Appropriate affect. Intact judgment and insight. - Labs CBC & Chem 7: 06/12/21 06:42 06/12/21 06:42 Labs: Abnormal Lab Results - Last 24 Hours (Table) 06/11/21 06/11/21 06/12/21 Range/Units 16:27 20:46 05:57 RBC (3.80-5.40) m/uL Hgb (11.4-16.0) gm/dL MCHC (31.0-37.0) g/dL RDW (11.5-15.5) % Chloride (98-107) mmol/L Carbon Dioxide (22-30) mmol/L BUN (7-17) mg/dL Glucose (74-99) mg/dL POC Glucose (mg/dL) 117 H 109 H 117 H (75-99) mg/dL Calcium (8.4-10.2) mg/dL 06/12/21 06/12/21 06/12/21 Range/Units 06:42 06:42 11:34 RBC 3.72 L (3.80-5.40) m/uL Hgb 9.7 L (11.4-16.0) gm/dL MCHC 28.0 L (31.0-37.0) g/dL RDW 17.4 H (11.5-15.5) % Chloride 96 L (98-107) mmol/L Carbon Dioxide 43 H* (22-30) mmol/L BUN 21 H (7-17) mg/dL Glucose 125 H (74-99) mg/dL POC Glucose (mg/dL) 134 H (75-99) mg/dL Calcium 7.8 L (8.4-10.2) mg/dL Assessment and Plan Assessment: 1 Acute hypoxic respiratory failure related to acute exacerbation of diastolic CHF. Preserved left ventricular systolic function with ejection fraction 55-60% 2 History of severe pulmonary hypertension, possibly secondary to obstructive sleep apnea. Echocardiogram from 06/10/2021 did not show evidence of pulmonary hypertension and right ventricular systolic pressure is less than 35 mmHg. There is trace tricuspid regurg, trace mitral regurgitation, and there is left ventricular hypertrophy 3 History of obstructive sleep apnea, improved after significant weight loss following Mely-en-Y gastric bypass in 2018. Currently patient is again being evaluated for obstructive sleep apnea, has not been on CPAP therapy in the past 3-4 years 4 Significant weight gain in the last year 5 Remote history of smoking 6 Reported history of COPD/chronic bronchial asthma, unspecified 7 Diabetes mellitus type 2 8 Hypertension 9 Hyperlipidemia 10 Osteoarthritis 11 Severe left knee osteoarthritis with previous left knee patellar fracture and screw and wire fixation Plan: The patient was seen and evaluated Give 2 doses of Diamox Continue IV diuretics Anticoagulated with Eliquis We will continue to follow I, the cosigning physician, performed a history & physical examination of the patient. Lungs sounds with crackles in the bilateral bases Maintaining good O2 saturations in the 90s on 2 L/m per nasal. I discussed the assessment and plan of care with my nurse practitioner, Jade Gutierrez. I attest to the above note as dictated by her. I have personally seen and examined the patient, performed the documentation and the assessment and plan as written. Number of minutes spent on the visit: 10. <Kianna Cisneros - Last Filed: 06/12/21 15:43> Objective - Vital Signs Vital signs: Vital Signs Temp 98.1 F 06/12/21 12:00 Pulse 80 06/12/21 12:00 Resp 18 06/12/21 14:00 BP 150/69 06/12/21 12:00 Pulse Ox 92 L 06/12/21 12:00 Intake & Output 06/11/21 06/12/21 06/12/21 18:59 06:59 18:59 Intake Total 536 1160 Output Total 700 800 800 Balance -164 -800 360 Weight 156.9 kg Intake: IV 40 Invasive Line 1 40 Oral 496 1160 Output: Urine 700 800 800 Other: Voiding Method Bedside Commode Bedside Commode Bedside Commode Diaper Diaper Diaper Incontinent Incontinent Incontinent # Voids 1 - Labs CBC & Chem 7: 06/12/21 06:42 06/12/21 06:42 Labs: Abnormal Lab Results - Last 24 Hours (Table) 06/11/21 06/11/21 06/12/21 Range/Units 16:27 20:46 05:57 RBC (3.80-5.40) m/uL Hgb (11.4-16.0) gm/dL MCHC (31.0-37.0) g/dL RDW (11.5-15.5) % Chloride (98-107) mmol/L Carbon Dioxide (22-30) mmol/L BUN (7-17) mg/dL Glucose (74-99) mg/dL POC Glucose (mg/dL) 117 H 109 H 117 H (75-99) mg/dL Calcium (8.4-10.2) mg/dL 06/12/21 06/12/21 06/12/21 Range/Units 06:42 06:42 11:34 RBC 3.72 L (3.80-5.40) m/uL Hgb 9.7 L (11.4-16.0) gm/dL MCHC 28.0 L (31.0-37.0) g/dL RDW 17.4 H (11.5-15.5) % Chloride 96 L (98-107) mmol/L Carbon Dioxide 43 H* (22-30) mmol/L BUN 21 H (7-17) mg/dL Glucose 125 H (74-99) mg/dL POC Glucose (mg/dL) 134 H (75-99) mg/dL Calcium 7.8 L (8.4-10.2) mg/dL Assessment and Plan Assessment: I have personally seen and examined the patient and reviewed the documentation. I performed a joint evaluation with the nurse practitioner in this evaluation was done more than 20 minutes. I fully agree with the documentation above and the plan of care. The patient is clinically improving. The patient was subjected to diuretic and the patient continues to have significant amount of edema in lower extremities bilaterally and assess successful consistent with CHF. We'll continue to follow.
[2021-06-12 16:41] LABS: Glucose,Whole Blood 104 mg/dL (75-99)
[2021-06-12] MEDS: PANTOPRAZOLE 40 MG TABLET PO SCH (20:37)
[2021-06-12] MEDS: LORATADINE 10 MG TAB PO SCH (20:38)
[2021-06-12 20:40] LABS: Glucose,Whole Blood 113 mg/dL (75-99)
[2021-06-13 04:48] VITALS: RESP 18
[2021-06-13] MEDS: LEVOTHYROXINE 75 MCG TAB PO SCH (05:57)
[2021-06-13 06:14] LABS: Glucose,Whole Blood 113 mg/dL (75-99)
[2021-06-13] MEDS: APIXABAN 5 MG TAB PO SCH ×2 (09:48→20:36)
[2021-06-13] MEDS: FUROSEMIDE 10 MG/ML 4 ML VIAL IV SCH (09:48)
[2021-06-13] MEDS: MULTIVITAMINS, THERA 1 EACH TAB PO SCH (09:48)
[2021-06-13] MEDS: VERAPAMIL SR 120 MG TABLET.ER PO SCH (09:48)
[2021-06-13] MEDS: POTASSIUM CHLORIDE ER 10 MEQ TAB.ER.PRT PO SCH (09:48)
[2021-06-13 11:46] LABS: Glucose,Whole Blood 110 mg/dL (75-99)
--- NOTE | 2021-06-13 14:11 | P.PN ---
Subjective Progress Note Date: 06/13/21 This is a 71-year-old female patient with past medical history of hypertension, diabetes, obstructive sleep apnea not on CPAP therapy currently, morbid obesity with previous history of Mely-en-Y gastric bypass, panniculectemy, previous history of severe pulmonary hypertension, remote history of smoking, COPD/chronic bronchial asthma unspecified, who presented to the emergency department on 06/09/2021 for evaluation of worsening shortness of breath and increasing swelling and weeping from her lower extremities. Patient states that she had been on oxygen in the past but not recently. Her shortness of breath has been getting worse over a period of 2 weeks. Denied any fever or chills. Denied any cough or phlegm production, chest x-ray in emergency department showed enlarged heart, central vascularity and increased interstitium. Her lower extremities are swollen, slightly reddened and slightly warm to touch. Currently in no weeping noted. Patient was having pain in her left knee, an x-ray of the left knee showed prior patellar fracture with repair but no acute osseous abnormality. EKG showed sinus rhythm. Patient was hypoxic, she was placed on supplemental oxygen, her pulse ox was 85% on 2 L in the emergency department, she is currently at 3 L and her pulse oximetry 90-95%, breathing comfortably, afebrile, hemodynamically she stable. Blood work was reviewed, with little, 7.0, hemoglobin is 10.5, platelet count is 317, Coreg patient profile was within normal limits, CO2 is 32, the rest of electrolytes were unremarkable, BUN is 30, creatinine 0.87. LFTs were within normal limits, proBNP was 2350, troponin was less than 0.012. Patient states she is currently undergoing a repeat evaluation to obtain a new CPAP machine. After she had lost 130 pounds following her Mely-en-Y gastric bypass surgery, patient recently regained it back in the past year related to decreased activity level, and the COVID pandemic. She is supposed to have a polysomnogram at the sleep Center. She had a consultation with Dr. Gracia The patient is seen today 06/11/2021 in follow-up on the selective care unit. She is currently sitting up in a chair at the bedside. Drifting off to sleep easily on and off but arousable. Currently on 3 L nasal cannula with O2 saturation 94%. Approximate 4 AM she was found to be at 65% O2 saturations as she had inadvertently removed her oxygen. She recovered up in the 90s on 3 L. Chest x-ray reveals perihilar and basilar infiltrates. Stable compared to previous. White count 8.9. Hemoglobin 9.9. Platelets 296. Sodium 141. Potassium 4.1. Bicarb 40. BUN 20. Creatinine 1.01. Glucose 119. Events on anticoagulants in the form of Eliquis. Continued on IV diuretics. Plan a -1 L balance. Lower extremity edema slightly improved. The patient is seen today 06/12/2021 in follow-up on the regular medical floor. She is currently sitting up in a chair at the bedside. Much more awake and alert today. Up ambulating in the room with assistance. She is currently maintaining good O2 saturations in the 90s on 2 L/m per nasal cannula. Afe brile. Hemodynamically stable. White count 8.3. Hemoglobin 9.7. Sodium 143 potassium 4.3. Bicarb 43. Creatinine 0.84. Remains in a -960 ML's balance. Lower extremity edema continues to improve. 06/13/2021, the patient reports improvement in her respiratory status, improvement in the lower extremity edema, and overall, she is felling better. She remains on IV Lasix 40 mg every 12 hours, and she has been on 2 L of oxygen by nasal cannula and overall fluid balance is -1 L over the past 24 hours. The blood work from today still pending. Yesterday blood work was noted. The chest x-ray from yesterday was still showing. Based on her ongoing clinical improvement, the patient was taken off the IV Lasix and patient will research to oral Lasix 40 mg twice a day. She also wanted information with Eliquis 5 mg by mouth twice a day. She has been morbidly obese and she has obstructive sleep apnea. Body mass index is 65.9. She will need outpatient sleep evaluation and she has been already established to have a polysomnogram and the sleep center. Objective - Vital Signs Vital signs: Vital Signs Temp 98.2 F 06/13/21 08:00 Pulse 83 06/13/21 08:00 Resp 18 06/13/21 08:00 BP 145/75 06/13/21 08:00 Pulse Ox 94 L 06/13/21 08:00 Intake & Output 06/12/21 06/13/21 06/13/21 18:59 06:59 18:59 Intake Total 1330 920 Output Total 1400 1000 800 Balance -70 -1000 120 Weight 156.9 kg 163.5 kg Intake: IV 10 Invasive Line 2 10 Oral 1320 920 Output: Urine 1400 1000 800 Other: Voiding Method Bedside Commode Bedside Commode Bedside Commode Diaper Diaper Diaper Incontinent Incontinent Incontinent External Catheter External Catheter # Voids 2 - Exam GENERAL EXAM: Alert, very pleasant, morbidly obese 71-year-old female patient, on 2 L of oxygen the pulse ox of 92%, comfortable in no apparent distress. HEAD: Normocephalic/atraumatic. EYES: Normal reaction of pupils, equal size. Conjunctiva pink, sclera white. NOSE: Clear with pink turbinates. THROAT: No erythema or exudates. NECK: No masses, no JVD, no thyroid enlargement, no adenopathy. CHEST: No chest wall deformity. Symmetrical expansion. LUNGS: Equal air entry with bibasilar crackles CVS: Regular rate and rhythm, normal S1 and S2, no gallops, no murmurs, no rubs ABDOMEN: Soft, nontender. No hepatosplenomegaly, normal bowel sounds, no guarding or rigidity. EXTREMITIES: No clubbing, 1+ lower extremity edema no cyanosis, 2+ pulses and upper and lower extremities. MUSCULOSKELETAL: Muscle strength and tone normal. SPINE: No scoliosis or deformity SKIN: No rashes, bilateral lower extremity slightly pink and warm to touch CENTRAL NERVOUS SYSTEM: No focal deficits, tone is normal in all 4 extremities. PSYCHIATRIC: Alert and oriented -3. Appropriate affect. Intact judgment and insight. - Labs CBC & Chem 7: 06/12/21 06:42 06/12/21 06:42 Labs: Abnormal Lab Results - Last 24 Hours (Table) 06/12/21 06/12/21 06/13/21 Range/Units 16:40 20:15 05:50 POC Glucose (mg/dL) 104 H 113 H 113 H (75-99) mg/dL 06/13/21 Range/Units 11:44 POC Glucose (mg/dL) 110 H (75-99) mg/dL Assessment and Plan Assessment: 1 Acute hypoxic respiratory failure related to acute exacerbation of diastolic CHF. Preserved left ventricular systolic function with ejection fraction 55- 60%, clinically improving and the patient remains on 2 L of oxygen by nasal cannula. She may need home O2. 2 History of severe pulmonary hypertension, possibly secondary to obstructive sleep apnea. Echocardiogram from 06/10/2021 did not show evidence of pulmonary hypertension and right ventricular systolic pressure is less than 35 mmHg. There is trace tricuspid regurg, trace mitral regurgitation, and there is left ventricular hypertrophy 3 History of obstructive sleep apnea, improved after significant weight loss following Mely-en-Y gastric bypass in 2018. Currently patient is again being evaluated for obstructive sleep apnea, has not been on CPAP therapy in the past 3-4 years 4 Significant weight gain in the last year 5 Remote history of smoking 6 Reported history of COPD/chronic bronchial asthma, unspecified 7 Diabetes mellitus type 2 8 Hypertension 9 Hyperlipidemia 10 Osteoarthritis 11 Severe left knee osteoarthritis with previous left knee patellar fracture and screw and wire fixation Plan: The patient will be evaluated for home O2 Continue oral Lasix Patient was given Diamox and the patient's serum bicarb is to be repeated today Anticoagulated with Eliquis Possible discharge in the next 24-48 hours. Clinically improving.
--- NOTE | 2021-06-13 15:33 | P.PN ---
Subjective Progress Note Date: 06/12/21 This is a 71-year-old female with past medical history of COPD, diabetes, hypertension, hyperlipidemia, morbid obesity, and multiple other medical issues presented to the ER with worsening shortness of breath, bilateral leg edema, worse on the left. Complains of left knee pain, reports she had a recent fall approximately 1 month ago, landed on her left knee which she states had prior surgery on. X-ray reported moderate degenerative joint changes, prior patellar fracture with repair fixation screw wires are fractured, no acute osseous abnormality. O2 sat on admission 85-88% .Chest x-ray reporting pulmonary and interstitial edema, BMP 2350. Placed on supplemental oxygen, received Lasix with significant improvement. Denies chest pain, palpitations. Telemetry sinus rhythm, right bundle branch block, possible left ventricular hypertrophy, nonspecific ST-T wave changes. Troponin negative 1. Afebrile, normal WBC. Hemoglobin 10.5, platelets 317, INR 1, sodium 142, potassium 4.5, bicarb 32, BUN 30, creatinine 0.87 glucose 114 magnesium 2.2. 3-2 sitting up at side of bed, tired, reports she was unable to sleep. Positive diet intake with no nausea vomiting or diarrhea. Diuresing well on Lasix IV push with 24-hour I&O reflecting a negative fluid balance, bilateral lower extremities'edema decreased. Early a.m., she desatted to 65% but her mask came off in her sleep. Maintaining O2 sats in the 90s on 3 L nasal cannula. Chest x-ray reporting stable chest. Afebrile, T-max 99.4, normal WBC, hemoglobin 9.9, platelets 296, chloride 96, bicarbonate 40, BUN 22, creatinine 1, blood sugars controlled 06/12/2021 feels better, breathing improved, maintaining O2 sats in the 90s on 2 L nasal cannula, afebrile. Diuresing well on Lasix IV push with 24-hour I&O reflecting a negative fluid balance, edema improving. Labs pending. Objective - Vital Signs Vital signs: Vital Signs Temp 98.1 F 06/12/21 12:00 Pulse 80 06/12/21 12:00 Resp 18 06/12/21 14:00 BP 150/69 06/12/21 12:00 Pulse Ox 92 L 06/12/21 12:00 Intake & Output 06/11/21 06/12/21 06/12/21 18:59 06:59 18:59 Intake Total 536 1160 Output Total 700 800 800 Balance -164 -800 360 Weight 156.9 kg Intake: IV 40 Invasive Line 1 40 Oral 496 1160 Output: Urine 700 800 800 Other: Voiding Method Bedside Commode Bedside Commode Bedside Commode Diaper Diaper Diaper Incontinent Incontinent Incontinent # Voids 1 - Exam PHYSICAL EXAM: VITAL SIGNS: [As above] GENERAL: Sitting up in chair, no acute distress HEENT: Conjunctivae normal. eyes normal. Oral mucosa moist. NECK: Supple, No JVD. CARDIOVASCULAR: S1, S2 regular. No murmur RESPIRATION: Breath sounds diminished in the bases with bibasilar crackles. ABDOMEN: Soft, nontender . No guarding. no masses palpable. Bowel sounds heard. LEGS: Decreasing edema, softer PSYCHIATRY: Alert and oriented X3, mood and affect normal. NERVOUS SYSTEM: Cranial N 2-12 grossly normal. Moves all 4 limbs. No focal deficits. Strength and sensation grossly intact. Skin: Warm and dry, no rash - Labs CBC & Chem 7: 06/12/21 06:42 06/12/21 06:42 Labs: Abnormal Lab Results - Last 24 Hours (Table) 06/11/21 06/11/21 06/12/21 Range/Units 16:27 20:46 05:57 RBC (3.80-5.40) m/uL Hgb (11.4-16.0) gm/dL MCHC (31.0-37.0) g/dL RDW (11.5-15.5) % Chloride (98-107) mmol/L Carbon Dioxide (22-30) mmol/L BUN (7-17) mg/dL Glucose (74-99) mg/dL POC Glucose (mg/dL) 117 H 109 H 117 H (75-99) mg/dL Calcium (8.4-10.2) mg/dL 06/12/21 06/12/21 06/12/21 Range/Units 06:42 06:42 11:34 RBC 3.72 L (3.80-5.40) m/uL Hgb 9.7 L (11.4-16.0) gm/dL MCHC 28.0 L (31.0-37.0) g/dL RDW 17.4 H (11.5-15.5) % Chloride 96 L (98-107) mmol/L Carbon Dioxide 43 H* (22-30) mmol/L BUN 21 H (7-17) mg/dL Glucose 125 H (74-99) mg/dL POC Glucose (mg/dL) 134 H (75-99) mg/dL Calcium 7.8 L (8.4-10.2) mg/dL Assessment and Plan Assessment: Acute on chronic CHF exacerbation, diastolic dysfunction Hx of Pulmonary hypertension reported per cardiology from prior echo March 2021 with RVSP 87. Current echo reporting no evidence of pulmonary hypertension, RVSP normal at < 35mmHg. Acute hypoxic respiratory failure secondary to the above Left knee pain secondary to severe left knee osteoarthritis, reports Recent fall approximately 1 month ago. X-ray reporting moderate degenerative joint changes, prior patellar fracture with repair fixation screw wires are fractured, no acute osseous abnormality. Follow-up outpatient with orthopedic surgery. Chronic Paroximal atrial fibrillation, anticoagulated on Eliquis Diabetes mellitus type 2, controlled Obstructive sleep apnea, not currently on CPAP at home Mely-en-Y gastric bypass, history of Morbid obesity, BMI 64.4 Gastroesophageal reflux disease COPD, chronic bronchial asthma, unspecified History of prior nicotine dependence Hypertension Hyperlipidemia Hypothyroidism Gait dysfunction, uses walker Plan: Continue on current medication regime ,monitoring and symptomatic treatment. Labs pending.Maintain diuretics. Close monitoring of renal function. The impression and plan of care has been dictated as directed. : I performed a history and examination of this patient, discussed the same with the dictator. I agree with the dictator's note ,documented as a scribe. Any additional findings or plans will be noted.
--- NOTE | 2021-06-13 15:50 | P.PN ---
Subjective Progress Note Date: 06/13/21 This is a 71-year-old female with past medical history of COPD, diabetes, hypertension, hyperlipidemia, morbid obesity, and multiple other medical issues presented to the ER with worsening shortness of breath, bilateral leg edema, worse on the left. Complains of left knee pain, reports she had a recent fall approximately 1 month ago, landed on her left knee which she states had prior surgery on. X-ray reported moderate degenerative joint changes, prior patellar fracture with repair fixation screw wires are fractured, no acute osseous abnormality. O2 sat on admission 85-88% .Chest x-ray reporting pulmonary and interstitial edema, BMP 2350. Placed on supplemental oxygen, received Lasix with significant improvement. Denies chest pain, palpitations. Telemetry sinus rhythm, right bundle branch block, possible left ventricular hypertrophy, nonspecific ST-T wave changes. Troponin negative 1. Afebrile, normal WBC. Hemoglobin 10.5, platelets 317, INR 1, sodium 142, potassium 4.5, bicarb 32, BUN 30, creatinine 0.87 glucose 114 magnesium 2.2. 3-2-22 sitting up at side of bed, tired, reports she was unable to sleep. Positive diet intake with no nausea vomiting or diarrhea. Diuresing well on Lasix IV push with 24-hour I&O reflecting a negative fluid balance, bilateral lower extremities'edema decreased. Early a.m., she desatted to 65% but her mask came off in her sleep. Maintaining O2 sats in the 90s on 3 L nasal cannula. Chest x-ray reporting stable chest. Afebrile, T-max 99.4, normal WBC, hemoglobin 9.9, platelets 296, chloride 96, bicarbonate 40, BUN 22, creatinine 1, blood sugars controlled 06/12/2021 feels better, breathing improved, maintaining O2 sats in the 90s on 2 L nasal cannula, afebrile. Diuresing well on Lasix IV push with 24-hour I&O reflecting a negative fluid balance, edema improving. Labs pending. 06/13/2021 diuresing well on Lasix IV push, 24-hour I&O reflecting a negative fluid balance, edema continues improving, renal function stable. Bicarb 43, yesterday, received Diamox. Maintaining O2 sats in the 90s on 2 L nasal cannula. Evaluated by PT, recommending home at discharge. Denies chest pain, palpitations or increased shortness of breath. Objective - Vital Signs Vital signs: Vital Signs Temp 98.3 F 06/13/21 12:00 Pulse 86 06/13/21 12:00 Resp 18 06/13/21 14:00 BP 132/72 06/13/21 12:00 Pulse Ox 94 L 06/13/21 12:00 Intake & Output 06/12/21 06/13/21 06/13/21 18:59 06:59 18:59 Intake Total 1330 920 Output Total 1400 1000 800 Balance -70 -1000 120 Weight 156.9 kg 163.5 kg Intake: IV 10 Invasive Line 2 10 Oral 1320 920 Output: Urine 1400 1000 800 Other: Voiding Method Bedside Commode Bedside Commode Bedside Commode Diaper Diaper Diaper Incontinent Incontinent Incontinent External Catheter External Catheter # Voids 2 - Exam PHYSICAL EXAM: VITAL SIGNS: [As above] GENERAL: Alert and oriented 3, Sitting up in chair, no acute distress HEENT: Conjunctivae normal. eyes normal. Oral mucosa moist. NECK: Supple, No JVD. CARDIOVASCULAR: S1, S2 regular. No murmur RESPIRATION: Breath sounds diminished in the bases with bibasilar crackles. ABDOMEN: Soft, nontender . No guarding. no masses palpable. Bowel sounds heard. LEGS: Softer, Decreasing edema, positive DP pulses NERVOUS SYSTEM: Cranial N 2-12 grossly normal.No focal deficits. Strength and sensation grossly intact. Skin: Warm and dry, no rash - Labs CBC & Chem 7: 06/12/21 06:42 06/12/21 06:42 Labs: Abnormal Lab Results - Last 24 Hours (Table) 06/12/21 06/12/21 06/13/21 Range/Units 16:40 20:15 05:50 POC Glucose (mg/dL) 104 H 113 H 113 H (75-99) mg/dL 06/13/21 Range/Units 11:44 POC Glucose (mg/dL) 110 H (75-99) mg/dL Assessment and Plan Assessment: Acute on chronic CHF exacerbation, diastolic dysfunction Hx of Pulmonary hypertension reported per cardiology from prior echo March 2021 with RVSP 87. Current echo reporting no evidence of pulmonary hypertension, RVSP normal at < 35mmHg. Acute hypoxic respiratory failure secondary to the above Left knee pain secondary to severe left knee osteoarthritis, reports Recent fall approximately 1 month ago. X-ray reporting moderate degenerative joint changes, prior patellar fracture with repair fixation screw wires are fractured, no acute osseous abnormality. Follow-up outpatient with orthopedic surgery. Chronic Paroximal atrial fibrillation, anticoagulated on Eliquis Diabetes mellitus type 2, controlled Obstructive sleep apnea, not currently on CPAP at home Mely-en-Y gastric bypass, history of Morbid obesity, BMI 64.4 Gastroesophageal reflux disease COPD, chronic bronchial asthma, unspecified History of prior nicotine dependence Hypertension Hyperlipidemia Hypothyroidism Gait dysfunction, uses walker Plan: Continue on current medication regime ,monitoring and symptomatic treatment. Transition Lasix to oral. Close monitoring of bicarb, renal function with repeat labs ordered for a.m. discharge planning in progress pending pulmonary clearance. The impression and plan of care has been dictated as directed. : I performed a history and examination of this patient, discussed the same with the dictator. I agree with the dictator's note ,documented as a scribe. Any additional findings or plans will be noted.
[2021-06-13 16:26] LABS: Glucose,Whole Blood 105 mg/dL (75-99)
[2021-06-13] MEDS: FUROSEMIDE 40 MG TAB PO SCH (17:54)
[2021-06-13 20:13] LABS: Glucose,Whole Blood 127 mg/dL (75-99)
[2021-06-13] MEDS: ACETAMINOPHEN TAB 325 MG TAB PO PRN (20:35)
[2021-06-13] MEDS: PANTOPRAZOLE 40 MG TABLET PO SCH (20:36)
[2021-06-13] MEDS: LORATADINE 10 MG TAB PO SCH (20:36)
[2021-06-14] MEDS: ACETAMINOPHEN TAB 325 MG TAB PO PRN
[2021-06-14] MEDS: LEVOTHYROXINE 75 MCG TAB PO SCH (05:52)
[2021-06-14 06:09] LABS: Glucose,Whole Blood 116 mg/dL (75-99)
[2021-06-14] MEDS: POTASSIUM CHLORIDE ER 10 MEQ TAB.ER.PRT PO SCH (08:51)
[2021-06-14] MEDS: FUROSEMIDE 40 MG TAB PO SCH (08:51)
[2021-06-14] MEDS: VERAPAMIL SR 120 MG TABLET.ER PO SCH (08:51)
[2021-06-14] MEDS: APIXABAN 5 MG TAB PO SCH (08:51)
[2021-06-14] MEDS: MULTIVITAMINS, THERA 1 EACH TAB PO SCH (08:51)
[2021-06-14 09:31] LABS: Anisocytosis Slight; Basophils % (A) 1 %; Eosinophils # (A) 0.3 k/uL (0-0.7); Eosinophils % (A) 5 %; HCT 37.6 % (34.0-46.0); HGB 10.6 gm/dL (11.4-16.0); Hypochromasia Marked; Lymphocytes # (A) 1.3 k/uL (1.0-4.8); Lymphocytes % (A) 22 %; MCH 26.1 pg (25.0-35.0); MCHC 28.1 g/dL (31.0-37.0); Mean Platelet Volume 7.3; Monocytes # (A) 0.4 k/uL (0-1.0); Monocytes % (A) 7 %; Neutrophils # (A) 3.8 k/uL (1.3-7.7); Neutrophils % (A) 62 %; Platelet Count 316 k/uL (150-450); RBC 4.04 m/uL (3.80-5.40); RDW 17.5 % (11.5-15.5); WBC 6.2 k/uL (3.8-10.6)
[2021-06-14 09:35] LABS: Calcium 8.4 mg/dL (8.4-10.2); Potassium 4.1 mmol/L (3.5-5.1)
[2021-06-14 11:16] LABS: Glucose,Whole Blood 142 mg/dL (75-99)
[2021-06-14 12:16] VITALS: BP 129/60; PULSE 90; TEMP 97.6
--- NOTE | 2021-06-14 13:57 | P.PN ---
<Matt,Jade - Last Filed: 06/14/21 13:53> Subjective Progress Note Date: 06/14/21 Principal diagnosis: CHF This is a 71-year-old female patient with past medical history of hypertension, diabetes, obstructive sleep apnea not on CPAP therapy currently, morbid obesity with previous history of Mely-en-Y gastric bypass, panniculectemy, previous history of severe pulmonary hypertension, remote history of smoking, COPD/chronic bronchial asthma unspecified, who presented to the emergency depart ment on 06/09/2021 for evaluation of worsening shortness of breath and increasing swelling and weeping from her lower extremities. Patient states that she had been on oxygen in the past but not recently. Her shortness of breath has been getting worse over a period of 2 weeks. Denied any fever or chills. Denied any cough or phlegm production, chest x-ray in emergency department showed enlarged heart, central vascularity and increased interstitium. Her lower extremities are swollen, slightly reddened and slightly warm to touch. Currently in no weeping noted. Patient was having pain in her left knee, an x- ray of the left knee showed prior patellar fracture with repair but no acute osseous abnormality. EKG showed sinus rhythm. Patient was hypoxic, she was placed on supplemental oxygen, her pulse ox was 85% on 2 L in the emergency department, she is currently at 3 L and her pulse oximetry 90-95%, breathing comfortably, afebrile, hemodynamically she stable. Blood work was reviewed, with little, 7.0, hemoglobin is 10.5, platelet count is 317, Coreg patient profile was within normal limits, CO2 is 32, the rest of electrolytes were unremarkable, BUN is 30, creatinine 0.87. LFTs were within normal limits, proBNP was 2350, troponin was less than 0.012. Patient states she is currently undergoing a repeat evaluation to obtain a new CPAP machine. After she had lost 130 pounds following her Mely-en-Y gastric bypass surgery, patient recently regained it back in the past year related to decreased activity level, and the COVID pandemic. She is supposed to have a polysomnogram at the sleep Center. She had a consultation with Dr. Garcia The patient is seen today 06/11/2021 in follow-up on the selective care unit. She is currently sitting up in a chair at the bedside. Drifting off to sleep easily on and off but arousable. Currently on 3 L nasal cannula with O2 saturation 94%. Approximate 4 AM she was found to be at 65% O2 saturations as she had inadvertently removed her oxygen. She recovered up in the 90s on 3 L. Chest x-ray reveals perihilar and basilar infiltrates. Stable compared to previous. White count 8.9. Hemoglobin 9.9. Platelets 296. Sodium 141. Potassium 4.1. Bicarb 40. BUN 20. Creatinine 1.01. Glucose 119. Events on anticoagulants in the form of Eliquis. Continued on IV diuretics. Plan a -1 L balance. Lower extremity edema slightly improved. The patient is seen today 06/12/2021 in follow-up on the regular medical floor. She is currently sitting up in a chair at the bedside. Much more awake and alert today. Up ambulating in the room with assistance. She is currently maintaining good O2 saturations in the 90s on 2 L/m per nasal cannula. Afebrile. Hemodynamically stable. White count 8.3. Hemoglobin 9.7. Sodium 143 potassium 4.3. Bicarb 43. Creatinine 0.84. Remains in a -960 ML's balance. Lower extremity edema continues to improve. The patient is seen today 06/14/2021 in follow-up on the regular medical floor. Currently sitting up in a chair at the bedside. She is awake and alert in no acute distress. Hoping to go home today. Tinea good O2 saturations in the upper 90s on 2 L/m per nasal cannula. She's been afebrile. Hemodynamically stable. White count 6.2. Hemoglobin 10.6. Sodium 139. Potassium 4.1. Bicarb 43. BUN 19. Creatinine 0.97. She is on oral diuretics. Anticoagulants with Eliquis. Objective - Vital Signs Vital signs: Vital Signs Temp 97.6 F 06/14/21 12:00 Pulse 90 06/14/21 12:00 Resp 18 06/14/21 12:00 BP 129/60 06/14/21 12:00 Pulse Ox 98 06/14/21 12:00 Intake & Output 06/13/21 06/14/21 06/14/21 18:59 06:59 18:59 Intake Total 1200 10 120 Output Total 1300 700 Balance -100 -690 120 Intake: IV 20 10 Invasive Line 2 20 10 Oral 1180 120 Output: Urine 1300 700 Other: Voiding Method Bedside Commode Toilet Toilet Diaper Diaper Diaper Incontinent Incontinent Incontinent External Catheter # Voids 2 1 - Exam GENERAL EXAM: Alert, very pleasant, morbidly obese 71-year-old female patient, up in a chair at the bedside, on 2 L of oxygen the pulse ox of 92%, comfortable in no apparent distress. HEAD: Normocephalic/atraumatic. EYES: Normal reaction of pupils, equal size. Conjunctiva pink, sclera white. NOSE: Clear with pink turbinates. THROAT: No erythema or exudates. NECK: No masses, no JVD, no thyroid enlargement, no adenopathy. CHEST: No chest wall deformity. Symmetrical expansion. LUNGS: Equal air entry with bibasilar crackles CVS: Regular rate and rhythm, normal S1 and S2, no gallops, no murmurs, no rubs ABDOMEN: Soft, nontender. No hepatosplenomegaly, normal bowel sounds, no guarding or rigidity. EXTREMITIES: No clubbing, 1+ lower extremity edema no cyanosis, 2+ pulses and upper and lower extremities. MUSCULOSKELETAL: Muscle strength and tone normal. SPINE: No scoliosis or deformity SKIN: No rashes, bilateral lower extremity slightly pink and warm to touch CENTRAL NERVOUS SYSTEM: No focal deficits, tone is normal in all 4 extremities. PSYCHIATRIC: Alert and oriented -3. Appropriate affect. Intact judgment and insight. - Labs CBC & Chem 7: 06/14/21 08:39 06/14/21 08:39 Labs: Abnormal Lab Results - Last 24 Hours (Table) 06/13/21 06/13/21 06/14/21 Range/Units 16:25 20:01 05:49 Hgb (11.4-16.0) gm/dL MCHC (31.0-37.0) g/dL RDW (11.5-15.5) % Chloride (98-107) mmol/L Carbon Dioxide (22-30) mmol/L BUN (7-17) mg/dL Glucose (74-99) mg/dL POC Glucose (mg/dL) 105 H 127 H 116 H (75-99) mg/dL 06/14/21 06/14/21 06/14/21 Range/Units 08:39 08:39 11:14 Hgb 10.6 L (11.4-16.0) gm/dL MCHC 28.1 L (31.0-37.0) g/dL RDW 17.5 H (11.5-15.5) % Chloride 93 L (98-107) mmol/L Carbon Dioxide 43 H* (22-30) mmol/L BUN 19 H (7-17) mg/dL Glucose 104 H (74-99) mg/dL POC Glucose (mg/dL) 142 H (75-99) mg/dL Assessment and Plan Assessment: 1 Acute hypoxic respiratory failure related to acute exacerbation of diastolic CHF. Preserved left ventricular systolic function with ejection fraction 55-60% 2 History of severe pulmonary hypertension, possibly secondary to obstructive sleep apnea. Echocardiogram from 06/10/2021 did not show evidence of pulmonary hypertension and right ventricular systolic pressure is less than 35 mmHg. There is trace tricuspid regurg, trace mitral regurgitation, and there is left ventricular hypertrophy 3 History of obstructive sleep apnea, improved after significant weight loss following Mely-en-Y gastric bypass in 2018. Currently patient is again being evaluated for obstructive sleep apnea, has not been on CPAP therapy in the past 3-4 years 4 Significant weight gain in the last year 5 Remote history of smoking 6 Reported history of COPD/chronic bronchial asthma, unspecified 7 Diabetes mellitus type 2 8 Hypertension 9 Hyperlipidemia 10 Osteoarthritis 11 Severe left knee osteoarthritis with previous left knee patellar fracture and screw and wire fixation Plan: The patient was seen and evaluated Stable from the pulmonary standpoint Cleared for discharge I have personally seen and examined the patient, performed the documentation and the assessment and plan as written. Number of minutes spent on the visit: 10. <Kianna Cisneros - Last Filed: 06/14/21 14:42> Objective - Vital Signs Vital signs: Vital Signs Temp 97.6 F 06/14/21 12:00 Pulse 90 06/14/21 12:00 Resp 18 06/14/21 12:00 BP 129/60 06/14/21 12:00 Pulse Ox 98 06/14/21 12:00 Intake & Output 06/13/21 06/14/21 06/14/21 18:59 06:59 18:59 Intake Total 1200 10 120 Output Total 1300 700 Balance -100 -690 120 Intake: IV 20 10 Invasive Line 2 20 10 Oral 1180 120 Output: Urine 1300 700 Other: Voiding Method Bedside Commode Toilet Toilet Diaper Diaper Diaper Incontinent Incontinent Incontinent External Catheter # Voids 2 1 - Labs CBC & Chem 7: 06/14/21 08:39 06/14/21 08:39 Labs: Abnormal Lab Results - Last 24 Hours (Table) 06/13/21 06/13/21 06/14/21 Range/Units 16:25 20:01 05:49 Hgb (11.4-16.0) gm/dL MCHC (31.0-37.0) g/dL RDW (11.5-15.5) % Chloride (98-107) mmol/L Carbon Dioxide (22-30) mmol/L BUN (7-17) mg/dL Glucose (74-99) mg/dL POC Glucose (mg/dL) 105 H 127 H 116 H (75-99) mg/dL 06/14/21 06/14/21 06/14/21 Range/Units 08:39 08:39 11:14 Hgb 10.6 L (11.4-16.0) gm/dL MCHC 28.1 L (31.0-37.0) g/dL RDW 17.5 H (11.5-15.5) % Chloride 93 L (98-107) mmol/L Carbon Dioxide 43 H* (22-30) mmol/L BUN 19 H (7-17) mg/dL Glucose 104 H (74-99) mg/dL POC Glucose (mg/dL) 142 H (75-99) mg/dL Assessment and Plan Assessment: I have personally seen and examined the patient and reviewed the documentation. I performed a joint evaluation with the nurse practitioner in this evaluation was done more than 15 minutes. I fully agree with the documentation above and the plan of care.
--- NOTE | 2021-06-14 15:35 | P.DS ---
Providers Date of admission: 06/09/21 14:32 Attending physician: Titi Martin Consults: 06/10/21 10:35 Consult Physician Routine Consulting Provider: Kianna Cisneros Consult Reason/Comments: pulmonary HTN Do you want consulting provider notified?: Yes 06/10/21 14:43 Consult Physician Routine Consulting Provider: Greg Conley Consult Reason/Comments: left knee pain,piror patellar fixation, fractured fixaction screw wires Do you want consulting provider notified?: Yes Primary care physician: Titi Martin Hospital Course: Final Diagnosis Acute on chronic CHF exacerbation, diastolic dysfunction Hx of Pulmonary hypertension reported per cardiology from prior echo March 2021 with RVSP 87. Current echo reporting no evidence of pulmonary hypertensio n, RVSP normal at < 35mmHg. Acute hypoxic respiratory failure secondary to the above Left knee pain secondary to severe left knee osteoarthritis, reports Recent fall approximately 1 month ago. X-ray reporting moderate degenerative joint changes, prior patellar fracture with repair fixation screw wires are fractured, no acute osseous abnormality. Follow-up outpatient with orthopedic surgery. Chronic Paroximal atrial fibrillation, anticoagulated on Eliquis Diabetes mellitus type 2, controlled Obstructive sleep apnea, not currently on CPAP at home, has an appointment at sleep center on WednesdayJune 17 Mely-en-Y gastric bypass, history of Morbid obesity, BMI 64.4 Gastroesophageal reflux disease COPD, chronic bronchial asthma, unspecified History of prior nicotine dependence Hypertension Hyperlipidemia Hypothyroidism Gait dysfunction, uses walker Discharge disposition Patient is cleared by pulmonary services for discharge, Follows up in the sleep center Wednesday. Lasix was increased to twice a day. Stable from a medical standpoint, follow up with PCP next week and repeat labs in 3 days. Hospital Course This is a pleasant 71-year-old female presents to the hospital with complaints of increasing shortness of breath as well as lower extremity edema. Patient has a Dr. Martin in the primary care setting, past medical history significant for COPD, diabetes mellitus, hypertension, hyperlipidemia, morbid obesity. Patient is with complaints of left knee pain she had a recent fall 1 month ago and landed on her knee which has had prior surgical intervention. Knee x-ray shows no fracture she can follow up with orthopedic in the office for this, did evaluate patient in the hospital setting this admission. On admission her oxygenation was 85-80% with chest x-ray showing pulmonary interstitial edema and a BNP level 2350. Patient was placed on oxygen support and received IV Lasix with improvement. Was only taking 40 mg of oral Lasix daily at home it was increased to 40 mg twice a day for discharge. On admission EKG shows sinus rhythm heart rate 76, QT interval 463, right bundle branch block, possible left ventricular hypertrophy with a possible anterior myocardial infarction probably old. There is inverted T waves in leads V1. Troponin negative with no repeat. Echocardiogram shows an EF of 55-60% with mild concentric left ventricular hypertrophy, difficult study with suboptimal views. There is a trace mitral regurgitation and trace tricuspid regurgitation. On admission also sodium 142, potassium 4.5, blood glucose 114 BUN 30, creatinine 0.87. Patient was found to have a CO2 level of 43, chloride 96. Patient did require home oxygen on discharge. 06/14/2021 Patient evaluated today sitting up in the chair. She is anxious for discharge home. She is cleared by pulmonary services will follow-up in the sleep center. She is discharged on home oxygen. She currently denies any chest pain, chest pressure, cough or shortness of breath. Continues with lower extremity edema there's mild +1 pitting patient did have a weeping blister that opened up on her lateral aspect of the right leg. Discussed low sodium diet with fluid restriction in addition to oral lasix and elevating lower extremities while sitting. Patient does live home alone was evaluated by PT who states patient is stable for discharge home with homecare. Labs are stable today, patient af ebrile, heart rate 90 sinus rhythm, blood pressure 129/60, 98% on room air. Lungs are clear to auscultation, S1-S2 auscultated, positive bowel sounds. Focal neurological exam is negative. Please see medication reconciliation for a list of current medications. Thank you for allowing us to participate in the care of this patient. Patient Condition at Discharge: Fair Plan - Discharge Summary New Discharge Prescriptions: New Verapamil Sr [Isoptin Sr] 120 mg PO DAILY #30 tablet Furosemide [Lasix] 40 mg PO BID@0900,1600 #60 tab Continue Multivitamins, Thera [Multivitamin (formulary)] 2 tab PO DAILY Calcium Carb/Vitamin D3/Vit K1 [Viactiv 650 mg-12.5 Mcg Chew] 2 tab PO DAILY Potassium Chloride 10 meq PO DAILY Omeprazole [PriLOSEC] 40 mg PO HS Levothyroxine Sodium [Synthroid] 75 mcg PO DAILY Glucosamine/Chondr Antonoi A Sod [Osteo Bi-Flex Caplet] 2 tab PO DAILY Acetaminophen Tab [Tylenol] 650 mg PO Q4-6H PRN PRN Reason: Fever And/ Or Pain Cetirizine HCl [Zyrtec] 10 mg PO HS Apixaban [Eliquis] 5 mg PO BID Discontinued Metoprolol Tartrate [Lopressor] 25 mg PO BID #60 tab Furosemide [Lasix] 40 mg PO DAILY Discharge Medication List Calcium Carb/Vitamin D3/Vit K1 [Viactiv 650 mg-12.5 Mcg Chew] 2 tab PO DAILY 02/13/19 [History] Multivitamins, Thera [Multivitamin (formulary)] 2 tab PO DAILY 02/13/19 [History] Acetaminophen Tab [Tylenol] 650 mg PO Q4-6H PRN 06/09/21 [History] Apixaban [Eliquis] 5 mg PO BID 06/09/21 [History] Cetirizine HCl [Zyrtec] 10 mg PO HS 06/09/21 [History] Glucosamine/Chondr Antonio A Sod [Osteo Bi-Flex Caplet] 2 tab PO DAILY 06/09/21 [History] Levothyroxine Sodium [Synthroid] 75 mcg PO DAILY 06/09/21 [History] Omeprazole [PriLOSEC] 40 mg PO HS 06/09/21 [History] Potassium Chloride 10 meq PO DAILY 06/09/21 [History] Furosemide [Lasix] 40 mg PO BID@0900,1600 #60 tab 06/14/21 [Rx] Verapamil Sr [Isoptin Sr] 120 mg PO DAILY #30 tablet 06/14/21 [Rx] Follow up Appointment(s)/Referral(s): Titi Martin DO [Primary Care Provider] - 1-2 days [facility] [NON-STAFF] - Cedric Cedeno MD [STAFF PHYSICIAN] - 1 Week Ambulatory/Diagnostic Orders: Basic Metabolic Panel [LAB.AMB] Time Frame: 2 Days, Location: None Selected Patient Instructions/Handouts: Heart Failure (ER), Seasoning Without Salt (DC), Leg Edema (ED), Low-Sodium Diet (ED), Low-Sodium Diet (DC) Activity/Diet/Wound Care/Special Instructions: Patient has an appointment Wednesday at the Sleep [facility] with Dr Cisneros, and will follow up in the office Discharge Disposition: HOME WITH HOME HEALTH SERVICES
== END 2021-06-14 13:54 | disposition home health service (06) | DRG 291 ==
LOC: EC 11:30 → 3SCARD 14:32
PROVIDERS: ADMIT Family Medicine; ATTEND Family Medicine
DX: I11.0 Hypertensive heart disease with heart failure (principal); I50.33 Acute on chronic diastolic (congestive) heart failure; J96.01 Acute respiratory failure with hypoxia; Z68.44 Body mass index [BMI] 60.0-69.9, adult; T84.117A Breakdown (mechanical) of internal fixation device of bone of left lower leg, initial encounter; E03.9 Hypothyroidism, unspecified; E11.9 Type 2 diabetes mellitus without complications; E66.01 Morbid (severe) obesity due to excess calories; E78.5 Hyperlipidemia, unspecified; G47.33 Obstructive sleep apnea (adult) (pediatric); I27.20 Pulmonary hypertension, unspecified; I45.10 Unspecified right bundle-branch block; I48.0 Paroxysmal atrial fibrillation; J44.9 Chronic obstructive pulmonary disease, unspecified; K21.9 Gastro-esophageal reflux disease without esophagitis; M17.12 Unilateral primary osteoarthritis, left knee; Z79.01 Long term (current) use of anticoagulants; Z79.890 Hormone replacement therapy; Z79.899 Other long term (current) drug therapy; Z80.0 Family history of malignant neoplasm of digestive organs; Z80.1 Family history of malignant neoplasm of trachea, bronchus and lung; Z87.891 Personal history of nicotine dependence; Z90.710 Acquired absence of both cervix and uterus; Z98.84 Bariatric surgery status; Y83.8 Other surgical procedures as the cause of abnormal reaction of the patient, or of later complication, without mention of misadventure at the time of the procedure
CPT/HCPCS: 36415; 71045; 71046; 80048; 80053; 83735; 83880; 84484; 85025; 85610; 85730; 93005; 93306; 94760; 99285

== ENCOUNTER → 2021-08-14 | Outpatient (CLI) | payer MEDICARE ==
--- NOTE | 2021-08-18 10:08 | MM ---
Reason for exam: screening (asymptomatic). Last mammogram was performed 1 year and 2 months ago. History: Patient is postmenopausal. Physical Findings: A clinical breast exam by your physician is recommended on an annual basis and results should be correlated with mammographic findings. MG 3D Screening Mammo W/Cad Bilateral CC, MLO, and XCCL view(s) were taken. Prior study comparison: June 21, 2020, bilateral MG 3d screening mammo w/cad. March 08, 2018, bilateral MG 3d screening mammo w/cad. Finding: There are grouped/clustered, fine calcifications in the right breast. New finding since June 21, 2020 and March 08, 2018. ASSESSMENT: Incomplete: need additional imaging evaluation, BI-RAD 0 RECOMMENDATION: Special view mammogram of the right breast. [facility] will attempt to contact patient to return for supplemental views.
== END | disposition home or self-care (01) ==
LOC: RADMAMWWP 14:53
PROVIDERS: ATTEND Family Medicine
DX: Z12.31 Encounter for screening mammogram for malignant neoplasm of breast (principal)
CPT/HCPCS: 77063; 77067

== ENCOUNTER → 2021-08-19 | Outpatient (CLI) | payer MEDICARE ==
--- NOTE | 2021-08-20 11:53 | MM ---
Reason for exam: additional evaluation requested from abnormal screening. Last mammogram was performed less than 1 month ago. History: Patient is postmenopausal. Physical Findings: A clinical breast exam by your physician is recommended on an annual basis and results should be correlated with mammographic findings. MG 3D Work Up W/Cad RT CC and MLO view(s) were taken of the right breast. Prior study comparison: August 14, 2021, bilateral MG 3d screening mammo w/cad. June 21, 2020, bilateral MG 3d screening mammo w/cad. There are scattered fibroglandular densities. Lateral right breast small grouped punctate calcifications. Probably benign. Results were given to the patient verbally at the time of the exam. ASSESSMENT: Probably benign, BI-RAD 3 RECOMMENDATION: Follow-up diagnostic mammogram of the right breast in 6 months.
== END | disposition home or self-care (01) ==
LOC: RADMAMWWP 13:41
PROVIDERS: ATTEND Family Medicine
DX: R92.1 Mammographic calcification found on diagnostic imaging of breast (principal); Z78.0 Asymptomatic menopausal state
CPT/HCPCS: 77065; G0279; 77061

== ENCOUNTER → 2021-10-02 | Outpatient (CLI) | payer MEDICARE ==
--- NOTE | 2021-10-02 15:10 | P.PN ---
Subjective DATE: 10/02/2021 FOLLOW UP VISIT. Patient with obstructive sleep apnea hypopnea syndrome return to sleep center for follow-up visit. Recently patient had sleep study which documented extremely severe obstructive sleep apnea hypopnea syndrome. Patient was initiated on PAP therapy with oxygen supplement and today is first visit after treatment was started. Patient was able to use PAP equipment every night for the whole night. The patient does not have significant problems with the mask, PAP pressure and humidification. [place] sleepiness scale decreased to 7[]. I checked information from PAP unit. PAP unit pressure maximal inspiratory pressure 24, minimal expiratory pressure 16, pressure support 4 cm H2O. Usage is 100 % for more then 4 hours, average 7 hours hours per night. Leak increased to 93 l/m. Patient is on 4 L/m of oxygen supplement during sleep. Apnea Hypopnea Index is 0.3, which is normal. MEDICATIONS:1. Verapamil 240 mg once a day 2. Furosemide 40 mg twice a day 3. Omeprazole 40 mg once a day 4. Eliquis 5 mg twice a day 5. Levothyroxine 75 g once a day During physical exam: GENERAL: A pleasant patient without any distress. VITAL SIGNS: BP 153/70, HR 78, RR 18 , weight 284 lost about 77 pounds, temperature 97.1, oxygen saturation on 2 L/m of oxygen supplement 97% . HEENT: PERRLA, EOMI.low position of soft palate . NECK: Supple. No JVD. LUNGS: Clear to percussion and to auscultation. Good air exchange. No wheezing or rhonchi. HEART: S1, S2 irregular. ABDOMEN: Soft and nontender. Obese EXTREMITIES: No clubbing or cyanosis. IRRIGATION EQUIPMENT MECHANIC: Awake, alert, and oriented x3. No focal deficit. Impressions: 1. Obstructive sleep apnea-hypopnea syndrome. Patient demonstrated great compliance with treatment, benefiting from treatment. 2. Obesity patient lost 77 pounds since previous visit. 3. Atrial fibrillation. 4. COPD. 5. History of asthma. 6. History of diabetes mellitus. 7. Hypertension in the office today. 8. Status post gastric bypass surgery in 2018.. 9. History of acid reflux. Plan: 1. Continue using PAP equipment every night for the whole night with O2 supplement presently at 4 L/m. 2. To change air filter at least 1-2 times per month. 3. PAP unit should stay lower then position of the head. 4. Advised patient to remove all remaining water from humidifier canister daily and make it dry after each usage. Refill canister with fresh distilled water before each usage. 5. Sleep hygiene with regular time in bed for at least 8 hours. 6. Precautions related to driving. No driving if feel any sleepiness. 7. I will maintain prescription for PAP supplies including mask, tube, filters. 8. Follow up visit in 6 months or earlier if patient has any problems. 9. Continue losing weight weight. 10. I explained to the patient how to adjust humidity in CPAP unit and will be decreased humidity level from 4 to 3. Thank you very much for allowing me to participate in the management of your patient. Doc Garcia MD, PhD, FAASM. Diplomat of [place] [employer], Sleep Medicine Board by [place] [employer] Hotel Reservation Agent of [facility] [place]
== END ==
LOC: SLEEP 14:23
PROVIDERS: ATTEND Internal Medicine
DX: G47.33 Obstructive sleep apnea (adult) (pediatric) (principal); E66.9 Obesity, unspecified; I48.91 Unspecified atrial fibrillation; J44.9 Chronic obstructive pulmonary disease, unspecified; E11.9 Type 2 diabetes mellitus without complications; I10 Essential (primary) hypertension; Z98.84 Bariatric surgery status; K21.9 Gastro-esophageal reflux disease without esophagitis; Z79.01 Long term (current) use of anticoagulants; Z87.891 Personal history of nicotine dependence

== ENCOUNTER → 2021-12-05 | Outpatient (CLI) | payer MEDICARE ==
[2021-12-05 14:23] LABS: HCT 36.6 % (37.2-46.3); HGB 11.4 g/dL (12.0-15.0); MCH 29.2 pg (27.0-32.0); MCHC 31.1 g/dL (32.0-37.0); MCV 93.8 fL (80.0-97.0); Mean Platelet Volume 10.4 fL (9.5-12.2); NRBC Per 100 WBC 0 /100 WBCS (0.0-0.0); Platelet Count 266 X 10*3/uL (140-440); RDW 15.8 % (11.5-14.5); WBC 7.06 X 10*3/uL (4.50-10.00)
[2021-12-05 15:09] LABS: African American GFR (CKD) 84.2 (60.0-200.0); Anion Gap 11.1 mmol/L (10.00-18.00); BUN/Creat Ratio 24.69 Ratio (12.00-20.00); Blood Urea Nitrogen 20.1 mg/dL (9.0-27.0); Calcium 8.9 mg/dL (8.7-10.3); Carbon Dioxide 30.1 mmol/L (20.0-27.5); Non-African American GFR(CKD) 72.6 (60.0-200.0); Potassium 3.9 mmol/L (3.5-5.5)
== END | disposition home or self-care (01) ==
LOC: LABWHC1 10:36
PROVIDERS: ATTEND Internal Medicine Interventional Cardiology
DX: R00.2 Palpitations (principal)
CPT/HCPCS: 36415; 80048; 83880; 84443; 85027

== ENCOUNTER → 2022-02-20 | Outpatient (CLI) | payer MEDICARE ==
--- NOTE | 2022-02-20 11:23 | MM ---
Reason for Exam: Follow-up at short interval from prior study. Last screening mammogram was performed 6 month(s) ago. Patient History: Menarche at age 12. First Full-Term at age 26. Left ovary removed at age 49. Right ovary removed at age 49. Hysterectomy at age 49. Postmenopausal. Risk Values: Rylee 5 year model risk: 2.0%. NCI Lifetime model risk: 5.1%. Prior Study Comparison: 04/30/2016 Bilateral Screening Mammogram, [facility]. 03/08/2018 Bilateral Screening Mammogram, [facility]. 06/21/2020 Bilateral Screening Mammogram, [facility]. 08/14/2021 Bilateral Screening Mammogram, [facility]. 08/19/2021 Right Diagnostic Mammogram, [facility]. Tissue Density: Right: There are scattered fibroglandular densities. Findings: Analyzed By CAD. Scattered benign-appearing punctate calcifications without suspicious cluster noted. Overall Assessment: Benign, BI-RAD 2 Management: Screening Mammogram of both breasts in 6 months. A clinical breast exam by your physician is recommended on an annual basis and results should be correlated with mammographic findings. This exam should not preclude additional follow-up of suspicious palpable abnormalities. Results were given to the patient verbally at the time of exam. Electronically signed and approved by: Truman Polanco M.D. Radiologis
== END | disposition home or self-care (01) ==
LOC: RADMAMWWP 10:40
PROVIDERS: ATTEND Family Medicine
DX: R92.8 Other abnormal and inconclusive findings on diagnostic imaging of breast (principal); Z78.0 Asymptomatic menopausal state; Z90.721 Acquired absence of ovaries, unilateral
CPT/HCPCS: 77065; G0279; 77061

== ENCOUNTER → 2022-04-09 | Outpatient (CLI) | payer MEDICARE ==
--- NOTE | 2022-04-09 14:52 | P.PN ---
Subjective DATE: 04/09/2022 FOLLOW UP VISIT. Patient with obstructive sleep apnea hypopnea syndrome return to sleep center for follow-up visit. Information from previous visit have been reviewed. Patient is using BPAP equipment every night for the whole night, getting BPAP supplies in time. The patient does not have significant problems with the mask, BPAP unit and humidification. [place] sleepiness scale is 8, which is normal. I checked information from BPAP unit. BPAP unit pressure maximal inspiratory pressure 24, minimal expiratory pressure 16, pressure-support 4, average pressure 20.6 over 16.6 cm H2O. Usage is 100 % for more then 4 hours, average 7 hours per night. Leak is high 54 l/m. Apnea Hypopnea Index is 0.7, which is normal. Patient continued to use oxygen supplement with CPAP machine during the sleep. MEDICATIONS:1. Furosemide 40 mg 2. Omeprazole 40 mg 3. Levothyroxine 75 g 4. Eliquis 5 mg twice a day 5. Verapamil 240 mg once a day During physical exam: GENERAL: A pleasant patient without any distress. VITAL SIGNS: BP 151/72, HR 76, RR 16, weight 280, temperature 97.3, oxygen saturation at room air 97 % . HEENT: PERRLA, EOMI.low position of soft palate. NECK: Supple. No JVD. LUNGS: Clear to percussion and to auscultation. Good air exchange. No wheezing or rhonchi. HEART: S1, S2 regular. ABDOMEN: Soft and nontender. Obese EXTREMITIES: No clubbing or cyanosis. ENTERTAINMENT CENTRE MANAGER: Awake, alert, and oriented x3. No focal deficit. Impressions: 1. Obstructive sleep apnea-hypopnea syndrome. Patient demonstrated great compliance with treatment, benefiting from treatment. 2. Obesity, BMI 50.3, patient lost 4 pounds since previous visit. 3. History of atrial fibrillation in the past. 4. COPD. 5. History of asthma. 6. History of diabetes mellitus. 7. Status post gastric bypass surgery in 2018. 8. Hypertension in the office. 9. History of acid reflux. Plan: 1. Continue using PAP equipment every night for the whole night. 2. Oximetry during the sleep on CPAP at room air to evaluate necessity to continue oxygen supplement during the sleep with CPAP. 3. PAP unit should stay lower then position of the head. 4. Advised patient to remove all remaining water from humidifier canister daily and make it dry after each usage. Refill canister with fresh distilled water before each usage. 5. Sleep hygiene with regular time in bed for at least 8 hours. 6. Precautions related to driving. No driving if feel any sleepiness. 7. I will maintain prescription for PAP supplies including mask, tube, filters. 8. Follow up visit in 6 months or earlier if patient has any problems. 9. Watching and continue losing weight. Thank you very much for allowing me to participate in the management of your patient. Doc Garcia MD, PhD, FAASM. Diplomat of [place] [employer], Sleep Medicine Board by [place] [employer]down Worker of [facility]
== END ==
LOC: SLEEP 13:51
PROVIDERS: ATTEND Internal Medicine
DX: G47.33 Obstructive sleep apnea (adult) (pediatric) (principal); Z99.89 Dependence on other enabling machines and devices; E66.9 Obesity, unspecified; Z68.43 Body mass index [BMI] 50.0-59.9, adult; J44.9 Chronic obstructive pulmonary disease, unspecified; I10 Essential (primary) hypertension; E11.9 Type 2 diabetes mellitus without complications; Z86.79 Personal history of other diseases of the circulatory system; Z87.19 Personal history of other diseases of the digestive system; Z98.84 Bariatric surgery status; Z87.09 Personal history of other diseases of the respiratory system; Z79.899 Other long term (current) drug therapy; Z87.891 Personal history of nicotine dependence
CPT/HCPCS: 99212

== ENCOUNTER 2022-08-09 10:49 | Observation (INO) | payer MEDICARE ==
[2022-08-09 11:23] LABS: Basophils % (A) 0 %; Eosinophils # (A) 0.2 k/uL (0-0.7); Eosinophils % (A) 3 %; HCT 37.8 % (34.0-46.0); HGB 12.2 gm/dL (11.4-16.0); Lymphocytes # (A) 2.5 k/uL (1.0-4.8); Lymphocytes % (A) 38 %; MCH 29.4 pg (25.0-35.0); MCHC 32.4 g/dL (31.0-37.0); MCV 90.7 fL (80.0-100.0); Monocytes # (A) 0.4 k/uL (0-1.0); Monocytes % (A) 5 %; Neutrophils # (A) 3.4 k/uL (1.3-7.7); Neutrophils % (A) 51 %; Platelet Count 259 k/uL (150-450); RBC 4.17 m/uL (3.80-5.40); RDW 15.1 % (11.5-15.5); WBC 6.6 k/uL (3.8-10.6)
--- NOTE | 2022-08-09 11:29 | XR ---
EXAMINATION TYPE: XR chest 2V DATE OF EXAM: 08/09/2022 COMPARISON: 06/09/2021. HISTORY: Palpitations, chest pain and shortness of breath TECHNIQUE: Frontal and lateral views of the chest are obtained. FINDINGS: There is mild cardiomegaly and mild pulmonary vascular congestion. There is no pleural effusion or pneumothorax. There is no airspace consolidative opacity. The osseous structures are intact IMPRESSION: Findings most consistent with mild to moderate CHF. Changes are similar to the prior roly dy of 06/09/2021
[2022-08-09 11:32] LABS: Partial Thromboplastin Time 26.4 sec (22.0-30.0); Prothrombin Time 10.2 sec (9.0-12.0)
--- NOTE | 2022-08-09 11:46 | ED ---
General Adult HPI - General Chief complaint: Arrhythmia/Palpitations Stated complaint: Chest Pain Time Seen by Provider: 08/09/22 11:00 Source: patient, RN notes reviewed, old records reviewed Mode of arrival: wheelchair Limitations: no limitations - History of Present Illness Initial comments: 72-year-old female presenting for evaluation of palpitation, chest discomfort. History of atrial fibrillation. Patient did not take her medications this morn ing prior to coming to the hospital. Patient denies fever. Denies cough. She has had some dyspnea as well. - Related Data Home Medications Medication Instructions Recorded Confirmed Multivitamins, Thera [Multivitamin 2 tab PO DAILY 02/13/19 08/09/22 (formulary)] Apixaban [Eliquis] 5 mg PO BID 06/09/21 08/09/22 Cetirizine HCl [Zyrtec] 10 mg PO DAILY 06/09/21 08/09/22 Glucosamine/Chondr Antonio A Sod [Osteo 2 tab PO DAILY 06/09/21 08/09/22 Bi-Flex Caplet] Levothyroxine Sodium [Synthroid] 75 mcg PO DAILY 06/09/21 08/09/22 Omeprazole [PriLOSEC] 40 mg PO DAILY 06/09/21 08/09/22 Potassium Chloride 10 meq PO DAILY 06/09/21 08/09/22 Acetaminophen [Tylenol Arthritis] 650 mg PO Q6H PRN 08/09/22 08/09/22 Furosemide [Lasix] 40 mg PO DAILY 08/09/22 08/09/22 Metoprolol Succinate [Metoprolol 25 mg PO DAILY 08/09/22 08/09/22 Succinate ER] Verapamil HCl [Verapamil ER] 240 mg PO DAILY 08/09/22 08/09/22 Allergies Allergy/AdvReac Type Severity Reaction Status Date / Time No Known Allergies Allergy Verified 08/09/22 12:35 Review of Systems ROS Statement: Those systems with pertinent positive or pertinent negative responses have been documented in the HPI. ROS Other: All systems not noted in ROS Statement are negative. Past Medical History Past Medical History: Atrial Fibrillation, Asthma, COPD, Diabetes Mellitus, GERD/Reflux, Hyperlipidemia, Hypertension, Osteoarthritis (OA), Skin Disorder, Sleep Apnea/CPAP/BIPAP, Thyroid Disorder Additional Past Medical History / Comment(s): COPD, DM, GERD all improved w/ bariatric surg & wgt loss; Not Using C-Pap at this time, waiting for new one to arrive. URINARY INCONTINENCE. Skin irritation w/ panniculus occ. Uses rolling walker d/t bad knees occ. 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 Roberts)Panni 02/20/19 Past Anesthesia/Blood Transfusion Reactions: No Reported Reaction Past Psychological History: No Psychological Hx Reported Smoking Status: Never smoker Past Alcohol Use History: None Reported Past Drug Use History: None Reported - Past Family History Mother Family Medical History: Cancer Additional Family Medical History / Comment(s): from Lung CA at 83 years old. Father Family Medical History: Cancer Additional Family Medical History / Comment(s): from stomach CA at 37 years old. General Exam Limitations: no limitations General appearance: alert, in no apparent distress Head exam: Present: atraumatic, normocephalic Eye exam: Present: normal appearance, PERRL ENT exam: Present: normal exam Neck exam: Present: normal inspection. Absent: tenderness, meningismus Respiratory exam: Present: normal lung sounds bilaterally. Absent: respiratory distress Cardiovascular Exam: Present: tachycardia, irregular rhythm GI/Abdominal exam: Present: soft. Absent: distended, tenderness, guarding Extremities exam: Present: pedal edema Neurological exam: Present: alert, oriented X3, CN II-XII intact. Absent: motor sensory deficit Psychiatric exam: Present: normal affect, normal mood Skin exam: Present: warm, dry, intact. Absent: cyanosis, diaphoretic Course Vital Signs 08/09/22 08/09/22 10:53 13:28 Temperature 97.6 F Pulse Rate 88 98 Respiratory 18 20 Rate Blood Pressure 120/73 105/65 O2 Sat by Pulse 96 98 Oximetry EKG Findings - EKG Comments: EKG Findings:: Neutrophils of fibrillation, right bundle branch block rate of 92, QRS duration 166, QTC [address] segment elevation Medical Decision Making - Medical Decision Making Was pt. sent in by a medical professional or institution (, PA, TROLLEY WIRE INSTALLER, urgent care, hospital, or long term...) When possible be specific @ -No Did you speak to anyone other than the patient for history (EMS, parent, family, police, friend...)? What history was obtained from this source @ -[Patient's son who is at bedside Did you review nursing and triage notes (agree or disagree)? Why? @ -I reviewed and agree with nursing and triage notes Were old charts reviewed (outside hosp., previous admission, EMS record, old EKG, old radiological studies, urgent care reports/EKG's, long term records)? Report findings @ -No old charts were reviewed Differential Diagnosis (chest pain, altered mental status, abdominal pain women, abdominal pain men, vaginal bleeding, weakness, fever, dyspnea, syncope, headache, dizziness, GI bleed, back pain, seizure, CVA, palpatations, mental health, musculoskeletal)? @ -Differential Dyspnea: Coronary syndrome, arrhythmia, tamponade, asthma, COPD, pulmonary embolism, pneumonia, pneumothorax, pulmonary effusion, anaphylaxis, diabetic ketoacidosis, flailed chest, pulmonary contusion, diaphragmatic rupture, anemia, neuromuscular, this is not meant to be an all-inclusive list. EKG interpreted by me (3pts min.). @ -As above X-rays interpreted by me (1pt min.). @Chest x-ray consistent with CHF CT interpreted by me (1pt min.). @ -None done U/S interpreted by me (1pt. min.). @ -None done What testing was considered but not performed or refused? (CT, X-rays, U/S, labs)? Why? @ -None What meds were considered but not given or refused? Why? @ -None Did you discuss the management of the patient with other professionals (professionals i.e. , PA, TROLLEY WIRE INSTALLER, lab, RT, psych nurse, social sciences professor, manager generation, teacher, certification officer, child support case officer)? Give summary @ -EMH Was smoking cessation discussed for >3mins.? @ -No Was critical care preformed (if so, how long)? @ -No Were there social determinants of health that impacted care today? How? (Homelessness, low income, unemployed, alcoholism, drug addiction, transportation, low edu. Level, literacy, decrease access to med. care, retirement, rehab)? @ -No Was there de-escalation of care discussed even if they declined (Discuss DNR or withdrawal of care, Hospice)? DNR status @ -No What co-morbidities impacted this encounter? (DM, HTN, Smoking, COPD, CAD, Cancer, CVA, ARF, Chemo, Hep., AIDS, mental health diagnosis, sleep apnea, morbid obesity)? @ -CHF, A. fib Was patient admitted / discharged? Hospital course, mention meds given and route, prescriptions, significant lab abnormalities, going to OR and other pertinent info. @72-year-old female presenting with complaints of palpitation, chest discomfort and dyspnea. Patient does appear fluid overloaded. Chest x-ray is consistent with CHF. Patient is in rate controlled A. fib with a rate around 100. Troponin is negative. Patient has BNP pending. Will be admitted for IV diuresis and cardiology consultation. Undiagnosed new problem with uncertain prognosis? @ -No Drug Therapy requiring intensive monitoring for toxicity (Heparin, Nitro, Insulin, Cardizem)? @ -No Were any procedures done? @ -No Diagnosis/symptom? @ -A. fib, CHF Acute, or Chronic, or Acute on Chronic? @ -Acute on chronic Uncomplicated (without systemic symptoms) or Complicated (systemic symptoms)? @ -Complicated Side effects of treatment? @ -No Exacerbation, Progression, or Severe Exacerbation? @ -No Poses a threat to life or bodily function? How? (Chest pain, [place], [place], pneumonia, PE, COPD, DKA, ARF, appy, cholecystitis, CVA, Diverticulitis, Homicidal, Suicidal, threat to staff... and all critical care pts) @ -No - Lab Data Result diagrams: 08/09/22 11:15 08/09/22 11:15 Lab Results 08/09/22 08/09/22 08/09/22 Range/Units 11:15 11:15 11:15 WBC 6.6 (3.8-10.6) k/uL RBC 4.17 (3.80-5.40) m/uL Hgb 12.2 (11.4-16.0) gm/dL Hct 37.8 (34.0-46.0) % MCV 90.7 (80.0-100.0) fL MCH 29.4 (25.0-35.0) pg MCHC 32.4 (31.0-37.0) g/dL RDW 15.1 (11.5-15.5) % Plt Count 259 (150-450) k/uL MPV 8.0 Neutrophils % 51 % Lymphocytes % 38 % Monocytes % 5 % Eosinophils % 3 % Basophils % 0 % Neutrophils # 3.4 (1.3-7.7) k/uL Lymphocytes # 2.5 (1.0-4.8) k/uL Monocytes # 0.4 (0-1.0) k/uL Eosinophils # 0.2 (0-0.7) k/uL Basophils # 0.0 (0-0.2) k/uL PT 10.2 (9.0-12.0) sec INR 1.0 (<1.2) APTT 26.4 (22.0-30.0) sec Sodium 142 (137-145) mmol/L Potassium 3.9 (3.5-5.1) mmol/L Chloride 105 (98-107) mmol/L Carbon Dioxide 27 (22-30) mmol/L Anion Gap 10 mmol/L BUN 25 H (7-17) mg/dL Creatinine 0.90 (0.52-1.04) mg/dL Est GFR (CKD-EPI)AfAm 74 (>60 ml/min/1.73 sqM) Est GFR (CKD-EPI)NonAf 64 (>60 ml/min/1.73 sqM) Glucose 108 H (74-99) mg/dL Calcium 8.4 (8.4-10.2) mg/dL Magnesium 2.1 (1.6-2.3) mg/dL Total Bilirubin 0.3 (0.2-1.3) mg/dL AST 23 (14-36) U/L ALT 18 (4-34) U/L Alkaline Phosphatase 104 (38-126) U/L Troponin I (0.000-0.034) ng/mL Total Protein 6.6 (6.3-8.2) g/dL Albumin 4.1 (3.5-5.0) g/dL 08/09/22 Range/Units 11:15 WBC (3.8-10.6) k/uL RBC (3.80-5.40) m/uL Hgb (11.4-16.0) gm/dL Hct (34.0-46.0) % MCV (80.0-100.0) fL MCH (25.0-35.0) pg MCHC (31.0-37.0) g/dL RDW (11.5-15.5) % Plt Count (150-450) k/uL MPV Neutrophils % % Lymphocytes % % Monocytes % % Eosinophils % % Basophils % % Neutrophils # (1.3-7.7) k/uL Lymphocytes # (1.0-4.8) k/uL Monocytes # (0-1.0) k/uL Eosinophils # (0-0.7) k/uL Basophils # (0-0.2) k/uL PT (9.0-12.0) sec INR (<1.2) APTT (22.0-30.0) sec Sodium (137-145) mmol/L Potassium (3.5-5.1) mmol/L Chloride (98-107) mmol/L Carbon Dioxide (22-30) mmol/L Anion Gap mmol/L BUN (7-17) mg/dL Creatinine (0.52-1.04) mg/dL Est GFR (CKD-EPI)AfAm (>60 ml/min/1.73 sqM) Est GFR (CKD-EPI)NonAf (>60 ml/min/1.73 sqM) Glucose (74-99) mg/dL Calcium (8.4-10.2) mg/dL Magnesium (1.6-2.3) mg/dL Total Bilirubin (0.2-1.3) mg/dL AST (14-36) U/L ALT (4-34) U/L Alkaline Phosphatase (38-126) U/L Troponin I <0.012 (0.000-0.034) ng/mL Total Protein (6.3-8.2) g/dL Albumin (3.5-5.0) g/dL Disposition Clinical Impression: Acute CHF, Pedal edema, Atrial fibrillation Disposition: ADMITTED IP TO THIS HOSP Condition: Stable Is patient prescribed a controlled substance at d/c from ED?: No Referrals: Titi Martin DO [Primary Care Provider] - 1-2 days Time of Disposition: 13:48
[2022-08-09 11:53] LABS: Albumin 4.1 g/dL (3.5-5.0); Calcium 8.4 mg/dL (8.4-10.2); Magnesium 2.1 mg/dL (1.6-2.3); Potassium 3.9 mmol/L (3.5-5.1); Total Bilirubin 0.3 mg/dL (0.2-1.3); Total Protein 6.6 g/dL (6.3-8.2)
[2022-08-09] MEDS ORDERED: FUROSEMIDE 10 MG/ML 4 ML VIAL IV STA (12:59)
[2022-08-09] MEDS ORDERED: ACETAMINOPHEN TAB 325 MG TAB PO PRN (13:45)
[2022-08-09] MEDS ORDERED: NALOXONE 0.4 MG/ML 1 ML VIAL IV PRN (13:45)
--- NOTE | 2022-08-09 15:01 | P.HPIM ---
History of Present Illness H&P Date: 08/09/22 History of present illness; patient is 72-year-old lady with past medical history significant for CHF, atrial fibrillation who presented to the ER because of chest pressure and shortness of breath for the last 3 days. Patient stated that she has been noticing that she was getting short of breath on exertion, associated with chest pressure. patient also complaining of palpitations during the last 3 days. Patient noticed that her lower extremities were swollen. Patient does admit to gaining a couple of pounds. There was no complain of orthopnea or PND. Because of this worsening shortness of breath patient came to the ER Initial lab work done in the ER showed white count 6.6, hemoglobin 12.2, platelet count 259, PT 10.2 INR 1, sodium 142, potassium 3.9, BUN 25, creatinine 0.9, Chest x-ray showed [id number] CHF. Patient was admitted for further evaluation and treatment REVIEW OF SYSTEMS: CONSTITUTIONAL: No fever, no malaise, no fatigue. HEENT: No recent visual problems or hearing problems. Denied any sore throat. CARDIOVASCULAR: As mentioned in HPI PULMONARY: no cough, no hemoptysis. GASTROINTESTINAL: No diarrhea, no nausea, no vomiting, no abdominal pain. NEUROLOGICAL: No headaches, no weakness, no numbness. HEMATOLOGICAL: Denies any bleeding or petechiae. GENITOURINARY: Denies any burning micturition, frequency, or urgency. MUSCULOSKELETAL/RHEUMATOLOGICAL: Denies any joint pain. Complaining of swelling of lower extremities ENDOCRINE: Denies any polyuria or polydipsia. The rest of the 14-point review of systems is negative. PHYSICAL EXAMINATION: GENERAL: The patient is alert and oriented x3, not in any acute distress. Well developed, well nourished. HEENT: Pupils are round and equally reacting to light. EOMI. No scleral icterus. No conjunctival pallor. Normocephalic, atraumatic. No pharyngeal erythema. No thyromegaly. CARDIOVASCULAR: S1 and S2 present. No murmurs, rubs, or gallops. PULMONARY: Chest is clear to auscultation, no wheezing or crackles. ABDOMEN: Soft, nontender, nondistended, normoactive bowel sounds. No palpable organomegaly. MUSCULOSKELETAL: No joint swelling or deformity. EXTREMITIES: 1+ pitting edema of lower extremities bilaterally. NEUROLOGICAL: Gross neurological examination did not reveal any focal deficits. SKIN: No rashes. Assessment and plan Acute on chronic CHF exacerbation, diastolic dysfunction Chronic Paroximal atrial fibrillation, anticoagulated on Eliquis Diabetes mellitus type 2, controlled Obstructive sleep apnea Morbid obesity, BMI 64.4 Gastroesophageal reflux disease COPD, chronic bronchial asthma, unspecified History of prior nicotine dependence Hypertension Hyperlipidemia Hypothyroidism Gait dysfunction, uses walker Plan; Monitor vital signs Monitor CBC Monitor CMP Strict I's and O's Daily weights Continue IVLasix 40 mg twice a day Continue Synthroid Continue Toprol Continue Eliquis Consult cardiology Past Medical History Past Medical History: Atrial Fibrillation, Asthma, COPD, Diabetes Mellitus, GERD/Reflux, Hyperlipidemia, Hypertension, Osteoarthritis (OA), Skin Disorder, Sleep Apnea/CPAP/BIPAP, Thyroid Disorder Additional Past Medical History / Comment(s): COPD, DM, GERD all improved w/ bariatric surg & wgt loss; Not Using C-Pap at this time, waiting for new one to arrive. URINARY INCONTINENCE. Skin irritation w/ panniculus occ. Uses rolling walker d/t bad knees occ. 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 Roberts)Panni 02/20/19 Past Anesthesia/Blood Transfusion Reactions: No Reported Reaction Past Psychological History: No Psychological Hx Reported Smoking Status: Never smoker Past Alcohol Use History: None Reported Past Drug Use History: None Reported - Past Family History Mother Family Medical History: Cancer Additional Family Medical History / Comment(s): from Lung CA at 83 years old. Father Family Medical History: Cancer Additional Family Medical History / Comment(s): from stomach CA at 37 years old. Medications and Allergies Home Medications Medication Instructions Recorded Confirmed Type Multivitamins, Thera [Multivitamin 2 tab PO DAILY 02/13/19 08/09/22 History (formulary)] Apixaban [Eliquis] 5 mg PO BID 06/09/21 08/09/22 History Cetirizine HCl [Zyrtec] 10 mg PO DAILY 06/09/21 08/09/22 History Glucosamine/Chondr Antonio A Sod [Osteo 2 tab PO DAILY 06/09/21 08/09/22 History Bi-Flex Caplet] Levothyroxine Sodium [Synthroid] 75 mcg PO DAILY 06/09/21 08/09/22 History Omeprazole [PriLOSEC] 40 mg PO DAILY 06/09/21 08/09/22 History Potassium Chloride 10 meq PO DAILY 06/09/21 08/09/22 History Acetaminophen [Tylenol Arthritis] 650 mg PO Q6H PRN 08/09/22 08/09/22 History Furosemide [Lasix] 40 mg PO DAILY 08/09/22 08/09/22 History Metoprolol Succinate [Metoprolol 25 mg PO DAILY 08/09/22 08/09/22 History Succinate ER] Verapamil HCl [Verapamil ER] 240 mg PO DAILY 08/09/22 08/09/22 History Allergies Allergy/AdvReac Type Severity Reaction Status Date / Time No Known Allergies Allergy Verified 08/09/22 12:35 Physical Exam Vitals: Vital Signs Temp Pulse Resp BP Pulse Ox 08/09/22 13:28 98 20 105/65 98 08/09/22 10:53 97.6 F 88 18 120/73 96 Intake and Output 08/08/22 08/09/22 08/09/22 22:59 06:59 14:59 Other: Weight 108.862 kg Results CBC & Chem 7: 08/09/22 11:15 08/09/22 11:15 Labs: Abnormal Lab Results - Last 24 Hours (Table) 08/09/22 Range/Units 11:15 BUN 25 H (7-17) mg/dL Glucose 108 H (74-99) mg/dL
[2022-08-09] MEDS ORDERED: DEXTROSE 50% SYRINGE 50 ML IVP PRN ×2 (16:23)
[2022-08-09 17:41] LABS: Glucose,Whole Blood 145 mg/dL (70-110)
[2022-08-09] MEDS: INSULIN ASPART (NovoLOG) 100 UNIT/ML VIAL SQ SCH ×2 (18:27→21:29)
[2022-08-09] MEDS ORDERED: METOPROLOL SUCCINATE (ER) 25 MG TAB.ER.24H PO STA (18:32)
[2022-08-09 20:05] LABS: Glucose,Whole Blood 106 mg/dL (70-110)
[2022-08-09] MEDS: APIXABAN 5 MG TAB PO SCH (21:56)
[2022-08-09] MEDS: FUROSEMIDE 10 MG/ML 4 ML VIAL IV SCH (21:56)
[2022-08-10] MEDS: LEVOTHYROXINE 75 MCG TAB PO SCH (05:42)
[2022-08-10 05:58] LABS: Glucose,Whole Blood 117 mg/dL (70-110)
[2022-08-10] MEDS: INSULIN ASPART (NovoLOG) 100 UNIT/ML VIAL SQ SCH ×4 (05:59→20:24)
[2022-08-10] MEDS: PANTOPRAZOLE 40 MG TABLET PO SCH (06:16)
[2022-08-10] MEDS ORDERED: METOPROLOL SUCCINATE (ER) 25 MG TAB.ER.24H PO SCH ×2 (09:00→21:00)
[2022-08-10] MEDS: FUROSEMIDE 10 MG/ML 4 ML VIAL IV SCH (09:06)
[2022-08-10] MEDS: APIXABAN 5 MG TAB PO SCH ×2 (09:07→20:31)
[2022-08-10] MEDS: LORATADINE 10 MG TAB PO SCH (09:07)
[2022-08-10] MEDS: POTASSIUM CHLORIDE ER 10 MEQ TAB.ER.PRT PO SCH (09:07)
[2022-08-10] MEDS: VERAPAMIL SR 240 MG TABLET.ER PO SCH (09:07)
[2022-08-10] MEDS ORDERED: PROPAFENONE 225 MG TAB PO STA (09:13)
[2022-08-10] MEDS: METOPROLOL TARTRATE 50 MG TAB PO SCH ×2 (10:58→20:31)
[2022-08-10 11:34] LABS: Glucose,Whole Blood 181 mg/dL (70-110)
--- NOTE | 2022-08-10 11:41 | P.CRDCN ---
History of Present Illness History of present illness: HISTORY OF PRESENT ILLNESS: This is a 72-year-old female with a past medical history significant for paroxysmal atrial fibrillation, congestive heart failure, hypertension, diabetes, and hypothyroidism. Patient follows in the office with Dr. Cedeno. We have been asked to see the patient in consultation for congestive heart failure. Patient examined at the bedside. Patient states over the past 2-3 days she has been feeling more short of breath at home and feeling palpitations. She presented to the emergency room for further evaluation. The patient was found t o be in acute congestive heart failure and was started on IV Lasix. She was also found to be in atrial fibrillation with RVR. At the time of examination she remains in atrial fibrillation with a heart rate in the 90s. She is receiving IV Lasix 40 mg every 12 hours. The patient states that she saw Dr. Bean at the end of June and her Lasix was changed from 40 mg twice a day to 40 mg daily. * EKG reveals atrial fibrillation * Chest xray findings consistent with mild to moderate CHF. * Laboratory data: WBC 6.6. Hemoglobin 12.2. Platelet count 259. Sodium 142. Potassium 3.9. BUN 25. Creatinine 0.90. Troponin negative 1. ProBNP 2019. * Current home cardiac medications include Eliquis 5mg BID, Lasix 40 mg daily, metoprolol succinate 25 mg twice a day, and verapamil 240 mg daily * Most recent echocardiogram obtained in May 2021 revealing ejection fraction 55-60% REVIEW OF SYSTEMS: At the time of my exam: CONSTITUTIONAL: Denies fever or chills. HEENT: Denies blurred vision, vision changes, or eye pain. Denies hemoptysis CARDIOVASCULAR: Denies chest pain. Denies orthopnea. Denies PND. Denies palpitations RESPIRATORY: Denies shortness of breath. GASTROINTESTINAL: Denies abdominal pain. Denies nausea or vomiting. HEMATOLOGIC: Denies bleeding disorders. GENITOURINARY: Denies any blood in urine. SKIN: Denies pruitis. Denies rash. PHYSICAL EXAM: VITAL SIGNS: Reviewed. GENERAL: Well-developed in no acute distress. HEENT: Head is normocephalic. Pupils are equal, round. Sclerae anicteric. Mucous membranes of the mouth are moist. Neck supple. No JVD or thyromegaly LUNGS: Respirations even and unlabored. Lungs essentially clear to auscultation bilaterally. HEART: Irregular rate and rhythm. S1 and S2 heard. ABDOMEN: Soft. Nondistended. Nontender. EXTREMITIES: Normal range of motion. No clubbing or cyanosis. Peripheral pulses intact. No lower extremity edema NEUROLOGIC: Awake and alert. Oriented x 3. ASSESSMENT: Palpitations Shortness of breath Paroxysmal atrial fibrillation Acute on chronic heart failure with preserved ejection fraction Hypertension Diabetes Hypothyroidism PLAN: Obtain 2-D echo to assess cardiac structure and function Continue home cardiac medications Discontinue IV Lasix. Begin oral Lasix 40 mg twice a day Daily weights, accurate I&O, and monitoring of kidney function Change metoprolol to metoprolol tartrate 50 mg twice a day Check TSH Continue telemetry monitoring Further recommendations pending patient's course Nurse practitioner note has been reviewed by physician. Signing provider agrees with the documented findings, assessment, and plan of care. Past Medical History Past Medical History: Atrial Fibrillation, Asthma, COPD, Diabetes Mellitus, GERD/Reflux, Hyperlipidemia, Hypertension, Osteoarthritis (OA), Skin Disorder, Sleep Apnea/CPAP/BIPAP, Thyroid Disorder Additional Past Medical History / Comment(s): COPD, DM, GERD all improved w/ bariatric surg & wgt loss; URINARY INCONTINENCE. Skin irritation w/ panniculus occ. Uses rolling walker and cane d/t bad knees occ. 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 Roberts)Panni 02/20/19 Past Anesthesia/Blood Transfusion Reactions: No Reported Reaction Past Psychological History: No Psychological Hx Reported Smoking Status: Never smoker Past Alcohol Use History: None Reported Additional Past Alcohol Use History / Comment(s): QUIT SMOKING IN "THE 80'S," SMOKED LESS THAN 1/2PPD FOR APPROX 10 YRS Past Drug Use History: None Reported - Past Family History Mother Family Medical History: Cancer, Congestive Heart Failure (CHF), COPD, Myocardial Infarction ([place]) Additional Family Medical History / Comment(s): from Lung CA at 83 years old. stents put in Father Family Medical History: Cancer Additional Family Medical History / Comment(s): from stomach CA at 37 years old. Sister(s) Family Medical History: AICD/Pacemaker, COPD Additional Family Medical History / Comment(s): lymphedema, valve replacement Medications and Allergies Home Medications Medication Instructions Recorded Confirmed Type Multivitamins, Thera [Multivitamin 2 tab PO DAILY 02/13/19 08/09/22 History (formulary)] Apixaban [Eliquis] 5 mg PO BID 06/09/21 08/09/22 History Cetirizine HCl [Zyrtec] 10 mg PO DAILY 06/09/21 08/09/22 History Glucosamine/Chondr Antonio A Sod [Osteo 2 tab PO DAILY 06/09/21 08/09/22 History Bi-Flex Caplet] Levothyroxine Sodium [Synthroid] 75 mcg PO DAILY 06/09/21 08/09/22 History Omeprazole [PriLOSEC] 40 mg PO DAILY 06/09/21 08/09/22 History Potassium Chloride 10 meq PO DAILY 06/09/21 08/09/22 History Acetaminophen [Tylenol Arthritis] 650 mg PO Q6H PRN 08/09/22 08/09/22 History Furosemide [Lasix] 40 mg PO DAILY 08/09/22 08/09/22 History Metoprolol Succinate [Metoprolol 25 mg PO DAILY 08/09/22 08/09/22 History Succinate ER] Verapamil HCl [Verapamil ER] 240 mg PO DAILY 08/09/22 08/09/22 History Allergies Allergy/AdvReac Type Severity Reaction Status Date / Time No Known Allergies Allergy Verified 08/09/22 12:35 Physical Exam Vitals: Vital Signs Temp Pulse Pulse Resp BP BP Pulse Ox 08/10/22 09:10 97.8 F 91 18 120/78 96 08/10/22 03:53 83 15 110/70 94 L 08/09/22 23:28 100 16 118/71 94 L 08/09/22 21:31 98.1 F 107 H 17 119/67 94 L 08/09/22 17:44 97.8 F 70 18 135/75 97 08/09/22 15:34 97.8 F 98 20 104/52 95 08/09/22 13:28 98 20 105/65 98 Intake and Output 08/09/22 08/10/22 08/10/22 22:59 06:59 14:59 Intake Total 1198 Output Total 1200 Balance 1198 -1200 Intake: Oral 1198 Output: Urine 1200 Other: Voiding Method Toilet Toilet Toilet Diaper Diaper Diaper External Catheter External Catheter External Catheter # Voids 2 Weight 108.862 kg 126.5 kg Results 08/09/22 11:15 08/09/22 11:15 Cardiac Enzymes 08/09/22 08/09/22 Range/Units 11:15 11:15 AST 23 (14-36) U/L Troponin I <0.012 (0.000-0.034) ng/mL Coagulation 08/09/22 Range/Units 11:15 PT 10.2 (9.0-12.0) sec APTT 26.4 (22.0-30.0) sec CBC 08/09/22 Range/Units 11:15 WBC 6.6 (3.8-10.6) k/uL RBC 4.17 (3.80-5.40) m/uL Hgb 12.2 (11.4-16.0) gm/dL Hct 37.8 (34.0-46.0) % Plt Count 259 (150-450) k/uL Comprehensive Metabolic Panel 08/09/22 Range/Units 11:15 Sodium 142 (137-145) mmol/L Potassium 3.9 (3.5-5.1) mmol/L Chloride 105 (98-107) mmol/L Carbon Dioxide 27 (22-30) mmol/L BUN 25 H (7-17) mg/dL Creatinine 0.90 (0.52-1.04) mg/dL Glucose 108 H (74-99) mg/dL Calcium 8.4 (8.4-10.2) mg/dL AST 23 (14-36) U/L ALT 18 (4-34) U/L Alkaline Phosphatase 104 (38-126) U/L Total Protein 6.6 (6.3-8.2) g/dL Albumin 4.1 (3.5-5.0) g/dL Current Medications Generic Name Dose Route Start Last Admin Trade Name Freq PRN Reason Stop Dose Admin Acetaminophen 650 mg 08/09/22 13:45 Acetaminophen Tab 325 Mg Tab PO Q6HR PRN Mild Pain or Fever > 100.5 Apixaban 5 mg 08/09/22 21:00 08/10/22 09:07 Apixaban 5 Mg Tab PO 5 mg BID MICHELLE Administration Protocol Dextrose/Water 25 ml 08/09/22 16:23 Dextrose 50% Syringe 50 Ml IVP PER PROTOCOL PRN Hypoglycemia Protocol Dextrose/Water 50 ml 08/09/22 16:23 Dextrose 50% Syringe 50 Ml IVP PER PROTOCOL PRN Hypoglycemia Protocol Furosemide 40 mg 08/10/22 16:00 Furosemide 40 Mg Tab PO BID@0900,1600 [facility] Insulin Aspart 0 unit 08/09/22 17:30 08/10/22 05:59 Insulin Aspart (Novolog) 100 Unit/Ml Vial SQ Not Given ACHS MICHELLE Protocol Levothyroxine Sodium 75 mcg 08/10/22 06:30 08/10/22 05:42 Levothyroxine 75 Mcg Tab PO 75 mcg DAILY@0630 MICHELLE Administration Loratadine 10 mg 08/10/22 09:00 08/10/22 09:07 Loratadine 10 Mg Tab PO 10 mg DAILY MICHELLE Administration Metoprolol Tartrate 50 mg 08/10/22 09:15 Metoprolol Tartrate 50 Mg Tab PO BID MICHELLE Naloxone HCl 0.2 mg 08/09/22 13:45 Naloxone 0.4 Mg/Ml 1 Ml Vial IV Q2M PRN Opioid Reversal Pantoprazole Sodium 40 mg 08/10/22 07:30 08/10/22 06:16 Pantoprazole 40 Mg Tablet PO 40 mg [id number] MICHELLE Administration Potassium Chloride 10 meq 08/10/22 09:00 08/10/22 09:07 Potassium Chloride Er 10 Meq Tab.Er.Prt PO 10 meq DAILY MICHELLE Administration Verapamil HCl 240 mg 08/10/22 09:00 08/10/22 09:07 Verapamil Sr 240 Mg Tablet.Er PO 240 mg DAILY MICEHLLE Administration Intake and Output 08/09/22 08/10/22 08/10/22 22:59 06:59 14:59 Intake Total 1198 Output Total 1200 Balance 1198 -1200 Intake: Oral 1198 Output: Urine 1200 Other: Voiding Method Toilet Toilet Toilet Diaper Diaper Diaper External Catheter External Catheter External Catheter # Voids 2 Weight 108.862 kg 126.5 kg 08/09/22 11:15 08/09/22 11:15
[2022-08-10 14:19] LABS: T4, Free (Free Thyroxine) 1.39 ng/dL (0.78-2.19)
[2022-08-10] MEDS: FUROSEMIDE 40 MG TAB PO SCH (16:09)
[2022-08-10 16:51] LABS: Glucose,Whole Blood 132 mg/dL (70-110)
[2022-08-10 20:25] LABS: Glucose,Whole Blood 109 mg/dL (70-110)
[2022-08-10 20:31] VITALS: TEMP 97.6
--- NOTE | 2022-08-10 23:21 | P.PN ---
Subjective Progress Note Date: 08/10/22 History of present illness; patient is 72-year-old lady with past medical history significant for CHF, atrial fibrillation who presented to the ER because of chest pressure and shortness of breath for the last 3 days. Patient stated that she has been noticing that she was getting short of breath on exertion, associated with chest pressure. patient also complaining of palpitations during the last 3 days. Patient noticed that her lower extremities were swollen. Patient does admit to gaining a couple of pounds. There was no complain of orthopnea or PND. Because of this worsening shortness of breath patient came to the ER Initial lab work done in the ER showed white count 6.6, hemoglobin 12.2, platelet count 259, PT 10.2 INR 1, sodium 142, potassium 3.9, BUN 25, creatinine 0.9, Chest x-ray showed [id number] CHF. Patient was admitted for further evaluation and treatment 08/10/2022 Patient is seen and evaluated in follow-up today with medications being adjusted with cardiology following closely. Patient has been transitioned oral Lasix 40 mg twice daily. 2-D echo is ordered and pending and cardiology making adjustments to her Rythmol and changing to Toprol-XL and recommend telemetry monitoring overnight with possible discharge in 24 hours. Patient's BNP was 2020 and has diuresed well. Encouraged increased activity as tolerated and continue telemetry monitoring. Patient is currently afebrile denies chest pain or palpitations. Patient reports she did have a rough night and morning and did have an episode of nausea that has subsided. Patient feels that was the medic ation changes. Review of systems: Constitutional: No reports of fatigue, fever, or chills Cardiovascular: No reports of chest pain, reports occasional palpitations Respiratory: No reports of shortness of breath or cough GI: reports of intermittent nausea with an episode of vomiting : No reports of dysuria or retention Neurovascular: No reports of weakness or numbness All medications have been reviewed PHYSICAL EXAMINATION: GENERAL: The patient is alert and oriented x3, not in any acute distress. Well developed, well nourished. Morbidly obese HEENT: Pupils are round and equally reacting to light. EOMI. No scleral icterus. No conjunctival pallor. Normocephalic, atraumatic. No pharyngeal erythema. No thyromegaly. CARDIOVASCULAR: S1 and S2 muffled, irregular PULMONARY: Chest is clear to auscultation, no wheezing or crackles. ABDOMEN: Soft, obese, nontender, nondistended, normoactive bowel sounds. No palpable organomegaly. MUSCULOSKELETAL: No joint swelling or deformity. EXTREMITIES: 1+ pitting edema of lower extremities bilaterally with some improvement. NEUROLOGICAL: Gross neurological examination did not reveal any focal deficits. SKIN: No rashes. Assessment: Acute on chronic CHF exacerbation, diastolic dysfunction Chronic paroxysmal atrial fibrillation, anticoagulated on Eliquis Diabetes mellitus type 2, controlled Obstructive sleep apnea Morbid obesity with a BMI 49.4 Gastroesophageal reflux disease COPD, chronic bronchial asthma, unspecified, not in exacerbation History of prior nicotine dependence Hypertension Hyperlipidemia Hypothyroidism Gait dysfunction, uses walker GI prophylaxis next line DVT prophylaxis Full code Plan: Recommend continue current medications and management with cardiology following. 2-D echo is ordered and pending along with a TSH Patient having adjustments to medications per cardiology and did have an episode of nausea with vomiting which has resolved Recommend continue telemetry monitoring and will discuss further with cardiology about discharge planning Patient was maintained on IV Lasix and has been transitioned oral Lasix recommend follow-up labs Encouraged increased activity as tolerated Possible discharge in 24 hours The impression and plan of care has been dictated by Malaika Majano, Prac titioner as directed. Dr. Sp MD I have performed a history and examination and MDM of this patient, discussed the same with the dictator, and agree with the dictator's assessment and plan as written ,documented as a scribe. Based on total visit time, I have performed more than 50% of the visit. Objective - Vital Signs Vital signs: Vital Signs Temp 97.8 F 08/10/22 09:10 Pulse 91 08/10/22 09:10 Resp 18 08/10/22 09:10 BP 120/78 08/10/22 09:10 Pulse Ox 96 08/10/22 09:10 FiO2 Intake & Output 08/09/22 08/10/22 08/10/22 18:59 06:59 18:59 Intake Total 658 540 Output Total 1200 Balance 658 -660 Weight 108.862 kg 126.5 kg Intake: Oral 658 540 Output: Urine 1200 Other: Voiding Method Toilet Toilet Diaper Diaper External Catheter External Catheter # Voids 2 - Labs CBC & Chem 7: 08/09/22 11:15 08/09/22 11:15 Labs: Abnormal Lab Results - Last 24 Hours (Table) 08/09/22 08/09/22 08/10/22 Range/Units 11:15 17:39 05:57 BUN 25 H (7-17) mg/dL Glucose 108 H (74-99) mg/dL POC Glucose (mg/dL) 145 H 117 H (70-110) mg/dL
[2022-08-11 06:11] LABS: Glucose,Whole Blood 133 mg/dL (70-110)
[2022-08-11] MEDS: INSULIN ASPART (NovoLOG) 100 UNIT/ML VIAL SQ SCH ×2 (06:15→11:34)
[2022-08-11] MEDS: PANTOPRAZOLE 40 MG TABLET PO SCH (06:16)
[2022-08-11] MEDS: LEVOTHYROXINE 75 MCG TAB PO SCH (06:16)
[2022-08-11 08:10] VITALS: RESP 16
[2022-08-11 08:40] LABS: Calcium 8.2 mg/dL (8.4-10.2); Potassium 3.9 mmol/L (3.5-5.1)
[2022-08-11] MEDS: METOPROLOL TARTRATE 50 MG TAB PO SCH (08:48)
[2022-08-11] MEDS: APIXABAN 5 MG TAB PO SCH (08:48)
[2022-08-11] MEDS: POTASSIUM CHLORIDE ER 10 MEQ TAB.ER.PRT PO SCH (08:48)
[2022-08-11] MEDS: LORATADINE 10 MG TAB PO SCH (08:48)
[2022-08-11] MEDS: FUROSEMIDE 40 MG TAB PO SCH ×2 (08:48→16:28)
[2022-08-11] MEDS: VERAPAMIL SR 240 MG TABLET.ER PO SCH (08:48)
[2022-08-11 11:30] VITALS: BP 114/72; PULSE 54
[2022-08-11 11:35] LABS: Glucose,Whole Blood 135 mg/dL (70-110)
--- NOTE | 2022-08-11 12:06 | P.PN ---
Subjective Progress Note Date: 08/11/22 HISTORY OF PRESENT ILLNESS: This is a 72-year-old female with a past medical history significant for paroxysmal atrial fibrillation, congestive heart failure, hypertension, diabetes, and hypothyroidism. Patient follows in the office with Dr. Cedeno. We have been asked to see the patient in consultation for congestive heart failure. Patient examined at the bedside. Patient states over the past 2-3 days she has been feeling more short of breath at home and feeling palpitations. She presented to the emergency room for further evaluation. The patient was found to be in acute congestive heart failure and was started on IV Lasix. She was also found to be in atrial fibrillation with RVR. At the time of examination she remains in atrial fibrillation with a heart rate in the 90s. She is receiving IV Lasix 40 mg every 12 hours. The patient states that she saw Dr. Bean at the end of June and her Lasix was changed from 40 mg twice a day to 40 mg daily. * EKG reveals atrial fibrillation * Chest xray findings consistent with mild to moderate CHF. * Laboratory data: WBC 6.6. Hemoglobin 12.2. Platelet count 259. Sodium 142. Potassium 3.9. BUN 25. Creatinine 0.90. Troponin negative 1. ProBNP 2019. * Current home cardiac medications include Eliquis 5mg BID, Lasix 40 mg daily, metoprolol succinate 25 mg twice a day, and verapamil 240 mg daily * Most recent echocardiogram obtained in May 2021 revealing ejection fraction 55-60% 08/11/2022 Patient examined this morning at the bedside. Patient denies chest pain or pressure. She denies shortness of breath. Patient is maintaining sinus rhythm with heart rate in the 50s. She is hoping to be discharged home today. PHYSICAL EXAM: VITAL SIGNS: Reviewed. GENERAL: Well-developed in no acute distress. HEENT: Head is normocephalic. Pupils are equal, round. Sclerae anicteric. Mucous membranes of the mouth are moist. Neck supple. No JVD or thyromegaly LUNGS: Respirations even and unlabored. Lungs essentially clear to auscultation bilaterally. HEART: Regular rate and rhythm. S1 and S2 heard. ABDOMEN: Soft. Nondistended. Nontender. EXTREMITIES: Normal range of motion. No clubbing or cyanosis. Peripheral pulses intact. No lower extremity edema NEUROLOGIC: Awake and alert. Oriented x 3. ASSESSMENT: Palpitations Shortness of breath Paroxysmal atrial fibrillation, currently maintaining sinus mechanism Acute on chronic heart failure with preserved ejection fraction Hypertension Diabetes Hypothyroidism PLAN: Decrease verapamil to 180 mg daily Continue current dose of metoprolol Patient is stable for discharge home today from a cardiac standpoint Patient to follow-up post discharge with Dr. Cedeno Nurse practitioner note has been reviewed by physician. Signing provider agrees with the documented findings, assessment, and plan of care. Objective - Vital Signs Vital signs: Vital Signs Temp 97.6 F 08/11/22 08:09 Pulse 54 L 08/11/22 11:29 Resp 16 08/11/22 11:29 BP 114/72 08/11/22 11:29 Pulse Ox 97 08/11/22 11:29 FiO2 Intake & Output 08/10/22 08/11/22 08/11/22 18:59 06:59 18:59 Intake Total 660 Balance 660 Weight 125.5 kg Intake: Oral 660 Other: Voiding Method Toilet Toilet Toilet Diaper Diaper Diaper External Catheter External Catheter - Labs CBC & Chem 7: 08/09/22 11:15 08/11/22 07:37 Labs: Abnormal Lab Results - Last 24 Hours (Table) 08/10/22 08/10/22 08/11/22 Range/Units 11:25 16:48 06:09 Carbon Dioxide (22-30) mmol/L BUN (7-17) mg/dL Creatinine (0.52-1.04) mg/dL Glucose (74-99) mg/dL POC Glucose (mg/dL) 132 H 133 H (70-110) mg/dL Calcium (8.4-10.2) mg/dL TSH 4.770 H (0.465-4.680) mIU/L 08/11/22 08/11/22 Range/Units 07:37 11:33 Carbon Dioxide 33 H (22-30) mmol/L BUN 26 H (7-17) mg/dL Creatinine 1.08 H (0.52-1.04) mg/dL Glucose 122 H (74-99) mg/dL POC Glucose (mg/dL) 135 H (70-110) mg/dL Calcium 8.2 L (8.4-10.2) mg/dL TSH (0.465-4.680) mIU/L
--- NOTE | 2022-08-11 14:18 | P.DS ---
Providers Date of admission: 08/09/22 13:46 Expected date of discharge: 08/11/22 Attending physician: Titi Martin Consults: 08/09/22 13:45 Consult Physician Routine Consulting Provider: Conor Moses Consult Reason/Comments: CHF Do you want consulting provider notified?: Yes Primary care physician: Titi Martin Hospital Course: Final Diagnoses: Acute on chronic CHF exacerbation, diastolic dysfunction Chronic paroxysmal atrial fibrillation, anticoagulated on Eliquis Diabetes mellitus type 2, controlled Obstructive sleep apnea Morbid obesity with a BMI 49.4 Gastroesophageal reflux disease COPD, chronic bronchial asthma, unspecified, not in exacerbation History of prior nicotine dependence Hypertension Hyperlipidemia Hypothyroidism Gait dysfunction, uses walker Hospital course: This a 72-year-old female admitted with acute CHF exacerbation,Chronic paroxysmal atrial fibrillation and multiple other medical issues. Revenue Cycle Analyst canceled 2-D echo and will perform outpatient in clinic. IV Lasix transitioned to oral, 40 mg twice a day. Beta rita and verapamil adjusted. Tachycardia resolved, currently heart rates 50s to 60s. Creatinine currently 1.08. Maintaining O2 sats of 96% on room air. Significant clinical improvement. Cleared by cardiology for discharge. Patient will be discharged home today in a stable condition with guarded prognosis. The impression and plan of care has been dictated as directed. : I performed a history and examination of this patient, discussed the same with the dictator. I agree with the dictator's note ,documented as a scribe. Any additional findings or plans will be noted. Patient Condition at Discharge: Stable Plan - Discharge Summary Discharge Rx Participant: Yes New Discharge Prescriptions: New Verapamil Sr [Isoptin Sr] 180 mg PO DAILY #30 tab Metoprolol Tartrate [Lopressor] 50 mg PO BID #60 tab Furosemide [Lasix] 40 mg PO BID@0900,1600 #60 tab Continue Multivitamins, Thera [Multivitamin (formulary)] 2 tab PO DAILY Potassium Chloride 10 meq PO DAILY Omeprazole [PriLOSEC] 40 mg PO DAILY Levothyroxine Sodium [Synthroid] 75 mcg PO DAILY Glucosamine/Chondr Antonio A Sod [Osteo Bi-Flex Caplet] 2 tab PO DAILY Acetaminophen [Tylenol Arthritis] 650 mg PO Q6H PRN PRN Reason: Pain Or Fever > 100.5 Cetirizine HCl [Zyrtec] 10 mg PO DAILY Apixaban [Eliquis] 5 mg PO BID Discontinued Verapamil HCl [Verapamil ER] 240 mg PO DAILY Furosemide [Lasix] 40 mg PO DAILY Metoprolol Succinate [Metoprolol Succinate ER] 25 mg PO DAILY Discharge Medication List Multivitamins, Thera [Multivitamin (formulary)] 2 tab PO DAILY 02/13/19 [History] Apixaban [Eliquis] 5 mg PO BID 06/09/21 [History] Cetirizine HCl [Zyrtec] 10 mg PO DAILY 06/09/21 [History] Glucosamine/Chondr Antonio A Sod [Osteo Bi-Flex Caplet] 2 tab PO DAILY 06/09/21 [History] Levothyroxine Sodium [Synthroid] 75 mcg PO DAILY 06/09/21 [History] Omeprazole [PriLOSEC] 40 mg PO DAILY 06/09/21 [History] Potassium Chloride 10 meq PO DAILY 06/09/21 [History] Acetaminophen [Tylenol Arthritis] 650 mg PO Q6H PRN 08/09/22 [History] Furosemide [Lasix] 40 mg PO BID@0900,1600 #60 tab 08/11/22 [Rx] Metoprolol Tartrate [Lopressor] 50 mg PO BID #60 tab 08/11/22 [Rx] Verapamil Sr [Isoptin Sr] 180 mg PO DAILY #30 tab 08/11/22 [Rx] Follow up Appointment(s)/Referral(s): Titi Martin DO [Primary Care Provider] - 08/12/22 10:20 am Cedric Cedeno MD [STAFF PHYSICIAN] - 08/18/22 11:30 am (at Main Office [address]) Patient Instructions/Handouts: Heart Failure (DC), A-fib (Atrial Fibrillation) (DC)
[2022-08-12] MEDS ORDERED: VERAPAMIL SR 180 MG TABLET.ER PO SCH (09:00)
== END 2022-08-11 17:19 | disposition home or self-care (01) ==
LOC: EC 10:49 → INTOOBSV 13:46 → 3SCARD 13:46 → UNDODISIN 08-11 17:19
PROVIDERS: ADMIT Family Medicine; ATTEND Family Medicine
DX: I11.0 Hypertensive heart disease with heart failure (principal); I50.33 Acute on chronic diastolic (congestive) heart failure; I48.0 Paroxysmal atrial fibrillation; E11.9 Type 2 diabetes mellitus without complications; G47.33 Obstructive sleep apnea (adult) (pediatric); E66.01 Morbid (severe) obesity due to excess calories; Z68.42 Body mass index [BMI] 45.0-49.9, adult; E03.9 Hypothyroidism, unspecified; E78.5 Hyperlipidemia, unspecified; J44.9 Chronic obstructive pulmonary disease, unspecified; K21.9 Gastro-esophageal reflux disease without esophagitis; I45.10 Unspecified right bundle-branch block; M19.90 Unspecified osteoarthritis, unspecified site; R26.9 Unspecified abnormalities of gait and mobility; Z79.01 Long term (current) use of anticoagulants; Z79.890 Hormone replacement therapy; Z79.899 Other long term (current) drug therapy; Z98.84 Bariatric surgery status; Z90.710 Acquired absence of both cervix and uterus; Z98.42 Cataract extraction status, left eye; Z98.41 Cataract extraction status, right eye; Z98.890 Other specified postprocedural states; Z82.49 Family history of ischemic heart disease and other diseases of the circulatory system; Z82.5 Family history of asthma and other chronic lower respiratory diseases; Z80.1 Family history of malignant neoplasm of trachea, bronchus and lung; Z80.0 Family history of malignant neoplasm of digestive organs
CPT/HCPCS: 96376 ×2; 96374; 99285; 36415; 93005; 84439; 83880; 80053; 80048; 84443; 83735; 84484; 85025; 85610; 85730; 71046; G0378 ×3; J1940 ×2

== ENCOUNTER → 2022-08-24 | Outpatient (CLI) | payer MEDICARE ==
--- NOTE | 2022-08-24 13:37 | MM ---
Reason for Exam: Additional evaluation requested from prior study. Last screening mammogram was performed 12 month(s) ago. Patient History: Menarche at age 12. First Full-Term at age 26. Hysterectomy at age 49. Postmenopausal. Risk Values: Rylee 5 year model risk: 2.0%. NCI Lifetime model risk: 5.1%. Prior Study Comparison: 03/08/2012 Screening Mammogram, [place]. 12/20/2013 Screening Mammogram, [place]. 04/30/2016 Bilateral Screening Mammogram, [facility]. 03/08/2018 Bilateral Screening Mammogram, [facility]. 06/21/2020 Bilateral Screening Mammogram, [facility]. 08/14/2021 Bilateral Screening Mammogram, [facility]. 08/19/2021 Right Diagnostic Mammogram, [facility]. 02/20/2022 Right MG 3D diag mammo w/cad RT, [facility]. Tissue Density: There are scattered fibroglandular densities. Findings: Analyzed By CAD. Pattern appears symmetrical No suspicious groups of microcalcifications, spiculated or lobular masses, architectural distortion or other secondary signs of malignancy are mammographically apparent. Overall Assessment: Benign, BI-RAD 2 Management: Screening Mammogram of both breasts in 1 year. A negative mammogram report should not preclude additional follow up of suspicious palpable abnormalities. Patient should continue monthly self breast exam. A clinical breast exam by your physician is recommended on an annual basis and results should be correlated with mammographic findings. Electronically signed and approved by: Rudy Rios D.O. Radiologis
--- NOTE | 2022-08-24 17:01 | BD ---
EXAMINATION TYPE: Axial Bone Density DATE OF EXAM: 08/24/2022 CLINICAL HISTORY: 72 years old Female. ICD-10 CODE: Z78.0 POST MENOP W/O HRT Height: 5 ft 2 in Weight: 274 FRAX RISK QUESTIONS: Alcohol (3 or more units per day): no Family History (Parent hip fracture): no Glucocorticoids (More than 3mos): no (Ex: prednisone, prednisolone, methylprednisolone, dexamethasone, and hydrocortisone). History of Fracture in Adulthood: yes Secondary Osteoporosis: 1. Type 1 Diabetes: no 2. Hyperthyroidism: no 3. Menopause before 45: no 4. Malnutrition: no 5. Chronic liver disease: no Rheumatoid Arthritis: no Current Tobacco Use: no RISK FACTORS HISTORY OF: Surgery to Spine/Hip(right/left)/Wrist (right/left): rt wrist When: 2005 Family History of Osteoporosis: no Active: no Diet low in dairy products/other sources of calcium: no Postmenopausal woman: yes Take estrogen and/or progesterone medications: none now Lost more than 2 inches in height since high school: no Frequent falls: walks with a walker Poor Health: fair Hyperparathyroidism: no Adrenal Insufficiency: no MEDICATIONS: Thyroid Medications: yes Which medication: levothyroxine How Long: since age 11 Additional Medications: levothyroxine, furosemide, omeprazole, eliquis, potassium, verapamil, metopro lol, tartrate Additional History: EXAM MEASUREMENTS: Bone mineral densitometry was performed using the [employer] System. Bone mineral density as measured about the Lumbar spine is: ----- L1-L4(G/cm2): 1.399 T Score Values are as follows: ----- L1: 0.4 ----- L2: 1.7 ----- L3: 2.7 ----- L4: 2.3 ----- L1-L4: 1.8 Z Score Values are as follows: ----- L1: 0.9 ----- L2: 2.2 ----- L3: 3.3 ----- L4: 2.9 ----- L1-L4: 2.4 baseline Bone mineral density about the R hip (g/cm2): 0.952 Bone mineral density about the L hip (g/cm2): 0.946 T Score values are as follows: -----R Neck: -0.6 -----L Neck: -0.7 -----R Total: -1.4 -----L Total: -1.0 Z Score values are as follows: -----R Neck: 0.4 -----L Neck: 0.4 -----R Total: -0.7 -----L Total: -0.3 baseline FRAX%s: The graph provided illustrates a 11.0 % chance for a major osteoporotic fx and a 0.9 % chance for the hips probability for fx in 10 years time. IMPRESSION: Osteopenia (T Score between -2.5 and -1). There is slightly increased risk of fracture and the patient may be considered for treatment. Re-Screen 2-5 years. NOTE: T-SCORE=SD OF THE YOUNG ADULT MEAN.
== END | disposition home or self-care (01) ==
LOC: RADBDWWP 12:30
PROVIDERS: ATTEND Family Medicine
DX: M85.851 Other specified disorders of bone density and structure, right thigh (principal); R92.8 Other abnormal and inconclusive findings on diagnostic imaging of breast; Z78.0 Asymptomatic menopausal state
CPT/HCPCS: 77080; 77066; G0279; 77062

== ENCOUNTER → 2022-10-15 | Outpatient (CLI) | payer MEDICARE ==
--- NOTE | 2022-10-15 14:24 | P.PN ---
Subjective DATE: 10/15/2022 FOLLOW UP VISIT. Patient with obstructive sleep apnea hypopnea syndrome return to sleep center for follow-up visit. Information from previous visit have been reviewed. Patient is using BPAP equipment every night for the whole night, getting PAP supplies in time. The patient does not have significant problems with the mask, PAP unit and humidification. [place] sleepiness scale is 9, which is borderline. I checked information from BPAP unit. BPAP unit pressure maximal inspiratory pressure 24, minimal expiratory pressure 16, pressure-support 4, average was 21. 8/17.8 cm H2O. Usage is 100 % for more then 4 hours, average 5.5 hours per night. Leak is high 72 l/m. Apnea Hypopnea Index is 1.8, which is normal. Patient is on oxygen supplement during the sleep and if necessary during the day. MEDICATIONS:1. Levothyroxine 2. Furosemide 3. Eliquis 4. Omeprazole 5. Metoprolol 6. Verapamil During physical exam: GENERAL: A pleasant patient without any distress. VITAL SIGNS: BP 131/70, HR 58, RR 16 , weight 284.8, temperature 98.0, oxygen saturation at room air 92 % . HEENT: PERRLA, EOMI.low position of soft palate, Mallapati 3 . NECK: Supple. No JVD. LUNGS: Clear to percussion and to auscultation. Good air exchange. No wheezing or rhonchi. HEART: S1, S2 regular. ABDOMEN: Soft and nontender. Obese EXTREMITIES: No clubbing or cyanosis. 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 No focal deficit. Impressions: 1. Obstructive sleep apnea-hypopnea syndrome. Patient demonstrated great compliance with treatment, benefiting from treatment. 2. Obesity, patient increased his weight on 4 pounds comparing with previous visit. 3. History of recent episode of atrial fibrillation. Regular rhythm at the present time. 4. COPD. 5. History of asthma. 6. History of diabetes mellitus. 7. Status post gastric bypass surgery in 2018. 8. History of acid reflux. Plan: 1. Continue using PAP equipment every night for the whole night. We may repeat oximetry during the sleep on CPAP to evaluate necessity for additional oxygen supplement during sleep. 2. To change air filter at least 1-2 times per month. 3. PAP unit should stay lower then position of the head. 4. Advised patient to remove all remaining water from humidifier canister daily and make it dry after each usage. Refill canister with fresh distilled water before each usage. 5. Sleep hygiene with regular time in bed for at least 8 hours. 6. Precautions related to driving. No driving if feel any sleepiness. 7. I will maintain prescription for PAP supplies including mask, tube, filters. 8. Watching and losing weight. 9. Follow up visit in 6 months or earlier if patient has any problems. Thank you very much for allowing me to participate in the management of your p atient. Doc Garcia MD, PhD, FAASM. Diplomat of [place] [employer], Sleep Medicine Board by [place] [employer] [facility] [place]
== END ==
LOC: 3 N SLEEP 13:46
PROVIDERS: ATTEND Internal Medicine
DX: G47.33 Obstructive sleep apnea (adult) (pediatric) (principal); E66.9 Obesity, unspecified; E11.9 Type 2 diabetes mellitus without complications; K21.9 Gastro-esophageal reflux disease without esophagitis; J44.9 Chronic obstructive pulmonary disease, unspecified; I48.91 Unspecified atrial fibrillation; Z98.84 Bariatric surgery status; Z87.891 Personal history of nicotine dependence
CPT/HCPCS: 99212

== ENCOUNTER → 2023-01-22 | Outpatient (CLI) | payer MEDICARE ==
[2023-01-22 14:45] LABS: African American GFR (CKD) >90 (>60 ml/min/1.73 sqM); Anion Gap 11 mmol/L; Blood Urea Nitrogen 29 mg/dL (7-17); Calcium 8.3 mg/dL (8.4-10.2); Carbon Dioxide 33 mmol/L (22-30); Chloride 95 mmol/L (98-107); Glucose 106 mg/dL (74-99); Non-African American GFR(CKD) 79 (>60 ml/min/1.73 sqM); Potassium 3.3 mmol/L (3.5-5.1); Sodium 139 mmol/L (137-145)
[2023-01-22 14:55] LABS: NT-Pro-B-Type Natriuretic Pept 259 pg/mL
== END | disposition home or self-care (01) ==
LOC: LABWHC1 10:59
PROVIDERS: ATTEND Internal Medicine Cardiovascular Disease
DX: I50.32 Chronic diastolic (congestive) heart failure (principal)
CPT/HCPCS: 36415; 80048; 83880; 84443

== ENCOUNTER 2023-02-14 09:17 | Inpatient (IN) | payer MEDICARE ==
--- NOTE | 2023-02-14 09:40 | ED ---
General Adult HPI - General Chief complaint: Syncope Stated complaint: syncope Time Seen by Provider: 02/14/23 09:25 Source: patient, RN notes reviewed, old records reviewed Mode of arrival: wheelchair Limitations: no limitations - History of Present Illness Initial comments: This a 73-year-old female presents emergency department stating that she had a syncopal episodes morning. Patient states for about a month she's been having lightheadedness and almost passing out but has not yet passed out for sure. Patient states it was 1 episode she is on a couch and she thought she might of tipped over and passed out with this morning she was up walking around and she got lightheaded and everything started to go black in the next and she knows she woke up on the floor. Patient does complain of total pain on the left but other than that she did not injure herself. Patient states she was a little short of breath prior to happening and felt very weak. Patient denies any chest pain. Patient states she had her pulse oximeter on and it showed that she went down to 25 beats a minute and she says this is happened before when she is almost passed out. Patient denies headache patient does any numbness weakness. Patient denies abdominal pain patient is not vomiting diarrhea - Related Data Home Medications Medication Instructions Recorded Confirmed Multivitamins, Thera [Multivitamin 2 tab PO DAILY 02/13/19 08/09/22 (formulary)] Apixaban [Eliquis] 5 mg PO BID 06/09/21 08/09/22 Cetirizine HCl [Zyrtec] 10 mg PO DAILY 06/09/21 08/09/22 Glucosamine/Chondr Antonio A Sod [Osteo 2 tab PO DAILY 06/09/21 08/09/22 Bi-Flex Caplet] Levothyroxine Sodium [Synthroid] 75 mcg PO DAILY 06/09/21 08/09/22 Omeprazole [PriLOSEC] 40 mg PO DAILY 06/09/21 08/09/22 Potassium Chloride 10 meq PO DAILY 06/09/21 08/09/22 Acetaminophen [Tylenol Arthritis] 650 mg PO Q6H PRN 08/09/22 08/09/22 Previous Rx's Medication Instructions Recorded Furosemide [Lasix] 40 mg PO BID@0900,1600 #60 tab 08/11/22 Metoprolol Tartrate [Lopressor] 50 mg PO BID #60 tab 08/11/22 Verapamil Sr [Isoptin Sr] 180 mg PO DAILY #30 tab 08/11/22 Allergies Allergy/AdvReac Type Severity Reaction Status Date / Time No Known Allergies Allergy Verified 02/14/23 09:23 Review of Systems ROS Statement: Those systems with pertinent positive or pertinent negative responses have been documented in the HPI. ROS Other: All systems not noted in ROS Statement are negative. Past Medical History Past Medical History: Atrial Fibrillation, Asthma, COPD, Diabetes Mellitus, GERD/Reflux, Hyperlipidemia, Hypertension, Osteoarthritis (OA), Skin Disorder, Sleep Apnea/CPAP/BIPAP, Thyroid Disorder Additional Past Medical History / Comment(s): COPD, DM, GERD all improved w/ bariatric surg & wgt loss; URINARY INCONTINENCE. Skin irritation w/ panniculus occ. Uses rolling walker and cane d/t bad knees occ. 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 Robetrs)Panni 02/20/19 Past Anesthesia/Blood Transfusion Reactions: No Reported Reaction Past Psychological History: No Psychological Hx Reported Smoking Status: Never smoker Past Alcohol Use History: None Reported Past Drug Use History: None Reported - Past Family History Mother Family Medical History: Cancer, Congestive Heart Failure (CHF), COPD, Myocardial Infarction (PA) Additional Family Medical History / Comment(s): from Lung CA at 83 years old. stents put in Father Family Medical History: Cancer Additional Family Medical History / Comment(s): from stomach CA at 37 years old. Sister(s) Family Medical History: AICD/Pacemaker, COPD Additional Family Medical History / Comment(s): lymphedema, valve replacement General Exam - General Exam Comments Initial Comments: GENERAL: Patient is well-developed and well-nourished. Patient is nontoxic and well- hydrated and is in mild distress. ENT: Neck is soft and supple. No significant lymphadenopathy is noted. Oropharynx is clear. Moist mucous membranes. Neck has full range of motion without eliciting any pain. EYES: The sclera were anicteric and conjunctiva were pink and moist. Extraocular movements were intact and pupils were equal round and reactive to light. Eyelids were unremarkable. PULMONARY: Unlabored respirations. Good breath sounds bilaterally. No audible rales rho nchi or wheezing was noted. CARDIOVASCULAR: There is a regular rate and rhythm without any murmurs gallops or rubs. ABDOMEN: Soft and nontender with normal bowel sounds. SKIN: Skin is clear with no lesions or rashes and otherwise unremarkable. NEUROLOGIC: Patient is alert and oriented x3. Cranial nerves II through XII are grossly intact. Motor and sensory are also intact. Normal speech, volume and content. Symmetrical smile. MUSCULOSKELETAL: Normal extremities with adequate strength and full range of motion. LYMPHATICS: No significant lymphadenopathy is noted PSYCHIATRIC: Normal psychiatric evaluation. Limitations: no limitations Course Vital Signs 02/14/23 02/14/23 02/14/23 09:21 09:54 12:30 Temperature 98 F 98.7 F Pulse Rate 63 56 L Pulse Rate [ 60 Sitting] Pulse Rate [ 69 Standing] Pulse Rate [ 56 L Supine] Respiratory 20 17 18 Rate Blood Pressure 132/61 143/59 Blood Pressure 123/57 [Sitting] Blood Pressure 130/67 [Standing] Blood Pressure 126/55 [Supine] O2 Sat by Pulse 99 100 99 Oximetry Medical Decision Making - Medical Decision Making EKG shows sinus rhythm at 60 bpm IN interval 295 QRS 186 QT interval is 504 QTC is 505. Patient's EKG shows a right bundle branch block. Was pt. sent in by a medical professional or institution (, PA, SENIOR QUANTITY SURVEYOR, urgent care, hospital, or custodial...) When possible be specific @ -No Did you speak to anyone other than the patient for history (EMS, parent, family, police, friend...)? What history was obtained from this source @ -The son gave some of the history Did you review nursing and triage notes (agree or disagree)? Why? @ -I reviewed and agree with nursing and triage notes Were old charts reviewed (outside hosp., previous admission, EMS record, old EKG, old radiological studies, urgent care reports/EKG's, custodial records)? Report findings @ -I reviewed prior to prior laboratory and this patient Differential Diagnosis (chest pain, altered mental status, abdominal pain women, abdominal pain men, vaginal bleeding, weakness, fever, dyspnea, syncope, headache, dizziness, GI bleed, back pain, seizure, CVA, palpatations, mental hea lth, musculoskeletal)? @ -Differential Dyspnea: Coronary syndrome, arrhythmia, tamponade, asthma, COPD, pulmonary embolism, pneumonia, pneumothorax, pulmonary effusion, anaphylaxis, diabetic ketoacidosis, flailed chest, pulmonary contusion, diaphragmatic rupture, anemia, neuromu scular, this is not meant to be an all-inclusive list. EKG interpreted by me (3pts min.). @ -As above X-rays interpreted by me (1pt min.). @ -Chest x-ray showed no acute abnormality CT interpreted by me (1pt min.). @ -None done U/S interpreted by me (1pt. min.). @ -None done What testing was considered but not performed or refused? (CT, X-rays, U/S, labs)? Why? @ -None What meds were considered but not given or refused? Why? @ -None Did you discuss the management of the patient with other professionals (professionals i.e. , PA, SENIOR QUANTITY SURVEYOR, lab, RT, psych nurse, social media marketing manager, manager retention, teacher, national insurance officer, home health care case manager)? Give summary @ -I spoke with the [facility]ist agreed to admit the patient admitted the patient wrote admitting orders Was smoking cessation discussed for >3mins.? @ -No Was critical care preformed (if so, how long)? @ -No Were there social determinants of health that impacted care today? How? (Ho melessness, low income, unemployed, alcoholism, drug addiction, transportation, low edu. Level, literacy, decrease access to med. care, skilled nursing, rehab)? @ -No Was there de-escalation of care discussed even if they declined (Discuss DNR or withdrawal of care, Hospice)? DNR status @ -No What co-morbidities impacted this encounter? (DM, HTN, Smoking, COPD, CAD, Cancer, CVA, ARF, Chemo, Hep., AIDS, mental health diagnosis, sleep apnea, morbid obesity)? @ -None Was patient admitted / discharged? Hospital course, mention meds given and route, prescriptions, significant lab abnormalities, going to OR and other pertinent info. @ -Patient was in the emergency department without symptoms throughout her stay. Laboratory back within normal range. Patient mentioned to us that she had taken her pulse multiple times when she was feeling very lightheaded and her pulse was in the 20s. Undiagnosed new problem with uncertain prognosis? @ -No Drug Therapy requiring intensive monitoring for toxicity (Heparin, Nitro, Insulin, Cardizem)? @ -No Were any procedures done? @ -No Diagnosis/symptom? @ -Bradycardia Acute, or Chronic, or Acute on Chronic? @ -Acute Uncomplicated (without systemic symptoms) or Complicated (systemic symptoms)? @ -Complicated Side effects of treatment? @ -No Exacerbation, Progression, or Severe Exacerbation? @ -No Poses a threat to life or bodily function? How? (Chest pain, USA, PA, pneumonia, PE, COPD, DKA, ARF, appy, cholecystitis, CVA, Diverticulitis, Homicidal, Suicidal, threat to staff... and all critical care pts) @ -Yes this could lead to hypoperfusion and end organ dysfunction Diagnosis/symptom? @ -Syncope Acute, or Chronic, or Acute on Chronic? @ -Acute Uncomplicated (without systemic symptoms) or Complicated (systemic symptoms)? @ -Complicated Side effects of treatment? @ -none Exacerbation, Progression, or Severe Exacerbation] @ -no Poses a threat to life or bodily function? @ -no - Lab Data Result diagrams: 02/14/23 10:05 02/14/23 10:05 Lab Results 02/14/23 02/14/23 02/14/23 Range/Units 10:05 10:05 10:05 WBC 10.9 H (3.8-10.6) k/uL RBC 4.21 (3.80-5.40) m/uL Hgb 12.5 (11.4-16.0) gm/dL Hct 37.8 (34.0-46.0) % MCV 89.8 (80.0-100.0) fL MCH 29.8 (25.0-35.0) pg MCHC 33.2 (31.0-37.0) g/dL RDW 14.9 (11.5-15.5) % Plt Count 263 (150-450) k/uL MPV 8.1 Neutrophils % 65 % Lymphocytes % 27 % Monocytes % 4 % Eosinophils % 2 % Basophils % 0 % Neutrophils # 7.1 (1.3-7.7) k/uL Lymphocytes # 3.0 (1.0-4.8) k/uL Monocytes # 0.5 (0-1.0) k/uL Eosinophils # 0.2 (0-0.7) k/uL Basophils # 0.0 (0-0.2) k/uL PT 10.4 (10.0-12.5) sec INR 0.9 (<1.2) APTT 26.4 (22.0-30.0) sec Sodium 139 (137-145) mmol/L Potassium 3.5 (3.5-5.1) mmol/L Chloride 95 L (98-107) mmol/L Carbon Dioxide 36 H (22-30) mmol/L Anion Gap 8 mmol/L BUN 35 H (7-17) mg/dL Creatinine 0.96 (0.52-1.04) mg/dL Est GFR (CKD-EPI)AfAm 68 (>60 ml/min/1.73 sqM) Est GFR (CKD-EPI)NonAf 59 (>60 ml/min/1.73 sqM) Glucose 117 H (74-99) mg/dL Calcium 8.7 (8.4-10.2) mg/dL Magnesium 2.4 H (1.6-2.3) mg/dL Total Bilirubin 0.5 (0.2-1.3) mg/dL AST 33 (14-36) U/L ALT 20 (4-34) U/L Alkaline Phosphatase 110 (38-126) U/L Troponin I (0.000-0.034) ng/mL Total Protein 6.9 (6.3-8.2) g/dL Albumin 4.1 (3.5-5.0) g/dL 02/14/23 Range/Units 10:05 WBC (3.8-10.6) k/uL RBC (3.80-5.40) m/uL Hgb (11.4-16.0) gm/dL Hct (34.0-46.0) % MCV (80.0-100.0) fL MCH (25.0-35.0) pg MCHC (31.0-37.0) g/dL RDW (11.5-15.5) % Plt Count (150-450) k/uL MPV Neutrophils % % Lymphocytes % % Monocytes % % Eosinophils % % Basophils % % Neutrophils # (1.3-7.7) k/uL Lymphocytes # (1.0-4.8) k/uL Monocytes # (0-1.0) k/uL Eosinophils # (0-0.7) k/uL Basophils # (0-0.2) k/uL PT (10.0-12.5) sec INR (<1.2) APTT (22.0-30.0) sec Sodium (137-145) mmol/L Potassium (3.5-5.1) mmol/L Chloride (98-107) mmol/L Carbon Dioxide (22-30) mmol/L Anion Gap mmol/L BUN (7-17) mg/dL Creatinine (0.52-1.04) mg/dL Est GFR (CKD-EPI)AfAm (>60 ml/min/1.73 sqM) Est GFR (CKD-EPI)NonAf (>60 ml/min/1.73 sqM) Glucose (74-99) mg/dL Calcium (8.4-10.2) mg/dL Magnesium (1.6-2.3) mg/dL Total Bilirubin (0.2-1.3) mg/dL AST (14-36) U/L ALT (4-34) U/L Alkaline Phosphatase (38-126) U/L Troponin I <0.012 (0.000-0.034) ng/mL Total Protein (6.3-8.2) g/dL Albumin (3.5-5.0) g/dL Disposition Clinical Impression: Syncope, Bradycardia Disposition: ADMITTED IP TO THIS [facility] Referrals: Titi Martin DO [Primary Care Provider] - 1-2 days Time of Disposition: 13:11
[2023-02-14] MEDS ORDERED: KETOROLAC 15 MG/ML 1 ML VIAL IVP STA (09:41)
--- NOTE | 2023-02-14 10:49 | XR ---
EXAMINATION TYPE: XR toes LT DATE OF EXAM: 02/14/2023 10:15 AM CLINICAL INDICATION:Female, 73 years old with history of Fall; H COMPARISON: None TECHNIQUE: XR toes LT examined in the AP, oblique, and lateral projections. FINDINGS: No evidence of any acute osseous pathology. No evidence of soft tissue swelling. Joints are preserve d. Multifocal degeneration changes with joint space tearing osteophyte formation. Bipartite medial se samoid bone of the first digit. IMPRESSION: 1. No evidence of acute fracture. 2. Multifocal osteoarthrosis.
--- NOTE | 2023-02-14 10:49 | XR ---
EXAMINATION TYPE: XR chest 2V DATE OF EXAM: 02/14/2023 10:15 AM CLINICAL INDICATION:Female, 73 years old with history of Chest Pain; [facility] COMPARISON: Chest radiographs from 08/09/2022 TECHNIQUE: XR chest 2V Frontal and lateral views of the chest. FINDINGS: Lungs/Pleura: There is no evidence of pleural effusion, focal consolidation, or pneumothorax. Pulmonary vascularity: Pulmonary vascular congestion. Heart/mediastinum: Cardiomediastinal silhouette is enlarged and stable. Musculoskeletal: No acute osseous pathology. Other findings: None Lines/Tubes: IMPRESSION: Cardiomegaly and mild pulmonary vascular congestion. Correlate with BNP for congestive heart failure.
[2023-02-14 11:02] LABS: Basophils % (A) 0 %; Eosinophils # (A) 0.2 k/uL (0-0.7); Eosinophils % (A) 2 %; HCT 37.8 % (34.0-46.0); HGB 12.5 gm/dL (11.4-16.0); Lymphocytes % (A) 27 %; MCH 29.8 pg (25.0-35.0); MCHC 33.2 g/dL (31.0-37.0); MCV 89.8 fL (80.0-100.0); Mean Platelet Volume 8.1; Monocytes # (A) 0.5 k/uL (0-1.0); Monocytes % (A) 4 %; Neutrophils # (A) 7.1 k/uL (1.3-7.7); Neutrophils % (A) 65 %; Platelet Count 263 k/uL (150-450); RBC 4.21 m/uL (3.80-5.40); RDW 14.9 % (11.5-15.5); WBC 10.9 k/uL (3.8-10.6)
[2023-02-14 11:17] LABS: ALT 20 U/L (4-34); AST 33 U/L (14-36); African American GFR (CKD) 68 (>60 ml/min/1.73 sqM); Albumin 4.1 g/dL (3.5-5.0); Alkaline Phosphatase 110 U/L (38-126); Anion Gap 8 mmol/L; Blood Urea Nitrogen 35 mg/dL (7-17); Calcium 8.7 mg/dL (8.4-10.2); Carbon Dioxide 36 mmol/L (22-30); Chloride 95 mmol/L (98-107); Glucose 117 mg/dL (74-99); Magnesium 2.4 mg/dL (1.6-2.3); Non-African American GFR(CKD) 59 (>60 ml/min/1.73 sqM); Potassium 3.5 mmol/L (3.5-5.1); Sodium 139 mmol/L (137-145); Total Bilirubin 0.5 mg/dL (0.2-1.3); Total Protein 6.9 g/dL (6.3-8.2)
[2023-02-14 11:38] LABS: INR 0.9 (<1.2); Partial Thromboplastin Time 26.4 sec (22.0-30.0); Prothrombin Time 10.4 sec (10.0-12.5)
[2023-02-14] MEDS ORDERED: NITROGLYCERIN SL TABS 0.4 MG TAB SUBLINGUAL PRN (13:12)
--- NOTE | 2023-02-14 14:29 | P.HPIM ---
History of Present Illness H&P Date: 02/14/23 History of present illness; patient is a 73-year-old lady with past medical sign ificant for atrial fibrillation,hypothyroidism who presented to the ER for a syncopal episode and fall. Patient stated that she has been having lightheadedness and feeling of passing out for the last few weeks. Denies any palpitations. Denies any chest pain. Denies any shortness of breath. Patient did follow up outpatient cardiology and they gave her a Holter monitor for 24 hours and did not show any arrhythmias. Patient stated that this morning she was walking around when she suddenly became lightheaded and the next thing she remembers she was laying on the kitchen floor. Patient did not lose control over bowels or urine. Patient stated that at home she has been monitoring her pulse ox and did notice that on the monitor her heart rate during these episodes dips in to 20s. Because of this event, patient was brought to the ER Initial lab work done in the ER showed WBC 10.9, hemoglobin 12.5, platelet count 263, sodium 139, potassium 3.5, BUN 35, creatinine 0.96, glucose 117, calcium 8.7, total bilirubin 0.5, troponin 0.012 EKg done in the ER heart rate 60, no ST segment elevation , no T-wave inversion seen, P waves seen Chest x-ray done in the ER showed cardiomegaly with mild pulmonary vascular congestion Patient admitted to medicine service REVIEW OF SYSTEMS: CONSTITUTIONAL: No fever, complaining of lightheadedness HEENT: No recent visual problems or hearing problems. Denied any sore throat. CARDIOVASCULAR: No chest pain, orthopnea, PND, no palpitations, no syncope. PULMONARY: No shortness of breath, no cough, no hemoptysis. GASTROINTESTINAL: No diarrhea, no nausea, no vomiting, no abdominal pain. NEUROLOGICAL: No headaches, no weakness, no numbness. HEMATOLOGICAL: Denies any bleeding or petechiae. GENITOURINARY: Denies any burning micturition, frequency, or urgency. MUSCULOSKELETAL/RHEUMATOLOGICAL: Denies any joint pain, swelling, or any muscle pain. ENDOCRINE: Denies any polyuria or polydipsia. The rest of the 14-point review of systems is negative. PHYSICAL EXAMINATION: GENERAL: The patient is alert and oriented x3, not in any acute distress. Well developed, well nourished. HEENT: Pupils are round and equally reacting to light. EOMI. No scleral icterus. No conjunctival pallor. Normocephalic, atraumatic. No pharyngeal erythema. No t hyromegaly. CARDIOVASCULAR: S1 and S2 present. No murmurs, rubs, or gallops. PULMONARY: Chest is clear to auscultation, no wheezing or crackles. ABDOMEN: Soft, nontender, nondistended, normoactive bowel sounds. No palpable organomegaly. MUSCULOSKELETAL: No joint swelling or deformity. EXTREMITIES: No cyanosis, clubbing, or pedal edema. NEUROLOGICAL: Gross neurological examination did not reveal any focal deficits. SKIN: No rashes. Assessment and plan Syncopal episode Fall Paroxysmal atrial fibrillation chronic heart failure with preserved ejection fraction Hypertension Diabetes Hypothyroidism Monitor vital signs Monitor CBC Monitor CMP Continue telemetry monitoring Fall precautions Orthostatic monitoring Trend troponin Ordered d-dimer Consult cardiology Resume home meds Labs and medication were reviewed.. Continue same treatment. Continue with sy mptomatic treatment. Resume home medication. Monitor labs and vitals. DVT and GI prophylaxis. Further recommendations as per clinical course of the patient Dictation was produced using [employer] dictation software. please excuse any grammatical, word or spelling errors. Past Medical History Past Medical History: Atrial Fibrillation, Asthma, COPD, Diabetes Mellitus, GERD/Reflux, Hyperlipidemia, Hypertension, Osteoarthritis (OA), Skin Disorder, Sleep Apnea/CPAP/BIPAP, Thyroid Disorder Additional Past Medical History / Comment(s): COPD, DM, GERD all improved w/ bariatric surg & wgt loss; URINARY INCONTINENCE. Skin irritation w/ panniculus occ. Uses rolling walker and cane d/t bad knees occ. 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 Roberts)Panni 02/20/19 Past Anesthesia/Blood Transfusion Reactions: No Reported Reaction Past Psychological History: No Psychological Hx Reported Smoking Status: Never smoker Past Alcohol Use History: None Reported Past Drug Use History: None Reported - Past Family History Mother Family Medical History: Cancer, Congestive Heart Failure (CHF), COPD, Myocardial Infarction ([place]) Additional Family Medical History / Comment(s): from Lung CA at 83 years old. stents put in Father Family Medical History: Cancer Additional Family Medical History / Comment(s): from stomach CA at 37 years old. Sister(s) Family Medical History: AICD/Pacemaker, COPD Additional Family Medical History / Comment(s): lymphedema, valve replacement Medications and Allergies Home Medications Medication Instructions Recorded Confirmed Type Multivitamins, Thera [Multivitamin 2 tab PO DAILY 02/13/19 02/14/23 History (formulary)] Apixaban [Eliquis] 5 mg PO BID 06/09/21 02/14/23 History Cetirizine HCl [Zyrtec] 10 mg PO DAILY 06/09/21 02/14/23 History Glucosamine/Chondr Antonio A Sod [Osteo 2 tab PO DAILY 06/09/21 02/14/23 History Bi-Flex Caplet] Levothyroxine Sodium [Synthroid] 75 mcg PO DAILY 06/09/21 02/14/23 History Omeprazole [PriLOSEC] 40 mg PO DAILY 06/09/21 02/14/23 History Potassium Chloride 20 meq PO DAILY 06/09/21 02/14/23 History Acetaminophen [Tylenol Arthritis] 650 mg PO Q6H PRN 08/09/22 02/14/23 History Furosemide [Lasix] 40 mg PO BID@0900,1600 #60 tab 08/11/22 02/14/23 Rx Metoprolol Tartrate [Lopressor] 50 mg PO BID #60 tab 08/11/22 02/14/23 Rx Verapamil Sr [Isoptin Sr] 180 mg PO DAILY #30 tab 08/11/22 02/14/23 Rx Fluconazole [Diflucan] 150 mg PO Q7D 02/14/23 02/14/23 History Nystatin 100,000 Unit/gm Powd 1 applic TOPICAL BID PRN 02/14/23 02/14/23 History [Mycostatin Powder] Rosuvastatin Calcium 5 mg PO HS 02/14/23 02/14/23 History metOLazone [Zaroxolyn] 5 mg PO Q48H 02/14/23 02/14/23 History Allergies Allergy/AdvReac Type Severity Reaction Status Date / Time No Known Allergies Allergy Verified 02/14/23 13:37 Physical Exam Vitals: Vital Signs Temp Pulse Pulse Pulse Pulse Resp BP 02/14/23 12:30 56 L 18 143/59 02/14/23 09:54 98.7 F 60 69 56 L 17 02/14/23 09:21 98 F 63 20 132/61 BP BP BP Pulse Ox 02/14/23 12:30 99 02/14/23 09:54 123/57 130/67 126/55 100 02/14/23 09:21 99 Intake and Output 02/13/23 02/14/23 02/14/23 23:59 06:59 14:59 Other: Weight 122.016 kg Results CBC & Chem 7: 02/14/23 10:05 02/14/23 10:05 Labs: Abnormal Lab Results - Last 24 Hours (Table) 02/14/23 02/14/23 Range/Units 10:05 10:05 WBC 10.9 H (3.8-10.6) k/uL Chloride 95 L (98-107) mmol/L Carbon Dioxide 36 H (22-30) mmol/L BUN 35 H (7-17) mg/dL Glucose 117 H (74-99) mg/dL Magnesium 2.4 H (1.6-2.3) mg/dL
[2023-02-14] MEDS: FUROSEMIDE 40 MG TAB PO SCH (15:53)
--- NOTE | 2023-02-14 16:33 | CT ---
EXAMINATION TYPE: CT angio chest DATE OF EXAM: 02/14/2023 4:24 PM COMPARISON: None HISTORY: High D-dimer CT DLP: 706.4 mGycm Automated exposure control for dose reduction was used. CONTRAST: CTA scan of the thorax is performed with IV Contrast, patient injected with 120 cc mL of Isovue 370, pulmonary embolism protocol. 3-D postprocessing was performed.. FINDINGS: LUNGS: The lungs are grossly clear, there is no concerning parenchymal mass or nodule identified. T here is no pleural effusion or pneumothorax seen. The tracheobronchial tree is patent. MEDIASTINUM: There is satisfactory enhancement of the pulmonary artery and its branches, there is no CT evidence for pulmonary embolism. There are no greater than 1 cm hilar or mediastinal lymph nodes. No pericardial effusion is seen. OTHER: No additional significant abnormality is seen. IMPRESSION: 1. NO EVIDENCE OF PULMONARY EMBOLISM. 2. NO ACUTE CARDIOPULMONARY DISEASE.
[2023-02-14] MEDS ORDERED: ZINC OXIDE PASTE (Z-GUARD) 1 APPLIC APPLIC TOPICAL PRN (17:05)
[2023-02-14 17:24] LABS: Glucose,Whole Blood 172 mg/dL (70-110)
[2023-02-14] MEDS: HYDROcodone/APAP 5-325MG 1 EACH TAB PO PRN (17:50)
[2023-02-14] MEDS: NYSTATIN 100,000UNIT/GM CREAM 30 GM TUBE TOPICAL SCH (18:19)
[2023-02-14] MEDS: ATORVASTATIN 10 MG TAB PO SCH (20:27)
[2023-02-14] MEDS: APIXABAN 5 MG TAB PO SCH (20:27)
[2023-02-15] MEDS: LEVOTHYROXINE 75 MCG TAB PO SCH (06:14)
[2023-02-15] MEDS: PANTOPRAZOLE 40 MG TABLET PO SCH (06:14)
[2023-02-15 06:15] LABS: Glucose,Whole Blood 135 mg/dL (70-110)
[2023-02-15] MEDS: FUROSEMIDE 40 MG TAB PO SCH ×2 (08:37→15:12)
[2023-02-15] MEDS: NYSTATIN 100,000UNIT/GM CREAM 30 GM TUBE TOPICAL SCH ×2 (08:37→21:42)
[2023-02-15] MEDS: MULTIVITAMINS, THERA 1 EACH TAB PO SCH (08:37)
[2023-02-15] MEDS: APIXABAN 5 MG TAB PO SCH ×2 (08:37→21:42)
[2023-02-15] MEDS ORDERED: ASPIRIN 325 MG TAB PO SCH (09:00)
[2023-02-15] MEDS ORDERED: POTASSIUM CHLORIDE ER 10 MEQ TAB.ER.PRT PO SCH (09:00)
--- NOTE | 2023-02-15 09:32 | P.CRDCN ---
History of Present Illness Consult date: 02/15/23 Consult reason: sycope (Bradycardia) History of present illness: History of present illness: This is a 73-year-old female patient of Dr. Elijah Cedeno with past medical history of chronic diastolic heart failure and atrial fibrillation, hypertension, bradycardia , Hyperlipidemia. Patient was recently seen in the office on 02/04 and at that time underwent a 24-hour Holter monitor to rule out high-grade AV block. Patient states that yesterday she was in her kitchen, felt a fluttering feeling and lightheadedness and then next thing she knew she woke up on the floor. She has had several other episodes of almost passing out. At one time she did notice her heart rate on a pulse ox was 25. The following medications have been placed on hold: Verapamil, Lopressor, metolazone. EKG Sinus rhythm with right bundle branch block, left anterior fascicular block at 60 bpm. Telemetry has been 60s to 80s. Chest x-ray: Cardiomegaly and mild pulmonary vascular congestion CTA WBC 10.9, hemoglobin 12.5. INR 0.9. D-dimer 2. Sodium 139, potassium 3.5, chloride 95, CO2 36, BUN 35 creatinine 0.96. Blood sugar 117. Magnesium 2.4. Troponin negative 3. ProBNP 292. Home cardiac medications: Eliquis 5 mg twice daily, Lasix 40 mg twice daily, le vothyroxine 75 g daily, metolazone 5 mg every 48 hours, potassium 20 mEq daily, Crestor 5 mg at bedtime, verapamil 180 mg daily Echocardiogram performed 08/28/2022 in the office revealed EF of 50-55%, moderate left ventricular hypertrophy. Mild aortic regurgitation. Ascending aorta is enlarged. Mild to moderate mitral regurgitation. Mild mitral stenosis. Mitral valve is calcified. Moderate tricuspid regurgitation. Pulmonary artery systolic pressure of 59 mmHg. Review Of Systems: At the time of my evaluation: Constitutional: No fever, no chills. No weakness, fatigue or lethargy. EENT: No headache. No dizziness. Lungs: No shortness of breath, cough, no sputum production. No wheezing. Cardiovascular: No chest pain, no lower extremity edema. No palpitations. No paroxysmal nocturnal dyspnea. No orthopnea. Reports lightheadedness. + syncopal episode x1 and several episodes of near syncope. Abdominal: No abdominal pain. No nausea, vomiting. No diarrhea. No constipation. No bloody or tarry stools. Musculoskeletal: No myalgias. No muscle weakness, no frequent falls. Integumentary: No wounds. No rash. No unusual bruising. Neurologic: No aphasia. No facial droop. No change in mentation. Physical examination: Gen: This is a 73 year old female. She is resting in bed appears to be in no acute distress. VS: reviewed HEENT: Head is atraumatic, normocephalic. Pupils equal, round. Sclerae is anicteric. NECK: Supple. No JVD. LUNGS: Clear to auscultation. No wheezes or rhonchi. No intercostal retractions. HEART: Regular rate and rhythm. Systolic murmur. ABDOMEN: Soft No tenderness. EXTREMITIES: No pedal edema. No calf tenderness. NEUROLOGICAL: Patient is awake, alert and oriented x3. Assessment: Syncopal episode rule out bradycardia, arrhythmia Bradycardia Chronic diastolic heart failure Paroxysmal atrial fibrillation Hypertension Hyperlipidemia Plan: Continue to hold verapamil, Lopressor, metolazone Resume patient's other cardiac medications Schedule patient for Loop recorder implantation tomorrow Further recommendations to follow based upon clinical course Thank you kindly for this consultation. Nurse practitioner note has been reviewed, I agree with documented findings and plan of care. Patient was seen and examined. Past Medical History Past Medical History: Atrial Fibrillation, Asthma, COPD, Diabetes Mellitus, GERD/Reflux, Hyperlipidemia, Hypertension, Osteoarthritis (OA), Skin Disorder, Sleep Apnea/CPAP/BIPAP, Thyroid Disorder Additional Past Medical History / Comment(s): COPD, DM, GERD all improved w/ bariatric surg & wgt loss; URINARY INCONTINENCE. Skin irritation w/ panniculus occ. Uses rolling walker and cane d/t bad knees occ. 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 Roberts)Panni 02/20/19 Past Anesthesia/Blood Transfusion Reactions: No Reported Reaction Past Psychological History: No Psychological Hx Reported Smoking Status: Never smoker Past Alcohol Use History: None Reported Additional Past Alcohol Use History / Comment(s): QUIT SMOKING IN "THE 80'S," SMOKED LESS THAN 1/2PPD FOR APPROX 10 YRS Past Drug Use History: None Reported - Past Family History Mother History Unknown: Yes Family Medical History: Cancer, Congestive Heart Failure (CHF), COPD, Myocardial Infarction ([place]) Additional Family Medical History / Comment(s): from Lung CA at 83 years old. stents put in Father History Unknown: Yes Family Medical History: Cancer Additional Family Medical History / Comment(s): from stomach CA at 37 years old. Sister(s) History Unknown: Yes Family Medical History: AICD/Pacemaker, COPD Additional Family Medical History / Comment(s): lymphedema, valve replacement Medications and Allergies Home Medications Medication Instructions Recorded Confirmed Type Multivitamins, Thera [Multivitamin 2 tab PO DAILY 02/13/19 02/14/23 History (formulary)] Apixaban [Eliquis] 5 mg PO BID 06/09/21 02/14/23 History Cetirizine HCl [Zyrtec] 10 mg PO DAILY 06/09/21 02/14/23 History Glucosamine/Chondr Antonio A Sod [Osteo 2 tab PO DAILY 06/09/21 02/14/23 History Bi-Flex Caplet] Levothyroxine Sodium [Synthroid] 75 mcg PO DAILY 06/09/21 02/14/23 History Omeprazole [PriLOSEC] 40 mg PO DAILY 06/09/21 02/14/23 History Potassium Chloride 20 meq PO DAILY 06/09/21 02/14/23 History Acetaminophen [Tylenol Arthritis] 650 mg PO Q6H PRN 08/09/22 02/14/23 History Furosemide [Lasix] 40 mg PO BID@0900,1600 #60 tab 08/11/22 02/14/23 Rx Metoprolol Tartrate [Lopressor] 50 mg PO BID #60 tab 08/11/22 02/14/23 Rx Verapamil Sr [Isoptin Sr] 180 mg PO DAILY #30 tab 08/11/22 02/14/23 Rx Fluconazole [Diflucan] 150 mg PO Q7D 02/14/23 02/14/23 History Nystatin 100,000 Unit/gm Powd 1 applic TOPICAL BID PRN 02/14/23 02/14/23 History [Mycostatin Powder] Rosuvastatin Calcium 5 mg PO HS 02/14/23 02/14/23 History metOLazone [Zaroxolyn] 5 mg PO Q48H 02/14/23 02/14/23 History Allergies Allergy/AdvReac Type Severity Reaction Status Date / Time No Known Allergies Allergy Verified 02/14/23 13:37 Physical Exam Vitals: Vital Signs Temp Pulse Pulse Pulse Pulse Resp BP 02/15/23 04:24 70 18 02/15/23 01:54 84 02/14/23 23:48 84 20 02/14/23 21:45 71 22 02/14/23 20:00 70 02/14/23 19:48 98.2 F 74 18 02/14/23 17:53 98.0 F 72 18 02/14/23 16:54 98.0 F 72 17 02/14/23 15:30 68 18 113/84 02/14/23 12:30 56 L 18 143/59 02/14/23 09:54 98.7 F 60 69 56 L 17 02/14/23 09:21 98 F 63 20 132/61 BP BP BP Pulse Ox 02/15/23 04:24 147/72 96 02/15/23 01:54 02/14/23 23:48 127/71 94 L 02/14/23 21:45 129/67 94 L 02/14/23 20:00 02/14/23 19:48 107/67 94 L 02/14/23 17:53 111/50 94 L 02/14/23 16:54 111/50 94 L 02/14/23 15:30 96 02/14/23 12:30 99 02/14/23 09:54 123/57 130/67 126/55 100 02/14/23 09:21 99 Intake and Output 02/14/23 02/15/23 02/15/23 22:59 06:59 14:59 Intake Total 120 Output Total 400 700 Balance -280 -700 Intake: Oral 120 Output: Urine 400 700 Other: Voiding Method Toilet Toilet Incontinent Incontinent External Catheter External Catheter # Voids 2 Weight 122.016 kg Results 02/14/23 10:05 02/14/23 10:05 Cardiac Enzymes 02/14/23 02/14/23 02/14/23 Range/Units 10:05 10:05 14:29 AST 33 (14-36) U/L Troponin I <0.012 <0.012 (0.000-0.034) ng/mL 02/14/23 Range/Units 17:37 AST (14-36) U/L Troponin I <0.012 (0.000-0.034) ng/mL Coagulation 02/14/23 Range/Units 10:05 PT 10.4 (10.0-12.5) sec APTT 26.4 (22.0-30.0) sec CBC 02/14/23 Range/Units 10:05 WBC 10.9 H (3.8-10.6) k/uL RBC 4.21 (3.80-5.40) m/uL Hgb 12.5 (11.4-16.0) gm/dL Hct 37.8 (34.0-46.0) % Plt Count 263 (150-450) k/uL Comprehensive Metabolic Panel 02/14/23 Range/Units 10:05 Sodium 139 (137-145) mmol/L Potassium 3.5 (3.5-5.1) mmol/L Chloride 95 L (98-107) mmol/L Carbon Dioxide 36 H (22-30) mmol/L BUN 35 H (7-17) mg/dL Creatinine 0.96 (0.52-1.04) mg/dL Glucose 117 H (74-99) mg/dL Calcium 8.7 (8.4-10.2) mg/dL AST 33 (14-36) U/L ALT 20 (4-34) U/L Alkaline Phosphatase 110 (38-126) U/L Total Protein 6.9 (6.3-8.2) g/dL Albumin 4.1 (3.5-5.0) g/dL Current Medications Generic Name Dose Route Start Last Admin Trade Name Freq PRN Reason Stop Dose Admin Hydrocodone Bitart/Acetaminophen 1 each 02/14/23 17:08 02/14/23 17:50 Hydrocodone/Apap 5-325mg 1 Each Tab PO 1 each Q6HR PRN Administration Pain Apixaban 5 mg 02/14/23 21:00 02/14/23 20:27 Apixaban 5 Mg Tab PO 5 mg BID [facility] Administration Protocol Aspirin 325 mg 02/15/23 09:00 Aspirin 325 Mg Tab PO DAILY [facility] Atorvastatin Calcium 10 mg 02/14/23 21:00 02/14/23 20:27 Atorvastatin 10 Mg Tab PO 10 mg HS MICHELLE Administration Furosemide 40 mg 02/14/23 16:00 02/14/23 15:53 Furosemide 40 Mg Tab PO 40 mg BID@0900,1600 MICHELLE Administration Levothyroxine Sodium 75 mcg 02/15/23 06:30 02/15/23 06:14 Levothyroxine 75 Mcg Tab PO 75 mcg DAILY@0630 MICHELLE Administration Multivitamins 2 each 02/15/23 09:00 Multivitamins, Thera 1 Each Tab PO DAILY MICHELLE Nitroglycerin 0.4 mg 02/14/23 13:12 Nitroglycerin Sl Tabs 0.4 Mg Tab SUBLINGUAL Q5M PRN Chest Pain Nystatin 1 applic 02/14/23 21:00 02/14/23 18:19 Nystatin 100,000unit/Gm Cream 30 Gm Tube TOPICAL 1 applic BID MICHELLE Administration Protocol Pantoprazole Sodium 40 mg 02/15/23 07:30 02/15/23 06:14 Pantoprazole 40 Mg Tablet PO 40 mg [id number] MICHELLE Administration Petrolatum 1 applic 02/14/23 17:05 02/14/23 18:19 Zinc Oxide Paste (Z-Guard) 1 Applic Applic TOPICAL 1 applic DAILY PRN Administration Wound Healing Potassium Chloride 20 meq 02/15/23 09:00 Potassium Chloride Er 10 Meq Tab.Er.Prt PO DAILY MICHELLE Intake and Output 02/14/23 02/15/23 02/15/23 22:59 06:59 14:59 Intake Total 120 Output Total 400 700 Balance -280 -700 Intake: Oral 120 Output: Urine 400 700 Other: Voiding Method Toilet Toilet Incontinent Incontinent External Catheter External Catheter # Voids 2 Weight 122.016 kg 02/14/23 10:05 02/14/23 10:05
[2023-02-15] MEDS ORDERED: SODIUM CHLORIDE 0.9% 1,000 ML IV SCH ×3 (09:45→19:00)
[2023-02-15 12:41] LABS: Chol/HDL Ratio 3.43 Ratio; LDL Cholesterol,Calculated 54.1 mg/dL (0.0-131.0)
--- NOTE | 2023-02-15 16:12 | P.PN ---
Subjective Progress Note Date: 02/15/23 This is a 73 -year-old female admitted with syncope, bradycardia, subsequent fall , chronic paroximal atrial fibrillation, and multiple other medical issues. Elevated d-dimer and CT reported negative for PE. Telemetry reporting heart rates in the 70s to 80s with Verapamil, Lopressor and metolazone on hold. Denies chest pain, palpitations or shortness of breath. Maintaining O2 sats in the 90s on room air. Tearful, expresses discouragement and fear, as this is recurrent. Afebrile. Objective - Vital Signs Vital signs: Vital Signs Temp 97.7 F 02/15/23 08:27 Pulse 97 02/15/23 15:12 Resp 16 02/15/23 15:12 BP 133/63 02/15/23 15:12 Pulse Ox 98 02/15/23 15:12 FiO2 Intake & Output 02/14/23 02/15/23 02/15/23 18:59 06:59 18:59 Intake Total 120 540 Output Total 1100 1300 Balance 120 -1100 -760 Weight 122.016 kg Intake: Oral 120 540 Output: Urine 1100 1300 Other: Voiding Method Toilet Toilet Toilet Incontinent Incontinent Diaper External Catheter External Catheter Incontinent # Voids 2 - Exam PHYSICAL EXAM: VITAL SIGNS: [As above] GENERAL: Alert and oriented 3, Sitting up in bed, no acute distress, teary-eyed HEENT: Normocephalic ,Conjunctivae normal. eyes normal. NECK: Supple, No JVD. CARDIOVASCULAR: S1, S2 regular. Systolic murmur RESPIRATION: Unlabored ,Breath sounds diminished in the bases. No rhonchi or crackles. ABDOMEN: Soft, nontender . No guarding. no masses palpable. Positive bowel sounds LEGS: No edema. no swelling NERVOUS SYSTEM: Cranial N 2-12 grossly normal. No focal deficits. Strength and sensation grossly intact. Skin: Warm and dry, no rash - Labs CBC & Chem 7: 02/14/23 10:05 02/14/23 10:05 Labs: Abnormal Lab Results - Last 24 Hours (Table) 02/14/23 02/15/23 02/15/23 Range/Units 17:22 06:14 07:52 POC Glucose (mg/dL) 172 H 135 H (70-110) mg/dL Triglycerides 243.00 H (0.00-149.00) mg/dL VLDL Cholesterol, Calc 48.60 H (5.00-40.00) mg/dL Assessment and Plan Assessment: Syncope, bradycardia heart rate of 25 on her pulse ox, possible arrhythmia ,with subsequent fall. Chronic Paroxysmal atrial fibrillation Chronic heart failure with diastolic dysfunction Hypertension Hyperlipidemia Diabetes mellitus Hypothyroidism Plan: Continue on current medication regime ,monitoring and symptomatic treatment. Evaluated by cardiology. Echo ordered. Verapamil, Lopressor and metolazone remain on hold. Cardiology discussing potential Loop recorder implantation. Orthostatic vital signs ordered. The impression and plan of care has been dictated as directed. : I performed a history and examination of this patient, discussed the same with the dictator. I agree with the dictator's note ,documented as a scribe. Any additional findings or plans will be noted.
--- NOTE | 2023-02-15 19:00 | P.EPCON ---
Electrophysiology Consult - EP Consult Electrophysiology Consult: This is Dr. Merida dictating a consult on this patient The patient was interviewed and examined IMPRESSION / ASSESSMENT: Recurrent presyncope/syncope consistent with vasovagal phenomena/symptomatology However she has evidence of conduction system disease with bifascicular block on 12-lead EKG The episodes became worse after metolazone was added for fluid overload Paroxysmal atrial fibrillation Hypertension PLAN: Tilt table testing Implantation of loop monitor Reassessment of medical therapy for atrial fibrillation Stop metolazone Add spironolactone to Lasix Office records including echo and stress test HPI Patient presents to the hospital with recurrent episodes of syncope and presyncope She states that on the morning of admission she woke up early and to the bathroom and then became very dizzy and lightheaded and found herself on the floor She's had similar episodes in the last one month she could be sitting and she starts experiencing palpitations along with feeling very heart flushed sweaty and nauseous She sweats profusely during these episodes She claims that her episodes have started for about a month or so and let sit to the use of metolazone was just started Twelve-lead EKG shows right bundle branch block pattern mild prolonged SD interval and left anterior fascicular block CT of the chest pressure any evidence for pulmonary embolism, d-dimer was mildly elevated Previously a 2-D echo showing preserved LV size and systolic function with mild LVH She has a history of atrial fibrillation and she is on metoprolol as well as verapamil and ELIQUIS She is on Lasix 40 mg twice daily along with metolazone 5 mg every 48 hours ROS: No fever chills or rigors, no cough, phlegm or expectoration, no nausea, vomiting or diarrhea, no hematuria, dysuria, no musculoskeletal complaints, no strokes or seizures, no skin lesions. EXAMINATION: Blood pressure 155/80 sitting Standing 134/81 mmHg Pulse rate in the 80s and 90s sinus mechanism no atrial fibrillation Bryanna lungs no rhonchi no crackles Normal heart sounds no murmurs REVIEW OF LABS, ECG & MEDICAL DATA WHITE count 11,000, hemoglobin 12.5 D-dimer 2.0 Sodium 139 potassium 3.5 BUN 35 and creatinine 0.96 Normal troponin Normal LFTs Home medications include Verapamil SR 180 mg by mouth daily Metoprolol tartrate 50 mrem twice daily Lasix 40 mg twice daily ELIQUIS Levothyroxine Metolazone every alternate day Rosuvastatin
[2023-02-15] MEDS: ATORVASTATIN 10 MG TAB PO SCH (21:42)
[2023-02-16 06:01] LABS: Glucose,Whole Blood 136 mg/dL (70-110)
[2023-02-16] MEDS: LEVOTHYROXINE 75 MCG TAB PO SCH (06:15)
[2023-02-16] MEDS: PANTOPRAZOLE 40 MG TABLET PO SCH (06:15)
--- NOTE | 2023-02-16 07:06 | CA ---
Transthoracic Echo Report Name: Lilian Urrutia Age: 73 Gender: F : 1950 Exam Date: 02/15/2023 13:45 Exam Location: [place] [facility] Ht (in): 62 Wt (lb): 269 Ordering Physician: Brandi James Attending/Referring Phys: [id number], Erika Human Relations Professor Doris Winn [facility] Procedure CPT: Indications: LVF Cardiac Hx: Technical Quality: Technically difficult study Contrast 1: Definity Total Dose (mL): 5 Contrast 2: Total Dose (mL): MEASUREMENTS (Male / Female) Normal Values 2D ECHO LV Diastolic Diameter PLAX 4.2 cm 4.2 - 5.9 / 3.9 - 5.3 cm LV Systolic Diameter PLAX 2.8 cm IVS Diastolic Thickness 1.0 cm 0.6 - 1.0 / 0.6 - 0.9 cm LVPW Diastolic Thickness 1.0 cm 0.6 - 1.0 / 0.6 - 0.9 cm LV Relative Wall Thickness 0.5 Ascending Aorta Diameter 3.1 cm DOPPLER AV Peak Velocity 175.2 cm/s AV Peak Gradient 12.3 mmHg AV Mean Velocity 128.4 cm/s AV Mean Gradient 7.2 mmHg AV Velocity Time Integral 30.2 cm LVOT Peak Velocity 154.0 cm/s LVOT Peak Gradient 9.5 mmHg LVOT Velocity Time Integral 27.2 cm Mitral E Point Velocity 58.9 cm/s Mitral A Point Velocity 95.4 cm/s Mitral E to A Ratio 0.6 MV Deceleration Time 202.0 ms LV E' Lateral Velocity 11.4 cm/s Mitral E to LV E' Lateral Ratio 5.2 LV E' Septal Velocity 10.9 cm/s Mitral E to LV E' Septal Ratio 5.4 TR Peak Velocity 286.1 cm/s TR Peak Gradient 32.7 mmHg Right Atrial Pressure 3.0 mmHg Pulmonary Artery Systolic Pressu 35.7 mmHg Right Ventricular Systolic Press 35.7 mmHg FINDINGS Left Ventricle Left ventricular cavity size normal. Normal left ventricular systolic function with no obvious regional wall motion abnormalities. Left ventricular ejection fraction is estimated at 55-60%. Right Ventricle Moderate right ventricular dilatation. Mild pulmonary hypertension. Right Atrium Normal right atrial size. Left Atrium Normal left atrial size. Mitral Valve Mitral valve not well visualized. No mitral regurgitation. Aortic Valve Trileaflet aortic valve. No aortic regurgitation. Tricuspid Valve Tricuspid valve not well visualized. Trace tricuspid regurgitation. Pulmonic Valve Pulmonic valve not well visualized. Pericardium No pericardial effusion. Aorta Normal size aortic root and proximal ascending aorta. CONCLUSIONS Definity ECHO contrast used for improved visualization of the endocardial borders (inadequate visualization of two or more contiguous segments). 1. Normal left ventricle size and systolic function 2. Trace tricuspid regurgitation with mild pulmonary hypertension Previewed by: Dr. Matteo Sam MD (Electronically Signed) Final Date: 16 February 2023 07:05
[2023-02-16] MEDS: APIXABAN 5 MG TAB PO SCH ×2 (08:44→20:07)
[2023-02-16] MEDS: MULTIVITAMINS, THERA 1 EACH TAB PO SCH (08:44)
[2023-02-16] MEDS: NYSTATIN 100,000UNIT/GM CREAM 30 GM TUBE TOPICAL SCH ×2 (08:44→20:08)
[2023-02-16] MEDS: LORATADINE 10 MG TAB PO SCH (09:05)
[2023-02-16] MEDS ORDERED: SODIUM CHLORIDE 0.9% 500 ML 500 ML IV ONE (10:39)
[2023-02-16] MEDS: ceFAZolin 3 GM in SODIUM CHLORIDE 0.9% 100 ML IVPB PRN ×2 (10:39→11:10)
[2023-02-16] MEDS ORDERED: LIDOCAINE 1% INJ 10MG/ML (20 ML MDV) ONE ×2 (10:55)
[2023-02-16] MEDS ORDERED: LIDOCAINE 1% INJ 10MG/ML (20 ML MDV) SQ ONE (11:10)
[2023-02-16] MEDS ORDERED: Potassium Replacement Protocol 1 EACH MISC MISCELLANE PRN (11:48)
--- NOTE | 2023-02-16 12:00 | P.PN ---
Subjective Progress Note Date: 02/16/23 This is a 73 -year-old female admitted with syncope, bradycardia, subsequent fall , chronic paroximal atrial fibrillation, and multiple other medical issues. Elevated d-dimer and CT reported negative for PE. Telemetry reporting heart rates in the 70s to 80s with Verapamil, Lopressor and metolazone on hold. Denies chest pain, palpitations or shortness of breath. Maintaining O2 sats in the 90s on room air. Tearful, expresses discouragement and fear, as this is recurrent. Afebrile. 02/16/2023 evaluated by front end engineer, scheduled for tilt table testing, loop recorder implantation today. Feels less anxious and relieved regarding cardiology workup. BMP pending. Yesterday's orthostatic vitals reported blood pressure 155/80 sitting and standing 134/81. Telemetry sinus .Orthostatic vital signs pending for this morning. Objective - Vital Signs Vital signs: Vital Signs Temp 98.5 F 02/16/23 08:00 Pulse 87 02/16/23 08:00 Resp 20 02/16/23 08:00 BP 133/60 02/16/23 08:00 Pulse Ox 91 L 02/16/23 08:04 FiO2 Intake & Output 02/15/23 02/16/23 02/16/23 18:59 06:59 18:59 Intake Total 1080 110 Output Total 1300 Balance -220 110 Intake: IV 110 Oral 1080 Output: Urine 1300 Other: Voiding Method Toilet Toilet Diaper Diaper Incontinent Incontinent # Voids 2 - Exam PHYSICAL EXAM: VITAL SIGNS: [As above] GENERAL: Alert and oriented 3, Sitting up in bed, no acute distress HEENT: Normocephalic ,Conjunctivae normal. eyes normal. NECK: Supple, No JVD. CARDIOVASCULAR: S1, S2 regular. Systolic murmur RESPIRATION: Unlabored ,Breath sounds diminished in the bases. No rhonchi or crackles. ABDOMEN: Soft, nontender . No guarding. no masses palpable. Positive bowel sounds LEGS: No edema. no swelling NERVOUS SYSTEM: Cranial N 2-12 grossly normal. No focal deficits.Strength and sensation grossly intact. Skin: Warm and dry, no rash - Labs CBC & Chem 7: 02/14/23 10:05 02/14/23 10:05 Labs: Abnormal Lab Results - Last 24 Hours (Table) 02/15/23 02/16/23 Range/Units 07:52 05:59 POC Glucose (mg/dL) 136 H (70-110) mg/dL Triglycerides 243.00 H (0.00-149.00) mg/dL VLDL Cholesterol, Calc 48.60 H (5.00-40.00) mg/dL Assessment and Plan Assessment: Syncope, bradycardia heart rate of 25 on her pulse ox, possible arrhythmia ,with subsequent fall. Chronic Paroxysmal atrial fibrillation Chronic heart failure with diastolic dysfunction Hypertension Hyperlipidemia Diabetes mellitus Hypothyroidism Plan: Continue on current medication regime ,monitoring and symptomatic treatment. BMP pending. Tilt table, Loop recorder implantation pending. The impression and plan of care has been dictated as directed. : I performed a history and examination of this patient, discussed the same with the dictator. I agree with the dictator's note ,documented as a scribe. Any additional findings or plans will be noted.
[2023-02-16] MEDS: FUROSEMIDE 40 MG TAB PO SCH ×2 (13:04→18:51)
[2023-02-16] MEDS: SPIRONOLACTONE 25 MG TAB PO SCH (13:04)
[2023-02-16] MEDS: HYDROcodone/APAP 5-325MG 1 EACH TAB PO PRN (13:08)
[2023-02-16 15:41] LABS: African American GFR (CKD) 74 (>60 ml/min/1.73 sqM); Anion Gap 16 mmol/L; Blood Urea Nitrogen 26 mg/dL (7-17); Calcium 8.7 mg/dL (8.4-10.2); Carbon Dioxide 28 mmol/L (22-30); Chloride 94 mmol/L (98-107); Glucose 182 mg/dL (74-99); Non-African American GFR(CKD) 64 (>60 ml/min/1.73 sqM); Potassium 3.1 mmol/L (3.5-5.1); Sodium 138 mmol/L (137-145)
[2023-02-16] MEDS: POTASSIUM CHLORIDE ER 20 MEQ TAB.ER PO SCH ×2 (16:36→18:51)
--- NOTE | 2023-02-16 19:21 | P.EPPROC ---
- EP Procedure Note Electrophysiology Procedure Note: Diagnosis Recurrent syncope associated with feeling hot and flushed and very sweaty Abnormal EKG at baseline Twelve-lead EKG shows sinus rhythm bifascicular block with a right bundle branch block left anterior fascicular block normal MA interval Tilt table test for protocol Baseline blood pressure 154/88 mmHg Baseline heart rate 94 beats a minute Patient tilted upright at 70 per protocol Blood pressure remained elevated throughout the procedure Mild increase in heart rate 200 beats a minute No evidence for dysautonomia She stated that she felt lightheaded and her heart was beating fast she was complaining of palpitations Later she complained of nausea and sweating less than lightheadedness. At that time the heart rate is 110 beats a minute, Blood pressure was 150/69 mmHg Impression Symptoms of palpitations lightheadedness and sweatiness nausea associated with mild sinus tachycardia with no drop in blood pressure It is to be noted that The patient's diuretics have been discontinued/reduced Some cardiac medications of also been discontinued since admission However her symptoms on the tilt table test a similar to the symptoms associated with the presyncopal spells
[2023-02-16] MEDS: ATORVASTATIN 10 MG TAB PO SCH (20:07)
[2023-02-17 06:10] LABS: Glucose,Whole Blood 145 mg/dL (70-110)
[2023-02-17] MEDS: LEVOTHYROXINE 75 MCG TAB PO SCH (06:22)
[2023-02-17] MEDS: PANTOPRAZOLE 40 MG TABLET PO SCH (06:22)
[2023-02-17] MEDS: MULTIVITAMINS, THERA 1 EACH TAB PO SCH (08:32)
[2023-02-17] MEDS: LORATADINE 10 MG TAB PO SCH (08:32)
[2023-02-17] MEDS: APIXABAN 5 MG TAB PO SCH ×2 (08:32→20:08)
[2023-02-17] MEDS: POTASSIUM CHLORIDE ER 20 MEQ TAB.ER PO SCH ×2 (08:32→20:09)
[2023-02-17] MEDS: FUROSEMIDE 40 MG TAB PO SCH ×2 (08:32→15:39)
[2023-02-17] MEDS: SPIRONOLACTONE 25 MG TAB PO SCH (08:35)
[2023-02-17] MEDS: NYSTATIN 100,000UNIT/GM CREAM 30 GM TUBE TOPICAL SCH ×2 (08:35→20:10)
[2023-02-17] MEDS: DOPamine DRIP 800 MG in DEXTROSE/WATER 1 250ML.BAG IV SCH (09:35)
[2023-02-17] MEDS ORDERED: SODIUM CHLORIDE 0.9% 1,000 ML IV SCH (11:45)
[2023-02-17 11:56] LABS: Glucose,Whole Blood 191 mg/dL (70-110)
[2023-02-17 12:07] LABS: Basophils % (A) 0 %; Eosinophils # (A) 0.4 k/uL (0-0.7); Eosinophils % (A) 3 %; HCT 39.8 % (34.0-46.0); Lymphocytes # (A) 2.3 k/uL (1.0-4.8); Lymphocytes % (A) 22 %; MCH 29.6 pg (25.0-35.0); MCHC 32.5 g/dL (31.0-37.0); MCV 90.9 fL (80.0-100.0); Mean Platelet Volume 8.3; Monocytes # (A) 0.6 k/uL (0-1.0); Monocytes % (A) 6 %; Neutrophils # (A) 6.8 k/uL (1.3-7.7); Neutrophils % (A) 66 %; Platelet Count 270 k/uL (150-450); RBC 4.38 m/uL (3.80-5.40); RDW 15.1 % (11.5-15.5); WBC 10.3 k/uL (3.8-10.6)
[2023-02-17] MEDS ORDERED: ONDANSETRON 4 MG/2 ML VIAL IVP PRN (12:14)
[2023-02-17 12:26] LABS: African American GFR (CKD) 60 (>60 ml/min/1.73 sqM); Anion Gap 17 mmol/L; Blood Urea Nitrogen 31 mg/dL (7-17); Calcium 8.6 mg/dL (8.4-10.2); Carbon Dioxide 28 mmol/L (22-30); Chloride 93 mmol/L (98-107); Glucose 165 mg/dL (74-99); Non-African American GFR(CKD) 52 (>60 ml/min/1.73 sqM); Potassium 3.2 mmol/L (3.5-5.1); Sodium 138 mmol/L (137-145)
[2023-02-17] MEDS: SODIUM CHLORIDE 0.9% 1,000 ML IV SCH (12:33)
--- NOTE | 2023-02-17 13:31 | P.PN ---
Subjective Progress Note Date: 02/17/23 History of present illness: This is a 73-year-old female patient of Dr. Elijah Cedeno with past medical history of chronic diastolic heart failure and atrial fibrillation, hypertension, bradycardia , Hyperlipidemia. Patient was recently seen in the office on 02/04 and at that time underwent a 24-hour Holter monitor to rule out high-grade AV block. Patient states that yesterday she was in her kitchen, felt a fluttering feeling and lightheadedness and then next thing she knew she woke up on the floor. She has had several other episodes of almost passing out. At one time she did notice her heart rate on a pulse ox was 25. The following medications have been placed on hold: Verapamil, Lopressor, metolazone. EKG Sinus rhythm with right bundle branch block, left anterior fascicular block at 60 bpm. Telemetry has been 60s to 80s. Chest x-ray: Cardiomegaly and mild pulmonary vascular congestion CTA WBC 10.9, hemoglobin 12.5. INR 0.9. D-dimer 2. Sodium 139, potassium 3.5, chloride 95, CO2 36, BUN 35 creatinine 0.96. Blood sugar 117. Magnesium 2.4. Troponin negative 3. ProBNP 292. Home cardiac medications: Eliquis 5 mg twice daily, Lasix 40 mg twice daily, levothyroxine 75 g daily, metolazone 5 mg every 48 hours, potassium 20 mEq daily, Crestor 5 mg at bedtime, verapamil 180 mg daily Echocardiogram performed 08/28/2022 in the office revealed EF of 50-55%, moderate left ventricular hypertrophy. Mild aortic regurgitation. Ascending aorta is enlarged. Mild to moderate mitral regurgitation. Mild mitral stenosis. Mitral valve is calcified. Moderate tricuspid regurgitation. Pulmonary artery systolic pressure of 59 mmHg. 02/16 Patient is seen today in follow-up. Patient states that she has been up in her room and she did not have any lightheadedness or dizziness, no palpitations and chest pain or shortness of breath. Yesterday she had an abnormal tilt table test in the loop recorder was installed. Metolazone was discontinued and Aldactone added by Dr. Merida. Later in the morning, patient had episode of not feeling well in general and nausea vomiting and was found to be in Mobitz type II. Patient was ordered for dobutamine drip this morning at 2.5. Patient is scheduled for pacemaker insertion tomorrow with Dr. Merida. Physical examination: Gen: This is a 73 year old female. She is resting in bed appears to be in no acute distress. VS: reviewed HEENT: Head is atraumatic, normocephalic. Pupils equal, round. Sclerae is anicteric. NECK: Supple. No JVD. LUNGS: Clear to auscultation. No wheezes or rhonchi. No intercostal retractions. HEART: Regular rate and rhythm. Systolic murmur. ABDOMEN: Soft No tenderness. EXTREMITIES: No pedal edema. No calf tenderness. NEUROLOGICAL: Patient is awake, alert and oriented x3. Assessment: Syncopal episode due to secondary degree block Mobitz 2 Bradycardia Chronic diastolic heart failure Paroxysmal atrial fibrillation Hypertension Hyperlipidemia Plan: Continue to hold verapamil, Lopressor, metolazone Patient was started on Aldactone yesterday. Continue dopamine gtt Patient is scheduled for pacemaker insertion tomorrow. Nurse practitioner note has been reviewed, I agree with documented findings and plan of care. Patient was seen and examined. Objective - Vital Signs Vital signs: Vital Signs Temp 98.0 F 02/17/23 04:56 Pulse 92 02/17/23 04:56 Resp 16 02/17/23 04:56 BP 130/71 02/17/23 04:56 Pulse Ox 92 L 02/17/23 04:56 FiO2 Intake & Output 02/16/23 02/17/23 02/17/23 18:59 06:59 18:59 Intake Total 350 Balance 350 Intake: IV 110 Oral 240 Other: Voiding Method Toilet Toilet Diaper Diaper Incontinent Incontinent # Voids 4 1 - Labs CBC & Chem 7: 02/17/23 11:19 02/17/23 11:19 Labs: Abnormal Lab Results - Last 24 Hours (Table) 02/16/23 02/17/23 Range/Units 14:18 06:08 Potassium 3.1 L (3.5-5.1) mmol/L Chloride 94 L (98-107) mmol/L BUN 26 H (7-17) mg/dL Glucose 182 H (74-99) mg/dL POC Glucose (mg/dL) 145 H (70-110) mg/dL
[2023-02-17] MEDS: HYDROcodone/APAP 5-325MG 1 EACH TAB PO PRN (15:39)
--- NOTE | 2023-02-17 16:16 | XR ---
EXAMINATION TYPE: XR knee limited bilateral DATE OF EXAM: 02/17/2023 3:59 PM INDICATION: Patient age:Female; 73 years old; Reason for study: recent fall, landed directly onto knees; [facility]. COMPARISON: Left knee radiograph 06/09/2021 TECHNIQUE: Both knees were evaluated in AP and lateral projections. FINDINGS: Post fixation hardware changes with 2 screws and cerclage wires involving the left patella. There is again fracture of the lateral screw and cerclage wire. No acute fracture or dislocation. Tr icompartmental joint space narrowing and spurring of both knees. Stable sclerotic benign enchondroma identified within the distal right femoral diaphysis. No sizable joint effusion or soft tissue swelli ng. IMPRESSION: 1. No acute osseous pathology. 2. Mild to moderate osteoarthritic changes of both knees. 3. Stable postsurgical changes of the left patella.
[2023-02-17 16:45] LABS: Glucose,Whole Blood 163 mg/dL (70-110)
[2023-02-17 20:02] LABS: Glucose,Whole Blood 156 mg/dL (70-110)
[2023-02-17] MEDS: ATORVASTATIN 10 MG TAB PO SCH (20:09)
--- NOTE | 2023-02-17 23:10 | PN ---
PROGRESS NOTE Lilian is a 73-year-old lady, who is admitted to hospital with syncope and has a normal baseline EKG, was evaluated by EP, who performed a loop recorder and the patient was to go home today; however, she developed bradycardia with heart rates in the 40s and episodes of AV dissociation with second and third-degree heart block. The patient is not on any AV diana blockers. Her thyroid is well controlled. I am starting her on dopamine. I spoke to Dr. Merida. He is going to perform a permanent pacemaker on her tomorrow. The patient is stable hemodynamically and is free of symptoms after the pacemaker is done. I will put her back on the metoprolol. MMODL / IJN: [id number] /
[2023-02-18] MEDS: APIXABAN 5 MG TAB PO SCH ×2 (04:48→21:51)
--- NOTE | 2023-02-18 04:56 | P.PN ---
Subjective Progress Note Date: 02/17/23 This is a 73 -year-old female admitted with syncope, bradycardia, subsequent fall , chronic paroximal atrial fibrillation, and multiple other medical issues. Elevated d-dimer and CT reported negative for PE. Telemetry reporting heart rates in the 70s to 80s with Verapamil, Lopressor and metolazone on hold. Denies chest pain, palpitations or shortness of breath. Maintaining O2 sats in the 90s on room air. Tearful, expresses discouragement and fear, as this is recurrent. Afebrile. 02/16/2023 evaluated by public relations analyst, scheduled for tilt table testing, loop recorder implantation today. Feels less anxious and relieved regarding cardiology workup. BMP pending. Yesterday's orthostatic vitals reported blood pressure 155/80 sitting and standing 134/81. Telemetry sinus .Orthostatic vital signs pending for this morning. 02/17/2023 This is a pleasant 73-year-old female who follows with Dr. Martin in the outpatient setting we are currently covering. Patient is being followed by cardiology as she was having episodes of syncope and bradycardia underwent tilt table test which was positive and also noted activity of block on loop recorder and plans for permanent pacemaker to be placed with Dr. Merida tomorrow. Patient is currently extremely anxious on exam and having some nausea with vomiting. Will add Zofran. Patient is currently afebrile with no reports of chest pain or shortness of breath. Review of systems: Constitutional: No reports of fatigue, fever, or chills Cardiovascular: No reports of chest pain or palpitations Respiratory: No reports of shortness of breath or cough GI: reports of nausea, and vomiting, no diarrhea : No reports of dysuria or retention Neurovascular: reports of generalized weakness and bilateral knee pain from her fall All medications have been reviewed Physical exam: Gen: This is a 73-year-old female who is awake, alert and oriented, well- developed, well-nourished, morbidly obese HEENT: Head is atraumatic, normocephalic. Pupils equal, round. Sclerae is anicteric. NECK: Supple. No JVD. No lymphadenopathy. No thyromegaly. LUNGS: Clear to auscultation. No wheezes or rhonchi. No intercostal retractions. HEART: S1, S2 are muffled, irregular ABDOMEN: Soft. Obese. Bowel sounds are present. No masses. No tenderness. EXTREMITIES: No pedal edema. No calf tenderness. NEUROLOGICAL: Patient is awake, alert and oriented x3. Cranial nerves 2 through 12 are grossly intact. Diffusely weak Assessment: Syncope, bradycardia heart rate of 25 on her pulse ox, possible arrhythmia ,with subsequent fall. Bilateral knee pain secondary to the fall Chronic Paroxysmal atrial fibrillation Chronic heart failure with diastolic dysfunction, not an exacerbation Hypertension Hyperlipidemia Diabetes mellitus Hypothyroidism Morbid obesity with BMI 49.2 GI prophylaxis DVT prophylaxis Full code Plan: Cardiology following and has a loop recorder underwent tilt table test which was positive and per cardiology there was an event noted and captured on loop recorder with third-degree block and plans for permanent pacemaker with Dr. Merida on 02/18/2023 Patient having some nausea and will add Zofran A.m. labs ordered Patient having some bilateral knee pain and reports she fell directly onto both knees and having pain and will obtain x-rays to ensure no fractures Will need PT/OT therapy evaluation The impression and plan of care has been dictated by Malaika Majano, Nurse Practitioner as directed. Dr. Sp MD I have performed a history and examination and MDM of this patient, discussed the same with the dictator, and agree with the dictator's assessment and plan as written ,documented as a scribe. Based on total visit time, I have performed more than 50% of the visit. Objective - Vital Signs Vital signs: Vital Signs Temp 97.8 F 02/17/23 08:00 Pulse 101 H 02/17/23 08:00 Resp 16 02/17/23 08:00 BP 132/68 02/17/23 08:00 Pulse Ox 93 L 02/17/23 08:00 FiO2 Intake & Output 02/16/23 02/17/23 02/17/23 18:59 06:59 18:59 Intake Total 350 118 Balance 350 118 Intake: IV 110 Oral 240 118 Other: Voiding Method Toilet Toilet Diaper Diaper Incontinent Incontinent # Voids 4 1 - Labs CBC & Chem 7: 02/17/23 11:19 02/17/23 11:19 Labs: Abnormal Lab Results - Last 24 Hours (Table) 02/16/23 02/17/23 Range/Units 14:18 06:08 Potassium 3.1 L (3.5-5.1) mmol/L Chloride 94 L (98-107) mmol/L BUN 26 H (7-17) mg/dL Glucose 182 H (74-99) mg/dL POC Glucose (mg/dL) 145 H (70-110) mg/dL
[2023-02-18 05:55] LABS: Glucose,Whole Blood 168 mg/dL (70-110)
[2023-02-18] MEDS: SODIUM CHLORIDE 0.9% 1,000 ML IV SCH (05:57)
[2023-02-18] MEDS: LEVOTHYROXINE 75 MCG TAB PO SCH (05:57)
[2023-02-18] MEDS: PANTOPRAZOLE 40 MG TABLET PO SCH (05:57)
[2023-02-18] MEDS: DOPamine DRIP 800 MG in DEXTROSE/WATER 1 250ML.BAG IV SCH (05:58)
[2023-02-18] MEDS ORDERED: ceFAZolin 3 GM in SODIUM CHLORIDE 0.9% 100 ML IVPB PRN (06:00)
[2023-02-18] MEDS: POTASSIUM CHLORIDE ER 20 MEQ TAB.ER PO SCH ×2 (08:47→21:51)
[2023-02-18] MEDS: FUROSEMIDE 40 MG TAB PO SCH ×2 (08:47→16:30)
[2023-02-18] MEDS: LORATADINE 10 MG TAB PO SCH (08:47)
[2023-02-18] MEDS: SPIRONOLACTONE 25 MG TAB PO SCH (08:47)
[2023-02-18] MEDS: MULTIVITAMINS, THERA 1 EACH TAB PO SCH (08:47)
[2023-02-18] MEDS: NYSTATIN 100,000UNIT/GM CREAM 30 GM TUBE TOPICAL SCH ×2 (08:48→22:35)
[2023-02-18 09:54] LABS: African American GFR (CKD) 72 (>60 ml/min/1.73 sqM); Anion Gap 14 mmol/L; Blood Urea Nitrogen 24 mg/dL (7-17); Calcium 8.7 mg/dL (8.4-10.2); Carbon Dioxide 31 mmol/L (22-30); Chloride 94 mmol/L (98-107); Glucose 182 mg/dL (74-99); Magnesium 1.9 mg/dL (1.6-2.3); Non-African American GFR(CKD) 63 (>60 ml/min/1.73 sqM); Potassium 3.5 mmol/L (3.5-5.1); Sodium 139 mmol/L (137-145)
[2023-02-18 11:40] LABS: Glucose,Whole Blood 148 mg/dL (70-110)
[2023-02-18] MEDS ORDERED: ceFAZolin 1,000 MG in SODIUM CHLORIDE 0.9% IRRIG BTL 250 ML IRRIGATION STA (17:40)
--- NOTE | 2023-02-18 18:59 | P.PN ---
Progress Note - Text Discussed with Dr. Cedeno Recurrent syncope Normal tilt table test Yesterday the patient is being discharged when she had sudden onset of p aroxysmal AV block and she had the usual symptoms and had near syncope She had multiple episodes Plan Dual-chamber pacemaker conduction system pacing today
[2023-02-18] MEDS ORDERED: SODIUM CHLORIDE 0.9% 250 ML IV ONE (19:00)
[2023-02-18] MEDS ORDERED: IOPAMIDOL-370 100ML BTL INJ ONE (19:12)
[2023-02-18] MEDS ORDERED: LIDOCAINE 1% INJ 10MG/ML (20 ML MDV) ONE ×2 (19:25→19:50)
[2023-02-18] MEDS ORDERED: fentaNYL (PF) 50 MCG/ML 2 ML AMP ONE ×2 (19:35→20:24)
[2023-02-18] MEDS: fentaNYL (PF) 50 MCG/ML 2 ML AMP IVP ONE ×3 (19:35→20:11)
[2023-02-18] MEDS ORDERED: LIDOCAINE 1% INJ 10MG/ML (30 ML VIAL-PF) SQ ONE ×2 (19:37)
[2023-02-18] MEDS ORDERED: LIDOCAINE 1% INJ 10MG/ML (20 ML MDV) SQ ONE (20:15)
[2023-02-18] MEDS ORDERED: fentaNYL (PF) 50 MCG/ML 2 ML AMP IVP ONE (20:27)
[2023-02-18] MEDS ORDERED: ACETAMINOPHEN TAB 325 MG TAB PO PRN (21:08)
[2023-02-18] MEDS ORDERED: ACETAMINOPHEN IV (For NPO) 1,000 MG in EMPTY BAG 1 BAG IVPB ONE (21:08)
--- NOTE | 2023-02-18 21:12 | P.EPPROC ---
- EP Procedure Note Electrophysiology Procedure Note: Diagnosis Symptomatic bradycardia, unprovoked, no triggering factors, paroxysmal AV block with syncope, recurrent Procedure Dual-chamber pacemaker implantation with conduction system pacing (left bundle pacing) Left upper extremity venogram Details Patient was brought to the EP lab in a fasting state. Written informed consent was obtained prior to the procedure. Conscious sedation provided by DENTURE WAXER. IV antibiotics administered. Local anesthesia administered. A 4 cm incision made in the pectoral area. Subfascial pocket made. Venous accesses obtained Venous sheaths placed. Leads placed in the right heart. 2 sets of pacing cables were used; one for backup temporary pacing and the other for assessment of current of injury and signal analysis. A 52 cm atrial pacing lead was first positioned in the RV apex for temporary pacing during mapping and conduction system pacing Thresholds were interrogated and backup high output pacing was provided This atrial lead was then removed from the right ventricle and later positioned in the right atrial appendage and the permanent lead A deflected sheath was prepped. A coronary sinus decapolar catheter was placed within this sheath. The catheter along with the sheath was then passed into the right heart, the catheter was prolapsed across the tricuspid valve, into the right ventricle and then further into the right ventricular outflow tract across the pulmonic valve into the pulmonary artery. This sheath was slid over this decapolar catheter into the RVOT. Thereafter the catheter last sheath assembly was withdrawn from the RVOT along the septum to the mid septal area. The sheath was appropriately to to map the right ventricular aspect of the septum. The decapolar catheter was withdrawn, the sheath flushed again and the screw-in pacing lead placed within the sheath. Further detailed unipolar pace-mapping of the septum was performed and once the appropriate based morphology was obtained on lead V1, the lead was screwed into the septum. The lead was screwed in 4-5 returns at a time while monitoring the current of injury, the pacing impedance changes and the paced QRS morphology. The stimulus to peak of V6 QRS was measured at each step. Once a QR or rSR pattern of paced QRS in lead V1 was obtained, a left bundle signal was sought. Impedance was measured and thresholds were measured. An impedance drop of 100-200 ohms but above 550 ohms was targeted along with an unchanged vector of the current of injury signal. The final positioning was based on the QRS morphology in lead V1 and a short stimulus to peak of the V6 QRS of less than 90 ms. The sheath was withdrawn, stability of the pacing lead deep in the septum was confirmed on VARNER and WELSH views and the sheath was slipped and an adequate heel was provided for the lead. Unipolar and bipolar electrogram morphology obtained Atrial lead positioned in the right atrial appendage. Sensing, thresholds and impedances measured following positioning and securing the lead in the right atrial appendage Left bundle lead parameters: Typical right bundle branch block paced QRS morphology, Stimulus-V6 peak equals 63 ms and total paced QRS width 133 ms R waves 19.9 ohms, pacing impedance 627 ohms and pacing threshold 0.5 V at 0.4 ms Atrial lead parameters 52 cm model #5076 Med[employer]onic lead P waves 2.1 mV, pacing impedance 7 and 60 ohms and pacing threshold 0.5 V at 0.4 ms Device lean facilitator: Medtronic KAITLYNN XT DR Dual-chamber pacemaker device connected to the leads and placed in the subfascial pocket Patient tolerated the procedure well without acute complications Pacemaker programming [id number] 60-130
--- NOTE | 2023-02-18 21:26 | P.PN ---
Progress Note - Text (Post pacemaker patient may use both arms to push herself up off the bed, push herself off of the chair to transfer I have explained this to the patient She should go home Avoid snf or rehab facility Increase risk of infection for pacemaker Physical therapy consultation for the following #1 transfer from chair to bed and the patient may push herself up with both arms #2 transfer from bed to chair and the patient may push herself up with both arms #3 Ambulate using a walker Following that later tomorrow she should go home
--- NOTE | 2023-02-18 21:35 | P.PN ---
Progress Note - Text PATIENT EDUCATION MATERIAL Instructions following a heart rhythm device implant. 1. Keep dressing DRY for 7 DAYS. You may cover the area with Saran or Cling Wrap, prior to a shower. 2. The dressing will be removed in the Device [facility] at [facility]. Absorbable sutures were used to close the wound. 3. Avoid raising the left arm above the shoulder level. 4 week restriction 4. Avoid arm movements, like backscratching, rubbing the head, or pulling on a cord. 4 weeks restriction 5. Gentle range of motion movements of the shoulder, closest to the incision should be performed to avoid a frozen shoulder. (Pendulum exercises of the shoulder) 6. The opposite arm may be used freely. 7. Avoid driving for 7 days. 8. Avoid activities such as golfing, swimming, weed whacking, lifting more than 10 pounds weight, bowling, gymnastics and weight training/lifting. (6 weeks restriction) 9. Activities such as wood chopping with an axe, pull-ups in the gymnasium, power lifting, arc-welding, being close to home induction cooktops will always be a problem. 10. Arm sling is only a reminder not to raise the arm above the head. You do not need to keep the arm completely immobilized. Your free to move the arm and use it and for normal activities. In case of any problems, please call [facility], Neeta Arnold, @ [phone], Attention: Device Clinic Device clinic follow-up in 5 days Follow-up with primary financial management consultant in 2-3 months Patient may use both arms to help her lift herself up during transfers from chair to bed and vice versa Take the sling off during the day Use the sling at night as a reminder
[2023-02-18] MEDS: ATORVASTATIN 10 MG TAB PO SCH (21:51)
--- NOTE | 2023-02-19 05:04 | P.PN ---
Subjective Progress Note Date: 02/18/23 This is a 73 -year-old female admitted with syncope, bradycardia, subsequent fall , chronic paroximal atrial fibrillation, and multiple other medical issues. Elevated d-dimer and CT reported negative for PE. Telemetry reporting heart rates in the 70s to 80s with Verapamil, Lopressor and metolazone on hold. Denies chest pain, palpitations or shortness of breath. Maintaining O2 sats in the 90s on room air. Tearful, expresses discouragement and fear, as this is recurrent. Afebrile. 02/16/2023 evaluated by tests superintendent, scheduled for tilt table testing, loop recorder implantation today. Feels less anxious and relieved regarding cardiology workup. BMP pending. Yesterday's orthostatic vitals reported blood pressure 155/80 sitting and standing 134/81. Telemetry sinus .Orthostatic vital signs pending for this morning. 02/17/2023 This is a pleasant 73-year-old female who follows with Dr. Martin in the outpatient setting we are currently covering. Patient is being followed by cardiology as she was having episodes of syncope and bradycardia underwent tilt table test which was positive and also noted activity of block on loop recorder and plans for permanent pacemaker to be placed with Dr. Merida tomorrow. Patient is currently extremely anxious on exam and having some nausea with vomiting. Will add Zofran. Patient is currently afebrile with no reports of chest pain or shortness of breath. 02/18/2023 Patient is seen in follow-up this morning currently nothing by mouth as patient is scheduled to undergo permanent pacemaker implantation today. Patient reports the nausea and vomiting have improved and continues to be a little nervous about the overall procedure. Patient is afebrile with no reported chest pain or shortness of breath. Patient denies any current palpitations or feelings of dizziness or lightheadedness. Patient has been using assistance with getting up. Patient also instructed there will be some restrictions regarding the use of the left arm and will be further discussed with cardiology per their instructions. Anticoagulation currently on hold for the procedure. Review of systems: Constitutional: No reports of fatigue, fever, or chills Cardiovascular: No reports of chest pain or palpitations Respiratory: No reports of shortness of breath or cough GI: No reports of nausea, or vomiting, no diarrhea : No reports of dysuria or retention Neurovascular: reports of generalized weakness and bilateral knee pain from her fall All medications have been reviewed Physical exam: Gen: This is a 73-year-old female who is awake, alert and oriented, well- developed, well-nourished, morbidly obese HEENT: Head is atraumatic, normocephalic. Pupils equal, round. Sclerae is anicteric. NECK: Supple. No JVD. No lymphadenopathy. No thyromegaly. LUNGS: Clear to auscultation. No wheezes or rhonchi. No intercostal retractions. HEART: S1, S2 are muffled, irregular ABDOMEN: Soft. Obese. Bowel sounds are present. No masses. No tenderness. EXTREMITIES: No pedal edema. No calf tenderness. NEUROLOGICAL: Patient is awake, alert and oriented x3. Cranial nerves 2 through 12 are grossly intact. Diffusely weak Assessment: Syncope, bradycardia heart rate of 25 on her pulse ox, possible arrhythmia ,with subsequent fall. Bilateral knee pain secondary to the fall, negative for fractures Chronic Paroxysmal atrial fibrillation Chronic heart failure with diastolic dysfunction, not an exacerbation Hypertension Hyperlipidemia Diabetes mellitus Hypothyroidism Morbid obesity with BMI 49.2 GI prophylaxis DVT prophylaxis Full code Plan: Cardiology following and has a loop recorder underwent tilt table test which was positive and per cardiology there was an event noted and captured on loop recorder with third-degree block and plans for permanent pacemaker with Dr. Merida later this afternoon. Patient currently nothing by mouth for the procedure and anticoagulation is currently on hold as well. Patient reports nausea is improved and reports to feeling hungry. Diet will be resumed after procedure Patient having some bilateral knee pain from her fall landing directly onto both knees and x-rays were performed and negative for any acute process Will need PT/OT therapy evaluation Possible discharge in 24 hours once cleared by cardiology. The impression and plan of care has been dictated by Malaika Majano Nurse Practitioner as directed. Dr. Sp MD I have performed a history and examination and MDM of this patient, discussed the same with the dictator, and agree with the dictator's assessment and plan as written ,documented as a scribe. Based on total visit time, I have performed more than 50% of the visit. Objective - Vital Signs Vital signs: Vital Signs Temp 98.2 F 02/19/23 03:34 Pulse 82 02/19/23 03:34 Resp 18 02/19/23 03:34 BP 113/57 02/19/23 03:34 Pulse Ox 94 L 02/19/23 03:34 FiO2 Intake & Output 02/18/23 02/18/23 02/19/23 06:59 18:59 06:59 Intake Total 1203.165 150 Output Total 400 Balance 1203.165 -250 Intake: IV 150 Intake, IV Titration 843.165 Amount DOPamine DRIP 800 mg In 343.165 Dextrose/Water 1 250ml. bag @ 5 MCG/KG/MIN 11.439 mls/hr IV .[id number] [facility] Rx#:[id number] Sodium Chloride 0.9% 1, 500 000 ml @ 50 mls/hr IV . Q20H [facility] Rx#:[id number] Oral 360 Output: Urine 400 Other: Voiding Method Toilet Toilet Toilet Diaper Diaper Diaper Incontinent # Voids 1 - Labs CBC & Chem 7: 02/17/23 11:19 02/18/23 07:57 Labs: Abnormal Lab Results - Last 24 Hours (Table) 02/18/23 02/18/23 02/18/23 Range/Units 05:54 07:57 11:37 Chloride 94 L (98-107) mmol/L Carbon Dioxide 31 H (22-30) mmol/L BUN 24 H (7-17) mg/dL Glucose 182 H (74-99) mg/dL POC Glucose (mg/dL) 168 H 148 H (70-110) mg/dL
[2023-02-19] MEDS: LEVOTHYROXINE 75 MCG TAB PO SCH (05:59)
[2023-02-19] MEDS: PANTOPRAZOLE 40 MG TABLET PO SCH (05:59)
[2023-02-19] MEDS: HYDROcodone/APAP 5-325MG 1 EACH TAB PO PRN (06:03)
[2023-02-19 06:09] LABS: Glucose,Whole Blood 116 mg/dL (70-110)
[2023-02-19] MEDS: SODIUM CHLORIDE 0.9% 1,000 ML IV SCH (06:27)
[2023-02-19] MEDS: DOPamine DRIP 800 MG in DEXTROSE/WATER 1 250ML.BAG IV SCH (06:28)
--- NOTE | 2023-02-19 07:23 | P.PN ---
Subjective Progress Note Date: 02/18/23 History of present illness: This is a 73-year-old female patient of Dr. Elijah Cedeno with past medical history of chronic diastolic heart failure and atrial fibrillation, hypertension, bradycardia , Hyperlipidemia. Patient was recently seen in the office on 02/04 and at that time underwent a 24-hour Holter monitor to rule out high-grade AV block. Patient states that yesterday she was in her kitchen, felt a fluttering feeling and lightheadedness and then next thing she knew she woke up on the floor. She has had several other episodes of almost passing out. At one time she did notice her heart rate on a pulse ox was 25. The following medications have been placed on hold: Verapamil, Lopressor, metolazone. EKG Sinus rhythm with right bundle branch block, left anterior fascicular block at 60 bpm. Telemetry has been 60s to 80s. Chest x-ray: Cardiomegaly and mild pulmonary vascular congestion CTA WBC 10.9, hemoglobin 12.5. INR 0.9. D-dimer 2. Sodium 139, potassium 3.5, chloride 95, CO2 36, BUN 35 creatinine 0.96. Blood sugar 117. Magnesium 2.4. Troponin negative 3. ProBNP 292. Home cardiac medications: Eliquis 5 mg twice daily, Lasix 40 mg twice daily, levothyroxine 75 g daily, metolazone 5 mg every 48 hours, potassium 20 mEq daily, Crestor 5 mg at bedtime, verapamil 180 mg daily Echocardiogram performed 08/28/2022 in the office revealed EF of 50-55%, moderate left ventricular hypertrophy. Mild aortic regurgitation. Ascending aorta is enlarged. Mild to moderate mitral regurgitation. Mild mitral stenosis. Mitral valve is calcified. Moderate tricuspid regurgitation. Pulmonary artery systolic pressure of 59 mmHg. 02/16 Patient is seen today in follow-up. Patient states that she has been up in her room and she did not have any lightheadedness or dizziness, no palpitations and chest pain or shortness of breath. Yesterday she had an abnormal tilt table test in the loop recorder was installed. Metolazone was discontinued and Aldactone added by Dr. Merida. Later in the morning, patient had episode of not feeling well in general and nausea vomiting and was found to be in Mobitz type II. Patient was ordered for dobutamine drip this morning at 2.5. Patient is scheduled for pacemaker insertion tomorrow with Dr. Merida. 02/17 Patient was started on dobutamine drip yesterday. She is scheduled for pacemaker insertion today with Dr. Merida. No new concerns from the patient. All questions have been answered. Physical examination: Gen: This is a 73 year old female. She is resting in bed appears to be in no acute distress. VS: reviewed HEENT: Head is atraumatic, normocephalic. Pupils equal, round. Sclerae is anicteric. NECK: Supple. No JVD. LUNGS: Clear to auscultation. No wheezes or rhonchi. No intercostal retractions. HEART: Regular rate and rhythm. Systolic murmur. ABDOMEN: Soft No tenderness. EXTREMITIES: No pedal edema. No calf tenderness. NEUROLOGICAL: Patient is awake, alert and oriented x3. Assessment: Syncopal episode due to secondary degree block Mobitz 2 Bradycardia Chronic diastolic heart failure Paroxysmal atrial fibrillation Hypertension Hyperlipidemia Plan: Continue to hold verapamil, Lopressor, metolazone Continue on Aldactone yesterday. Continue dopamine gtt Patient is scheduled for pacemaker insertion today. Nurse practitioner note has been reviewed, I agree with documented findings and plan of care. Patient was seen and examined. Objective - Vital Signs Vital signs: Vital Signs Temp 98.2 F 02/19/23 03:34 Pulse 82 02/19/23 03:34 Resp 18 02/19/23 03:34 BP 113/57 02/19/23 03:34 Pulse Ox 94 L 02/19/23 03:34 FiO2 Intake & Output 02/18/23 02/19/23 02/19/23 18:59 06:59 18:59 Intake Total 150 Output Total 400 Balance -250 Intake: IV 150 Output: Urine 400 Other: Voiding Method Toilet Toilet Diaper Diaper - Labs CBC & Chem 7: 02/17/23 11:19 02/18/23 07:57 Labs: Abnormal Lab Results - Last 24 Hours (Table) 02/18/23 02/18/23 02/19/23 Range/Units 07:57 11:37 06:08 Chloride 94 L (98-107) mmol/L Carbon Dioxide 31 H (22-30) mmol/L BUN 24 H (7-17) mg/dL Glucose 182 H (74-99) mg/dL POC Glucose (mg/dL) 148 H 116 H (70-110) mg/dL
--- NOTE | 2023-02-19 07:37 | XR ---
EXAMINATION TYPE: XR chest 2V DATE OF EXAM: 02/19/2023 7:13 AM COMPARISON: Chest radiographs from 02/14/2023 TECHNIQUE: XR chest 2V Frontal and lateral views of the chest. CLINICAL INDICATION:Female, 73 years old with history of Lead placement check; FINDINGS: Lungs/Pleura: There is no evidence of pleural effusion, focal consolidation, or pneumothorax. Chroni c senescent parenchyma change. Pulmonary vascularity: Unremarkable. Heart/mediastinum: Cardiomediastinal silhouette is stable. Atherosclerotic calcifications are seen i n the aorta. Two lead cardiac conduction device overlying the left hemithorax with lead tips projecti ng over the right ventricle and right atrium. Musculoskeletal: No acute osseous pathology. Other findings: Loop recorder overlies the heart. IMPRESSION: Two lead cardiac conduction device overlying the left hemithorax with lead tips projecting over the r ight ventricle and right atrium.
[2023-02-19] MEDS: APIXABAN 5 MG TAB PO SCH (09:49)
[2023-02-19] MEDS: SPIRONOLACTONE 25 MG TAB PO SCH (09:49)
[2023-02-19] MEDS: POTASSIUM CHLORIDE ER 20 MEQ TAB.ER PO SCH (09:49)
[2023-02-19] MEDS: MULTIVITAMINS, THERA 1 EACH TAB PO SCH (09:49)
[2023-02-19] MEDS: FUROSEMIDE 40 MG TAB PO SCH (09:49)
[2023-02-19] MEDS: LORATADINE 10 MG TAB PO SCH (09:49)
[2023-02-19] MEDS: NYSTATIN 100,000UNIT/GM CREAM 30 GM TUBE TOPICAL SCH (09:50)
--- NOTE | 2023-02-19 09:57 | P.PN ---
Subjective Progress Note Date: 02/19/23 History of present illness: This is a 73-year-old female patient of Dr. Elijah Cedeno with past medical history of chronic diastolic heart failure and atrial fibrillation, hypertension, bradycardia , Hyperlipidemia. Patient was recently seen in the office on 02/04 and at that time underwent a 24-hour Holter monitor to rule out high-grade AV block. Patient states that yesterday she was in her kitchen, felt a fluttering feeling and lightheadedness and then next thing she knew she woke up on the floor. She has had several other episodes of almost passing out. At one time she did notice her heart rate on a pulse ox was 25. The following medications have been placed on hold: Verapamil, Lopressor, metolazone. EKG Sinus rhythm with right bundle branch block, left anterior fascicular block at 60 bpm. Telemetry has been 60s to 80s. Chest x-ray: Cardiomegaly and mild pulmonary vascular congestion CTA WBC 10.9, hemoglobin 12.5. INR 0.9. D-dimer 2. Sodium 139, potassium 3.5, chloride 95, CO2 36, BUN 35 creatinine 0.96. Blood sugar 117. Magnesium 2.4. Troponin negative 3. ProBNP 292. Home cardiac medications: Eliquis 5 mg twice daily, Lasix 40 mg twice daily, levothyroxine 75 g daily, metolazone 5 mg every 48 hours, potassium 20 mEq daily, Crestor 5 mg at bedtime, verapamil 180 mg daily Echocardiogram performed 08/28/2022 in the office revealed EF of 50-55%, moderate left ventricular hypertrophy. Mild aortic regurgitation. Ascending aorta is enlarged. Mild to moderate mitral regurgitation. Mild mitral stenosis. Mitral valve is calcified. Moderate tricuspid regurgitation. Pulmonary artery systolic pressure of 59 mmHg. 02/16 Patient is seen today in follow-up. Patient states that she has been up in her room and she did not have any lightheadedness or dizziness, no palpitations and chest pain or shortness of breath. Yesterday she had an abnormal tilt table test in the loop recorder was installed. Metolazone was discontinued and Aldactone added by Dr. Merida. Later in the morning, patient had episode of not feeling well in general and nausea vomiting and was found to be in Mobitz type II. Patient was ordered for dobutamine drip this morning at 2.5. Patient is scheduled for pacemaker insertion tomorrow with Dr. Merida. 02/17 Patient was started on dobutamine drip yesterday. She is scheduled for pacemaker insertion today with Dr. Merida. No new concerns from the patient. All questions have been answered. 02/18 Patient underwent pacemaker implantation yesterday with Dr. Merida chest x-ray reviewed by Dr. Merida. The patient denies any new concerns today. Plan is for discharge home. Device will be interrogated prior to discharge. Physical examination: Gen: This is a 73 year old female. She is resting in chair appears to be in no acute distress. VS: reviewed HEENT: Head is atraumatic, normocephalic. Pupils equal, round. Sclerae is anicteric. NECK: Supple. No JVD. LUNGS: Clear to auscultation. No wheezes or rhonchi. No intercostal retractions. HEART: Regular rate and rhythm. Systolic murmur. ABDOMEN: Soft No tenderness. EXTREMITIES: No pedal edema. No calf tenderness. NEUROLOGICAL: Patient is awake, alert and oriented x3. Assessment: Syncopal episode due to secondary degree block Mobitz 2 status post permanent pacemaker implantation Bradycardia Chronic diastolic heart failure Paroxysmal atrial fibrillation Hypertension Hyperlipidemia Plan: Continue current cardiac medications from home Patient is cleared for discharge and may follow up afternoon with Dr. Cedeno for device check and evaluation. Nurse practitioner note has been reviewed, I agree with documented findings and plan of care. Patient was seen and examined. Objective - Vital Signs Vital signs: Vital Signs Temp 98.2 F 02/19/23 03:34 Pulse 82 02/19/23 03:34 Resp 18 02/19/23 03:34 BP 113/57 02/19/23 03:34 Pulse Ox 94 L 02/19/23 03:34 FiO2 Intake & Output 02/18/23 02/19/23 02/19/23 18:59 06:59 18:59 Intake Total 150 Output Total 400 Balance -250 Intake: IV 150 Output: Urine 400 Other: Voiding Method Toilet Toilet Diaper Diaper - Labs CBC & Chem 7: 02/17/23 11:19 02/18/23 07:57 Labs: Abnormal Lab Results - Last 24 Hours (Table) 02/18/23 02/18/23 02/19/23 Range/Units 07:57 11:37 06:08 Chloride 94 L (98-107) mmol/L Carbon Dioxide 31 H (22-30) mmol/L BUN 24 H (7-17) mg/dL Glucose 182 H (74-99) mg/dL POC Glucose (mg/dL) 148 H 116 H (70-110) mg/dL
[2023-02-19 10:02] VITALS: RESP 16
[2023-02-19 12:06] VITALS: BP 150/78; PULSE 73; TEMP 97.8
[2023-02-19] MEDS ORDERED: METOPROLOL TARTRATE 25 MG TAB PO SCH (21:00)
--- NOTE | 2023-02-20 22:55 | P.DS ---
Providers Date of admission: 02/14/23 13:14 Attending physician: Titi Martin Consults: 02/14/23 13:13 Consult Physician Urgent Consulting Provider: [facility] Consult Reason/Comments: Bradycardia, syncope Do you want consulting provider notified?: Yes Primary care physician: Titi Martin Hospital Course: Diagnoses: Syncope, bradycardia with Mobitz type II, status post permanent pacemaker pl acement Bilateral knee pain secondary to the fall, negative for fractures Chronic Paroxysmal atrial fibrillation Chronic heart failure with diastolic dysfunction, not an exacerbation Hypertension Hyperlipidemia Diabetes mellitus Hypothyroidism Morbid obesity with BMI 49.2 Hospital course: This is a 73 -year-old female admitted with syncope, bradycardia, subsequent fall , chronic paroximal atrial fibrillation, and multiple other medical issues. Elevated d-dimer and CT reported negative for PE. Also found to have second-degree heart block and she underwent permanent pacemaker placement by head operator sulfide team. After the procedure head operator sulfide recommended to be severe upper abdominal and lower dose of metoprolol 25 mg daily, patient informed and she is agreeable. Patient denies any other symptoms, no chest pain or dyspnea or dizziness. No other new complaint. Patient was cleared for discharge by head operator sulfide. Patient is a comfortable home today. Problems and management plan were discussed with the patient and he verbalized understanding and acceptance Patient was found stable and can be discharged home in guarded prognosis however he needs follow-up as an outpatient. Patient was instructed to follow up with PCP Dr. Benavides within one week and patient agrees Patient was instructed to follow up with her head operator sulfide Dr. Cedeno in 1 week after discharge and she is agreeable Physical exam Gen: patient is a AAOx3, no distress CVS: S1-S2, RRR, no murmur Lungs: B/L CTA, no wheezing Abdomen: soft, no distention, no tenderness, positive bowel sounds Extremity: no leg edema or induration Time spent more than 35 minutes Plan - Discharge Summary Discharge Rx Participant: No New Discharge Prescriptions: New Metoprolol Tartrate [Lopressor] 25 mg PO BID #60 tab Continue Multivitamins, Thera [Multivitamin (formulary)] 2 tab PO DAILY Potassium Chloride 20 meq PO DAILY Omeprazole [PriLOSEC] 40 mg PO DAILY Levothyroxine Sodium [Synthroid] 75 mcg PO DAILY Glucosamine/Chondr Antonio A Sod [Osteo Bi-Flex Caplet] 2 tab PO DAILY Acetaminophen [Tylenol Arthritis] 650 mg PO Q6H PRN PRN Reason: Pain Or Fever > 100.5 metOLazone [Zaroxolyn] 5 mg PO Q48H Rosuvastatin Calcium 5 mg PO HS Cetirizine HCl [Zyrtec] 10 mg PO DAILY Apixaban [Eliquis] 5 mg PO BID Furosemide [Lasix] 40 mg PO BID@0900,1600 #60 tab Nystatin 100,000 Unit/gm Powd [Mycostatin Powder] 1 applic TOPICAL BID PRN PRN Reason: Skin Irritation Discontinued Verapamil Sr [Isoptin Sr] 180 mg PO DAILY #30 tab Metoprolol Tartrate [Lopressor] 50 mg PO BID #60 tab No Action Fluconazole [Diflucan] 150 mg PO Q7D Discharge Medication List Multivitamins, Thera [Multivitamin (formulary)] 2 tab PO DAILY 02/13/19 [History] Apixaban [Eliquis] 5 mg PO BID 06/09/21 [History] Cetirizine HCl [Zyrtec] 10 mg PO DAILY 06/09/21 [History] Glucosamine/Chondr Antonio A Sod [Osteo Bi-Flex Caplet] 2 tab PO DAILY 06/09/21 [History] Levothyroxine Sodium [Synthroid] 75 mcg PO DAILY 06/09/21 [History] Omeprazole [PriLOSEC] 40 mg PO DAILY 06/09/21 [History] Potassium Chloride 20 meq PO DAILY 06/09/21 [History] Acetaminophen [Tylenol Arthritis] 650 mg PO Q6H PRN 08/09/22 [History] Furosemide [Lasix] 40 mg PO BID@0900,1600 #60 tab 08/11/22 [Rx] Fluconazole [Diflucan] 150 mg PO Q7D 02/14/23 [History] Nystatin 100,000 Unit/gm Powd [Mycostatin Powder] 1 applic TOPICAL BID PRN 02/14/23 [History] Rosuvastatin Calcium 5 mg PO HS 02/14/23 [History] metOLazone [Zaroxolyn] 5 mg PO Q48H 02/14/23 [History] Metoprolol Tartrate [Lopressor] 25 mg PO BID #60 tab 02/19/23 [Rx] Follow up Appointment(s)/Referral(s): Titi Martin DO [Primary Care Provider] - 02/24/23 11:40 am Cedric Cedeno MD [STAFF PHYSICIAN] - 02/24/23 4:00 pm () Patient Instructions/Handouts: Pacemaker (DC) Activity/Diet/Wound Care/Special Instructions: PATIENT EDUCATION MATERIAL Instructions following a heart rhythm device implant. 1. Keep dressing DRY for 5 DAYS. You may cover the area with Saran or Cling Wrap, prior to a shower. 2. The dressing will be removed in the Device Clinic at [facility]. Absorbable sutures were used to close the wound. 3. Avoid raising the left arm above the shoulder level. 4 week restriction 4. Avoid arm movements, like backscratching, rubbing the head, or pulling on a cord. 4 weeks restriction 5. Gentle range of motion movements of the shoulder, closest to the incision should be performed to avoid a frozen shoulder. (Pendulum exercises of the shoulder) 6. The opposite arm may be used freely. 7. Avoid driving for 7 days. 8. Avoid activities such as golfing, swimming, weed whacking, lifting more than 10 pounds weight, bowling, gymnastics and weight training/lifting. (6 weeks restriction) 9. Activities such as wood chopping with an axe, pull-ups in the gymnasium, power lifting, arc-welding, being close to home induction cooktops will always be a problem. 10. Arm sling is only a reminder not to raise the arm above the head. You do not need to keep the arm completely immobilized. Your free to move the arm and use it and for normal activities. In case of any problems, please call [facility], Neeta Arnold, @ [phone], Attention: Device Clinic Device clinic follow-up in 5 days Follow-up with primary head operator sulfide in 2-3 months TAKE YOUR SLING OFF DURING THE DAY USE SLING AT NIGHT Discharge Disposition: HOME SELF-CARE
== END 2023-02-19 13:22 | disposition home or self-care (01) | DRG 243 ==
LOC: EC 09:17 → 3SCARD 13:14
PROVIDERS: ADMIT Family Medicine; ATTEND Family Medicine
PROC: 02H63JZ Insertion of Pacemaker Lead into Right Atrium, Percutaneous Approach (ICD-10-PCS; 2023-02-18)
PROC: 02HK3JZ Insertion of Pacemaker Lead into Right Ventricle, Percutaneous Approach (ICD-10-PCS; 2023-02-18)
PROC: 0JH606Z Insertion of Pacemaker, Dual Chamber into Chest Subcutaneous Tissue and Fascia, Open Approach (ICD-10-PCS; principal; 2023-02-18 07:30)
DX: I44.1 Atrioventricular block, second degree (principal); I50.32 Chronic diastolic (congestive) heart failure; Z68.42 Body mass index [BMI] 45.0-49.9, adult; E66.01 Morbid (severe) obesity due to excess calories; E78.5 Hyperlipidemia, unspecified; E03.9 Hypothyroidism, unspecified; I08.1 Rheumatic disorders of both mitral and tricuspid valves; I11.0 Hypertensive heart disease with heart failure; I45.2 Bifascicular block; I48.0 Paroxysmal atrial fibrillation; E11.9 Type 2 diabetes mellitus without complications; J44.9 Chronic obstructive pulmonary disease, unspecified; Z79.01 Long term (current) use of anticoagulants; Z79.890 Hormone replacement therapy; Z79.899 Other long term (current) drug therapy; Z80.0 Family history of malignant neoplasm of digestive organs; Z80.1 Family history of malignant neoplasm of trachea, bronchus and lung; Z82.49 Family history of ischemic heart disease and other diseases of the circulatory system; Z82.5 Family history of asthma and other chronic lower respiratory diseases; Z90.710 Acquired absence of both cervix and uterus; Z98.84 Bariatric surgery status
CPT/HCPCS: 33208; 36415; 71046; 71275; 80048; 80053; 80061; 83735; 83880; 84132; 84484; 85025; 85379; 85610; 85730; 93005; 93306; 94760; 96374; 99285

== ENCOUNTER → 2023-09-24 | Outpatient (CLI) | payer MEDICARE ==
--- NOTE | 2023-09-27 08:49 | MM ---
Reason for Exam: Screening (asymptomatic). Last mammogram was performed 1 year(s) and 1 month(s) ago. Patient History: Menarche at age 12. First Full-Term at age 26. Hysterectomy at age 49. Postmenopausal. Risk Values: Rylee 5 year model risk: 2.0%. NCI Lifetime model risk: 4.8%. Prior Study Comparison: 08/19/2021 Right Diagnostic Mammogram, [facility]. 02/20/2022 Right MG 3D diag mammo w/cad RT, [facility]. 08/24/2022 Bilateral MG 3D diag mammo w/cad JENNIFER, [facility]. Tissue Density: There are scattered areas of fibroglandular density. Findings: Analyzed By CAD. Right breast: There is no suspicious group of microcalcifications or new suspicious mass. Left breast: There is no suspicious group of microcalcifications or new suspicious mass. Overall Assessment: Negative, BI-RAD 1 Management: Screening Mammogram of both breasts in [address] [facility] will attempt to contact patient to return for supplemental views and ultrasound if indicated. Patient should continue monthly self-breast exams. A clinical breast exam by your physician is recommended on an annual basis. This exam should not preclude additional follow-up of suspicious palpable abnormalities. Note on Rylee scores and lifetime risk: 1. A Rylee score greater than 3% is considered moderate risk. If this is the case, consider specialist referral to assess eligibility for a risk reducing agent. 2. If overall lifetime risk for the development of breast cancer is 20% or higher, the patient may qualify for future screening with alternating mammogram and breast MRI. Electronically signed and approved by: Ramiro Zimmerman DO
== END | disposition home or self-care (01) ==
LOC: RADMAMWWP 14:53
PROVIDERS: ATTEND Family Medicine
DX: Z12.31 Encounter for screening mammogram for malignant neoplasm of breast (principal); Z78.0 Asymptomatic menopausal state
CPT/HCPCS: 77063; 77067

== ENCOUNTER → 2024-03-13 | Outpatient (CLI) | payer MEDICARE ==
--- NOTE | 2024-03-13 13:01 | XR ---
EXAMINATION TYPE: XR chest 2V DATE OF EXAM: 03/13/2024 12:46 PM COMPARISON: 02/19/2023 CLINICAL INDICATION: Female, 74 years old with history of I50.32 CHRONIC DIASTOLIC (CONGESTIVE) HEART FAILURE, , TECHNIQUE: Frontal and lateral views FINDINGS: Left anterior chest wall pacemaker generator with right atrial and ventricular leads. Aorta device pr ojecting over the left paramedian lower chest wall. Heart mildly enlarged with bilateral hilar promin ence and diffuse interstitial opacity. No sizable pleural effusion or tyrone consolidation. IMPRESSION: Mild cardiomegaly and pulmonary vascular congestion. Hilar enlargement suggests underlying pulmonary arterial hypertension. [facility], , 03/13/2024 12:59 PM
[2024-03-13 15:57] LABS: HCT 35.7 % (37.2-46.3); HGB 10.6 g/dL (12.0-15.0); MCH 28.4 pg (27.0-32.0); MCHC 29.7 g/dL (32.0-37.0); MCV 95.7 FL (80.0-97.0); Mean Platelet Volume 10.1 FL (9.5-12.2); NRBC Per 100 WBC 0 X 10*3/uL (0.00-0.01); Platelet Count 301 X 10*3/uL (140-440); RBC 3.73 X 10*6/uL (4.10-5.20); RDW 17.6 % (11.5-14.5); WBC 6.65 X 10*3/uL (4.50-10.00)
[2024-03-13 16:08] LABS: NT-Pro-B-Type Natriuretic Pept 403 pg/mL (0-125)
[2024-03-13 17:04] LABS: BUN/Creat Ratio 23.55 Ratio (12.00-20.00); Blood Urea Nitrogen 25.9 mg/dL (9.0-27.0); Calcium 8.4 mg/dL (8.7-10.3); Carbon Dioxide 36.6 mmol/L (21.6-31.8); Chloride 95 mmol/L (96-109); Glucose 86 mg/dL (70-110); Potassium 4.1 mmol/L (3.5-5.5); Sodium 145 mmol/L (135-145)
== END | disposition home or self-care (01) ==
LOC: RADXRMAIN 12:27
PROVIDERS: ATTEND Internal Medicine Cardiovascular Disease
DX: I50.32 Chronic diastolic (congestive) heart failure (principal); I51.7 Cardiomegaly; I48.4 Atypical atrial flutter
CPT/HCPCS: 71046; 80048; 83880; 84443; 85027